=== PATIENT | female | born 1950 | race Caucasian/White ===

== ENCOUNTER → 2016-11-26 | Outpatient (CLI) | payer MEDICARE, BC, OTHER ==
[~2016-11-26] MED LIST: ASPI325T4 PO; CA C1TAB38 PO; CALC-112 PO; CELE200C PO; CIPR500T PO; CLOP75TA PO; CLOP75TA27 PO; CRESTOR40 MG PO; DULO60CA6 PO; HYDR-2666 PO; LEVO112T4 PO; LISI-334 PO; LOSA25TA4 PO; METO25TA4 PO; MOME17SP NS; NORT25CA PO; OMEG300C PO; RABE20TA5 PO; SITA100T PO; SOLI5TAB PO; VIT D3
--- NOTE | 2016-11-26 14:21 | RAD ---
DATE: 11/26/16 EXAM: DIGITAL SCREEN BILAT W/CAD HISTORY: Routine screening COMPARISON: 06/30/15 This study was interpreted with the benefit of Computerized Aided Detection (CAD). TECHNIQUE: CC and MLO views of both breasts are obtained FINDINGS: The breast tissue density is [A ] . is primarily fatty replaced, category A. There are no dominant suspicious masses, suspicious microcalcifications or evidence of architectural distortion. Skin and nipples are intact IMPRESSION: Negative exam BI-RADS CATEGORY: 1 NEGATIVE RECOMMENDED FOLLOW-UP: 12M 12 MONTH FOLLOW-UP PQRS compliance statement: Patient information was entered into a reminder system with a target due date for the next mammogram. Mammography is a sensitive method for finding small breast cancers, but it does not detect them all and is not a substitute for careful clinical examination. A negative mammogram does not negate a clinically suspicious finding and should not result in delay in biopsying a clinically suspicious abnormality. "Our facility is accredited by the [employer] Mammography Program."
== END | disposition home or self-care (01) ==
LOC: MAMMO 13:20
PROVIDERS: ATTEND Nurse Practitioner Family
DX: Z12.31 Encounter for screening mammogram for malignant neoplasm of breast (principal)
CPT/HCPCS: G0202; 77067

== ENCOUNTER 2016-12-10 15:48 | Inpatient (IN) | payer MEDICARE, BC, OTHER ==
[~2016-12-10] VITALS: Ht 152.4 cm; Wt 90.7 kg
[2016-12-10] VITALS (7 sets, daily range): BP systolic 134–148; BP diastolic 62–82
[~2016-12-10 15:48] MED LIST changes: -CIPR500T PO; -HYDR-2666 PO
[2016-12-10] MEDS ORDERED: THROMBIN 20,000 UNIT SPRAY.SYRN KIT TP ONE (16:38)
[2016-12-10] MEDS ORDERED: SURGICEL HEMOSTAT 4X8 EACH. ONE (16:39)
[2016-12-10] MEDS ORDERED: BUPIVAC MPF-EPI 0.5%-1:200000 30 ML VIAL. ONE (16:39)
[2016-12-10] MEDS ORDERED: GELATIN SPONGE SIZE 100. ONE (16:39)
[2016-12-10] MEDS ORDERED: GLYCOPYRROLATE 1 MG/5 ML VIAL. ONE (16:42)
[2016-12-10] MEDS ORDERED: FENTANYL PF 100 MCG/2 ML VIAL. ONE ×2 (16:42→17:48)
[2016-12-10] MEDS ORDERED: DEXAMETHASONE SOD PHOS 20 MG/5 ML VIAL. ONE (16:42)
[2016-12-10] MEDS ORDERED: LIDOCAINE 2% 100 MG/5 ML DISP.SYRIN. ONE (16:42)
[2016-12-10] MEDS ORDERED: DESFLURANE > 120 MINUTES IH ONE (16:42)
[2016-12-10] MEDS ORDERED: ROCURONIUM 50 MG/5 ML VIAL. ONE (16:42)
[2016-12-10] MEDS ORDERED: NEOSTIGMINE METHYLSULFATE 5 MG/5 ML SYRINGE. ONE (16:42)
[2016-12-10] MEDS ORDERED: PROPOFOL 20 ML IV ONE (16:42)
[2016-12-10] MEDS ORDERED: ONDANSETRON PF 4 MG/2 ML VIAL. ONE (16:43)
[2016-12-10] MEDS ORDERED: CEFAZOLIN 2GM PREMIX 50 ML IV ONE (16:53)
[2016-12-10] MEDS ORDERED: MANNITOL 25% 12.5 G/50 ML VIAL FOR OR. ONE (16:53)
[2016-12-10] MEDS ORDERED: PHENYLEPHRINE in 0.9% NACL PF 1 MG/10 ML DISP.SYRIN. IV ONE (17:24)
[2016-12-10] MEDS ORDERED: BACITRACIN 50,000 UNIT in IV NORMAL SALINE 1000ML BAG 1,000 ML IRR ONE (17:40)
[2016-12-10] MEDS ORDERED: IV RINGERS,LACTATED 1000ML 1,000 ML IV SCH (18:41)
[2016-12-10] MEDS ORDERED: FENTANYL PF 100 MCG/2 ML VIAL. IV PRN (18:45)
[2016-12-10] MEDS ORDERED: HYDROMORPHONE 2 MG/ML VIAL. IV PRN (18:45)
[2016-12-10] MEDS ORDERED: LIDOCAINE 1% 1 ML SYRINGE. ID PRN (18:45)
[2016-12-10] MEDS ORDERED: ONDANSETRON PF 4 MG/2 ML VIAL. IV PRN ×2 (18:45→19:45)
[2016-12-10] MEDS ORDERED: MORPHINE SULFATE 2 MG/ML DISP.SYRIN. IV PRN (18:45)
[2016-12-10] MEDS ORDERED: PROCHLORPERAZINE 10 MG/2 ML VIAL. IV PRN (18:45)
[2016-12-10] MEDS: POTASSIUM CL 20MEQ-0.45% NACL 1,000 ML IV SCH (19:42)
[2016-12-10] MEDS ORDERED: CALCIUM CARBONATE 500 MG TAB.CHEW PO PRN (19:45)
[2016-12-10] MEDS ORDERED: DIPHENHYDRAMINE HCL 25 MG CAPSULE PO PRN (19:45)
[2016-12-10] MEDS ORDERED: 0.9 % SODIUM CHLORIDE 10 ML DISP.SYRIN. IV PRN (19:45)
[2016-12-10] MEDS ORDERED: MAG HYDROX/ALUMINUM HYD/SIMETH 30 ML ORAL.SUSP PO PRN (19:45)
[2016-12-10] MEDS ORDERED: DEXTROSE 50% 25 GM / 50ML DISP.SYRIN. IV PRN ×3 (19:45)
[2016-12-10] MEDS ORDERED: DIPHENHYDRAMINE 50 MG/ML VIAL IV PRN (19:45)
[2016-12-10] MEDS ORDERED: MAGNESIUM HYDROXIDE 2,400 MG/30 ML ORAL.SUSP. PO PRN (19:45)
[2016-12-10] MEDS ORDERED: NICARDIPINE HCL 50 MG in IV NORMAL SALINE 250ML 250 ML IV PRN (19:45)
[2016-12-10] MEDS ORDERED: FLUTICASONE 50MCG/NASAL SPRAY 16GM BOTTLE. NS PRN (22:45)
[2016-12-10] MEDS: CEFAZOLIN SODIUM 1 GM in IV NORMAL SALINE 50ML 50 ML IV SCH (23:00)
--- NOTE | 2016-12-10 23:18 | HP ---
ADMIT DATE: 12/10/2016 CHIEF COMPLAINT: Headache. HISTORY OF PRESENT ILLNESS: The patient is a 65-year-old woman who presented to the Emergency Room with fairly quick onset of headache, nausea, vomiting and slurred speech. A CT in the Emergency Room revealed a fairly good sized SDH on the right and a consult with Dr. Castillo was obtained immediately. She was taken to the OR for extraction of SDH. The patient is now in the ICU recovering well. Headache is minimal and she is responsive. Denies any other neurological symptoms. PAST MEDICAL HISTORY: Hypertension, PUD, osteoarthritis, hypothyroidism. FAMILY HISTORY: Unknown. SOCIAL HISTORY: No toxic habits. ALLERGIES: No known drug allergies. MEDICATIONS: Home medications reconciled with MAR. REVIEW OF SYSTEMS: The patient is sleepy, but waking to verbal stimuli. Review of systems abbreviated secondary to fatigue and recovery from anesthesia. Denies significant headache, minimal in comparison to earlier today. Denies any nausea, vomiting, any vision problems. PHYSICAL EXAMINATION: VITAL SIGNS: From today show a blood pressure of 135/82, heart rate of 78, respiratory rate is 16. She is afebrile. GENERAL: This is a well-nourished 65-year-old woman resting in bed with eyes closed. HEENT: Shows gauze covered bur hole on the right parietal area. NECK: Supple. LUNGS: Clear to auscultation bilaterally. CARDIOVASCULAR: Regular rate and rhythm. ABDOMEN: Obese, positive bowel sounds, soft, nontender. EXTREMITIES: Show no edema, no clubbing. No cyanosis. LABORATORY DATA: CBC with a WBC of 10.6, hemoglobin of 11.9, MCV of 74, platelets of 308. Chemistries with a BUN and creatinine of 20 and 1.8, normal electrolytes, glucose 132, repeat blood sugars in the 130 to 140 area. Calcium within normal. IMAGING: CT of the head obtained at [facility], unavailable for review here. ASSESSMENT AND PLAN: The patient is a 65-year-old woman with subdural hematoma. Per Dr. Castillo, bleed appeared to be acute and was evacuated successfully earlier today. She is now recovering appropriately in the ICU. Continue to monitor. Blood pressure is borderline. We will restart p.o. medications. Add hydralazine p.r.n. for blood pressure control during the night. Further adjustment in her medications may be indicated. She is on multiple potential blood thinners including aspirin, Plavix and celecoxib. We will hold all except for baby aspirin for heart protection. We will monitor H and H. Serial CTs q. [address] Fonseca. Osteoarthritis, will be treated for now with Tylenol or Lortab p.r.n. The patient does have a history of PUD and is on Aciphex at home. We will switch to Protonix as available here. MAYDA MARAVILLA MD DR: UR/nts JOB#: [id number] / [id number] OLYA Mendez APRN
[2016-12-11] VITALS (24 sets, daily range): BP systolic 118–156; BP diastolic 55–85
[2016-12-11] MEDS: hydrALAZINE 20 MG/ML VIAL. IVP PRN ×2 (00:14→05:09)
[2016-12-11] MEDS: FENTANYL PF 100 MCG/2 ML VIAL. IV PRN ×2 (00:15→05:10)
[2016-12-11 04:54] LABS: BASO # 0.1 x10^3/uL (0.0-0.2); BASO % 0 % (0-3); EOS % 0 % (0-3); HEMATOCRIT 39.9 % (36.0-47.0); HEMOGLOBIN 12.8 g/dL (12.0-15.5); LYMPH # 1.5 x10^3/uL (1.0-4.8); LYMPH % 6 % (24-48); MEAN CORPUSCULAR HEMOGLOBIN 28 pg (25-35); MEAN CORPUSCULAR HGB CONC 32 g/dL (31-37); MEAN CORPUSCULAR VOLUME 86 fL (79-100); MONO % 2 % (0-9); NEUT % 92 % (31-73); PLATELET COUNT 274 x10^3/uL (140-400); RED BLOOD COUNT 4.62 x10^6/uL (3.50-5.40); RED CELL DISTRIBUTION WIDTH 13.6 % (11.5-14.5); WHITE BLOOD COUNT 26.6 x10^3/uL (4.0-11.0)
[2016-12-11 05:04] LABS: CALCIUM 9.1 mg/dL (8.5-10.1); CREATININE 1.1 mg/dL (0.6-1.0); GFR 49.5; POTASSIUM 4.3 mmol/L (3.5-5.1)
[2016-12-11 05:07] LABS: INR 1.1 (0.8-1.1); PROTHROMBIN TIME PATIENT 13.2 SEC (11.7-14.0)
[2016-12-11 06:29] LABS: % EOS 1 % (0-5); PLT ESTIMATE ADEQUATE (ADEQUATE)
[2016-12-11] MEDS: CEFAZOLIN SODIUM 1 GM in IV NORMAL SALINE 50ML 50 ML IV SCH ×2 (07:35→18:05)
[2016-12-11] MEDS: LEVOTHYROXINE 112 MCG TABLET PO SCH (07:35)
[2016-12-11] MEDS: PANTOPRAZOLE 40 MG TABLET. PO SCH ×2 (07:37→08:58)
[2016-12-11] MEDS: NORTRIPTYLINE 25 MG CAPSULE PO SCH (08:57)
[2016-12-11] MEDS: LOSARTAN POTASSIUM 50 MG TABLET. PO SCH (08:58)
[2016-12-11] MEDS: METOPROLOL TART IMMED RELEASE 25 MG TABLET PO SCH ×2 (08:58→21:21)
[2016-12-11] MEDS: OXYBUTYNIN CHLORIDE 5 MG TABLET PO SCH ×3 (08:59→21:21)
[2016-12-11] MEDS: DULOXETINE HCL 30 MG CAPSULE.DR. PO SCH (08:59)
[2016-12-11] MEDS ORDERED: CHOLECALCIFEROL (VITAMIN D3) 1,000 UNIT TABLET PO SCH (09:00)
[2016-12-11] MEDS ORDERED: ASPIRIN 325 MG TABLET PO SCH (09:00)
[2016-12-11] MEDS: CHOLECALCIFEROL (VITAMIN D3) 1,000 UNIT TABLET PO SCH (09:00)
[2016-12-11] MEDS: LINAGLIPTIN 5 MG TABLET PO SCH (09:00)
[2016-12-11] MEDS ORDERED: OMEGA-3 FATTY ACIDS/FISH OIL 1,000 MG CAPSULE. PO SCH (09:00)
[2016-12-11] MEDS: POTASSIUM CL 20MEQ-0.45% NACL 1,000 ML IV SCH (09:02)
--- NOTE | 2016-12-11 11:29 | PDOC ---
PROGRESS NOTES Chief Complaint Chief Complaint SDH ASSESSMENT AND PLAN: 1. SDH: s/p evacuation 12/[address] Torres. recovering well. worsening expressive aphasia since procedure; present at admit as well. start decadron IV. d/w Dr Torres 2. HTN: much improved. currently on home regimen 3. CAD: no acute issues. previously on ASA/plavix. latter currently on hold 4. OA: hold NSAID. tylenol PRN, lortab 5. PUD: on PPI Vitals Vitals Vital Signs Date Time Temp Pulse Resp B/P Pulse Ox O2 Delivery O2 Flow Rate FiO2 12/11/16 10:41 98.9 94 121/58 95 Nasal Cannula 2.0 98.9 12/11/16 09:40 16 Physical Exam Physical Exam mild aphasia, MS 5/5 x4 General: Alert, Cooperative, No acute distress Heart: Regular rate Lungs: Clear Abdomen: Normal bowel sounds, No tenderness Extremities: No clubbing, No edema Skin: No rashes Labs LABS Laboratory Tests Test 12/10/16 19:37 12/11/16 04:40 Glucose (Fingerstick) 136mg/dL (70-99) White Blood Count 26.6x10^3/uL (4.0-11.0) Red Blood Count 4.62x10^6/uL (3.50-5.40) Hemoglobin 12.8g/dL (12.0-15.5) Hematocrit 39.9% (36.0-47.0) Mean Corpuscular Volume 86fL (79-100) Mean Corpuscular Hemoglobin 28pg (25-35) Mean Corpuscular Hemoglobin Concent 32g/dL (31-37) Red Cell Distribution Width 13.6% (11.5-14.5) Platelet Count 274x10^3/uL (140-400) Neutrophils (%) (Auto) 92% (31-73) Lymphocytes (%) (Auto) 6% (24-48) Monocytes (%) (Auto) 2% (0-9) Eosinophils (%) (Auto) 0% (0-3) Basophils (%) (Auto) 0% (0-3) Neutrophils # (Auto) 24.6x10^3uL (1.8-7.7) Lymphocytes # (Auto) 1.5x10^3/uL (1.0-4.8) Monocytes # (Auto) 0.4x10^3/uL (0.0-1.1) Eosinophils # (Auto) 0.0x10^3/uL (0.0-0.7) Basophils # (Auto) 0.1x10^3/uL (0.0-0.2) Segmented Neutrophils % 94% (35-66) Band Neutrophils % 1% (0-9) Lymphocytes % 3% (24-48) Monocytes % 1% (0-10) Eosinophils % 1% (0-5) Platelet Estimate Adequate (ADEQUATE) Prothrombin Time 13.2SEC (11.7-14.0) Prothromb Time International Ratio 1.1 (0.8-1.1) Activated Partial Thromboplast Time 26SEC (24-38) Sodium Level 139mmol/L (136-145) Potassium Level 4.3mmol/L (3.5-5.1) Chloride Level 103mmol/L (98-107) Carbon Dioxide Level 24mmol/L (21-32) Anion Gap 12 (6-14) Blood Urea Nitrogen 15mg/dL (7-20) Creatinine 1.1mg/dL (0.6-1.0) Estimated GFR (Cockcroft-Gault) 49.5 Glucose Level 189mg/dL (70-99) Calcium Level 9.1mg/dL (8.5-10.1) Review of Systems Review of Systems no WILL. MAYDA Cabrera MD Dec 11, 2016 11:29
[2016-12-11] MEDS ORDERED: DEXAMETHASONE SOD PHOS 20 MG/5 ML VIAL. IV ONE (11:45)
[2016-12-11] MEDS ORDERED: HYDROCODONE/APAP 5/325MG TABLET. PO PRN (13:45)
[2016-12-11] MEDS: HYDROCODONE/APAP 5/325MG TABLET. PO PRN ×2 (13:52→14:49)
--- NOTE | 2016-12-11 14:11 | PDOC ---
PROGRESS NOTES Subjective Subjective POD #1 awake, alert mild headache family at bedside Objective Objective Vital Signs Date Time Temp Pulse Resp B/P Pulse Ox O2 Delivery O2 Flow Rate FiO2 12/11/16 13:52 16 95 Nasal Cannula 2.0 12/11/16 13:45 98.9 94 118/69 98.9 Intake and Output 12/11/16 07:00 Intake Total 2080 ml Output Total 545 ml Balance 1535 ml Intake Oral 280 ml IV Total 1800 ml Output Urine Total 525 ml Estimated Blood Loss 20 ml # Voids 1 Physical Exam General: Alert, Oriented X3, Cooperative, No acute distress, Other (some expressive aphasia) MUSCULOSKELETAL: Other (CESPEDES, pupils equal) Skin: Other (dressing changed, drain in place with minimal output, connie intact) Assessment Assessment Problems Medical Problems: (1) Subdural hematoma Status: Acute Plan Plan of Care steroids for 24 hrs continue drain keep in ICU may be up to bathroom DVT/ SCDs Comment Review of Relevant I have reviewed the following items jessica (where applicable) has been applied. Labs Laboratory Tests Test 12/10/16 16:32 12/10/16 19:37 12/11/16 04:40 Glucose (Fingerstick) 138mg/dL (70-99) 136mg/dL (70-99) White Blood Count 26.6x10^3/uL (4.0-11.0) Red Blood Count 4.62x10^6/uL (3.50-5.40) Hemoglobin 12.8g/dL (12.0-15.5) Hematocrit 39.9% (36.0-47.0) Mean Corpuscular Volume 86fL (79-100) Mean Corpuscular Hemoglobin 28pg (25-35) Mean Corpuscular Hemoglobin Concent 32g/dL (31-37) Red Cell Distribution Width 13.6% (11.5-14.5) Platelet Count 274x10^3/uL (140-400) Neutrophils (%) (Auto) 92% (31-73) Lymphocytes (%) (Auto) 6% (24-48) Monocytes (%) (Auto) 2% (0-9) Eosinophils (%) (Auto) 0% (0-3) Basophils (%) (Auto) 0% (0-3) Neutrophils # (Auto) 24.6x10^3uL (1.8-7.7) Lymphocytes # (Auto) 1.5x10^3/uL (1.0-4.8) Monocytes # (Auto) 0.4x10^3/uL (0.0-1.1) Eosinophils # (Auto) 0.0x10^3/uL (0.0-0.7) Basophils # (Auto) 0.1x10^3/uL (0.0-0.2) Segmented Neutrophils % 94% (35-66) Band Neutrophils % 1% (0-9) Lymphocytes % 3% (24-48) Monocytes % 1% (0-10) Eosinophils % 1% (0-5) Platelet Estimate Adequate (ADEQUATE) Prothrombin Time 13.2SEC (11.7-14.0) Prothromb Time International Ratio 1.1 (0.8-1.1) Activated Partial Thromboplast Time 26SEC (24-38) Sodium Level 139mmol/L (136-145) Potassium Level 4.3mmol/L (3.5-5.1) Chloride Level 103mmol/L (98-107) Carbon Dioxide Level 24mmol/L (21-32) Anion Gap 12 (6-14) Blood Urea Nitrogen 15mg/dL (7-20) Creatinine 1.1mg/dL (0.6-1.0) Estimated GFR (Cockcroft-Gault) 49.5 Glucose Level 189mg/dL (70-99) Calcium Level 9.1mg/dL (8.5-10.1) Laboratory Tests Test 12/10/16 16:32 12/10/16 19:37 12/11/16 04:40 Glucose (Fingerstick) 138mg/dL (70-99) 136mg/dL (70-99) White Blood Count 26.6x10^3/uL (4.0-11.0) Red Blood Count 4.62x10^6/uL (3.50-5.40) Hemoglobin 12.8g/dL (12.0-15.5) Hematocrit 39.9% (36.0-47.0) Mean Corpuscular Volume 86fL (79-100) Mean Corpuscular Hemoglobin 28pg (25-35) Mean Corpuscular Hemoglobin Concent 32g/dL (31-37) Red Cell Distribution Width 13.6% (11.5-14.5) Platelet Count 274x10^3/uL (140-400) Neutrophils (%) (Auto) 92% (31-73) Lymphocytes (%) (Auto) 6% (24-48) Monocytes (%) (Auto) 2% (0-9) Eosinophils (%) (Auto) 0% (0-3) Basophils (%) (Auto) 0% (0-3) Neutrophils # (Auto) 24.6x10^3uL (1.8-7.7) Lymphocytes # (Auto) 1.5x10^3/uL (1.0-4.8) Monocytes # (Auto) 0.4x10^3/uL (0.0-1.1) Eosinophils # (Auto) 0.0x10^3/uL (0.0-0.7) Basophils # (Auto) 0.1x10^3/uL (0.0-0.2) Segmented Neutrophils % 94% (35-66) Band Neutrophils % 1% (0-9) Lymphocytes % 3% (24-48) Monocytes % 1% (0-10) Eosinophils % 1% (0-5) Platelet Estimate Adequate (ADEQUATE) Prothrombin Time 13.2SEC (11.7-14.0) Prothromb Time International Ratio 1.1 (0.8-1.1) Activated Partial Thromboplast Time 26SEC (24-38) Sodium Level 139mmol/L (136-145) Potassium Level 4.3mmol/L (3.5-5.1) Chloride Level 103mmol/L (98-107) Carbon Dioxide Level 24mmol/L (21-32) Anion Gap 12 (6-14) Blood Urea Nitrogen 15mg/dL (7-20) Creatinine 1.1mg/dL (0.6-1.0) Estimated GFR (Cockcroft-Gault) 49.5 Glucose Level 189mg/dL (70-99) Calcium Level 9.1mg/dL (8.5-10.1) Medications Current Medications Thrombin 20,000 unit STK-MED ONCE TP Last administered on 12/10/16t 17:56; Start 12/10/16 at 16:38; Stop 12/10/16 at 16:39; Status DC Gelatin (Gelfoam Size 100) 1 each STK-MED ONCE .ROUTE Last administered on t 17:56; Start 12/10/16 at 16:39; Stop 12/10/16 at 16:40; Status DC Cellulose 1 each STK-MED ONCE .ROUTE ; Start 12/10/16 at 16:39; Stop 12/10/16 at 16:40; Status DC Bupivacaine HCl/ Epinephrine Bitart (Sensorcain-Mpf Epi 0.5%-1:[id number]) 30 ml STK -MED ONCE .ROUTE Last administered on 12/10/16t 17:56; Start 12/10/16 at 16:39 ; Stop 12/10/16 at 16:40; Status DC Desflurane (Suprane) 90 ml STK-MED ONCE IH ; Start 12/10/16 at 16:42; Stop 12/10 at 16:43; Status DC Fentanyl Citrate (Fentanyl 2ml Vial) 100 mcg STK-MED ONCE .ROUTE ; Start at 16:42; Stop 12/10/16 at 16:43; Status DC Glycopyrrolate (Robinul) 1 mg STK-MED ONCE .ROUTE ; Start 12/10/16 at 16:42; Stop 12/10/16 at 16:43; Status DC Neostigmine Methylsulfate 5 mg STK-MED ONCE .ROUTE ; Start 12/10/16 at 16:42; Stop 12/10/16 at 16:43; Status DC Rocuronium [place] 50 mg 50 mg STK-MED ONCE .ROUTE ; Start 12/10/16 at 16:42; Stop 12/10/16 at 16:43; Status DC Propofol (Diprivan) 20 ml @ As Directed STK-MED ONCE IV ; Start 12/10/16 at 16: 42; Stop 12/10/16 at 16:43; Status DC Lidocaine HCl 100 mg STK-MED ONCE .ROUTE ; Start 12/10/16 at 16:42; Stop at 16:43; Status DC Dexamethasone Sodium Phosphate (Decadron) 20 mg STK-MED ONCE .ROUTE ; Start at 16:42; Stop 12/10/16 at 16:43; Status DC Ondansetron HCl 4 mg 4 mg STK-MED ONCE .ROUTE ; Start 12/10/16 at 16:43; Stop at 16:44; Status DC Cefazolin Sodium/ Dextrose (Ancef 2gm Premix) 50 ml @ As Directed STK-MED ONCE IV ; Start 12/10/16 at 16:53; Stop 12/10/16 at 16:54; Status DC Mannitol (Mannitol) 12.5 g STK-MED ONCE .ROUTE ; Start 12/10/16 at 16:53; Stop 12/10/16 at 16:54; Status DC Phenylephrine HCl 1 mg 1 mg STK-MED ONCE IV ; Start 12/10/16 at 17:24; Stop at 17:25; Status DC Bacitracin/Sodium Chloride (Iv Sodium Chloride 0.9% 1000ml Bag) 1,000 ml @ 1, 000 mls/hr 1X PERIOP ONCE IRR Last administered on 12/10/16 17:56; Start at 17:40; Stop 12/10/16 at 18:39; Status DC Fentanyl Citrate (Fentanyl 2ml Vial) 100 mcg STK-MED ONCE .ROUTE ; Start at 17:48; Stop 12/10/16 at 17:49; Status DC Ondansetron HCl (Zofran) 4 mg PRN Q6HRS PRN IV Nausea; Start 12/10/16 at 18:45 ; Stop 12/10/16 at 22:54; Status DC Fentanyl Citrate (Fentanyl 2ml Vial) 25 mcg PRN Q5MIN PRN IV MILD PAIN; Start 12/10/16 at 18:45; Stop 12/11/16 at 18:44 Fentanyl Citrate (Fentanyl 2ml Vial) 50 mcg PRN Q5MIN PRN IV MODERATE PAIN Last administered on 12/11/16 05:10; Start 12/10/16 at 18:45; Stop 12/11/16 at 18:44 Morphine Sulfate 1 mg 1 mg PRN Q10MIN PRN IV SEVERE PAIN; Start 12/10/16 at 18: 45; Stop 12/11/16 at 18:44 Lactated Ringer's (Iv Lactated Ringers) 1,000 ml @ 30 mls/hr Q24H IV Last administered on 12/10/16 16:30; Start 12/10/16 at 18:41; Stop 12/11/16 at 06:40 ; Status DC Lidocaine HCl 2 ml 1X PRN PRN ID IV START; Start 12/10/16 at 18:45; Stop at 18:44 Hydromorphone HCl (Dilaudid) 0.5 mg PRN Q10MIN PRN IV SEV PAIN,Second choice; Start 12/10/16 at 18:45; Stop 12/11/16 at 18:44 Prochlorperazine Edisylate 5 mg 5 mg PACU PRN PRN IV NAUSEA; Start 12/10/16 at 18:45; Stop 12/11/16 at 18:44 Nicardipine HCl/ Sodium Chloride (Cardene/Iv Sodium Chloride 0.9% 250ml) 270 ml @ 27 mls/hr TITRATE PRN IV PER PROTOCOL; Start 12/10/16 at 19:45 Al Hydroxide/Mg Hydroxide (Mylanta Plus Xs) 30 ml PRN Q3HRS PRN PO HEARTBURN / GAS; Start 12/10/16 at 19:45 Calcium Carbonate/ Glycine (Tums) 500 mg PRN Q3HRS PRN PO INDIGESTION; Start at 19:45 Diphenhydramine HCl (Benadryl) 25 mg PRN Q6HRS PRN PO ITCHING; Start 12/10/16 at 19:45 Diphenhydramine HCl (Benadryl) 25 mg PRN Q6HRS PRN IV ITCHING; Start 12/10/16 at 19:45 Sodium Chloride 3 ml 3 ml QSHIFT PRN IV AFTER MEDS AND BLOOD DRAWS; Start 12/10 at 19:45 Potassium Chloride/Sodium Chloride (KCl 20 Meq-0.45% Nacl) 1,000 ml @ 75 mls/ hr [id number] IV Last administered on 12/10/16t 19:42; Start 12/10/16 at 19:42 Dextrose 12.5 gm PRN Q15MIN PRN IV SEE COMMENTS; Start 12/10/16 at 19:45 Magnesium Hydroxide (Milk Of Magnesia) 2,400 mg PRN Q12HR PRN PO CONSTIPATION; Start 12/10/16 at 19:45 Ondansetron HCl 4 mg 4 mg PRN Q6HRS PRN IV NAUESA, 1ST CHOICE; Start 12/10/16 at 19:45 Cefazolin Sodium/ Sodium Chloride (Ancef/Iv Sodium Chloride 0.9% 50ml) 50 ml @ 100 mls/hr Q8H IV Last administered on 12/11/16 07:35; Start 12/10/16 at 23:00 ; Stop 12/11/16 at 15:29 Dextrose 12.5 gm PRN Q15MIN PRN IV SEE COMMENTS; Start 12/10/16 at 19:45; Stop 12/10/16 at 20:00; Status DC Dextrose 12.5 gm PRN Q15MIN PRN IV SEE COMMENTS; Start 12/10/16 at 19:45; Stop 12/10/16 at 20:00; Status DC Aspirin (Mariella Aspirin) 325 mg DAILY PO Last administered on 12/11/16 08:59; Start 12/11/16 at 09:00; Stop 12/11/16 at 13:36; Status DC Levothyroxine Sodium (Synthroid) 112 mcg DAILY07 PO Last administered on 07:35; Start 12/11/16 at 07:00 Losartan Potassium (Cozaar) 50 mg DAILY PO Last administered on 12/11/16 08:58 ; Start 12/11/16 at 09:00 Metoprolol Tartrate (Lopressor) 25 mg BID PO Last administered on 12/11/16 08: 58; Start 12/11/16 at 09:00 Nortriptyline HCl (Pamelor) 25 mg DAILY PO Last administered on 12/11/16 08:57 ; Start 12/11/16 at 09:00 Duloxetine HCl (Cymbalta) 60 mg DAILY PO Last administered on 12/11/16 08:59; Start 12/11/16 at 09:00 Fluticasone Propionate (Flonase) 1 spray PRN DAILY PRN NS SINUS INFLAMATION; Start 12/10/16 at 22:45 Fish Oil (Fish Oil) 1,000 mg DAILY PO Last administered on 12/11/16 08:59; Start 12/11/16 at 09:00; Stop 12/11/16 at 13:36; Status DC Pantoprazole Sodium (Protonix) 40 mg DAILYAC PO Last administered on 12/11/16 07:37; Start 12/11/16 at 07:30 Atorvastatin Calcium (Lipitor) 80 mg HS PO ; Start 12/11/16 at 21:00 Linagliptin (Tradjenta) 5 mg DAILY PO Last administered on 12/11/16 09:00; Start 12/11/16 at 09:00 Oxybutynin Chloride (Ditropan) 5 mg TID PO Last administered on 12/11/16 08:59 ; Start 12/11/16 at 09:00 Vitamin D (Vitamin D3) 2,000 unit DAILY PO Last administered on 12/11/16 09:02 ; Start 12/11/16 at 09:00; Stop 12/11/16 at 13:43; Status DC Vitamin D (Vitamin D3) 2,000 unit DAILY PO ; Start 12/11/16 at 09:00 Hydralazine HCl (Apresoline) 10 mg PRN Q4HRS PRN IVP ELEVATED BP, SEE COMMENTS Last administered on 12/11/16 05:09; Start 12/10/16 at 23:00 Dexamethasone Sodium Phosphate (Decadron) 10 mg 1X ONCE IV Last administered on 12/11/16 12:55; Start 12/11/16 at 11:45; Stop 12/11/16 at 11:46; Status DC Acetaminophen/ Hydrocodone Bitart (Lortab 5/325) 1 tab PRN Q4HRS PRN PO PAIN Last administered on 12/11/16 13:52; Start 12/11/16 at 13:45 Acetaminophen/ Hydrocodone Bitart (Lortab 5/325) 2 tab PRN Q4HRS PRN PO PAIN; Start 12/11/16 at 13:45 Active Scripts Active Reported Citracal + D Er Tablet (Calcium Carb & Cit/Vitamin D3) 1 Each Tablet.er 1 Each PO Nasonex (Mometasone Furoate) 17 Gm [place].pump 17 Gm NS PRN Clopidogrel (Clopidogrel Bisulfate) 75 Mg Tablet 75 Mg PO DAILY Losartan Potassium 25 Mg Tablet 50 Mg PO Fish Oil (Turner-3 Fatty Acids) 300 Mg Capsule 300 Mg PO DAILY Cymbalta (Duloxetine Hcl) 60 Mg Capsule.dr 60 Mg PO DAILY Crestor (Rosuvastatin Calcium) 40 Mg Tablet 40 Mg PO HS Levothyroxine Sodium 112 Mcg Tablet 112 Mcg PO DAILY Aciphex (Rabeprazole Sodium) 20 Mg Tablet.dr 20 Mg PO DAILY Vesicare (Solifenacin Succinate) 5 Mg Tablet 10 Mg PO DAILY Januvia (Sitagliptin Phosphate) 100 Mg Tablet 100 Mg PO DAILY Celebrex (Celecoxib) 200 Mg Capsule 200 Mg PO DAILY Metoprolol Tartrate 25 Mg Tablet 25 Mg PO BID Aspirin 325 Mg Tablet 325 Mg PO DAILY [Vit D3] 2,000 Units DAILY Nortriptyline Hcl 25 Mg Capsule 25 Mg PO DAILY Vitals/I & O Vital Sign - Last 24 Hours 12/10/16 12/10/16 12/10/16 12/10/16 16:21 19:15 19:15 19:30 Temp 100.1 98.2 100.1 98.2 Pulse 80 74 72 Resp 16 18 B/P 152/79 130/60 143/70 Pulse Ox 98 95 98 O2 Delivery Room Air Mask Simple Mask Simple Mask O2 Flow Rate 10 8 10 12/10/16 12/10/16 12/10/16 12/10/16 19:45 20:00 20:02 20:15 Temp 98.7 98.7 Pulse 72 72 72 Resp 18 18 B/P 140/62 138/58 134/59 Pulse Ox 94 94 94 O2 Delivery Nasal Cannula Nasal Cannula Nasal Cannula Nasal Cannula O2 Flow Rate 2 2 2 2 12/10/16 12/10/16 12/10/16 12/10/16 20:45 21:00 21:00 21:00 Temp 97.8 97.8 Pulse 76 76 76 Resp 16 B/P 134/62 142/66 142/66 Pulse Ox 94 96 O2 Delivery Nasal Cannula Nasal Cannula O2 Flow Rate 2.0 2.0 12/10/16 12/10/16 12/10/16 12/10/16 21:00 21:15 21:30 21:45 Pulse 70 70 78 Resp 16 B/P 138/64 142/68 135/82 Pulse Ox 96 96 96 O2 Delivery Nasal Cannula Nasal Cannula Nasal Cannula Nasal Cannula O2 Flow Rate 2.0 2.0 2.0 2.0 12/10/16 12/10/16 12/11/16 12/11/16 22:15 22:45 00:00 00:00 Temp 98.0 98.0 Pulse 84 82 80 Resp 16 16 16 B/P 136/68 148/72 142/76 Pulse Ox 96 98 96 O2 Delivery Nasal Cannula Nasal Cannula Nasal Cannula Nasal Cannula O2 Flow Rate 2.0 2.0 2.0 2.0 12/11/16 12/11/16 12/11/16 12/11/16 00:14 01:00 01:00 02:00 Pulse 80 88 88 88 Resp 16 20 B/P 166/81 151/67 139/73 156/66 Pulse Ox 98 96 O2 Delivery Nasal Cannula Nasal Cannula O2 Flow Rate 2.0 2.0 12/11/16 12/11/16 12/11/16 12/11/16 03:00 04:00 04:00 05:00 Temp 98.9 98.9 Pulse 88 92 99 Resp 20 18 B/P 146/75 138/73 129/62 Pulse Ox 97 96 O2 Delivery Nasal Cannula Nasal Cannula Nasal Cannula O2 Flow Rate 2.0 2.0 2.0 12/11/16 12/11/16 12/11/16 12/11/16 05:00 05:09 06:00 07:00 Temp 98.9 98.9 Pulse 100 102 94 94 Resp 18 18 B/P 132/64 142/69 138/62 136/64 Pulse Ox 94 95 95 O2 Delivery Nasal Cannula Nasal Cannula Nasal Cannula O2 Flow Rate 2.0 2.0 2.0 12/11/16 12/11/16 12/11/16 12/11/16 07:40 08:00 08:58 08:58 Temp 98.9 98.9 Pulse 94 100 94 B/P 130/65 127/67 136/64 Pulse Ox 95 O2 Delivery Nasal Cannula Nasal Cannula O2 Flow Rate 2.0 2.0 12/11/16 12/11/16 12/11/16 12/11/16 09:00 09:40 10:41 11:57 Temp 98.9 98.9 98.9 98.9 98.9 98.9 Pulse 94 94 94 94 Resp 16 B/P 136/64 121/68 121/58 120/55 Pulse Ox 95 95 95 O2 Delivery Nasal Cannula Nasal Cannula Nasal Cannula O2 Flow Rate 2.0 2.0 2.0 12/11/16 12/11/16 12/11/16 12/11/16 12:00 12:43 13:45 13:52 Temp 98.9 98.9 98.9 98.9 Pulse 94 94 Resp 14 16 B/P 118/69 118/69 Pulse Ox 95 95 95 O2 Delivery Nasal Cannula Nasal Cannula Nasal Cannula Nasal Cannula O2 Flow Rate 2.0 2.0 2.0 2.0 Intake and Output 12/10/16 12/10/16 12/11/16 15:00 23:00 07:00 Intake Total 1180 ml 900 ml Output Total 245 ml 300 ml Balance 935 ml 600 ml ANJANA BENSON MD Dec 11, 2016 14:11
[2016-12-11] MEDS: DEXAMETHASONE SOD PHOS 4 MG/ML VIAL IV SCH ×2 (18:10→23:38)
[2016-12-11] MEDS: ATORVASTATIN CALCIUM 40 MG TABLET. PO SCH (21:21)
--- NOTE | 2016-12-11 23:51 | OP ---
DATE OF SURGERY: 12/10/2016 PREOPERATIVE DIAGNOSES: Left frontotemporal parietal acute subdural hematoma with left to right shift. POSTOPERATIVE DIAGNOSES: Left frontotemporal parietal acute subdural hematoma with left to right shift. OPERATION PERFORMED: Left frontotemporal parietal craniotomy with evacuation of acute subdural hematoma and placement of drain. SURGEON: Lee Benson M.D. OPERATIVE INDICATIONS: The patient is a very pleasant 66-year-old woman, who has undergone a lumbar spine operations by me in the past and has done well. She fell about 3 weeks ago, struck the right side of her face and developed a significant ecchymosis over her right face and then on the day of admission developed, acutely feelings of unsteadiness in the afternoon combined with light headedness and then extremely severe headache with nausea and vomiting. She was taken to the Emergency Room and evaluated, the CT scan of the head was performed and she was transferred to [facility] for further evaluation and treatment. The patient was on Plavix. At the time she was seen, she was neurologically intact, her speech was slightly slowed and there was a mild right drift, but otherwise she was neurologically intact. On her imaging studies, there was a large acute subdural hematoma in the left frontotemporal parietal region with significant left to right shift. My concerns with on Plavix. She may continue to bleed. She had a significant shift and I felt it most prudent to operate emergently removed the subdural, obtain hemostasis and try to prevent severe neurologic sequelae. I did discuss this and consent was given. DESCRIPTION OF PROCEDURE: Following general endotracheal anesthesia, the patient was positioned supine on the operating room table, a roll was placed beneath the left shoulder and head was turned to 90 degrees to the right and the left calvarium was clipped, prepped and draped in standard fashion. SAMANTA hose and AV impulse boots were applied for DVT prophylaxis. Ancef 2 grams was given less than 1 hour prior to initiation of surgery. A reverse question jessica type incision was made Aesculap clips were used along the skin edge and I flap the skin and temporalis muscle forward and placed self-retaining retractors. I brought in the high-speed air drill, made 3 lily holes, which were then connected with the craniotome and the brain flap was developed. The dura beneath was very tense and I opened the dura and cruciate fashion and there was a significant expression of gelatinous clotted blood along with some fresh blood beneath. I gently worked and removed the exposed clotted blood and there was an area of active bleeding on the surface of the brain and the small focus was coagulated. I then gently retracted the brain with a large brain retractor and removed clot, especially from the temporal region and then anteriorly and posteriorly and as I worked, I was able to get an excellent removal of the blood clots. I irrigated copiously with saline and at this point, I had excellent hemostasis. I closed the dura with interrupted 4-0 Nurolon and drainage and the bone flap was replaced and secured with microplates. The temporalis muscle was closed separate layer and then the skin and subcutaneous tissue were closed with interrupted absorbable sutures and the skin with skin connie. The operation went well and the patient was awakened uneventfully, taken to recovery room in excellent condition. Prior to closure, I did place a 7-Ghanaian perforated drain, which I brought out through a small separate stab incision. I felt the surgery went very well. LEE BENSON MD DR: WILBUR/jak JOB#: [id number] / [id number] KIMBERLY
[2016-12-12] VITALS (23 sets, daily range): BP systolic 106–166; BP diastolic 56–90
[2016-12-12] MEDS: hydrALAZINE 20 MG/ML VIAL. IVP PRN (03:39)
[2016-12-12] MEDS: DEXAMETHASONE SOD PHOS 4 MG/ML VIAL IV SCH ×2 (05:28→12:00)
[2016-12-12 05:37] LABS: BASO # 0.2 x10^3/uL (0.0-0.2); BASO % 1 % (0-3); EOS % 0 % (0-3); HEMATOCRIT 36.1 % (36.0-47.0); HEMOGLOBIN 12.1 g/dL (12.0-15.5); LYMPH # 1.6 x10^3/uL (1.0-4.8); LYMPH % 9 % (24-48); MEAN CORPUSCULAR HEMOGLOBIN 28 pg (25-35); MEAN CORPUSCULAR HGB CONC 33 g/dL (31-37); MEAN CORPUSCULAR VOLUME 84 fL (79-100); MONO % 3 % (0-9); NEUT % 87 % (31-73); PLATELET COUNT 274 x10^3/uL (140-400); RED BLOOD COUNT 4.29 x10^6/uL (3.50-5.40); RED CELL DISTRIBUTION WIDTH 13.7 % (11.5-14.5)
[2016-12-12 05:52] LABS: CALCIUM 9.4 mg/dL (8.5-10.1); GFR 55.3; POTASSIUM 4.4 mmol/L (3.5-5.1)
[2016-12-12] MEDS: LEVOTHYROXINE 112 MCG TABLET PO SCH (07:36)
[2016-12-12] MEDS: PANTOPRAZOLE 40 MG TABLET. PO SCH (07:36)
[2016-12-12] MEDS: OXYBUTYNIN CHLORIDE 5 MG TABLET PO SCH ×3 (09:00→20:51)
[2016-12-12] MEDS: METOPROLOL TART IMMED RELEASE 25 MG TABLET PO SCH ×2 (09:00→20:51)
[2016-12-12] MEDS: NORTRIPTYLINE 25 MG CAPSULE PO SCH (09:37)
[2016-12-12] MEDS: LOSARTAN POTASSIUM 50 MG TABLET. PO SCH (09:38)
[2016-12-12] MEDS: LINAGLIPTIN 5 MG TABLET PO SCH (09:40)
[2016-12-12] MEDS: DULOXETINE HCL 30 MG CAPSULE.DR. PO SCH (09:40)
[2016-12-12] MEDS: CHOLECALCIFEROL (VITAMIN D3) 1,000 UNIT TABLET PO SCH (09:40)
--- NOTE | 2016-12-12 10:29 | PDOC ---
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 Ramos awake, alert mild headache speech improved Objective Objective Vital Signs Date Time Temp Pulse Resp B/P Pulse Ox O2 Delivery O2 Flow Rate FiO2 12/12/16 09:40 97 Nasal Cannula 2.0 12/12/16 09:38 88 113/63 12/12/16 06:00 22 12/12/16 04:00 98.4 98.4 Intake and Output 12/12/16 07:00 Intake Total 700 ml Output Total 2485 ml Balance -1785 ml Intake Oral 700 ml Output Urine Total 2450 ml Drainage Total 35 ml Physical Exam General: Alert, Oriented X3, Cooperative, No acute distress MUSCULOSKELETAL: Other (CESPEDES) Neuro: Other (pupils equal, strength normal in upper and lower extremities) Skin: Other (dressing intact) Assessment Assessment Problems Medical Problems: (1) Subdural hematoma Status: Acute Plan Plan of Care 35 cc out of drain will dc drain, flat for 2 hrs then may be out of bed scd/ teds keep in ICU today Comment Review of Relevant I have reviewed the following items jessica (where applicable) has been applied. Labs Laboratory Tests Test 12/10/16 16:32 12/10/16 19:37 12/10/16 20:35 12/11/16 04:40 Glucose (Fingerstick) 138mg/dL (70-99) 136mg/dL (70-99) Nasal Screen MRSA (PCR) Negative (Negative) White Blood Count 26.6x10^3/uL (4.0-11.0) Red Blood Count 4.62x10^6/uL (3.50-5.40) Hemoglobin 12.8g/dL (12.0-15.5) Hematocrit 39.9% (36.0-47.0) Mean Corpuscular Volume 86fL (79-100) Mean Corpuscular Hemoglobin 28pg (25-35) Mean Corpuscular Hemoglobin Concent 32g/dL (31-37) Red Cell Distribution Width 13.6% (11.5-14.5) Platelet Count 274x10^3/uL (140-400) Neutrophils (%) (Auto) 92% (31-73) Lymphocytes (%) (Auto) 6% (24-48) Monocytes (%) (Auto) 2% (0-9) Eosinophils (%) (Auto) 0% (0-3) Basophils (%) (Auto) 0% (0-3) Neutrophils # (Auto) 24.6x10^3uL (1.8-7.7) Lymphocytes # (Auto) 1.5x10^3/uL (1.0-4.8) Monocytes # (Auto) 0.4x10^3/uL (0.0-1.1) Eosinophils # (Auto) 0.0x10^3/uL (0.0-0.7) Basophils # (Auto) 0.1x10^3/uL (0.0-0.2) Segmented Neutrophils % 94% (35-66) Band Neutrophils % 1% (0-9) Lymphocytes % 3% (24-48) Monocytes % 1% (0-10) Eosinophils % 1% (0-5) Platelet Estimate Adequate (ADEQUATE) Prothrombin Time 13.2SEC (11.7-14.0) Prothromb Time International Ratio 1.1 (0.8-1.1) Activated Partial Thromboplast Time 26SEC (24-38) Sodium Level 139mmol/L (136-145) Potassium Level 4.3mmol/L (3.5-5.1) Chloride Level 103mmol/L (98-107) Carbon Dioxide Level 24mmol/L (21-32) Anion Gap 12 (6-14) Blood Urea Nitrogen 15mg/dL (7-20) Creatinine 1.1mg/dL (0.6-1.0) Estimated GFR (Cockcroft-Gault) 49.5 Glucose Level 189mg/dL (70-99) Calcium Level 9.1mg/dL (8.5-10.1) Test 12/12/16 05:15 White Blood Count 19.0x10^3/uL (4.0-11.0) Red Blood Count 4.29x10^6/uL (3.50-5.40) Hemoglobin 12.1g/dL (12.0-15.5) Hematocrit 36.1% (36.0-47.0) Mean Corpuscular Volume 84fL (79-100) Mean Corpuscular Hemoglobin 28pg (25-35) Mean Corpuscular Hemoglobin Concent 33g/dL (31-37) Red Cell Distribution Width 13.7% (11.5-14.5) Platelet Count 274x10^3/uL (140-400) Neutrophils (%) (Auto) 87% (31-73) Lymphocytes (%) (Auto) 9% (24-48) Monocytes (%) (Auto) 3% (0-9) Eosinophils (%) (Auto) 0% (0-3) Basophils (%) (Auto) 1% (0-3) Neutrophils # (Auto) 16.6x10^3uL (1.8-7.7) Lymphocytes # (Auto) 1.6x10^3/uL (1.0-4.8) Monocytes # (Auto) 0.6x10^3/uL (0.0-1.1) Eosinophils # (Auto) 0.0x10^3/uL (0.0-0.7) Basophils # (Auto) 0.2x10^3/uL (0.0-0.2) Sodium Level 141mmol/L (136-145) Potassium Level 4.4mmol/L (3.5-5.1) Chloride Level 102mmol/L (98-107) Carbon Dioxide Level 30mmol/L (21-32) Anion Gap 9 (6-14) Blood Urea Nitrogen 18mg/dL (7-20) Creatinine 1.0mg/dL (0.6-1.0) Estimated GFR (Cockcroft-Gault) 55.3 Glucose Level 220mg/dL (70-99) Calcium Level 9.4mg/dL (8.5-10.1) Laboratory Tests Test 12/12/16 05:15 White Blood Count 19.0x10^3/uL (4.0-11.0) Red Blood Count 4.29x10^6/uL (3.50-5.40) Hemoglobin 12.1g/dL (12.0-15.5) Hematocrit 36.1% (36.0-47.0) Mean Corpuscular Volume 84fL (79-100) Mean Corpuscular Hemoglobin 28pg (25-35) Mean Corpuscular Hemoglobin Concent 33g/dL (31-37) Red Cell Distribution Width 13.7% (11.5-14.5) Platelet Count 274x10^3/uL (140-400) Neutrophils (%) (Auto) 87% (31-73) Lymphocytes (%) (Auto) 9% (24-48) Monocytes (%) (Auto) 3% (0-9) Eosinophils (%) (Auto) 0% (0-3) Basophils (%) (Auto) 1% (0-3) Neutrophils # (Auto) 16.6x10^3uL (1.8-7.7) Lymphocytes # (Auto) 1.6x10^3/uL (1.0-4.8) Monocytes # (Auto) 0.6x10^3/uL (0.0-1.1) Eosinophils # (Auto) 0.0x10^3/uL (0.0-0.7) Basophils # (Auto) 0.2x10^3/uL (0.0-0.2) Sodium Level 141mmol/L (136-145) Potassium Level 4.4mmol/L (3.5-5.1) Chloride Level 102mmol/L (98-107) Carbon Dioxide Level 30mmol/L (21-32) Anion Gap 9 (6-14) Blood Urea Nitrogen 18mg/dL (7-20) Creatinine 1.0mg/dL (0.6-1.0) Estimated GFR (Cockcroft-Gault) 55.3 Glucose Level 220mg/dL (70-99) Calcium Level 9.4mg/dL (8.5-10.1) Medications Current Medications Thrombin 20,000 unit STK-MED ONCE TP Last administered on 12/10/16 17:56; Start 12/10/16 at 16:38; Stop 12/10/16 at 16:39; Status DC Gelatin (Gelfoam Size 100) 1 each STK-MED ONCE .ROUTE Last administered on 17:56; Start 12/10/16 at 16:39; Stop 12/10/16 at 16:40; Status DC Cellulose 1 each STK-MED ONCE .ROUTE ; Start 12/10/16 at 16:39; Stop 12/10/16 at 16:40; Status DC Bupivacaine HCl/ Epinephrine Bitart (Sensorcain-Mpf Epi 0.5%-1:[id number]) 30 ml STK -MED ONCE .ROUTE Last administered on 3/14/17at 17:56; Start 12/10/16 at 16:39 ; Stop 12/10/16 at 16:40; Status DC Desflurane (Suprane) 90 ml STK-MED ONCE IH ; Start 12/10/16 at 16:42; Stop 12/10 at 16:43; Status DC Fentanyl Citrate (Fentanyl 2ml Vial) 100 mcg STK-MED ONCE .ROUTE ; Start at 16:42; Stop 12/10/16 at 16:43; Status DC Glycopyrrolate (Robinul) 1 mg STK-MED ONCE .ROUTE ; Start 12/10/16 at 16:42; Stop 12/10/16 at 16:43; Status DC Neostigmine Methylsulfate 5 mg STK-MED ONCE .ROUTE ; Start 12/10/16 at 16:42; Stop 12/10/16 at 16:43; Status DC Rocuronium [place] 50 mg 50 mg STK-MED ONCE .ROUTE ; Start 12/10/16 at 16:42; Stop 12/10/16 at 16:43; Status DC Propofol (Diprivan) 20 ml @ As Directed STK-MED ONCE IV ; Start 12/10/16 at 16: 42; Stop 12/10/16 at 16:43; Status DC Lidocaine HCl 100 mg STK-MED ONCE .ROUTE ; Start 12/10/16 at 16:42; Stop at 16:43; Status DC Dexamethasone Sodium Phosphate (Decadron) 20 mg STK-MED ONCE .ROUTE ; Start at 16:42; Stop 12/10/16 at 16:43; Status DC Ondansetron HCl 4 mg 4 mg STK-MED ONCE .ROUTE ; Start 12/10/16 at 16:43; Stop at 16:44; Status DC Cefazolin Sodium/ Dextrose (Ancef 2gm Premix) 50 ml @ As Directed STK-MED ONCE IV ; Start 12/10/16 at 16:53; Stop 12/10/16 at 16:54; Status DC Mannitol (Mannitol) 12.5 g STK-MED ONCE .ROUTE ; Start 12/10/16 at 16:53; Stop 12/10/16 at 16:54; Status DC Phenylephrine HCl 1 mg 1 mg STK-MED ONCE IV ; Start 12/10/16 at 17:24; Stop at 17:25; Status DC Bacitracin/Sodium Chloride (Iv Sodium Chloride 0.9% 1000ml Bag) 1,000 ml @ 1, 000 mls/hr 1X PERIOP ONCE IRR Last administered on 12/10/16 17:56; Start at 17:40; Stop 12/10/16 at 18:39; Status DC Fentanyl Citrate (Fentanyl 2ml Vial) 100 mcg STK-MED ONCE .ROUTE ; Start at 17:48; Stop 12/10/16 at 17:49; Status DC Ondansetron HCl (Zofran) 4 mg PRN Q6HRS PRN IV Nausea; Start 12/10/16 at 18:45 ; Stop 12/10/16 at 22:54; Status DC Fentanyl Citrate (Fentanyl 2ml Vial) 25 mcg PRN Q5MIN PRN IV MILD PAIN; Start 12/10/16 at 18:45; Stop 12/11/16 at 18:44; Status DC Fentanyl Citrate (Fentanyl 2ml Vial) 50 mcg PRN Q5MIN PRN IV MODERATE PAIN Last administered on 12/11/16 05:10; Start 12/10/16 at 18:45; Stop 12/11/16 at 18:44; Status DC Morphine Sulfate 1 mg 1 mg PRN Q10MIN PRN IV SEVERE PAIN; Start 12/10/16 at 18: 45; Stop 12/11/16 at 18:44; Status DC Lactated Ringer's (Iv Lactated Ringers) 1,000 ml @ 30 mls/hr Q24H IV Last administered on 12/10/16 16:30; Start 12/10/16 at 18:41; Stop 12/11/16 at 06:40 ; Status DC Lidocaine HCl 2 ml 1X PRN PRN ID IV START; Start 12/10/16 at 18:45; Stop at 18:44; Status DC Hydromorphone HCl (Dilaudid) 0.5 mg PRN Q10MIN PRN IV SEV PAIN,Second choice; Start 12/10/16 at 18:45; Stop 12/11/16 at 18:44; Status DC Prochlorperazine Edisylate 5 mg 5 mg PACU PRN PRN IV NAUSEA; Start 12/10/16 at 18:45; Stop 12/11/16 at 18:44; Status DC Nicardipine HCl/ Sodium Chloride (Cardene/Iv Sodium Chloride 0.9% 250ml) 270 ml @ 27 mls/hr TITRATE PRN IV PER PROTOCOL; Start 12/10/16 at 19:45 Al Hydroxide/Mg Hydroxide (Mylanta Plus Xs) 30 ml PRN Q3HRS PRN PO HEARTBURN / GAS; Start 12/10/16 at 19:45 Calcium Carbonate/ Glycine (Tums) 500 mg PRN Q3HRS PRN PO INDIGESTION; Start at 19:45 Diphenhydramine HCl (Benadryl) 25 mg PRN Q6HRS PRN PO ITCHING; Start 12/10/16 at 19:45 Diphenhydramine HCl (Benadryl) 25 mg PRN Q6HRS PRN IV ITCHING; Start 12/10/16 at 19:45 Sodium Chloride 3 ml 3 ml QSHIFT PRN IV AFTER MEDS AND BLOOD DRAWS; Start 12/10 at 19:45 Potassium Chloride/Sodium Chloride (KCl 20 Meq-0.45% Nacl) 1,000 ml @ 75 mls/ hr [id number] IV Last administered on 12/10/16 19:42; Start 12/10/16 at 19:42 Dextrose 12.5 gm PRN Q15MIN PRN IV SEE COMMENTS; Start 12/10/16 at 19:45 Magnesium Hydroxide (Milk Of Magnesia) 2,400 mg PRN Q12HR PRN PO CONSTIPATION; Start 12/10/16 at 19:45 Ondansetron HCl 4 mg 4 mg PRN Q6HRS PRN IV NAUESA, 1ST CHOICE; Start 12/10/16 at 19:45 Cefazolin Sodium/ Sodium Chloride (Ancef/Iv Sodium Chloride 0.9% 50ml) 50 ml @ 100 mls/hr Q8H IV Last administered on 12/11/16 18:05; Start 12/10/16 at 23:00 ; Stop 12/11/16 at 15:29; Status DC Dextrose 12.5 gm PRN Q15MIN PRN IV SEE COMMENTS; Start 12/10/16 at 19:45; Stop 12/10/16 at 20:00; Status DC Dextrose 12.5 gm PRN Q15MIN PRN IV SEE COMMENTS; Start 12/10/16 at 19:45; Stop 12/10/16 at 20:00; Status DC Aspirin (Mariella Aspirin) 325 mg DAILY PO Last administered on 12/11/16 08:59; Start 12/11/16 at 09:00; Stop 12/11/16 at 13:36; Status DC Levothyroxine Sodium (Synthroid) 112 mcg DAILY07 PO Last administered on 07:36; Start 12/11/16 at 07:00 Losartan Potassium (Cozaar) 50 mg DAILY PO Last administered on 12/12/16 09:38 ; Start 12/11/16 at 09:00 Metoprolol Tartrate (Lopressor) 25 mg BID PO Last administered on 12/11/16 21: 21; Start 12/11/16 at 09:00 Nortriptyline HCl (Pamelor) 25 mg DAILY PO Last administered on 12/12/16 09:37 ; Start 12/11/16 at 09:00 Duloxetine HCl (Cymbalta) 60 mg DAILY PO Last administered on 12/12/16 09:40; Start 12/11/16 at 09:00 Fluticasone Propionate (Flonase) 1 spray PRN DAILY PRN NS SINUS INFLAMATION; Start 12/10/16 at 22:45 Fish Oil (Fish Oil) 1,000 mg DAILY PO Last administered on 12/11/16 08:59; Start 12/11/16 at 09:00; Stop 12/11/16 at 13:36; Status DC Pantoprazole Sodium (Protonix) 40 mg DAILYAC PO Last administered on 12/12/16 07:36; Start 12/11/16 at 07:30 Atorvastatin Calcium (Lipitor) 80 mg HS PO Last administered on 12/11/16 21:21 ; Start 12/11/16 at 21:00 Linagliptin (Tradjenta) 5 mg DAILY PO Last administered on 12/12/16 09:40; Start 12/11/16 at 09:00 Oxybutynin Chloride (Ditropan) 5 mg TID PO Last administered on 12/11/16 21:21 ; Start 12/11/16 at 09:00 Vitamin D (Vitamin D3) 2,000 unit DAILY PO Last administered on 12/11/16 09:02 ; Start 12/11/16 at 09:00; Stop 12/11/16 at 13:43; Status DC Vitamin D (Vitamin D3) 2,000 unit DAILY PO Last administered on 12/12/16 09:40 ; Start 12/11/16 at 09:00 Hydralazine HCl (Apresoline) 10 mg PRN Q4HRS PRN IVP ELEVATED BP, SEE COMMENTS Last administered on 12/12/16 03:39; Start 12/10/16 at 23:00 Dexamethasone Sodium Phosphate (Decadron) 10 mg 1X ONCE IV Last administered on 12/11/16 12:55; Start 12/11/16 at 11:45; Stop 12/11/16 at 11:46; Status DC Acetaminophen/ Hydrocodone Bitart (Lortab 5/325) 1 tab PRN Q4HRS PRN PO PAIN Last administered on 12/11/16 14:49; Start 12/11/16 at 13:45 Acetaminophen/ Hydrocodone Bitart (Lortab 5/325) 2 tab PRN Q4HRS PRN PO PAIN Last administered on 12/12/16 09:40; Start 12/11/16 at 13:45 Dexamethasone Sodium Phosphate (Decadron) 2 mg Q6HRS IV Last administered on 05:28; Start 12/11/16 at 18:00; Stop 12/13/16 at 18:00 Active Scripts Active Reported Citracal + D Er Tablet (Calcium Carb & Cit/Vitamin D3) 1 Each Tablet.er 1 Each PO Nasonex (Mometasone Furoate) 17 Gm Cosmos.pump 17 Gm NS PRN Clopidogrel (Clopidogrel Bisulfate) 75 Mg Tablet 75 Mg PO DAILY Losartan Potassium 25 Mg Tablet 50 Mg PO Fish Oil ([place]-3 Fatty Acids) 300 Mg Capsule 300 Mg PO DAILY Cymbalta (Duloxetine Hcl) 60 Mg Capsule.dr 60 Mg PO DAILY Crestor (Rosuvastatin Calcium) 40 Mg Tablet 40 Mg PO HS Levothyroxine Sodium 112 Mcg Tablet 112 Mcg PO DAILY Aciphex (Rabeprazole Sodium) 20 Mg Tablet.dr 20 Mg PO DAILY Vesicare (Solifenacin Succinate) 5 Mg Tablet 10 Mg PO DAILY Januvia (Sitagliptin Phosphate) 100 Mg Tablet 100 Mg PO DAILY Celebrex (Celecoxib) 200 Mg Capsule 200 Mg PO DAILY Metoprolol Tartrate 25 Mg Tablet 25 Mg PO BID Aspirin 325 Mg Tablet 325 Mg PO DAILY [Vit D3] 2,000 Units DAILY Nortriptyline Hcl 25 Mg Capsule 25 Mg PO DAILY Vitals/I & O Vital Sign - Last 24 Hours 12/11/16 12/11/16 12/11/16 12/11/16 10:41 11:57 12:00 12:43 Temp 98.9 98.9 98.9 98.9 98.9 98.9 Pulse 94 94 94 Resp 14 B/P 121/58 120/55 118/69 Pulse Ox 95 95 95 O2 Delivery Nasal Cannula Nasal Cannula Nasal Cannula Nasal Cannula O2 Flow Rate 2.0 2.0 2.0 2.0 12/11/16 12/11/16 12/11/16 12/11/16 13:45 13:52 14:49 14:52 Temp 98.9 98.9 Pulse 94 Resp 16 16 B/P 118/69 Pulse Ox 95 95 95 97 O2 Delivery Nasal Cannula Nasal Cannula Nasal Cannula Nasal Cannula O2 Flow Rate 2.0 2.0 2.0 2.0 12/11/16 12/11/16 12/11/16 12/11/16 15:00 16:00 16:00 17:00 Pulse 82 84 82 Resp 16 16 16 B/P 134/75 137/67 155/78 Pulse Ox 97 97 95 O2 Delivery Nasal Cannula Nasal Cannula Nasal Cannula Nasal Cannula O2 Flow Rate 2.0 2.0 2.0 2.0 12/11/16 12/11/16 12/11/16 12/11/16 18:00 19:00 20:00 20:00 Temp 98.8 98.8 Pulse 89 86 90 Resp 18 20 16 B/P 124/76 140/71 146/72 Pulse Ox 98 94 96 O2 Delivery Nasal Cannula Nasal Cannula Nasal Cannula Nasal Cannula O2 Flow Rate 2.0 2.0 2.0 2.0 12/11/16 12/11/16 12/11/16 12/11/16 21:00 21:21 22:00 23:00 Pulse 88 94 88 95 Resp 18 14 14 B/P 147/85 146/72 140/83 135/70 Pulse Ox 97 99 99 O2 Delivery Nasal Cannula Nasal Cannula Nasal Cannula O2 Flow Rate 2.0 2.0 2.0 12/11/16 12/12/16 12/12/16 12/12/16 23:59 00:00 01:00 02:00 Temp 98.6 98.6 Pulse 87 86 88 Resp 20 36 27 B/P 135/82 149/90 150/90 Pulse Ox 98 97 97 O2 Delivery Nasal Cannula Nasal Cannula Nasal Cannula Nasal Cannula O2 Flow Rate 2.0 2.0 2.0 2.0 12/12/16 12/12/16 12/12/16 12/12/16 03:00 03:39 04:00 04:00 Temp 98.4 98.4 Pulse 86 82 87 Resp 17 25 B/P 166/87 166/92 119/61 Pulse Ox 96 97 O2 Delivery Nasal Cannula Nasal Cannula Nasal Cannula O2 Flow Rate 2.0 2.0 2.0 12/12/16 12/12/16 12/12/16 12/12/16 05:00 06:00 09:00 09:38 Pulse 84 80 80 88 Resp 17 22 B/P 132/63 138/69 113/83 113/63 Pulse Ox 96 97 O2 Delivery Nasal Cannula Nasal Cannula O2 Flow Rate 2.0 2.0 12/12/16 09:40 Pulse Ox 97 O2 Delivery Nasal Cannula O2 Flow Rate 2.0 Intake and Output 12/11/16 12/11/16 12/12/16 15:00 23:00 07:00 Intake Total 350 ml 350 ml Output Total 850 ml 865 ml 770 ml Balance -500 ml -515 ml -770 ml GALO RAMOS MD 12/13/16 1305: PROGRESS NOTES Plan Plan of Care Pt seen and examined. Agree with above. AA, mild word finding difficulty, CESPEDES no drift, dressing intact, d/c drain, possible downgrade from ICU tomorrow (12/13) if continues to do well SEBAS RABAGO APRN Dec 12, 2016 10:29 GALO RAMOS MD Dec 13, 2016 13:05
[2016-12-12] MEDS ORDERED: ACETAMINOPHEN 325 MG TABLET. PO PRN (10:45)
--- NOTE | 2016-12-12 11:18 | PDOC ---
PROGRESS NOTES Chief Complaint Chief Complaint SDH ASSESSMENT AND PLAN: 1. SDH: s/p evacuation 12/[address] Torres. recovering well. JOHANNE drain d/ c.ed. speech improved. stop IV decadron. 2. HTN: much improved. currently on home regimen 3. CAD: no acute issues. previously on ASA/plavix. latter currently on hold 4. OA: hold NSAID. tylenol PRN, lortab 5. PUD: on PPI 6. Dispo: poss home in AM if cleared by NS Vitals Vitals Vital Signs Date Time Temp Pulse Resp B/P Pulse Ox O2 Delivery O2 Flow Rate FiO2 12/12/16 09:40 97 Nasal Cannula 2.0 12/12/16 09:38 88 113/63 12/12/16 06:00 22 12/12/16 04:00 98.4 98.4 Physical Exam Physical Exam General: Alert, Oriented X3, Cooperative, No acute distress Heart: Regular rate Lungs: Clear Abdomen: Normal bowel sounds, No tenderness Extremities: No clubbing, No edema Skin: Other (dressing intact) Labs LABS Laboratory Tests Test 12/12/16 05:15 White Blood Count 19.0x10^3/uL (4.0-11.0) Red Blood Count 4.29x10^6/uL (3.50-5.40) Hemoglobin 12.1g/dL (12.0-15.5) Hematocrit 36.1% (36.0-47.0) Mean Corpuscular Volume 84fL (79-100) Mean Corpuscular Hemoglobin 28pg (25-35) Mean Corpuscular Hemoglobin Concent 33g/dL (31-37) Red Cell Distribution Width 13.7% (11.5-14.5) Platelet Count 274x10^3/uL (140-400) Neutrophils (%) (Auto) 87% (31-73) Lymphocytes (%) (Auto) 9% (24-48) Monocytes (%) (Auto) 3% (0-9) Eosinophils (%) (Auto) 0% (0-3) Basophils (%) (Auto) 1% (0-3) Neutrophils # (Auto) 16.6x10^3uL (1.8-7.7) Lymphocytes # (Auto) 1.6x10^3/uL (1.0-4.8) Monocytes # (Auto) 0.6x10^3/uL (0.0-1.1) Eosinophils # (Auto) 0.0x10^3/uL (0.0-0.7) Basophils # (Auto) 0.2x10^3/uL (0.0-0.2) Sodium Level 141mmol/L (136-145) Potassium Level 4.4mmol/L (3.5-5.1) Chloride Level 102mmol/L (98-107) Carbon Dioxide Level 30mmol/L (21-32) Anion Gap 9 (6-14) Blood Urea Nitrogen 18mg/dL (7-20) Creatinine 1.0mg/dL (0.6-1.0) Estimated GFR (Cockcroft-Gault) 55.3 Glucose Level 220mg/dL (70-99) Calcium Level 9.4mg/dL (8.5-10.1) Review of Systems Review of Systems minimal WILL, no c/o MAYDA MARAVILLA MD Dec 12, 2016 11:18
[2016-12-12] MEDS: ATORVASTATIN CALCIUM 40 MG TABLET. PO SCH (20:51)
[2016-12-12] MEDS: HYDROCODONE/APAP 5/325MG TABLET. PO PRN (23:09)
[2016-12-13] VITALS (17 sets, daily range): BP systolic 115–178; BP diastolic 49–79
[2016-12-13] MEDS: LEVOTHYROXINE 112 MCG TABLET PO SCH (06:18)
[2016-12-13] MEDS: HYDROCODONE/APAP 5/325MG TABLET. PO PRN (06:44)
[2016-12-13] MEDS: PANTOPRAZOLE 40 MG TABLET. PO SCH ×2 (08:12→10:18)
--- NOTE | 2016-12-13 08:57 | PDOC ---
PROGRESS NOTES Chief Complaint Chief Complaint SDH ASSESSMENT AND PLAN: 1. SDH: s/p evacuation 12/[address] Torres. recovering well. JOHANNE drain d/ c.ed. speech improved. IV decadron stopped 2. HTN: much improved. currently on home regimen 3. CAD: no acute issues. previously on ASA/plavix. latter currently on hold 4. OA: hold NSAID. tylenol PRN, lortab 5. PUD: on PPI 6. Dispo: home when cleared by NS Vitals Vitals Vital Signs Date Time Temp Pulse Resp B/P Pulse Ox O2 Delivery O2 Flow Rate FiO2 12/13/16 08:02 98.5 74 14 154/51 99 Room Air 98.5 12/13/16 08:01 2.0 Physical Exam Physical Exam neurologically intact, normal speech General: Alert, Oriented X3, Cooperative, No acute distress Heart: Regular rate Lungs: Clear Abdomen: Normal bowel sounds, No tenderness Extremities: No clubbing, No edema Skin: Other (dressing with some blood posteriorly) Review of Systems Review of Systems walked with PT, no difficulties. mild WILL. MAYDA MARAVILLA MD Dec 13, 2016 08:57
[2016-12-13] MEDS: DULOXETINE HCL 30 MG CAPSULE.DR. PO SCH (09:00)
[2016-12-13] MEDS: CHOLECALCIFEROL (VITAMIN D3) 1,000 UNIT TABLET PO SCH (10:16)
[2016-12-13] MEDS: OXYBUTYNIN CHLORIDE 5 MG TABLET PO SCH ×3 (10:16→20:01)
[2016-12-13] MEDS: LOSARTAN POTASSIUM 50 MG TABLET. PO SCH (10:17)
[2016-12-13] MEDS: METOPROLOL TART IMMED RELEASE 25 MG TABLET PO SCH ×2 (10:17→20:02)
[2016-12-13] MEDS: NORTRIPTYLINE 25 MG CAPSULE PO SCH (10:17)
[2016-12-13] MEDS: LINAGLIPTIN 5 MG TABLET PO SCH (10:18)
--- NOTE | 2016-12-13 11:19 | PDOC ---
SEBAS RABAGO GENERATOR TECHNICIAN 12/13/16 1119: PROGRESS NOTES Subjective Subjective up in chair ambulated in bobo c/o mild headache Objective Objective Vital Signs Date Time Temp Pulse Resp B/P Pulse Ox O2 Delivery O2 Flow Rate FiO2 12/13/16 10:47 168/74 12/13/16 10:17 74 12/13/16 08:02 98.5 14 99 Room Air 98.5 12/13/16 08:01 2.0 Intake and Output 12/13/16 07:00 Intake Total 1900 ml Output Total 1310 ml Balance 590 ml Intake Oral 1900 ml Output Urine Total 1300 ml Drainage Total 10 ml Physical Exam General: Alert, Oriented X3, Cooperative, No acute distress Neuro: Other (pupils equal, normal strength in upper and lower ext) Skin: Other (dressing intact and dry) Assessment Assessment Problems Medical Problems: (1) Subdural hematoma Status: Acute Plan Plan of Care may transfer to floor continue PT Comment Review of Relevant I have reviewed the following items jessica (where applicable) has been applied. Labs Laboratory Tests Test 12/12/16 05:15 White Blood Count 19.0x10^3/uL (4.0-11.0) Red Blood Count 4.29x10^6/uL (3.50-5.40) Hemoglobin 12.1g/dL (12.0-15.5) Hematocrit 36.1% (36.0-47.0) Mean Corpuscular Volume 84fL (79-100) Mean Corpuscular Hemoglobin 28pg (25-35) Mean Corpuscular Hemoglobin Concent 33g/dL (31-37) Red Cell Distribution Width 13.7% (11.5-14.5) Platelet Count 274x10^3/uL (140-400) Neutrophils (%) (Auto) 87% (31-73) Lymphocytes (%) (Auto) 9% (24-48) Monocytes (%) (Auto) 3% (0-9) Eosinophils (%) (Auto) 0% (0-3) Basophils (%) (Auto) 1% (0-3) Neutrophils # (Auto) 16.6x10^3uL (1.8-7.7) Lymphocytes # (Auto) 1.6x10^3/uL (1.0-4.8) Monocytes # (Auto) 0.6x10^3/uL (0.0-1.1) Eosinophils # (Auto) 0.0x10^3/uL (0.0-0.7) Basophils # (Auto) 0.2x10^3/uL (0.0-0.2) Sodium Level 141mmol/L (136-145) Potassium Level 4.4mmol/L (3.5-5.1) Chloride Level 102mmol/L (98-107) Carbon Dioxide Level 30mmol/L (21-32) Anion Gap 9 (6-14) Blood Urea Nitrogen 18mg/dL (7-20) Creatinine 1.0mg/dL (0.6-1.0) Estimated GFR (Cockcroft-Gault) 55.3 Glucose Level 220mg/dL (70-99) Calcium Level 9.4mg/dL (8.5-10.1) Medications Current Medications Thrombin 20,000 unit STK-MED ONCE TP Last administered on 12/10/16 17:56; Start 12/10/16 at 16:38; Stop 12/10/16 at 16:39; Status DC Gelatin (Gelfoam Size 100) 1 each STK-MED ONCE .ROUTE Last administered on 17:56; Start 12/10/16 at 16:39; Stop 12/10/16 at 16:40; Status DC Cellulose 1 each STK-MED ONCE .ROUTE ; Start 12/10/16 at 16:39; Stop 12/10/16 at 16:40; Status DC Bupivacaine HCl/ Epinephrine Bitart (Sensorcain-Mpf Epi 0.5%-1:[id number]) 30 ml STK -MED ONCE .ROUTE Last administered on 12/10/16 17:56; Start 12/10/16 at 16:39 ; Stop 12/10/16 at 16:40; Status DC Desflurane (Suprane) 90 ml STK-MED ONCE IH ; Start 12/10/16 at 16:42; Stop 12/10 at 16:43; Status DC Fentanyl Citrate (Fentanyl 2ml Vial) 100 mcg STK-MED ONCE .ROUTE ; Start at 16:42; Stop 12/10/16 at 16:43; Status DC Glycopyrrolate (Robinul) 1 mg STK-MED ONCE .ROUTE ; Start 12/10/16 at 16:42; Stop 12/10/16 at 16:43; Status DC Neostigmine Methylsulfate 5 mg STK-MED ONCE .ROUTE ; Start 12/10/16 at 16:42; Stop 12/10/16 at 16:43; Status DC Rocuronium [place] 50 mg 50 mg STK-MED ONCE .ROUTE ; Start 12/10/16 at 16:42; Stop 12/10/16 at 16:43; Status DC Propofol (Diprivan) 20 ml @ As Directed STK-MED ONCE IV ; Start 12/10/16 at 16: 42; Stop 12/10/16 at 16:43; Status DC Lidocaine HCl 100 mg STK-MED ONCE .ROUTE ; Start 12/10/16 at 16:42; Stop at 16:43; Status DC Dexamethasone Sodium Phosphate (Decadron) 20 mg STK-MED ONCE .ROUTE ; Start at 16:42; Stop 12/10/16 at 16:43; Status DC Ondansetron HCl 4 mg 4 mg STK-MED ONCE .ROUTE ; Start 12/10/16 at 16:43; Stop at 16:44; Status DC Cefazolin Sodium/ Dextrose (Ancef 2gm Premix) 50 ml @ As Directed STK-MED ONCE IV ; Start 12/10/16 at 16:53; Stop 12/10/16 at 16:54; Status DC Mannitol (Mannitol) 12.5 g STK-MED ONCE .ROUTE ; Start 12/10/16 at 16:53; Stop 12/10/16 at 16:54; Status DC Phenylephrine HCl 1 mg 1 mg STK-MED ONCE IV ; Start 12/10/16 at 17:24; Stop at 17:25; Status DC Bacitracin/Sodium Chloride (Iv Sodium Chloride 0.9% 1000ml Bag) 1,000 ml @ 1, 000 mls/hr 1X PERIOP ONCE IRR Last administered on 12/10/16t 17:56; Start at 17:40; Stop 12/10/16 at 18:39; Status DC Fentanyl Citrate (Fentanyl 2ml Vial) 100 mcg STK-MED ONCE .ROUTE ; Start at 17:48; Stop 12/10/16 at 17:49; Status DC Ondansetron HCl (Zofran) 4 mg PRN Q6HRS PRN IV Nausea; Start 12/10/16 at 18:45 ; Stop 12/10/16 at 22:54; Status DC Fentanyl Citrate (Fentanyl 2ml Vial) 25 mcg PRN Q5MIN PRN IV MILD PAIN; Start 12/10/16 at 18:45; Stop 12/11/16 at 18:44; Status DC Fentanyl Citrate (Fentanyl 2ml Vial) 50 mcg PRN Q5MIN PRN IV MODERATE PAIN Last administered on 12/11/16t 05:10; Start 12/10/16 at 18:45; Stop 12/11/16 at 18:44; Status DC Morphine Sulfate 1 mg 1 mg PRN Q10MIN PRN IV SEVERE PAIN; Start 12/10/16 at 18: 45; Stop 12/11/16 at 18:44; Status DC Lactated Ringer's (Iv Lactated Ringers) 1,000 ml @ 30 mls/hr Q24H IV Last administered on 12/10/16 16:30; Start 12/10/16 at 18:41; Stop 12/11/16 at 06:40 ; Status DC Lidocaine HCl 2 ml 1X PRN PRN ID IV START; Start 12/10/16 at 18:45; Stop at 18:44; Status DC Hydromorphone HCl (Dilaudid) 0.5 mg PRN Q10MIN PRN IV SEV PAIN,Second choice; Start 12/10/16 at 18:45; Stop 12/11/16 at 18:44; Status DC Prochlorperazine Edisylate 5 mg 5 mg PACU PRN PRN IV NAUSEA; Start 12/10/16 at 18:45; Stop 12/11/16 at 18:44; Status DC Nicardipine HCl/ Sodium Chloride (Cardene/Iv Sodium Chloride 0.9% 250ml) 270 ml @ 27 mls/hr TITRATE PRN IV PER PROTOCOL; Start 12/10/16 at 19:45 Al Hydroxide/Mg Hydroxide (Mylanta Plus Xs) 30 ml PRN Q3HRS PRN PO HEARTBURN / GAS; Start 12/10/16 at 19:45 Calcium Carbonate/ Glycine (Tums) 500 mg PRN Q3HRS PRN PO INDIGESTION; Start at 19:45 Diphenhydramine HCl (Benadryl) 25 mg PRN Q6HRS PRN PO ITCHING; Start 12/10/16 at 19:45 Diphenhydramine HCl (Benadryl) 25 mg PRN Q6HRS PRN IV ITCHING; Start 12/10/16 at 19:45 Sodium Chloride 3 ml 3 ml QSHIFT PRN IV AFTER MEDS AND BLOOD DRAWS; Start 12/10 at 19:45 Potassium Chloride/Sodium Chloride (KCl 20 Meq-0.45% Nacl) 1,000 ml @ 75 mls/ hr [id number] IV Last administered on 12/10/16 19:42; Start 12/10/16 at 19:42; Stop 12/12/16 at 14:55; Status DC Dextrose 12.5 gm PRN Q15MIN PRN IV SEE COMMENTS; Start 12/10/16 at 19:45 Magnesium Hydroxide (Milk Of Magnesia) 2,400 mg PRN Q12HR PRN PO CONSTIPATION; Start 12/10/16 at 19:45 Ondansetron HCl 4 mg 4 mg PRN Q6HRS PRN IV NAUESA, 1ST CHOICE; Start 12/10/16 at 19:45 Cefazolin Sodium/ Sodium Chloride (Ancef/Iv Sodium Chloride 0.9% 50ml) 50 ml @ 100 mls/hr Q8H IV Last administered on 12/11/16 18:05; Start 12/10/16 at 23:00 ; Stop 12/11/16 at 15:29; Status DC Dextrose 12.5 gm PRN Q15MIN PRN IV SEE COMMENTS; Start 12/10/16 at 19:45; Stop 12/10/16 at 20:00; Status DC Dextrose 12.5 gm PRN Q15MIN PRN IV SEE COMMENTS; Start 12/10/16 at 19:45; Stop 12/10/16 at 20:00; Status DC Aspirin (Mariella Aspirin) 325 mg DAILY PO Last administered on 12/11/16 08:59; Start 12/11/16 at 09:00; Stop 12/11/16 at 13:36; Status DC Levothyroxine Sodium (Synthroid) 112 mcg DAILY07 PO Last administered on 06:18; Start 12/11/16 at 07:00 Losartan Potassium (Cozaar) 50 mg DAILY PO Last administered on 12/13/16 10:17 ; Start 12/11/16 at 09:00 Metoprolol Tartrate (Lopressor) 25 mg BID PO Last administered on 12/13/16 10: 17; Start 12/11/16 at 09:00 Nortriptyline HCl (Pamelor) 25 mg DAILY PO Last administered on 12/13/16 10:17 ; Start 12/11/16 at 09:00 Duloxetine HCl (Cymbalta) 60 mg DAILY PO Last administered on 12/12/16 09:40; Start 12/11/16 at 09:00 Fluticasone Propionate (Flonase) 1 spray PRN DAILY PRN NS SINUS INFLAMATION; Start 12/10/16 at 22:45 Fish Oil (Fish Oil) 1,000 mg DAILY PO Last administered on 12/11/16 08:59; Start 12/11/16 at 09:00; Stop 12/11/16 at 13:36; Status DC Pantoprazole Sodium (Protonix) 40 mg DAILYAC PO Last administered on 12/13/16 10:18; Start 12/11/16 at 07:30 Atorvastatin Calcium (Lipitor) 80 mg HS PO Last administered on 12/12/16 20:51 ; Start 12/11/16 at 21:00 Linagliptin (Tradjenta) 5 mg DAILY PO Last administered on 12/13/16 10:18; Start 12/11/16 at 09:00 Oxybutynin Chloride (Ditropan) 5 mg TID PO Last administered on 12/13/16 10:16 ; Start 12/11/16 at 09:00 Vitamin D (Vitamin D3) 2,000 unit DAILY PO Last administered on 12/11/16 09:02 ; Start 12/11/16 at 09:00; Stop 12/11/16 at 13:43; Status DC Vitamin D (Vitamin D3) 2,000 unit DAILY PO Last administered on 12/13/16 10:16 ; Start 12/11/16 at 09:00 Hydralazine HCl (Apresoline) 10 mg PRN Q4HRS PRN IVP ELEVATED BP, SEE COMMENTS Last administered on 12/12/16 03:39; Start 12/10/16 at 23:00 Dexamethasone Sodium Phosphate (Decadron) 10 mg 1X ONCE IV Last administered on 12/11/16 12:55; Start 12/11/16 at 11:45; Stop 12/11/16 at 11:46; Status DC Acetaminophen/ Hydrocodone Bitart (Lortab 5/325) 1 tab PRN Q4HRS PRN PO MILD PAIN Last administered on 12/13/16 06:44; Start 12/11/16 at 13:45 Acetaminophen/ Hydrocodone Bitart (Lortab 5/325) 2 tab PRN Q4HRS PRN PO MODERATE, SEVERE PAIN Last administered on 12/12/16 09:40; Start 12/11/16 at 13 :45 Dexamethasone Sodium Phosphate (Decadron) 2 mg Q6HRS IV Last administered on 12:00; Start 12/11/16 at 18:00; Stop 12/12/16 at 17:52; Status DC Acetaminophen (Tylenol) 650 mg PRN Q6HRS PRN PO MILD PAIN / TEMP; Start at 10:45 Active Scripts Active Reported Citracal + D Er Tablet (Calcium Carb & Cit/Vitamin D3) 1 Each Tablet.er 1 Each PO Nasonex (Mometasone Furoate) 17 Gm [place].pump 17 Gm NS PRN Clopidogrel (Clopidogrel Bisulfate) 75 Mg Tablet 75 Mg PO DAILY Losartan Potassium 25 Mg Tablet 50 Mg PO Fish Oil ([place]-3 Fatty Acids) 300 Mg Capsule 300 Mg PO DAILY Cymbalta (Duloxetine Hcl) 60 Mg Capsule.dr 60 Mg PO DAILY Crestor (Rosuvastatin Calcium) 40 Mg Tablet 40 Mg PO HS Levothyroxine Sodium 112 Mcg Tablet 112 Mcg PO DAILY Aciphex (Rabeprazole Sodium) 20 Mg Tablet.dr 20 Mg PO DAILY Vesicare (Solifenacin Succinate) 5 Mg Tablet 10 Mg PO DAILY Januvia (Sitagliptin Phosphate) 100 Mg Tablet 100 Mg PO DAILY Celebrex (Celecoxib) 200 Mg Capsule 200 Mg PO DAILY Metoprolol Tartrate 25 Mg Tablet 25 Mg PO BID Aspirin 325 Mg Tablet 325 Mg PO DAILY [Vit D3] 2,000 Units DAILY Nortriptyline Hcl 25 Mg Capsule 25 Mg PO DAILY Vitals/I & O Vital Sign - Last 24 Hours 12/12/16 12/12/16 12/12/16 12/12/16 12:00 12:00 13:00 14:00 Temp 98.5 98.5 Pulse 82 68 81 Resp 15 16 B/P 116/56 108/67 106/70 O2 Delivery Nasal Cannula Nasal Cannula Room Air Room Air O2 Flow Rate 2.0 2.0 12/12/16 12/12/16 12/12/16 12/12/16 15:00 16:00 16:00 17:00 Temp 98.0 98.0 Pulse 76 76 82 Resp 20 16 B/P 124/70 123/58 119/71 Pulse Ox 95 96 O2 Delivery Room Air Nasal Cannula Room Air Room Air O2 Flow Rate 2.0 12/12/16 12/12/16 12/12/16 12/12/16 18:00 19:00 20:00 20:00 Temp 97.5 97.5 Pulse 92 82 Resp 16 14 B/P 129/65 119/71 149/72 Pulse Ox 99 96 O2 Delivery Room Air Room Air Room Air Room Air 12/12/16 12/12/16 12/12/16 12/12/16 20:51 21:00 22:00 23:00 Pulse 99 98 75 71 Resp 20 14 16 B/P 134/67 134/67 134/65 114/59 Pulse Ox 99 98 96 O2 Delivery Room Air Room Air Room Air 12/12/16 12/12/16 12/13/16 12/13/16 23:09 23:59 00:00 01:00 Temp 97.9 97.9 Pulse 73 84 Resp 18 18 B/P 120/79 119/63 Pulse Ox 98 97 98 O2 Delivery Room Air Room Air Room Air Room Air 12/13/16 12/13/16 12/13/16 12/13/16 02:00 03:00 03:53 04:00 Temp 98.2 98.2 Pulse 77 72 71 Resp 14 16 16 B/P 125/62 141/67 129/70 Pulse Ox 98 98 97 O2 Delivery Room Air Room Air Room Air Room Air 12/13/16 12/13/16 12/13/16 12/13/16 05:00 06:00 06:44 07:00 Pulse 72 71 70 Resp 14 14 16 12 B/P 149/71 140/68 146/56 Pulse Ox 98 98 98 98 O2 Delivery Room Air Room Air Room Air Room Air 12/13/16 12/13/16 12/13/16 12/13/16 07:44 08:01 08:02 09:00 Temp 98.5 98.5 Pulse 74 78 Resp 12 14 B/P 154/51 178/67 Pulse Ox 99 99 O2 Delivery Nasal Cannula Nasal Cannula Room Air O2 Flow Rate 2.0 12/13/16 12/13/16 12/13/16 12/13/16 10:00 10:17 10:17 10:47 Pulse 80 74 B/P 171/75 154/51 151/81 168/74 Intake and Output 12/12/16 12/12/16 12/13/16 15:00 23:00 07:00 Intake Total 1400 ml 500 ml 0 ml Output Total 410 ml 450 ml 450 ml Balance 990 ml 50 ml -450 ml GALO RAMOS MD 12/13/16 1307: PROGRESS NOTES Subjective Subjective word finding continues to improve Plan Plan of Care Pt seen and examined. Agree with above. AA, NAD, dressing intact, CESPEDES 5/5, speech fluent with less word finding difficulty, continue therapies, may downgrade from ICU from NS standpoint. SEBAS RABAGO APRN Dec 13, 2016 11:19 GALO RAMOS MD Dec 13, 2016 13:07
[2016-12-13] MEDS: ATORVASTATIN CALCIUM 40 MG TABLET. PO SCH (20:00)
[2016-12-13] MEDS ORDERED: TEMAZEPAM 15 MG CAPSULE PO PRN (22:15)
[2016-12-13] MEDS ORDERED: ASA/APAP/CAFFEINE 250/250/65MG TABLET. PO PRN (22:15)
[2016-12-14 03:30] VITALS: BP 126/62
[2016-12-14] MEDS: LEVOTHYROXINE 112 MCG TABLET PO SCH (06:21)
[2016-12-14 07:00] VITALS: BP 148/93
[2016-12-14] MEDS: DULOXETINE HCL 30 MG CAPSULE.DR. PO SCH (09:00)
[2016-12-14] MEDS: OXYBUTYNIN CHLORIDE 5 MG TABLET PO SCH (09:57)
[2016-12-14] MEDS: METOPROLOL TART IMMED RELEASE 25 MG TABLET PO SCH (09:58)
[2016-12-14] MEDS: NORTRIPTYLINE 25 MG CAPSULE PO SCH (09:59)
[2016-12-14] MEDS: LOSARTAN POTASSIUM 50 MG TABLET. PO SCH (10:00)
[2016-12-14] MEDS: LINAGLIPTIN 5 MG TABLET PO SCH (10:00)
[2016-12-14] MEDS: CHOLECALCIFEROL (VITAMIN D3) 1,000 UNIT TABLET PO SCH (10:00)
[2016-12-14 11:00] VITALS: BP 146/85
--- NOTE | 2016-12-14 11:23 | PDOC ---
SUBJECTIVE Subjective Denies acute complaints. Speech/word finding continues to improve. Denies headache at this time. OBJECTIVE Vital Signs Vital Signs Date Time Temp Pulse Resp B/P Pulse Ox O2 Delivery O2 Flow Rate FiO2 12/14/16 10:00 85 148/93 12/14/16 09:58 85 148/93 12/14/16 08:00 Room Air 12/14/16 07:00 98.0 85 20 148/93 93 Room Air 98.0 12/14/16 03:30 98.4 85 18 126/62 97 Room Air 98.4 12/13/16 23:15 98.2 87 18 115/49 97 Room Air 98.2 12/13/16 20:02 85 143/68 12/13/16 20:00 Room Air 12/13/16 19:20 98.1 85 18 143/68 95 Room Air 98.1 12/13/16 15:00 Room Air 12/13/16 14:50 97.5 79 18 141/75 95 Room Air 97.5 12/13/16 12:00 98.6 72 18 141/78 92 Room Air 98.6 12/13/16 12:00 Room Air I & O Intake and Output 12/14/16 07:00 Intake Total 1950 ml Output Total 650 ml Balance 1300 ml Intake Oral 1950 ml Output Urine Total 650 ml # Voids 1 PHYSICAL EXAM Physical Exam AA, NAD, speech fluent, no word finding difficulty appreciated during brief conversation/interview at this time, CESPEDES 5/5, sensation intact LT, incision c/d/ i with connie, no drainage, mild fluid prominence under temporal scalp ASSESSMENT/PLAN Assessment/Plan 66F s/p evacuation of SDH -neurologically stable and improving -if otherwise meets criteria from medicine and therapy services, okay for d/c to appropriate venue from NS standpoint -continue to hold plavix -avoid strenuous activity or lifting over 10lbs -keep incision clean and dry; do not soak, scrub, or submerge incision -may cover incision as needed with gauze and tape (breathable dressing) -will need follow-up with Dr. Fonseca's office 2 weeks post-op [phone] Problems: COMMENT Lab Laboratory Tests Test 12/13/16 17:14 Glucose (Fingerstick) 108mg/dL (70-99) GALO RAMOS MD Dec 14, 2016 11:23
[2016-12-14 15:00] VITALS: BP 126/80
[2016-12-14] MEDS ORDERED: HYDR-2666 PO (16:28)
--- NOTE | 2016-12-15 00:10 | DS ---
DATE OF DISCHARGE: 12/14/2016 CHIEF COMPLAINT: SDH. HOSPITAL COURSE: The patient is a 66-year-old woman who presented to the Emergency Room with severe headaches and was found with subdural hematoma, which was immediately evacuated by Dr. Castillo. Her postop course was complicated minorly by development of speech impediment, which was thought to be secondary to pressure rather than reoccurring bleed. She responded well to Decadron and recovered otherwise uneventfully. A JOHANNE drain initially left in place and was discontinued by Dr. Castillo on 12/12/2016. PHYSICAL EXAMINATION: VITAL SIGNS: Showed a blood pressure of 154/51, heart rate of 74, respiratory rate at 14. GENERAL: This is a well-nourished woman, alert and oriented, in no acute distress. HEENT: Showed staple line intact without any bruising or drainage on her left temporoparietal area. LUNGS: Clear to auscultation. HEART: Regular rate and rhythm. ABDOMEN: Has positive bowel sounds, soft, nontender. EXTREMITIES: Show no edema. DISCHARGE DISPOSITION: To home. DISCHARGE CONDITION: Improved. DISCHARGE DIAGNOSIS: Subdural hematoma, status post lily hole placement on 12/10/2016. DISCHARGE MEDICATIONS: Please refer to MAR. DISCHARGE INSTRUCTIONS: The patient will follow up with Dr. Castillo in 10-14 days. MAYDA MARAVILLA MD DR: GELY/nts JOB#: [id number] / [id number] OLYA Mendez APRN
== END 2016-12-14 17:05 | disposition home or self-care (01) | DRG 25 ==
LOC: 1 WEST ICU 16:36 → 4 NORTH 12-13 14:39
PROVIDERS: ADMIT Internal Medicine Hematology & Oncology; ATTEND Internal Medicine Hematology & Oncology
PROC: 00C40ZZ Extirpation of Matter from Intracranial Subdural Space, Open Approach (ICD-10-PCS; principal; 2016-12-10 17:00)
DX: S06.5X0A Traumatic subdural hemorrhage without loss of consciousness, initial encounter (principal); G93.40 Encephalopathy, unspecified; G93.6 Cerebral edema; R47.01 Aphasia; E03.9 Hypothyroidism, unspecified; I10 Essential (primary) hypertension; I25.10 Atherosclerotic heart disease of native coronary artery without angina pectoris; M19.90 Unspecified osteoarthritis, unspecified site; Z87.11 Personal history of peptic ulcer disease; Z88.1 Allergy status to other antibiotic agents
CPT/HCPCS: 36415; 80048; 82947; 85007; 85027; 85610; 85730; 87641; C1713; J0360; J0690; J1100; J2150; J2370; J2405; J2704; J2710; J3010; J3490; J7030; J7120; 97116

== ENCOUNTER 2016-12-15 21:22 | Inpatient (IN) | payer MEDICARE, BC, OTHER ==
[~2016-12-15] VITALS: Ht 165.1 cm; Wt 86.6 kg
[~2016-12-15 21:22] MED LIST changes: +HYDR-2666 PO
[2016-12-15 22:12] LABS: BASO # 0.1 x10^3/uL (0.0-0.2); BASO % 1 % (0-3); EOS % 0 % (0-3); HEMATOCRIT 39.3 % (36.0-47.0); HEMOGLOBIN 13.3 g/dL (12.0-15.5); LYMPH # 2.2 x10^3/uL (1.0-4.8); LYMPH % 9 % (24-48); MEAN CORPUSCULAR HEMOGLOBIN 28 pg (25-35); MEAN CORPUSCULAR HGB CONC 34 g/dL (31-37); MEAN CORPUSCULAR VOLUME 84 fL (79-100); MONO % 4 % (0-9); NEUT % 86 % (31-73); PLATELET COUNT 339 x10^3/uL (140-400); RED BLOOD COUNT 4.69 x10^6/uL (3.50-5.40); RED CELL DISTRIBUTION WIDTH 13.6 % (11.5-14.5); WHITE BLOOD COUNT 23.7 x10^3/uL (4.0-11.0)
[2016-12-15 22:15] LABS: BILIRUBIN,URINE NEGATIVE (NEG); GLUCOSE,URINE NEGATIVE (NEG); NITRITE,URINE NEGATIVE (NEG); PROTEIN,URINE 30 mg/dL (NEG-TRACE); UROBILINOGEN,URINE 0.2 mg/dL (0.2 mg/dL)
[2016-12-15 22:22] LABS: PROTHROMBIN TIME PATIENT 12.4 SEC (11.7-14.0)
[2016-12-15 22:23] LABS: BACTERIA,URINE MANY /HPF (0-FEW); SQUAMOUS EPITHELIAL CELL,UR OCC /LPF; WBC,URINE TNTC /HPF (0-4)
[2016-12-15 22:31] LABS: BARBITURATES NEG (NEG); BENZODIAZEPINES NEG (NEG); CANNABINOIDS NEG (NEG); COCAINE NEG (NEG); METHADONE NEG (NEG); OPIATES POS (NEG); PHENCYCLIDINE NEG (NEG)
[2016-12-15 22:33] LABS: ETHANOL, URINE NEG (NEG)
--- NOTE | 2016-12-15 22:55 | RAD ---
INDICATION: Headache, vomiting, altered mental status. History of craniectomy. COMPARISON: December 10, 2016 from [facility] TECHNIQUE: Axial, noncontrast CT images obtained through the head. One or more of the following individualized dose reduction techniques were utilized for this examination: 1. Automated exposure control; 2. Adjustment of the mA and/or kV according to patient size; 3. Use of iterative reconstruction technique. FINDINGS: There are interval postsurgical changes of left frontoparietal craniectomy. Underlying acute subdural blood products are re- demonstrated over the left cerebral hemisphere, which appear decreased in volume when compared to the previous exam. Some scattered pneumocephalus is now present overlying the left cerebral hemisphere among the blood products, consistent with postsurgical changes. Underlying sulcal effacement is present, with resulting rightward midline shift of 1.5 cm at the level of the frontal horns, which measures stable from the previous exam. No interval ventriculomegaly is present. Left posterior horn remains obliterated. Left temporal horn is also obliterated. No new intracranial blood products are seen. Interval soft tissue swelling, subcutaneous emphysema and surgical connie are present over the left frontoparietal scalp. Mastoid air cells and visualized paranasal sinuses remain clear. IMPRESSION: Interval postsurgical changes of left frontoparietal craniectomy. Decreased volume of subdural blood products overlying the left cerebral hemisphere, with blood products remaining. Underlying sulcal effacement and resulting rightward midline shift appears similar to the previous exam. No interval ventriculomegaly. Electronically signed by: Mary Beth Cortez (Dec 15, 2016 22:53:48)
[2016-12-15] MEDS: NICARDIPINE HCL 50 MG in IV NORMAL SALINE 250ML 250 ML IV PRN ×2 (23:09→23:49)
[2016-12-15 23:15] LABS: PLT ESTIMATE ADEQUATE (ADEQUATE)
[2016-12-15 23:18] LABS: CALCIUM 9.3 mg/dL (8.5-10.1); GFR 55.3; POTASSIUM 3.9 mmol/L (3.5-5.1)
[2016-12-15 23:23] LABS: ALBUMIN/GLOBULIN RATIO 0.7 (1.0-1.7); TOTAL PROTEIN 7.4 g/dL (6.4-8.2)
[2016-12-16] VITALS (9 sets, daily range): BP systolic 133–161; BP diastolic 58–80
[2016-12-16] MEDS ORDERED: CEFTRIAXONE 1GM IVPB FOR OMNI 50 ML IV ONE
[2016-12-16] MEDS ORDERED: FENTANYL PF 100 MCG/2 ML VIAL. IV PRN (00:45)
[2016-12-16] MEDS ORDERED: ACETAMINOPHEN 325 MG TABLET. PO PRN (01:15)
[2016-12-16] MEDS ORDERED: ONDANSETRON PF 4 MG/2 ML VIAL. IV PRN ×2 (01:15→07:42)
[2016-12-16] MEDS: FENTANYL PF 100 MCG/2 ML VIAL. IV PRN ×2 (03:58→23:07)
[2016-12-16] MEDS: NICARDIPINE HCL 50 MG in IV NORMAL SALINE 250ML 250 ML IV PRN (05:11)
--- NOTE | 2016-12-16 05:24 | ED.ADGEN ---
Past Medical History Past Medical History: Depression, Diabetes-Type II, High Cholesterol, Hypertension Past Surgical History: Knee Replacement Additional Past Surgical Histo: HEART STENTS, 6 BACK SX Alcohol Use: None Drug Use: None Adult General Chief Complaint Chief Complaint: NEURO SYMPTOMS/DEFICITS HPI HPI Patient is a 66 year old woman, history of depression, dementia, type 2 diabetes mellitus, hypertension, who presents to the emergency, who was discharged from the hospital yesterday after a craniectomy for a subdural hematoma, who presents emergency Department with her family with a complaint of worsening headache, nausea, vomiting, fatigue and confusion. Patient is a and O 4 upon arrival to the emergency department. Is complaining of pain on the left side of her head where her surgeries and performed. She denies any focal weakness numbness or tingling, any abdominal pain, any urinary symptoms, any respiratory symptoms, any chest pain. States she has been compliant with her medications. She last took a pain medication about 4 hours ago, and slept for several hours, for waking up and experiencing nausea and one episode of vomiting. Patient's is at bedside. Review of Systems Review of Systems Constitutional: Denies fever or chills. [] Fatigue. Eyes: Denies change in visual acuity. [] HENT: Denies nasal congestion or sore throat. [] Respiratory: Denies cough or shortness of breath. [] Cardiovascular: Denies chest pain or edema. [] GI: Denies abdominal pain, bloody stools or diarrhea. Vomiting and nausea. : Denies dysuria. [] Musculoskeletal: Denies back pain or joint pain. [] Integument: Denies rash. [] Neurologic: Denies focal weakness or sensory changes. Headache located in the left side of her head. Endocrine: Denies polyuria or polydipsia. [] Lymphatic: Denies swollen glands. [] Psychiatric: Denies depression or anxiety. [] Current Medications Current Medications Current Medications Medications (Trade) Dose Ordered Sig/Stas Start Time Stop Time Status Last Admin Dose Admin Ceftriaxone Sodium (Rocephin 1gm Ivpb For Omni) 50 ml @ 100 mls/hr 1X ONCE 12/16/16 00:00 12/16/16 00:29 DC 12/15/16 23:47 100 MLS/HR Nicardipine HCl 50 mg/Sodium Chloride 270 ml @ 0 mls/hr CONT PRN 12/15/16 23:00 12/16/16 22:59 12/15/16 23:49 37.5 MLS/HR Allergies Allergies Allergies Coded Allergies Type Severity Reaction Last Updated Verified erythromycin base Allergy Intermediate 12/12/16 Yes Physical Exam Physical Exam Constitutional: Well developed, well nourished, no acute distress, patient with a large stapled incision over the left scalp, ecchymosis of the face and jaw. HENT: Normocephalic, connie in place over large left scalp incision, ecchymosis under both eyes, and yellowing along left side of scalp and cheek, bilateral external ears normal, oropharynx moist, no oral exudates, nose normal. [] Eyes: PERRLA, EOMI, conjunctiva normal, no discharge. [] Neck: Normal range of motion, no tenderness, supple, no stridor. [] Cardiovascular:Heart rate regular rhythm, no murmur, S1, S2, rubs or gallops. [] Lungs & Thorax: Bilateral breath sounds clear to auscultation, no wheezing, rhonchi, rales. No crepitus or tenderness. [] Abdomen: Bowel sounds normal, soft, no tenderness, no masses, no pulsatile masses. [] Skin: Warm, dry, no erythema, no rash. [] Back: No tenderness, no CVA tenderness. [] Extremities: No tenderness, no cyanosis, no clubbing, ROM intact, no edema. [] Neurologic: Alert and oriented X 3, normal motor function, normal sensory function, no focal deficits noted. [] Psychologic: Affect normal, judgement normal, mood normal. [] Current Patient Data Vital Signs Vital Signs Date Time Temp Pulse Resp B/P Pulse Ox O2 Delivery O2 Flow Rate FiO2 12/15/16 23:56 112 16 198/88 94 Nasal Cannula 2 12/15/16 21:40 97.8 97.8 Lab Values Laboratory Tests Test 12/15/16 21:45 12/15/16 21:50 12/15/16 22:40 White Blood Count 23.7x10^3/uL (4.0-11.0) H Red Blood Count 4.69x10^6/uL (3.50-5.40) Hemoglobin 13.3g/dL (12.0-15.5) Hematocrit 39.3% (36.0-47.0) Mean Corpuscular Volume 84fL (79-100) Mean Corpuscular Hemoglobin 28pg (25-35) Mean Corpuscular Hemoglobin Concent 34g/dL (31-37) Red Cell Distribution Width 13.6% (11.5-14.5) Platelet Count 339x10^3/uL (140-400) Neutrophils (%) (Auto) 86% (31-73) H Lymphocytes (%) (Auto) 9% (24-48) L Monocytes (%) (Auto) 4% (0-9) Eosinophils (%) (Auto) 0% (0-3) Basophils (%) (Auto) 1% (0-3) Neutrophils # (Auto) 20.2x10^3uL (1.8-7.7) H Lymphocytes # (Auto) 2.2x10^3/uL (1.0-4.8) Monocytes # (Auto) 1.0x10^3/uL (0.0-1.1) Eosinophils # (Auto) 0.1x10^3/uL (0.0-0.7) Basophils # (Auto) 0.1x10^3/uL (0.0-0.2) Segmented Neutrophils % 83% (35-66) H Band Neutrophils % 2% (0-9) Lymphocytes % 12% (24-48) L Monocytes % 3% (0-10) Platelet Estimate Adequate (ADEQUATE) Prothrombin Time 12.4SEC (11.7-14.0) Prothrombin Time INR 1.0 (0.8-1.1) PTT 24SEC (24-38) Urine Collection Type Unknown Urine Color Yellow Urine Clarity Clear Urine pH 7.0 Urine Specific [place] 1.015 Urine Protein 30mg/dL (NEG-TRACE) Urine Glucose (UA) Negativemg/dL (NEG) Urine Ketones (Stick) Negativemg/dL (NEG) Urine Blood Small (NEG) Urine Nitrite Negative (NEG) Urine Bilirubin Negative (NEG) Urine Urobilinogen Dipstick 0.2mg/dL (0.2 mg/dL) Urine Leukocyte Esterase Large (NEG) Urine RBC 1-2/HPF (0-2) Urine WBC Tntc/HPF (0-4) Urine Squamous Epithelial Cells Occ/LPF Urine Bacteria Many/HPF (0-FEW) Urine Mucus Slight/LPF Urine Opiates Screen Pos (NEG) Urine Methadone Screen Neg (NEG) Urine Barbiturates Neg (NEG) Urine Phencyclidine Screen Neg (NEG) Urine Amphetamine/Methamphetamine Neg (NEG) Urine Benzodiazepines Screen Neg (NEG) Urine Cocaine Screen Neg (NEG) Urine Cannabinoids Screen Neg (NEG) Urine Ethyl Alcohol Neg (NEG) Sodium Level 141mmol/L (136-145) Potassium Level 3.9mmol/L (3.5-5.1) Chloride Level 103mmol/L (98-107) Carbon Dioxide Level 27mmol/L (21-32) Anion Gap 11 (6-14) Blood Urea Nitrogen 12mg/dL (7-20) Creatinine 1.0mg/dL (0.6-1.0) Estimated GFR (Cockcroft-Gault) 55.3 BUN/Creatinine Ratio 12 (6-20) Glucose Level 188mg/dL (70-99) H Calcium Level 9.3mg/dL (8.5-10.1) Total Bilirubin 1.0mg/dL (0.2-1.0) Aspartate Amino Transferase (AST) 26U/L (15-37) Alanine Aminotransferase (ALT) 26U/L (14-59) Alkaline Phosphatase 84U/L (46-116) Troponin I Quantitative < 0.017ng/mL (0.000-0.055) QY-Eew-B-Type Natriuretic Peptide 234pg/mL (0-124) H Total Protein 7.4g/dL (6.4-8.2) Albumin 3.0g/dL (3.4-5.0) L Albumin/Globulin Ratio 0.7 (1.0-1.7) L Laboratory Tests 12/15/16 21:45 Laboratory Tests 12/15/16 22:40 EKG EKG EC: Sinus tachycardia, heart rate 110 beats/minute with a single PVC noted, QTc of 507, ME 162, QRS of 84, upright axis deviation, contour normality is noted in the lateral leads, no ST elevations or depressions, abnormal ECG, does not meet STEMI criteria. As interpreted by me. Radiology/Procedures Radiology/Procedures [] [facility] [address] [place], [place] [id number] IMAGING REPORT Signed PATIENT: GLORIA TSAI ACCOUNT: [id number] : 1950 LOCATION: ER AGE: 66 SEX: F EXAM STATUS: REG ER ORD. PHYSICIAN: ELZA PANTOJA DO REASON: headache/vomiting/altered mental status/history of craniectomy PROCEDURE: HEAD WO CONTRAST INDICATION: Headache, vomiting, altered mental status. History of craniectomy. COMPARISON: December 10, 2016 from [facility] TECHNIQUE: Axial, noncontrast CT images obtained through the head. One or more of the following individualized dose reduction techniques were utilized for this examination: 1. Automated exposure control; 2. Adjustment of the mA and/or kV according to patient size; 3. Use of iterative reconstruction technique. FINDINGS: There are interval postsurgical changes of left frontoparietal craniectomy. Underlying acute subdural blood products are re- demonstrated over the left cerebral hemisphere, which appear decreased in volume when compared to the previous exam. Some scattered pneumocephalus is now present overlying the left cerebral hemisphere among the blood products, consistent with postsurgical changes. Underlying sulcal effacement is present, with resulting rightward midline shift of 1.5 cm at the level of the frontal horns, which measures stable from the previous exam. No interval ventriculomegaly is present. Left posterior horn remains obliterated. Left temporal horn is also obliterated. No new intracranial blood products are seen. Interval soft tissue swelling, subcutaneous emphysema and surgical connie are present over the left frontoparietal scalp. Mastoid air cells and visualized paranasal sinuses remain clear. IMPRESSION: Interval postsurgical changes of left frontoparietal craniectomy. Decreased volume of subdural blood products overlying the left cerebral hemisphere, with blood products remaining. Underlying sulcal effacement and resulting rightward midline shift appears similar to the previous exam. No interval ventriculomegaly. Electronically signed by: Karma Cortez (Dec 15, 2016 22:53:48) DICTATED and SIGNED BY: KARMA CORTEZ MD DATE: 12/15/16 9237 CC: OLYA GOLDSTEIN APRN; ELZA PANTOJA DO ~ Impressions: Chest x-ray: One view: Normal cardiopulmonary silhouette, nitrates, no effusions , no soft tissue or bony abnormalities identified. As interpreted by me. Course & Med Decision Making Course & Med Decision Making Pertinent Labs and Imaging studies reviewed. (See chart for details) Patient hypertensive upon arrival to the emergency department, blood pressure 200/103, heart rate in the 60s, patient is awake alert and oriented 4, with a normal neurologic examination. Based on patient's report and history, we will repeat CT of the head to further elucidate her symptoms. CT of the head reviewed with Dr. Downing of neurosurgery, who is familiar with the patient. Patient's CT is improved. Patient has been initiated on a nicardipine, with a goal of systolic less than 150. Patient's blood pressure has improved without intervention, to 180s over 100s. She is agreeable with plan for admission to the hospital for treatment of her pain, and malignant hypertension. Laboratory studies reveal a urinary tract infection, nitrate positive. Patient initiated on ceftriaxone in the emergency department. Findings as above discussed with Dr. Stallings of internal medicine, patient accepted to her service as a full admission to the cardiac telemetry floor for titration of the nicardipine infusion for management and malignant hypertension, consultation with cardiology and neurosurgery. Patient resting comfortably with significant improvement of symptoms, nor recurrence of vomiting, and blood pressure management per protocol at time of transfer to the floor. Bridge orders entered per discussion. Dragon Disclaimer Dragon Disclaimer This electronic medical record was generated, in whole or in part, using a voice recognition dictation system. Departure Impression: Primary Impression: Urinary tract infection Additional Impressions: Headache Status post craniectomy Malignant hypertension Disposition: ADMITTED INPATIENT Admitting Physician: Other Condition: IMPROVED Problem Qualifiers ELZA PANTOJA DO Dec 16, 2016 05:24
--- NOTE | 2016-12-16 06:30 | EKG ---
[facility] [address] [place] [address] Test Date: 2016-12-15 Test Time: 21:26:45 Pat Name: GLORIA TSAI Department: Room: Gender: F Events Associate: : 1950 Requested By: ELZA PANTOJA Order Number: [id number] Reading MD: Measurements Intervals [place] Rate: 110 P: -53 MA: 162 QRS: -14 QRSD: 84 T: 66 QT: 370 QTc: 507 Interpretive Statements SINUS TACHYCARDIA VENTRICULAR PREMATURE COMPLEX(ES) LEFTWARD AXIS R-S TRANSITION ZONE IN V LEADS DISPLACED TO THE LEFT ST & T ABNORMALITY, CONSIDER HIGH LATERAL ISCHEMIA OR LEFT VENTRICULAR STRAIN ABNORMAL ECG RI6.01 No previous ECG available for comparison
--- NOTE | 2016-12-16 07:30 | ACF ---
Admit Criteria Forms Admit Criteria Forms Admit Criteria Forms URINARY COMPLICATIONS Clinical Indications for Inpatient Care (Place 'X' for any and all applicable criteria): Ongoing inpatient care may be indicated for urinary complications with ANY ONE of the following: [X]I. Urinary tract infection requiring inpatient care as indicated by ANY ONE of the following(8)(19)(20): [ ]a) Severe symptoms (eg, high fever, severe pain) [ ]b) Vomiting or dehydration requiring ongoing inpatient care [ ]c) IV antibiotic needs that cannot be managed at lower level of care [X]d) Hemodynamic instability [ ]e) Obstruction of collecting system by stone or tumor [ ]II. Urinary retention requiring drainage or surgery (3)(4)(5)(17)(18) [ ]III. Renal failure (Use Renal Failure Criteria for further information.) [ ]IV. Oliguria(30) [ ]V. Post obstructive diuresis requiring close monitoring of urine output and intravenous compensation for excessive fluid losses(33) Extended stay beyond goal length of stay for primary condition may be needed until ALL of the following are present(3)(4)(5)(8): [ ]a) Renal function (creatinine) at baseline, or daily decreases in creatinine consistent with renal function return [ ]b) Voiding adequately or with urinary catheter or percutaneous suprapubic tube and management regimen in place that is performable at lower level of care. [ ]c) Urine output adequate [ ]d) Fever absent or resolving [ ]e) Infection absent or treatable at next level of care The original [employer] content created by [employer] has been revised. The portions of the content which have been revised are identified through the use of italic text or in bold, and [facility] has neither reviewed nor approved the modified material. All other unmodified content is copyright [facility] Please see references footnoted in the original [facility] edition 2016 NAVNEET DUEÑAS Dec 16, 2016 07:30
--- NOTE | 2016-12-16 08:48 | RAD ---
Portable chest, 12/15/2016: History: Altered mental status Comparison is made to a study from 12/29/2009. The heart size and pulmonary vascularity are normal. No pulmonary infiltrates are seen. There is no evidence of pleural fluid. An old healed rib fracture is present laterally on the left. IMPRESSION: No acute cardiopulmonary abnormality is detected.
--- NOTE | 2016-12-16 08:57 | PDOC1 ---
History and Physical Date of Admission Date of Admission DATE: 12/16/16 TIME: 08:50 Identification/Chief Complaint Chief Complaint severe headaches Source Source: Caregiver, Chart review, Patient History of Present Illness History of Present Illness 66 y/o female was just dcd from here for subdural hematoma after a fall weeks prior, needed evacuation of bleed by neurosx, readmitted lats night bec of incapacitating headaches and a systolic BP > 200s at ER, She admitted she did not take her BP meds when she got home, Denies having high BP in house when she was here, Still has significant headache all around her left side, wants to rest, BP 150s systolic on nicardipine gtt, but with no improvement of headache CT scan shows actually improvement of the brain bleed Past Medical History Cardiovascular: HTN GI: Peptic Ulcer disease Endocrine: Diabetes, Hypothyroidism Past Surgical History Past Surgical History: Total knee replacement Family History Family History: No Significant Social History Smoke: No ALCOHOL: none Drugs: None Current Problem List Problem List Problems Medical Problems: (1) Headache Status: Acute (2) Malignant hypertension Status: Acute (3) Urinary tract infection Status: Acute Problems: Current Medications Current Medications Current Medications Nicardipine HCl 50 mg/Sodium Chloride 270 ml @ 0 mls/hr CONT PRN IV SEE I/O RECORD Last administered on 12/16/16 05:11; Start 12/15/16 at 23:00; Stop 12/16 at 22:59 Ceftriaxone Sodium 50 ml @ 100 mls/hr 1X ONCE IV Last administered on 23:47; Start 12/16/16 at 00:00; Stop 12/16/16 at 00:29; Status DC Ceftriaxone Sodium/Sodium Chloride (Rocephin/Iv Sodium Chloride 0.9% 50ml) 50 ml @ 100 mls/hr Q24H IV ; Start 12/16/16 at 23:00 Fentanyl Citrate (Fentanyl 2ml Vial) 25 mcg PRN Q15MIN PRN IV PAIN GREATER THAN 3/10 Last administered on 12/16/16 01:01; Start 12/16/16 at 00:45; Stop at 02:00; Status DC Ondansetron HCl (Zofran) 4 mg PRN Q8HRS PRN IV NAUSEA/VOMITING Last administered on 12/16/16 01:26; Start 12/16/16 at 01:15; Stop 12/16/16 at 07:43 ; Status DC Fentanyl Citrate (Fentanyl 2ml Vial) 50 mcg PRN Q2HR PRN IV SEVERE PAIN Last administered on 12/16/16 03:58; Start 12/16/16 at 01:15; Stop 12/17/16 at 01:14 Acetaminophen (Tylenol) 650 mg PRN Q4HRS PRN PO FEVER Last administered on 12/16 04:49; Start 12/16/16 at 01:15; Stop 12/17/16 at 01:14 Ondansetron HCl (Zofran) 4 mg PRN Q6HRS PRN IV NAUSEA/VOMITING; Start 12/16/16 at 07:42 Acetaminophen/ Hydrocodone Bitart (Lortab 5/325) 1 tab PRN Q4HRS PRN PO MILD PAIN; Start 12/16/16 at 07:45 Levothyroxine Sodium (Synthroid) 112 mcg DAILY06 PO ; Start 12/16/16 at 08:00 Losartan Potassium (Cozaar) 50 mg DAILY PO ; Start 12/16/16 at 09:00 Metoprolol Tartrate (Lopressor) 25 mg BID PO ; Start 12/16/16 at 09:00 Nortriptyline HCl (Pamelor) 25 mg QHS PO ; Start 12/16/16 at 21:00 Duloxetine HCl (Cymbalta) 60 mg DAILY PO ; Start 12/16/16 at 09:00 Fluticasone Propionate (Flonase) 2 spray PRN DAILY PRN NS ALLERGIES; Start at 09:00 Fish Oil (Fish Oil) 1,000 mg DAILY PO ; Start 12/16/16 at 09:00 Pantoprazole Sodium (Protonix) 40 mg DAILYAC PO ; Start 12/16/16 at 08:00 Atorvastatin Calcium (Lipitor) 80 mg QHS PO ; Start 12/16/16 at 21:00 Linagliptin (Tradjenta) 5 mg DAILY PO ; Start 12/16/16 at 09:00 Oxybutynin Chloride (Ditropan) 5 mg [id number] PO ; Start 12/16/16 at 09:00 Vitamin D (Vitamin D3) 2,000 unit DAILY PO ; Start 12/16/16 at 09:00 Active Scripts Active Hydrocodone-Apap 5-325 (Hydrocodone Bit/Acetaminophen) 1 Each Tablet 1 Tab PO PRN Q4HRS PRN Reported Citracal + D Er Tablet (Calcium Carb & Cit/Vitamin D3) 1 Each Tablet.er 1 Each PO Nasonex (Mometasone Furoate) 17 Gm [place].pump 17 Gm NS PRN Losartan Potassium 25 Mg Tablet 50 Mg PO Fish Oil (Fellows-3 Fatty Acids) 300 Mg Capsule 300 Mg PO DAILY Cymbalta (Duloxetine Hcl) 60 Mg Capsule.dr 60 Mg PO DAILY Crestor (Rosuvastatin Calcium) 40 Mg Tablet 40 Mg PO HS Levothyroxine Sodium 112 Mcg Tablet 112 Mcg PO DAILY Aciphex (Rabeprazole Sodium) 20 Mg Tablet.dr 20 Mg PO DAILY Vesicare (Solifenacin Succinate) 5 Mg Tablet 10 Mg PO DAILY Januvia (Sitagliptin Phosphate) 100 Mg Tablet 100 Mg PO DAILY Metoprolol Tartrate 25 Mg Tablet 25 Mg PO BID Aspirin 325 Mg Tablet 325 Mg PO DAILY [Vit D3] 2,000 Units DAILY Nortriptyline Hcl 25 Mg Capsule 25 Mg PO DAILY Allergies Allergies: Coded Allergies: erythromycin base (Verified Allergy, Intermediate, 12/12/16) ROS Review of System limited - pt wants to be left alone and sleep - headache, no n/v, no GI probs Physical Exam General: Alert, Oriented X3, Cooperative, No acute distress, Other HEENT: Other (left sutures on left temporo-parietal area in a curvi linear fashion) Lungs: Clear to auscultation Heart: S1S2, RRR, no thrills, no rubs, no gallops, no murmurs Cardiovascular: S1, S2 Breasts: Normal, Rt breast nml w/o mass, Lt breast nml w/o mass, Nipples normal Abdomen: Normal bowel sounds, Soft, No tenderness, No hepatosplenomegaly, No masses Rectal Exam: not examined PELVIC: Nml ext genitalia Extremities: No clubbing, No cyanosis, No edema, Normal pulses, No tenderness/ swelling Skin: No rashes, No breakdown, No significant lesion Neuro: Normal gait, Normal speech, Strength at 5/5 X4 ext, Normal tone, Sensation intact, Cranial nerves 3-12 NL, Reflexes 2+ Psych/Mental Status: Mental status NL, Mood NL Vitals Vitals Vital Signs Date Time Temp Pulse Resp B/P Pulse Ox O2 Delivery O2 Flow Rate FiO2 12/16/16 08:00 Nasal Cannula 2.0 12/16/16 08:00 98.2 109 15 161/78 96 98.2 Labs Labs Laboratory Tests Test 12/15/16 21:45 12/15/16 21:50 12/15/16 22:40 White Blood Count 23.7x10^3/uL (4.0-11.0) Red Blood Count 4.69x10^6/uL (3.50-5.40) Hemoglobin 13.3g/dL (12.0-15.5) Hematocrit 39.3% (36.0-47.0) Mean Corpuscular Volume 84fL (79-100) Mean Corpuscular Hemoglobin 28pg (25-35) Mean Corpuscular Hemoglobin Concent 34g/dL (31-37) Red Cell Distribution Width 13.6% (11.5-14.5) Platelet Count 339x10^3/uL (140-400) Neutrophils (%) (Auto) 86% (31-73) Lymphocytes (%) (Auto) 9% (24-48) Monocytes (%) (Auto) 4% (0-9) Eosinophils (%) (Auto) 0% (0-3) Basophils (%) (Auto) 1% (0-3) Neutrophils # (Auto) 20.2x10^3uL (1.8-7.7) Lymphocytes # (Auto) 2.2x10^3/uL (1.0-4.8) Monocytes # (Auto) 1.0x10^3/uL (0.0-1.1) Eosinophils # (Auto) 0.1x10^3/uL (0.0-0.7) Basophils # (Auto) 0.1x10^3/uL (0.0-0.2) Segmented Neutrophils % 83% (35-66) Band Neutrophils % 2% (0-9) Lymphocytes % 12% (24-48) Monocytes % 3% (0-10) Platelet Estimate Adequate (ADEQUATE) Prothrombin Time 12.4SEC (11.7-14.0) Prothromb Time International Ratio 1.0 (0.8-1.1) Activated Partial Thromboplast Time 24SEC (24-38) Urine Collection Type Unknown Urine Color Yellow Urine Clarity Clear Urine pH 7.0 Urine Specific [place] 1.015 Urine Protein 30mg/dL (NEG-TRACE) Urine Glucose (UA) Negativemg/dL (NEG) Urine Ketones (Stick) Negativemg/dL (NEG) Urine Blood Small (NEG) Urine Nitrite Negative (NEG) Urine Bilirubin Negative (NEG) Urine Urobilinogen Dipstick 0.2mg/dL (0.2 mg/dL) Urine Leukocyte Esterase Large (NEG) Urine RBC 1-2/HPF (0-2) Urine WBC Tntc/HPF (0-4) Urine Squamous Epithelial Cells Occ/LPF Urine Bacteria Many/HPF (0-FEW) Urine Mucus Slight/LPF Urine Opiates Screen Pos (NEG) Urine Methadone Screen Neg (NEG) Urine Barbiturates Neg (NEG) Urine Phencyclidine Screen Neg (NEG) Urine Amphetamine/Methamphetamine Neg (NEG) Urine Benzodiazepines Screen Neg (NEG) Urine Cocaine Screen Neg (NEG) Urine Cannabinoids Screen Neg (NEG) Urine Ethyl Alcohol Neg (NEG) Sodium Level 141mmol/L (136-145) Potassium Level 3.9mmol/L (3.5-5.1) Chloride Level 103mmol/L (98-107) Carbon Dioxide Level 27mmol/L (21-32) Anion Gap 11 (6-14) Blood Urea Nitrogen 12mg/dL (7-20) Creatinine 1.0mg/dL (0.6-1.0) Estimated GFR (Cockcroft-Gault) 55.3 BUN/Creatinine Ratio 12 (6-20) Glucose Level 188mg/dL (70-99) Calcium Level 9.3mg/dL (8.5-10.1) Total Bilirubin 1.0mg/dL (0.2-1.0) Aspartate Amino Transf (AST/SGOT) 26U/L (15-37) Alanine Aminotransferase (ALT/SGPT) 26U/L (14-59) Alkaline Phosphatase 84U/L (46-116) Troponin I Quantitative < 0.017ng/mL (0.000-0.055) FG-Skk-H-Type Natriuretic Peptide 234pg/mL (0-124) Total Protein 7.4g/dL (6.4-8.2) Albumin 3.0g/dL (3.4-5.0) Albumin/Globulin Ratio 0.7 (1.0-1.7) Laboratory Tests Test 12/15/16 21:45 12/15/16 21:50 12/15/16 22:40 White Blood Count 23.7x10^3/uL (4.0-11.0) Red Blood Count 4.69x10^6/uL (3.50-5.40) Hemoglobin 13.3g/dL (12.0-15.5) Hematocrit 39.3% (36.0-47.0) Mean Corpuscular Volume 84fL (79-100) Mean Corpuscular Hemoglobin 28pg (25-35) Mean Corpuscular Hemoglobin Concent 34g/dL (31-37) Red Cell Distribution Width 13.6% (11.5-14.5) Platelet Count 339x10^3/uL (140-400) Neutrophils (%) (Auto) 86% (31-73) Lymphocytes (%) (Auto) 9% (24-48) Monocytes (%) (Auto) 4% (0-9) Eosinophils (%) (Auto) 0% (0-3) Basophils (%) (Auto) 1% (0-3) Neutrophils # (Auto) 20.2x10^3uL (1.8-7.7) Lymphocytes # (Auto) 2.2x10^3/uL (1.0-4.8) Monocytes # (Auto) 1.0x10^3/uL (0.0-1.1) Eosinophils # (Auto) 0.1x10^3/uL (0.0-0.7) Basophils # (Auto) 0.1x10^3/uL (0.0-0.2) Segmented Neutrophils % 83% (35-66) Band Neutrophils % 2% (0-9) Lymphocytes % 12% (24-48) Monocytes % 3% (0-10) Platelet Estimate Adequate (ADEQUATE) Prothrombin Time 12.4SEC (11.7-14.0) Prothromb Time International Ratio 1.0 (0.8-1.1) Activated Partial Thromboplast Time 24SEC (24-38) Urine Collection Type Unknown Urine Color Yellow Urine Clarity Clear Urine pH 7.0 Urine Specific [place] 1.015 Urine Protein 30mg/dL (NEG-TRACE) Urine Glucose (UA) Negativemg/dL (NEG) Urine Ketones (Stick) Negativemg/dL (NEG) Urine Blood Small (NEG) Urine Nitrite Negative (NEG) Urine Bilirubin Negative (NEG) Urine Urobilinogen Dipstick 0.2mg/dL (0.2 mg/dL) Urine Leukocyte Esterase Large (NEG) Urine RBC 1-2/HPF (0-2) Urine WBC Tntc/HPF (0-4) Urine Squamous Epithelial Cells Occ/LPF Urine Bacteria Many/HPF (0-FEW) Urine Mucus Slight/LPF Urine Opiates Screen Pos (NEG) Urine Methadone Screen Neg (NEG) Urine Barbiturates Neg (NEG) Urine Phencyclidine Screen Neg (NEG) Urine Amphetamine/Methamphetamine Neg (NEG) Urine Benzodiazepines Screen Neg (NEG) Urine Cocaine Screen Neg (NEG) Urine Cannabinoids Screen Neg (NEG) Urine Ethyl Alcohol Neg (NEG) Sodium Level 141mmol/L (136-145) Potassium Level 3.9mmol/L (3.5-5.1) Chloride Level 103mmol/L (98-107) Carbon Dioxide Level 27mmol/L (21-32) Anion Gap 11 (6-14) Blood Urea Nitrogen 12mg/dL (7-20) Creatinine 1.0mg/dL (0.6-1.0) Estimated GFR (Cockcroft-Gault) 55.3 BUN/Creatinine Ratio 12 (6-20) Glucose Level 188mg/dL (70-99) Calcium Level 9.3mg/dL (8.5-10.1) Total Bilirubin 1.0mg/dL (0.2-1.0) Aspartate Amino Transf (AST/SGOT) 26U/L (15-37) Alanine Aminotransferase (ALT/SGPT) 26U/L (14-59) Alkaline Phosphatase 84U/L (46-116) Troponin I Quantitative < 0.017ng/mL (0.000-0.055) ML-Qno-C-Type Natriuretic Peptide 234pg/mL (0-124) Total Protein 7.4g/dL (6.4-8.2) Albumin 3.0g/dL (3.4-5.0) Albumin/Globulin Ratio 0.7 (1.0-1.7) VTE Prophylaxis Ordered VTE Prophylaxis Devices: Contraindicated VTE Pharmacological Prophylaxi: Contraindicated Assessment/Plan Assessment/Plan MAlignant HTN Recent Subdural hematoma with surgical evacuation Hypertension, PUD, osteoarthritis, hypothyroidism. PLAN: Keep in ICU MAintain nicardipine gtt\ COnsult neuro given no improvement of headaches despite improvement of bP Neurosx consulted as courtesy CAnt do NSAIDs NO relief with tylenol Cant do sumatriptan/imitrex given recent brain bleed and high BP SCDs Dw pt and FIELD COORDINATOR DIPIKA CARRASQUILLO MD Dec 16, 2016 08:57
[2016-12-16] MEDS ORDERED: INSULIN ASPART 300 UNITS/3 ML INSULN.PEN SQ SCH (09:00)
[2016-12-16] MEDS ORDERED: DEXTROSE 50% 25 GM / 50ML DISP.SYRIN. IV PRN (09:00)
[2016-12-16] MEDS ORDERED: FLUTICASONE 50MCG/NASAL SPRAY 16GM BOTTLE. NS PRN (09:00)
[2016-12-16] MEDS ORDERED: LOSARTAN POTASSIUM 50 MG TABLET. PO SCH (09:00)
--- NOTE | 2016-12-16 10:14 | PDOC2 ---
CARDIAC CONSULT DATE OF CONSULT Date of Consult DATE: 12/16/16 TIME: 10:03 REASON FOR CONSULT Reason for Consult: Malignant hypertension REFERRING PHYSICIAN Referring Physician: Dr. Esquivel SOURCE Source: Chart review, Patient HISTORY OF PRESENT ILLNESS HISTORY OF PRESENT ILLNESS This is a 66 yo female, who was discharged from the hospital 12/14/16 after a craniectomy for a subdural hematoma, who presented with complaints of worsening WILL, nausea/vomiting, and confusion. Patient reports difficulty with speech and thought. Son reports mother expressed "fear of dying" so he called sister who had bring her into the ED for further evaluation. Patient reports she forgot to take her routine medications once discharged home from hospital on Friday. Was only taking pain medications. Lives at home with but he apparently has memories issues as well. Denies any chest pain, palpitations, dizziness, diaphoresis, or SOA. PAST MEDICAL HISTORY Cardiovascular: CAD (s/p BMS to OM2 2012), HTN, Hyperlipidemia, Other Pulmonary: No pertinent hx CENTRAL NERVOUS SYSTEM: Migraine, Other (subdural hematoma ) GI: GERD, Peptic Ulcer disease Heme/Onc: No pertinent hx Hepatobiliary: No pertinent hx Psych: Anxiety, Depression Musculoskeletal: Osteoarthritis, Other (osteomyelitis) Rheumatologic: No pertinent hx ENT: No pertinent hx Renal/: No pertinent hx Endocrine: Diabetes, Hypothyroidism PAST SURGICAL HISTORY Past Surgical History: Total knee replacement (bilateral), Hysterectomy, Other (back sx) FAMILY HISTORY Family History: Hypertension SOCIAL HISTORY Smoke: No ALCOHOL: none Drugs: None Lives: with Family CURRENT MEDICATIONS CURRENT MEDICATIONS Current Medications Medications (Trade) Dose Ordered Sig/Stas Route PRN Reason Start Time Stop Time Status Last Admin Dose Admin Nicardipine HCl 50 mg/Sodium Chloride 270 ml @ 0 mls/hr CONT PRN IV SEE I/O RECORD 12/15/16 23:00 12/16/16 22:59 12/16/16 05:11 Ceftriaxone Sodium (Rocephin 1gm Ivpb For Omni) 50 ml @ 100 mls/hr 1X ONCE IV 12/16/16 00:00 12/16/16 00:29 DC 12/15/16 23:47 Fentanyl Citrate (Fentanyl 2ml Vial) 25 mcg PRN Q15MIN PRN IV PAIN GREATER THAN 3/10 12/16/16 00:45 12/16/16 02:00 DC 12/16/16 01:01 Ondansetron HCl (Zofran) 4 mg PRN Q8HRS PRN IV NAUSEA/VOMITING 12/16/16 01:15 12/16/16 07:43 DC 12/16/16 01:26 Fentanyl Citrate (Fentanyl 2ml Vial) 50 mcg PRN Q2HR PRN IV SEVERE PAIN 12/16/16 01:15 12/17/16 01:14 12/16/16 03:58 Acetaminophen (Tylenol) 650 mg PRN Q4HRS PRN PO FEVER 12/16/16 01:15 12/17/16 01:14 12/16/16 04:49 ALLERGIES ALLERGIES: Coded Allergies: erythromycin base (Verified Allergy, Intermediate, 12/12/16) ROS Review of System 14 point ROS conducted with pertinent positives noted above in HPI. PHYSICAL EXAM General: Alert, Oriented X3, Cooperative, No acute distress HEENT: Mucous membr. moist/pink, Other (right periorbital bruising. left scapular connie intact ) Lungs: Clear to auscultation, Normal air movement Heart: Regular rate, Normal S1, Normal S2, Other (tele ST. 2/6 systolic murmur ) Abdomen: Soft, No tenderness Extremities: No cyanosis, No edema, Normal pulses Skin: No significant lesion Neuro: Normal speech, Sensation intact Psych/Mental Status: Mental status NL, Mood NL, Other (intermittent confusion) MUSCULOSKELETAL: Osteoarthritic changes both hands VITALS VITALS Vital Signs Date Time Temp Pulse Resp B/P Pulse Ox O2 Delivery O2 Flow Rate FiO2 12/16/16 08:00 Nasal Cannula 2.0 12/16/16 08:00 98.2 109 15 161/78 96 98.2 LABS Lab: Laboratory Tests Test 12/15/16 21:45 12/15/16 21:50 12/15/16 22:40 White Blood Count 23.7x10^3/uL (4.0-11.0) Red Blood Count 4.69x10^6/uL (3.50-5.40) Hemoglobin 13.3g/dL (12.0-15.5) Hematocrit 39.3% (36.0-47.0) Mean Corpuscular Volume 84fL (79-100) Mean Corpuscular Hemoglobin 28pg (25-35) Mean Corpuscular Hemoglobin Concent 34g/dL (31-37) Red Cell Distribution Width 13.6% (11.5-14.5) Platelet Count 339x10^3/uL (140-400) Neutrophils (%) (Auto) 86% (31-73) Lymphocytes (%) (Auto) 9% (24-48) Monocytes (%) (Auto) 4% (0-9) Eosinophils (%) (Auto) 0% (0-3) Basophils (%) (Auto) 1% (0-3) Neutrophils # (Auto) 20.2x10^3uL (1.8-7.7) Lymphocytes # (Auto) 2.2x10^3/uL (1.0-4.8) Monocytes # (Auto) 1.0x10^3/uL (0.0-1.1) Eosinophils # (Auto) 0.1x10^3/uL (0.0-0.7) Basophils # (Auto) 0.1x10^3/uL (0.0-0.2) Segmented Neutrophils % 83% (35-66) Band Neutrophils % 2% (0-9) Lymphocytes % 12% (24-48) Monocytes % 3% (0-10) Platelet Estimate Adequate (ADEQUATE) Prothrombin Time 12.4SEC (11.7-14.0) Prothromb Time International Ratio 1.0 (0.8-1.1) Activated Partial Thromboplast Time 24SEC (24-38) Urine Collection Type Unknown Urine Color Yellow Urine Clarity Clear Urine pH 7.0 Urine Specific [place] 1.015 Urine Protein 30mg/dL (NEG-TRACE) Urine Glucose (UA) Negativemg/dL (NEG) Urine Ketones (Stick) Negativemg/dL (NEG) Urine Blood Small (NEG) Urine Nitrite Negative (NEG) Urine Bilirubin Negative (NEG) Urine Urobilinogen Dipstick 0.2mg/dL (0.2 mg/dL) Urine Leukocyte Esterase Large (NEG) Urine RBC 1-2/HPF (0-2) Urine WBC Tntc/HPF (0-4) Urine Squamous Epithelial Cells Occ/LPF Urine Bacteria Many/HPF (0-FEW) Urine Mucus Slight/LPF Urine Opiates Screen Pos (NEG) Urine Methadone Screen Neg (NEG) Urine Barbiturates Neg (NEG) Urine Phencyclidine Screen Neg (NEG) Urine Amphetamine/Methamphetamine Neg (NEG) Urine Benzodiazepines Screen Neg (NEG) Urine Cocaine Screen Neg (NEG) Urine Cannabinoids Screen Neg (NEG) Urine Ethyl Alcohol Neg (NEG) Sodium Level 141mmol/L (136-145) Potassium Level 3.9mmol/L (3.5-5.1) Chloride Level 103mmol/L (98-107) Carbon Dioxide Level 27mmol/L (21-32) Anion Gap 11 (6-14) Blood Urea Nitrogen 12mg/dL (7-20) Creatinine 1.0mg/dL (0.6-1.0) Estimated GFR (Cockcroft-Gault) 55.3 BUN/Creatinine Ratio 12 (6-20) Glucose Level 188mg/dL (70-99) Calcium Level 9.3mg/dL (8.5-10.1) Total Bilirubin 1.0mg/dL (0.2-1.0) Aspartate Amino Transf (AST/SGOT) 26U/L (15-37) Alanine Aminotransferase (ALT/SGPT) 26U/L (14-59) Alkaline Phosphatase 84U/L (46-116) Troponin I Quantitative < 0.017ng/mL (0.000-0.055) VR-Xoa-L-Type Natriuretic Peptide 234pg/mL (0-124) Total Protein 7.4g/dL (6.4-8.2) Albumin 3.0g/dL (3.4-5.0) Albumin/Globulin Ratio 0.7 (1.0-1.7) ASSESSMENT/PLAN ASSESSMENT/PLAN 1. Malignant hypertension secondary to medication non-compliance improved with Cardene gtt home antiHTN therapy resumed. titrate as necessary titrate gtt off as able. 2. Sinus tachycardia resume home BB 3. Subdural hematoma s/p craniotomy with evacuation 12/11/16 per neuro sx 4. CAD s/p PCI/BMS to OM2 2012 stable. CP free continue secondary prevention/ risk stratification modification 5. DM, II per PCP 6. Hypothyroidism on replacement therapy 7. Leukocytosis with UTI treatment per PCP 8. Altered mental status will likely need assistance with medications- d/w son Problems: MADI DOUGLAS APRN Dec 16, 2016 10:14
--- NOTE | 2016-12-16 10:31 | PDOC ---
SUBJECTIVE Subjective Pt seen examined. Admitted through ED with excess hypertension, headache, and some increased short term memory issue and word finding difficulty. Reports pain at incision site. BP now controlled on cardene gtt. Denies any falls or injury. Sitting up and eating breakfast. OBJECTIVE Objective CT head with some residual blood products subdural surgical site about 5mm maximal thickness (prior was 13-14mm thickness) Vital Signs Vital Signs Date Time Temp Pulse Resp B/P Pulse Ox O2 Delivery O2 Flow Rate FiO2 12/16/16 08:00 Nasal Cannula 2.0 12/16/16 08:00 98.2 109 15 161/78 96 Nasal Cannula 2.0 98.2 12/16/16 04:28 98 Nasal Cannula 2.0 12/16/16 04:00 98.0 102 15 136/80 95 Nasal Cannula 2.0 98.0 12/16/16 03:58 18 Nasal Cannula 2.0 12/16/16 02:17 Nasal Cannula 2.0 12/16/16 02:00 102 20 147/73 98 Nasal Cannula 2.0 12/16/16 01:45 88 18 156/73 98 Nasal Cannula 2.0 12/16/16 01:31 93 12/16/16 01:30 98.0 98 158/80 96 Nasal Cannula 2.0 98.0 12/16/16 00:46 110 12 182/85 94 Nasal Cannula 2 12/16/16 00:36 105 12 158/81 94 Nasal Cannula 2 12/16/16 00:26 104 12 170/85 93 Nasal Cannula 2 12/16/16 00:16 108 13 183/89 95 Nasal Cannula 2 12/16/16 00:06 106 12 183/84 94 Nasal Cannula 2 12/15/16 23:56 112 16 198/88 94 Nasal Cannula 2 12/15/16 23:46 95 14 196/99 95 Nasal Cannula 2 12/15/16 23:36 96 11 200/100 96 Nasal Cannula 2 12/15/16 23:26 98 17 195/98 98 Nasal Cannula 2 12/15/16 23:16 100 15 195/100 96 Nasal Cannula 2 12/15/16 23:06 94 15 196/93 96 Nasal Cannula 2 12/15/16 22:51 94 15 206/103 96 Nasal Cannula 2 12/15/16 21:40 97.8 106 24 209/101 94 Room Air 97.8 I & O Intake and Output 12/16/16 07:00 Intake Total 200 ml Balance 200 ml Intake Oral 150 ml IV Total 50 ml PHYSICAL EXAM Physical Exam AA, NAD, PERRL, some mild confusion and word finding difficulty noted, CESPEDES 5/5, sensation intact LT, incision c/d/i, some increased ecchymoses noted inferior екатерина-incisional region, left face and neck ASSESSMENT/PLAN Assessment/Plan 66F status post SDH evacuation 12/11/16 discharged and readmitted with increased headache/incisional pain and word finding vs memory issue after excessive hypertension (>200SBP); CT with post-op changes, small residual SDH noted - monitor for changes, SBP goal <140, presently on cardene, wean as able, continue to avoid anticoagulant, will repeat CT head in AM (sooner if decline occurs) Problems: COMMENT Lab Laboratory Tests Test 12/15/16 21:45 12/15/16 21:50 12/15/16 22:40 White Blood Count 23.7x10^3/uL (4.0-11.0) Red Blood Count 4.69x10^6/uL (3.50-5.40) Hemoglobin 13.3g/dL (12.0-15.5) Hematocrit 39.3% (36.0-47.0) Mean Corpuscular Volume 84fL (79-100) Mean Corpuscular Hemoglobin 28pg (25-35) Mean Corpuscular Hemoglobin Concent 34g/dL (31-37) Red Cell Distribution Width 13.6% (11.5-14.5) Platelet Count 339x10^3/uL (140-400) Neutrophils (%) (Auto) 86% (31-73) Lymphocytes (%) (Auto) 9% (24-48) Monocytes (%) (Auto) 4% (0-9) Eosinophils (%) (Auto) 0% (0-3) Basophils (%) (Auto) 1% (0-3) Neutrophils # (Auto) 20.2x10^3uL (1.8-7.7) Lymphocytes # (Auto) 2.2x10^3/uL (1.0-4.8) Monocytes # (Auto) 1.0x10^3/uL (0.0-1.1) Eosinophils # (Auto) 0.1x10^3/uL (0.0-0.7) Basophils # (Auto) 0.1x10^3/uL (0.0-0.2) Segmented Neutrophils % 83% (35-66) Band Neutrophils % 2% (0-9) Lymphocytes % 12% (24-48) Monocytes % 3% (0-10) Platelet Estimate Adequate (ADEQUATE) Prothrombin Time 12.4SEC (11.7-14.0) Prothromb Time International Ratio 1.0 (0.8-1.1) Activated Partial Thromboplast Time 24SEC (24-38) Urine Collection Type Unknown Urine Color Yellow Urine Clarity Clear Urine pH 7.0 Urine Specific [place] 1.015 Urine Protein 30mg/dL (NEG-TRACE) Urine Glucose (UA) Negativemg/dL (NEG) Urine Ketones (Stick) Negativemg/dL (NEG) Urine Blood Small (NEG) Urine Nitrite Negative (NEG) Urine Bilirubin Negative (NEG) Urine Urobilinogen Dipstick 0.2mg/dL (0.2 mg/dL) Urine Leukocyte Esterase Large (NEG) Urine RBC 1-2/HPF (0-2) Urine WBC Tntc/HPF (0-4) Urine Squamous Epithelial Cells Occ/LPF Urine Bacteria Many/HPF (0-FEW) Urine Mucus Slight/LPF Urine Opiates Screen Pos (NEG) Urine Methadone Screen Neg (NEG) Urine Barbiturates Neg (NEG) Urine Phencyclidine Screen Neg (NEG) Urine Amphetamine/Methamphetamine Neg (NEG) Urine Benzodiazepines Screen Neg (NEG) Urine Cocaine Screen Neg (NEG) Urine Cannabinoids Screen Neg (NEG) Urine Ethyl Alcohol Neg (NEG) Sodium Level 141mmol/L (136-145) Potassium Level 3.9mmol/L (3.5-5.1) Chloride Level 103mmol/L (98-107) Carbon Dioxide Level 27mmol/L (21-32) Anion Gap 11 (6-14) Blood Urea Nitrogen 12mg/dL (7-20) Creatinine 1.0mg/dL (0.6-1.0) Estimated GFR (Cockcroft-Gault) 55.3 BUN/Creatinine Ratio 12 (6-20) Glucose Level 188mg/dL (70-99) Calcium Level 9.3mg/dL (8.5-10.1) Total Bilirubin 1.0mg/dL (0.2-1.0) Aspartate Amino Transf (AST/SGOT) 26U/L (15-37) Alanine Aminotransferase (ALT/SGPT) 26U/L (14-59) Alkaline Phosphatase 84U/L (46-116) Troponin I Quantitative < 0.017ng/mL (0.000-0.055) YG-Crf-I-Type Natriuretic Peptide 234pg/mL (0-124) Total Protein 7.4g/dL (6.4-8.2) Albumin 3.0g/dL (3.4-5.0) Albumin/Globulin Ratio 0.7 (1.0-1.7) GALO RAMOS MD Dec 16, 2016 10:31
[2016-12-16] MEDS: DULOXETINE HCL 30 MG CAPSULE.DR. PO SCH (12:04)
[2016-12-16] MEDS: LEVOTHYROXINE 112 MCG TABLET PO SCH (12:04)
[2016-12-16] MEDS: OXYBUTYNIN CHLORIDE 5 MG TABLET PO SCH ×3 (12:04→20:45)
[2016-12-16] MEDS: OMEGA-3 FATTY ACIDS/FISH OIL 1,000 MG CAPSULE. PO SCH (12:04)
[2016-12-16] MEDS: PANTOPRAZOLE 40 MG TABLET. PO SCH (12:05)
[2016-12-16] MEDS: CHOLECALCIFEROL (VITAMIN D3) 1,000 UNIT TABLET PO SCH (12:05)
[2016-12-16] MEDS: LINAGLIPTIN 5 MG TABLET PO SCH (12:06)
[2016-12-16] MEDS: METOPROLOL TART IMMED RELEASE 25 MG TABLET PO SCH ×2 (12:06→20:45)
[2016-12-16] MEDS: HYDROCODONE/APAP 5/325MG TABLET. PO PRN ×2 (13:58→20:44)
--- NOTE | 2016-12-16 15:07 | PDOC2 ---
NEUROLOGY CONSULT Date of Admission Date of Admission DATE: 12/16/16 TIME: 14:57 Reason for Consult Reason for Consult: Headache Referring Physician Referring Physician: Dr. Stallings PCP: Ms. Lan Source Source: Caregiver, Chart review, Patient History of Present Illness History of Present Illness The patient is a 66-year-old right-handed female discharged from an admission last week for a large left subdural hematoma. She does not remember in acute fall, but may have fallen several weeks ago. This was evacuated and the patient went home, but presented last night with headache, hypertension, and confusion. She is feeling better now. A diagnosis of dementia is in her chart but she and her deny prior problems with confusion. There is no history of stroke or seizure.She does have a history of migraines for which she was on Cymbalta and Nortriptyline, but she admits that she has missed several doses of these at home. Past Medical History Cardiovascular: CAD, Other (Peripheral vascular disease) GI: GERD Hepatobiliary: Cholelithiasis Musculoskeletal: Other ( osteomyelitis 1954) Renal/: UTI, Other ( kidney stones) Endocrine: Diabetes, Hypothyroidism Past Surgical History Past Surgical History: Total knee replacement ( bilateral), Hysterectomy, Other ( coronary artery stent, evacuation of subdural hematoma, rotator cuff, lumbar times 6) Family History Family History: Cancer, Hypertension Social History Social History , non-smoker, nondrinker Current Medications Current Medications Current Medications Nicardipine HCl 50 mg/Sodium Chloride 270 ml @ 0 mls/hr CONT PRN IV SEE I/O RECORD Last administered on 12/16/16 05:11; Start 12/15/16 at 23:00; Stop 12/16 at 22:59 Ceftriaxone Sodium 50 ml @ 100 mls/hr 1X ONCE IV Last administered on 23:47; Start 12/16/16 at 00:00; Stop 12/16/16 at 00:29; Status DC Ceftriaxone Sodium/Sodium Chloride (Rocephin/Iv Sodium Chloride 0.9% 50ml) 50 ml @ 100 mls/hr Q24H IV ; Start 12/16/16 at 23:00 Fentanyl Citrate (Fentanyl 2ml Vial) 25 mcg PRN Q15MIN PRN IV PAIN GREATER THAN 3/10 Last administered on 12/16/16 01:01; Start 12/16/16 at 00:45; Stop at 02:00; Status DC Ondansetron HCl (Zofran) 4 mg PRN Q8HRS PRN IV NAUSEA/VOMITING Last administered on 12/16/16 01:26; Start 12/16/16 at 01:15; Stop 12/16/16 at 07:43 ; Status DC Fentanyl Citrate (Fentanyl 2ml Vial) 50 mcg PRN Q2HR PRN IV SEVERE PAIN Last administered on 12/16/16 03:58; Start 12/16/16 at 01:15; Stop 12/17/16 at 01:14 Acetaminophen (Tylenol) 650 mg PRN Q4HRS PRN PO FEVER Last administered on 12/16 04:49; Start 12/16/16 at 01:15; Stop 12/17/16 at 01:14 Ondansetron HCl (Zofran) 4 mg PRN Q6HRS PRN IV NAUSEA/VOMITING; Start 12/16/16 at 07:42 Acetaminophen/ Hydrocodone Bitart (Lortab 5/325) 1 tab PRN Q4HRS PRN PO MILD PAIN Last administered on 12/16/16 13:58; Start 12/16/16 at 07:45 Levothyroxine Sodium (Synthroid) 112 mcg DAILY06 PO Last administered on 12:04; Start 12/16/16 at 08:00 Losartan Potassium (Cozaar) 50 mg DAILY PO Last administered on 12/16/16 12:05 ; Start 12/16/16 at 09:00 Metoprolol Tartrate (Lopressor) 25 mg BID PO Last administered on 12/16/16 12: 06; Start 12/16/16 at 09:00 Nortriptyline HCl (Pamelor) 25 mg QHS PO ; Start 12/16/16 at 21:00; Stop at 21:00; Status DC Duloxetine HCl (Cymbalta) 60 mg DAILY PO Last administered on 12/16/16 12:04; Start 12/16/16 at 09:00 Fluticasone Propionate (Flonase) 2 spray PRN DAILY PRN NS ALLERGIES; Start at 09:00 Fish Oil (Fish Oil) 1,000 mg DAILY PO Last administered on 12/16/16 12:04; Start 12/16/16 at 09:00 Pantoprazole Sodium (Protonix) 40 mg DAILYAC PO Last administered on 12/16/16 12:05; Start 12/16/16 at 08:00 Atorvastatin Calcium (Lipitor) 80 mg QHS PO ; Start 12/16/16 at 21:00 Linagliptin (Tradjenta) 5 mg DAILY PO Last administered on 12/16/16 12:06; Start 12/16/16 at 09:00 Oxybutynin Chloride (Ditropan) 5 mg [id number] PO Last administered on 12/16/16 12 :04; Start 12/16/16 at 09:00 Vitamin D (Vitamin D3) 2,000 unit DAILY PO Last administered on 12/16/16 12:05 ; Start 12/16/16 at 09:00 Insulin Aspart (Novolog) 0-9 UNITS TIDWMEALS SQ ; Start 12/16/16 at 09:00 Dextrose 12.5 gm PRN Q15MIN PRN IV SEE COMMENTS; Start 12/16/16 at 09:00 Nortriptyline HCl (Pamelor) 50 mg QHS PO ; Start 12/16/16 at 21:00 Active Scripts Active Hydrocodone-Apap 5-325 (Hydrocodone Bit/Acetaminophen) 1 Each Tablet 1 Tab PO PRN Q4HRS PRN Reported Citracal + D Er Tablet (Calcium Carb & Cit/Vitamin D3) 1 Each Tablet.er 1 Each PO Nasonex (Mometasone Furoate) 17 Gm Taylor.pump 17 Gm NS PRN Losartan Potassium 25 Mg Tablet 50 Mg PO Fish Oil (Lissie-3 Fatty Acids) 300 Mg Capsule 300 Mg PO DAILY Cymbalta (Duloxetine Hcl) 60 Mg Capsule. 60 Mg PO DAILY Crestor (Rosuvastatin Calcium) 40 Mg Tablet 40 Mg PO HS Levothyroxine Sodium 112 Mcg Tablet 112 Mcg PO DAILY Aciphex (Rabeprazole Sodium) 20 Mg Tablet. 20 Mg PO DAILY Vesicare (Solifenacin Succinate) 5 Mg Tablet 10 Mg PO DAILY Januvia (Sitagliptin Phosphate) 100 Mg Tablet 100 Mg PO DAILY Metoprolol Tartrate 25 Mg Tablet 25 Mg PO BID Aspirin 325 Mg Tablet 325 Mg PO DAILY [Vit D3] 2,000 Units DAILY Nortriptyline Hcl 25 Mg Capsule 25 Mg PO DAILY Allergies Allergies: Coded Allergies: erythromycin base (Verified Allergy, Intermediate, 12/12/16) ROS Review of System Negative for fevers, chills, weight loss, shortness of breath, chest pain, indigestion, hematochezia, melena, dysuria. Full 14-point review systems is negative. Physical Exam Physical Examination PHYSICAL EXAMINATION: Vital signs: see above. General appearance is normal and in no acute distress. HEENT: Normocephalic. Left craniotomy scar healing well. Eyes, nose, ears, and throat are unremarkable. Neck is supple. No lymphadenopathy. No bruits are heard over the carotid artery. No crepitus. NEUROLOGICAL EXAMINATION: Mental Status Examination: Alert. Oriented to time, place, and person. Answers questions and follows commends. She gets a little confused recounting her history, though. Pupils are equal round and reactive to light and accommodation. Funduscopic exam: No papilledema. Extraocular movements are intact. Visual field exam shows no defect on the direct confrontation. No motor or sensory deficits on the facial exam. Uvula in the midline and the soft palate elevated symmetrically. No deviation of the tongue to any direction. Gross hearing is normal. Shoulder shrug normal. Muscle tone is normal. Muscle strength is 5. Deep tendon reflexes are 2+ all around. Plantar reflex is with flexion response bilaterally. [id number] test performance is accurate. Alternative movements are accurate. Gait not tested. Sensory exam shows no deficits. No cerebellar signs are elicited. Vitals VITALS Vital Signs Date Time Temp Pulse Resp B/P Pulse Ox O2 Delivery O2 Flow Rate FiO2 12/16/16 13:58 16 96 Room Air 12/16/16 12:06 126 103/69 12/16/16 08:00 2.0 12/16/16 08:00 98.2 98.2 Labs Labs Laboratory Tests Test 12/15/16 21:45 12/15/16 21:50 12/15/16 22:40 White Blood Count 23.7x10^3/uL (4.0-11.0) Red Blood Count 4.69x10^6/uL (3.50-5.40) Hemoglobin 13.3g/dL (12.0-15.5) Hematocrit 39.3% (36.0-47.0) Mean Corpuscular Volume 84fL (79-100) Mean Corpuscular Hemoglobin 28pg (25-35) Mean Corpuscular Hemoglobin Concent 34g/dL (31-37) Red Cell Distribution Width 13.6% (11.5-14.5) Platelet Count 339x10^3/uL (140-400) Neutrophils (%) (Auto) 86% (31-73) Lymphocytes (%) (Auto) 9% (24-48) Monocytes (%) (Auto) 4% (0-9) Eosinophils (%) (Auto) 0% (0-3) Basophils (%) (Auto) 1% (0-3) Neutrophils # (Auto) 20.2x10^3uL (1.8-7.7) Lymphocytes # (Auto) 2.2x10^3/uL (1.0-4.8) Monocytes # (Auto) 1.0x10^3/uL (0.0-1.1) Eosinophils # (Auto) 0.1x10^3/uL (0.0-0.7) Basophils # (Auto) 0.1x10^3/uL (0.0-0.2) Segmented Neutrophils % 83% (35-66) Band Neutrophils % 2% (0-9) Lymphocytes % 12% (24-48) Monocytes % 3% (0-10) Platelet Estimate Adequate (ADEQUATE) Prothrombin Time 12.4SEC (11.7-14.0) Prothromb Time International Ratio 1.0 (0.8-1.1) Activated Partial Thromboplast Time 24SEC (24-38) Urine Collection Type Unknown Urine Color Yellow Urine Clarity Clear Urine pH 7.0 Urine Specific [place] 1.015 Urine Protein 30mg/dL (NEG-TRACE) Urine Glucose (UA) Negativemg/dL (NEG) Urine Ketones (Stick) Negativemg/dL (NEG) Urine Blood Small (NEG) Urine Nitrite Negative (NEG) Urine Bilirubin Negative (NEG) Urine Urobilinogen Dipstick 0.2mg/dL (0.2 mg/dL) Urine Leukocyte Esterase Large (NEG) Urine RBC 1-2/HPF (0-2) Urine WBC Tntc/HPF (0-4) Urine Squamous Epithelial Cells Occ/LPF Urine Bacteria Many/HPF (0-FEW) Urine Mucus Slight/LPF Urine Opiates Screen Pos (NEG) Urine Methadone Screen Neg (NEG) Urine Barbiturates Neg (NEG) Urine Phencyclidine Screen Neg (NEG) Urine Amphetamine/Methamphetamine Neg (NEG) Urine Benzodiazepines Screen Neg (NEG) Urine Cocaine Screen Neg (NEG) Urine Cannabinoids Screen Neg (NEG) Urine Ethyl Alcohol Neg (NEG) Sodium Level 141mmol/L (136-145) Potassium Level 3.9mmol/L (3.5-5.1) Chloride Level 103mmol/L (98-107) Carbon Dioxide Level 27mmol/L (21-32) Anion Gap 11 (6-14) Blood Urea Nitrogen 12mg/dL (7-20) Creatinine 1.0mg/dL (0.6-1.0) Estimated GFR (Cockcroft-Gault) 55.3 BUN/Creatinine Ratio 12 (6-20) Glucose Level 188mg/dL (70-99) Calcium Level 9.3mg/dL (8.5-10.1) Total Bilirubin 1.0mg/dL (0.2-1.0) Aspartate Amino Transf (AST/SGOT) 26U/L (15-37) Alanine Aminotransferase (ALT/SGPT) 26U/L (14-59) Alkaline Phosphatase 84U/L (46-116) Troponin I Quantitative < 0.017ng/mL (0.000-0.055) EI-Rgo-E-Type Natriuretic Peptide 234pg/mL (0-124) Total Protein 7.4g/dL (6.4-8.2) Albumin 3.0g/dL (3.4-5.0) Albumin/Globulin Ratio 0.7 (1.0-1.7) Laboratory Tests Test 12/15/16 21:45 12/15/16 21:50 12/15/16 22:40 White Blood Count 23.7x10^3/uL (4.0-11.0) Red Blood Count 4.69x10^6/uL (3.50-5.40) Hemoglobin 13.3g/dL (12.0-15.5) Hematocrit 39.3% (36.0-47.0) Mean Corpuscular Volume 84fL (79-100) Mean Corpuscular Hemoglobin 28pg (25-35) Mean Corpuscular Hemoglobin Concent 34g/dL (31-37) Red Cell Distribution Width 13.6% (11.5-14.5) Platelet Count 339x10^3/uL (140-400) Neutrophils (%) (Auto) 86% (31-73) Lymphocytes (%) (Auto) 9% (24-48) Monocytes (%) (Auto) 4% (0-9) Eosinophils (%) (Auto) 0% (0-3) Basophils (%) (Auto) 1% (0-3) Neutrophils # (Auto) 20.2x10^3uL (1.8-7.7) Lymphocytes # (Auto) 2.2x10^3/uL (1.0-4.8) Monocytes # (Auto) 1.0x10^3/uL (0.0-1.1) Eosinophils # (Auto) 0.1x10^3/uL (0.0-0.7) Basophils # (Auto) 0.1x10^3/uL (0.0-0.2) Segmented Neutrophils % 83% (35-66) Band Neutrophils % 2% (0-9) Lymphocytes % 12% (24-48) Monocytes % 3% (0-10) Platelet Estimate Adequate (ADEQUATE) Prothrombin Time 12.4SEC (11.7-14.0) Prothromb Time International Ratio 1.0 (0.8-1.1) Activated Partial Thromboplast Time 24SEC (24-38) Urine Collection Type Unknown Urine Color Yellow Urine Clarity Clear Urine pH 7.0 Urine Specific [place] 1.015 Urine Protein 30mg/dL (NEG-TRACE) Urine Glucose (UA) Negativemg/dL (NEG) Urine Ketones (Stick) Negativemg/dL (NEG) Urine Blood Small (NEG) Urine Nitrite Negative (NEG) Urine Bilirubin Negative (NEG) Urine Urobilinogen Dipstick 0.2mg/dL (0.2 mg/dL) Urine Leukocyte Esterase Large (NEG) Urine RBC 1-2/HPF (0-2) Urine WBC Tntc/HPF (0-4) Urine Squamous Epithelial Cells Occ/LPF Urine Bacteria Many/HPF (0-FEW) Urine Mucus Slight/LPF Urine Opiates Screen Pos (NEG) Urine Methadone Screen Neg (NEG) Urine Barbiturates Neg (NEG) Urine Phencyclidine Screen Neg (NEG) Urine Amphetamine/Methamphetamine Neg (NEG) Urine Benzodiazepines Screen Neg (NEG) Urine Cocaine Screen Neg (NEG) Urine Cannabinoids Screen Neg (NEG) Urine Ethyl Alcohol Neg (NEG) Sodium Level 141mmol/L (136-145) Potassium Level 3.9mmol/L (3.5-5.1) Chloride Level 103mmol/L (98-107) Carbon Dioxide Level 27mmol/L (21-32) Anion Gap 11 (6-14) Blood Urea Nitrogen 12mg/dL (7-20) Creatinine 1.0mg/dL (0.6-1.0) Estimated GFR (Cockcroft-Gault) 55.3 BUN/Creatinine Ratio 12 (6-20) Glucose Level 188mg/dL (70-99) Calcium Level 9.3mg/dL (8.5-10.1) Total Bilirubin 1.0mg/dL (0.2-1.0) Aspartate Amino Transf (AST/SGOT) 26U/L (15-37) Alanine Aminotransferase (ALT/SGPT) 26U/L (14-59) Alkaline Phosphatase 84U/L (46-116) Troponin I Quantitative < 0.017ng/mL (0.000-0.055) VL-Ols-O-Type Natriuretic Peptide 234pg/mL (0-124) Total Protein 7.4g/dL (6.4-8.2) Albumin 3.0g/dL (3.4-5.0) Albumin/Globulin Ratio 0.7 (1.0-1.7) Images Images Head CT: There are interval postsurgical changes of left frontoparietal craniectomy. Underlying acute subdural blood products are re- demonstrated over the left cerebral hemisphere, which appear decreased in volume when compared to the previous exam. Some scattered pneumocephalus is now present overlying the left cerebral hemisphere among the blood products, consistent with postsurgical changes. Underlying sulcal effacement is present, with resulting rightward midline shift of 1.5 cm at the level of the frontal horns, which measures stable from the previous exam. No interval ventriculomegaly is present. Left posterior horn remains obliterated. Left temporal horn is also obliterated. No new intracranial blood products are seen. Interval soft tissue swelling, subcutaneous emphysema and surgical connie are present over the left frontoparietal scalp. Mastoid air cells and visualized paranasal sinuses remain clear. IMPRESSION: Interval postsurgical changes of left frontoparietal craniectomy. Decreased volume of subdural blood products overlying the left cerebral hemisphere, with blood products remaining. Underlying sulcal effacement and resulting rightward midline shift appears similar to the previous exam. No interval ventriculomegaly. Assessment/Plan Assessment/Plan Impression: Encephalopathy, may have been due to hypertension at admission Status-Post evacuation of left subdural hematoma, no concerning findings on the CT No evidence that she is having seizures Patient and deny history of dementia. Continued headaches, the patient does have a history of migraines and says that she has been off of her migraine medications, but, as I explained to the patient and her , it can take several weeks for pain to go away after a craniotomy. Recommendations: I increased her nortriptyline dose. She did have trouble with 75 mg daily. Continue Cymbalta Continue current analgesics I discussed my findings with the patient and her . Thank you for letting me help of the patient's care. FABI FRAZIER MD Dec 16, 2016 15:07
[2016-12-16] MEDS ORDERED: NORTRIPTYLINE 25 MG CAPSULE PO SCH ×2 (21:00)
[2016-12-16] MEDS ORDERED: ATORVASTATIN CALCIUM 40 MG TABLET. PO SCH (21:00)
[2016-12-16] MEDS ORDERED: CEFTRIAXONE SODIUM 1 GM in IV NORMAL SALINE 50ML 50 ML IV SCH (23:00)
[2016-12-17 04:00] VITALS: BP 138/73
[2016-12-17 05:13] LABS: BASO # 0.1 x10^3/uL (0.0-0.2); BASO % 1 % (0-3); EOS % 1 % (0-3); HEMATOCRIT 35.4 % (36.0-47.0); HEMOGLOBIN 11.6 g/dL (12.0-15.5); LYMPH # 3.1 x10^3/uL (1.0-4.8); LYMPH % 21 % (24-48); MEAN CORPUSCULAR HEMOGLOBIN 28 pg (25-35); MEAN CORPUSCULAR HGB CONC 33 g/dL (31-37); MEAN CORPUSCULAR VOLUME 86 fL (79-100); MONO % 6 % (0-9); NEUT % 72 % (31-73); PLATELET COUNT 312 x10^3/uL (140-400); RED BLOOD COUNT 4.11 x10^6/uL (3.50-5.40); RED CELL DISTRIBUTION WIDTH 13.8 % (11.5-14.5); WHITE BLOOD COUNT 14.8 x10^3/uL (4.0-11.0)
[2016-12-17 05:36] LABS: CALCIUM 8.9 mg/dL (8.5-10.1); CREATININE 0.8 mg/dL (0.6-1.0); GFR 71.5; POTASSIUM 3.7 mmol/L (3.5-5.1)
[2016-12-17] MEDS: LEVOTHYROXINE 112 MCG TABLET PO SCH (05:51)
--- NOTE | 2016-12-17 06:03 | CONS ---
DATE OF CONSULTATION: 12/16/2016 REASON FOR CONSULTATION: Headache with recent subdural hematoma evacuation, hypertension. HISTORY OF PRESENT ILLNESS: This patient is a 66-year-old female who was recently discharged from the hospital after treatment of a subdural hematoma, which originated after a fall some time before that. Surgery was performed on 12/11/[address] Fonseca. Postoperatively, the patient gradually improved with some speech disturbance, word finding difficulty that was essentially resolved at the time of discharge a couple of days prior. She was discharged without incidence. Overnight, she was admitted to the ICU after developing increased headaches around the left side of the incision site and was noted to have an elevated systolic blood pressure of greater than 200 in the Emergency Department. She reports that she has had some increased difficulty with short term memory versus word finding. She denies nausea, vomiting, focal weakness, double vision, paresthesias or other acute complaints at this time. PAST MEDICAL HISTORY: Includes coronary artery disease, hypertension. She had the recent subdural hematoma with surgical treatment, gastroesophageal reflux, osteomyelitis, diabetes, hypothyroidism. OTHER PAST SURGICAL HISTORY: Includes total knee replacement bilaterally, hysterectomy, rotator cuff surgery and lumbar surgery. ALLERGIES: ERYTHROMYCIN. CURRENT MEDICATIONS: Include ceftriaxone, Lipitor, nortriptyline, insulin, vitamin D, oxybutynin, Tradjenta, fish oil, Flonase, Cymbalta, Lopressor, Cozaar, Protonix, Synthroid, Lortab, Zofran, Tylenol, fentanyl and she is presently on a ____ drip for hypertension. FAMILY HISTORY: Noncontributory. SOCIAL HISTORY: She denies use of tobacco, alcohol or illicit drugs. REVIEW OF SYSTEMS: She reports primarily left-sided pain. She denies any recent falls or injuries since being at home. She denies numbness, paresthesias, focal weakness, chest pain, nausea, vomiting, abdominal pain or any other acute complaints. A 10-point review of systems otherwise negative except for the aforementioned. PHYSICAL EXAMINATION: VITAL SIGNS: Temperature is 98.2 degrees Fahrenheit, pulse is 109, blood pressure 161/78, O2 sat is 96% on 2 liters nasal cannula. GENERAL: She is awake, alert. She is oriented to herself in the hospital setting. She has some difficulty stating the year. She is oriented to her current situation. Her incision is clean, dry and intact with connie. There are some increased ecchymoses on the left side of the face and to the neck region, possibly due to subcutaneous extension of blood products from the surgical site. NEUROLOGIC: Cranial nerves 2 through 12 are individually tested and intact bilaterally. Her speech is fluent. She does have some word finding difficulty intermittently. Strength is 5/5 in all major muscle groups in her bilateral upper and bilateral lower extremities. Deep tendon reflexes are symmetric. Sensation is intact to light touch. NECK: Supple, nontender. CARDIOVASCULAR: Her pulse is regular, but she is presently tachycardic. LUNGS: Respirations are even and nonlabored. She has equal chest rise. ABDOMEN: Soft and nontender. EXTREMITIES: She has no cyanosis, clubbing or edema. SKIN: Warm and dry, otherwise, there is some bruising noted in the upper extremities at the locations of prior IV access sites. IMAGING: There is a noncontrast CT scan of the head from 12/15/2016 at approximately 11:00 p.m. showing ____ post-surgical changes of the left frontoparietal craniotomy. There is approximately 5 mm of subdural hyperdense blood products in the surgical site, which is markedly improved compared to the preoperative imaging. There is some mild residual midline shift. There are blood products noted in the subcutaneous space overlying the surgical site, no other acute findings otherwise identified and overall, the appearance is markedly improved compared to prior imaging. ASSESSMENT AND PLAN: This is a 66-year-old female status post recent craniotomy with evacuation of subdural hematoma performed by Dr. Fonseca. She returns with malignant hypertension and some increased headaches at the incisional site and she is admitted to the ICU. It is recommended that her systolic blood pressure be maintained less than 140 most optimally. She is presently on a ____ drip for this. She should be monitored for any neurological changes or decline in the Emergency Room. Presently, she appears overall neurologically stable. She was previously on Plavix and any anticoagulants should be continued to be avoided at this time. If she remains otherwise stable, we will obtain a repeat noncontrast CT scan of the head tomorrow morning or sooner if any changes or declines are noted. We will continue to follow and provide any additional recommendations as appropriate. GALO RAMOS MD DR: Catherine JOB#: [id number] / [id number]
[2016-12-17 08:38] VITALS: BP 123/71
[2016-12-17] MEDS: LINAGLIPTIN 5 MG TABLET PO SCH (09:00)
[2016-12-17] MEDS: OMEGA-3 FATTY ACIDS/FISH OIL 1,000 MG CAPSULE. PO SCH (09:00)
[2016-12-17] MEDS: PANTOPRAZOLE 40 MG TABLET. PO SCH (09:04)
[2016-12-17] MEDS: OXYBUTYNIN CHLORIDE 5 MG TABLET PO SCH (09:04)
[2016-12-17] MEDS: DULOXETINE HCL 30 MG CAPSULE.DR. PO SCH (09:04)
[2016-12-17] MEDS: METOPROLOL TART IMMED RELEASE 25 MG TABLET PO SCH (09:04)
[2016-12-17] MEDS: CHOLECALCIFEROL (VITAMIN D3) 1,000 UNIT TABLET PO SCH (09:04)
--- NOTE | 2016-12-17 10:14 | PDOC ---
PROGRESS NOTES Assessment Problems Medical Problems: (1) Headache Status: Acute (2) Malignant hypertension Status: Acute (3) Urinary tract infection Status: Acute Encephalopathy, may have been due to hypertension at admission Status-Post evacuation of left subdural hematoma, no concerning findings on the CT, still has midline shift No evidence that she is having seizures Patient and deny history of dementia. Headaches, better. Plan Continue current meds Objective Vital Signs Date Time Temp Pulse Resp B/P Pulse Ox O2 Delivery O2 Flow Rate FiO2 12/17/16 09:04 72 123/71 12/17/16 08:38 97.3 16 96 Room Air 97.3 12/17/16 08:30 2.0 Intake and Output 12/17/16 07:00 Intake Total 877 ml Output Total 950 ml Balance -73 ml Intake Oral 840 ml IV Total 37 ml Output Urine Total 950 ml PHYSICAL EXAM Left craniotomy Alert. Oriented to time, place and person. PERRL. EOMI. CN: no focal findings. Muscle tone: normal. Muscle strength: 5/5 DTR: 1+ Plantar reflex: flexor Gait: not examined in bed. Sensory exam: no abnormal findings. No cerebellar signs elicited. Review of Relevant I have reviewed the following items jessica (where applicable) has been applied. Labs Laboratory Tests Test 12/15/16 21:45 12/15/16 21:50 12/15/16 22:40 12/17/16 04:48 White Blood Count 23.7x10^3/uL (4.0-11.0) 14.8x10^3/uL (4.0-11.0) Red Blood Count 4.69x10^6/uL (3.50-5.40) 4.11x10^6/uL (3.50-5.40) Hemoglobin 13.3g/dL (12.0-15.5) 11.6g/dL (12.0-15.5) Hematocrit 39.3% (36.0-47.0) 35.4% (36.0-47.0) Mean Corpuscular Volume 84fL (79-100) 86fL (79-100) Mean Corpuscular Hemoglobin 28pg (25-35) 28pg (25-35) Mean Corpuscular Hemoglobin Concent 34g/dL (31-37) 33g/dL (31-37) Red Cell Distribution Width 13.6% (11.5-14.5) 13.8% (11.5-14.5) Platelet Count 339x10^3/uL (140-400) 312x10^3/uL (140-400) Neutrophils (%) (Auto) 86% (31-73) 72% (31-73) Lymphocytes (%) (Auto) 9% (24-48) 21% (24-48) Monocytes (%) (Auto) 4% (0-9) 6% (0-9) Eosinophils (%) (Auto) 0% (0-3) 1% (0-3) Basophils (%) (Auto) 1% (0-3) 1% (0-3) Neutrophils # (Auto) 20.2x10^3uL (1.8-7.7) 10.6x10^3uL (1.8-7.7) Lymphocytes # (Auto) 2.2x10^3/uL (1.0-4.8) 3.1x10^3/uL (1.0-4.8) Monocytes # (Auto) 1.0x10^3/uL (0.0-1.1) 0.9x10^3/uL (0.0-1.1) Eosinophils # (Auto) 0.1x10^3/uL (0.0-0.7) 0.1x10^3/uL (0.0-0.7) Basophils # (Auto) 0.1x10^3/uL (0.0-0.2) 0.1x10^3/uL (0.0-0.2) Segmented Neutrophils % 83% (35-66) Band Neutrophils % 2% (0-9) Lymphocytes % 12% (24-48) Monocytes % 3% (0-10) Platelet Estimate Adequate (ADEQUATE) Prothrombin Time 12.4SEC (11.7-14.0) Prothromb Time International Ratio 1.0 (0.8-1.1) Activated Partial Thromboplast Time 24SEC (24-38) Urine Collection Type Unknown Urine Color Yellow Urine Clarity Clear Urine pH 7.0 Urine Specific Kelly 1.015 Urine Protein 30mg/dL (NEG-TRACE) Urine Glucose (UA) Negativemg/dL (NEG) Urine Ketones (Stick) Negativemg/dL (NEG) Urine Blood Small (NEG) Urine Nitrite Negative (NEG) Urine Bilirubin Negative (NEG) Urine Urobilinogen Dipstick 0.2mg/dL (0.2 mg/dL) Urine Leukocyte Esterase Large (NEG) Urine RBC 1-2/HPF (0-2) Urine WBC Tntc/HPF (0-4) Urine Squamous Epithelial Cells Occ/LPF Urine Bacteria Many/HPF (0-FEW) Urine Mucus Slight/LPF Urine Opiates Screen Pos (NEG) Urine Methadone Screen Neg (NEG) Urine Barbiturates Neg (NEG) Urine Phencyclidine Screen Neg (NEG) Urine Amphetamine/Methamphetamine Neg (NEG) Urine Benzodiazepines Screen Neg (NEG) Urine Cocaine Screen Neg (NEG) Urine Cannabinoids Screen Neg (NEG) Urine Ethyl Alcohol Neg (NEG) Sodium Level 141mmol/L (136-145) 137mmol/L (136-145) Potassium Level 3.9mmol/L (3.5-5.1) 3.7mmol/L (3.5-5.1) Chloride Level 103mmol/L (98-107) 100mmol/L (98-107) Carbon Dioxide Level 27mmol/L (21-32) 30mmol/L (21-32) Anion Gap 11 (6-14) 7 (6-14) Blood Urea Nitrogen 12mg/dL (7-20) 12mg/dL (7-20) Creatinine 1.0mg/dL (0.6-1.0) 0.8mg/dL (0.6-1.0) Estimated GFR (Cockcroft-Gault) 55.3 71.5 BUN/Creatinine Ratio 12 (6-20) Glucose Level 188mg/dL (70-99) 165mg/dL (70-99) Calcium Level 9.3mg/dL (8.5-10.1) 8.9mg/dL (8.5-10.1) Total Bilirubin 1.0mg/dL (0.2-1.0) Aspartate Amino Transf (AST/SGOT) 26U/L (15-37) Alanine Aminotransferase (ALT/SGPT) 26U/L (14-59) Alkaline Phosphatase 84U/L (46-116) Troponin I Quantitative < 0.017ng/mL (0.000-0.055) WE-[place]-T-Type Natriuretic Peptide 234pg/mL (0-124) Total Protein 7.4g/dL (6.4-8.2) Albumin 3.0g/dL (3.4-5.0) Albumin/Globulin Ratio 0.7 (1.0-1.7) Laboratory Tests Test 12/17/16 04:48 White Blood Count 14.8x10^3/uL (4.0-11.0) Red Blood Count 4.11x10^6/uL (3.50-5.40) Hemoglobin 11.6g/dL (12.0-15.5) Hematocrit 35.4% (36.0-47.0) Mean Corpuscular Volume 86fL (79-100) Mean Corpuscular Hemoglobin 28pg (25-35) Mean Corpuscular Hemoglobin Concent 33g/dL (31-37) Red Cell Distribution Width 13.8% (11.5-14.5) Platelet Count 312x10^3/uL (140-400) Neutrophils (%) (Auto) 72% (31-73) Lymphocytes (%) (Auto) 21% (24-48) Monocytes (%) (Auto) 6% (0-9) Eosinophils (%) (Auto) 1% (0-3) Basophils (%) (Auto) 1% (0-3) Neutrophils # (Auto) 10.6x10^3uL (1.8-7.7) Lymphocytes # (Auto) 3.1x10^3/uL (1.0-4.8) Monocytes # (Auto) 0.9x10^3/uL (0.0-1.1) Eosinophils # (Auto) 0.1x10^3/uL (0.0-0.7) Basophils # (Auto) 0.1x10^3/uL (0.0-0.2) Sodium Level 137mmol/L (136-145) Potassium Level 3.7mmol/L (3.5-5.1) Chloride Level 100mmol/L (98-107) Carbon Dioxide Level 30mmol/L (21-32) Anion Gap 7 (6-14) Blood Urea Nitrogen 12mg/dL (7-20) Creatinine 0.8mg/dL (0.6-1.0) Estimated GFR (Cockcroft-Gault) 71.5 Glucose Level 165mg/dL (70-99) Calcium Level 8.9mg/dL (8.5-10.1) Microbiology 12/15/16 Urine Culture - Preliminary, Resulted 12/15/16 Urine Culture Result 1 (BETTY) - Preliminary, Resulted Medications Current Medications Nicardipine HCl 50 mg/Sodium Chloride 270 ml @ 0 mls/hr CONT PRN IV SEE I/O RECORD Last administered on 12/16/16 05:11; Start 12/15/16 at 23:00; Stop 12/16 at 22:59; Status DC Ceftriaxone Sodium 50 ml @ 100 mls/hr 1X ONCE IV Last administered on 23:47; Start 12/16/16 at 00:00; Stop 12/16/16 at 00:29; Status DC Ceftriaxone Sodium/Sodium Chloride (Rocephin/Iv Sodium Chloride 0.9% 50ml) 50 ml @ 100 mls/hr Q24H IV Last administered on 12/16/16 23:02; Start 12/16/16 at 23:00 Fentanyl Citrate (Fentanyl 2ml Vial) 25 mcg PRN Q15MIN PRN IV PAIN GREATER THAN 3/10 Last administered on 12/16/16 01:01; Start 12/16/16 at 00:45; Stop at 02:00; Status DC Ondansetron HCl (Zofran) 4 mg PRN Q8HRS PRN IV NAUSEA/VOMITING Last administered on 12/16/16 01:26; Start 12/16/16 at 01:15; Stop 12/16/16 at 07:43 ; Status DC Fentanyl Citrate (Fentanyl 2ml Vial) 50 mcg PRN Q2HR PRN IV SEVERE PAIN Last administered on 12/16/16 23:07; Start 12/16/16 at 01:15; Stop 12/17/16 at 01:14 ; Status DC Acetaminophen (Tylenol) 650 mg PRN Q4HRS PRN PO FEVER Last administered on 12/16 04:49; Start 12/16/16 at 01:15; Stop 12/17/16 at 01:14; Status DC Ondansetron HCl (Zofran) 4 mg PRN Q6HRS PRN IV NAUSEA/VOMITING; Start 12/16/16 at 07:42 Acetaminophen/ Hydrocodone Bitart (Lortab 5/325) 1 tab PRN Q4HRS PRN PO MILD PAIN Last administered on 12/16/16 20:44; Start 12/16/16 at 07:45 Levothyroxine Sodium (Synthroid) 112 mcg DAILY06 PO Last administered on 05:51; Start 12/16/16 at 08:00 Losartan Potassium (Cozaar) 50 mg DAILY PO Last administered on 12/16/16 12:05 ; Start 12/16/16 at 09:00 Metoprolol Tartrate (Lopressor) 25 mg BID PO Last administered on 12/17/16 09: 04; Start 12/16/16 at 09:00 Nortriptyline HCl (Pamelor) 25 mg QHS PO ; Start 12/16/16 at 21:00; Stop at 21:00; Status DC Duloxetine HCl (Cymbalta) 60 mg DAILY PO Last administered on 12/17/16 09:04; Start 12/16/16 at 09:00 Fluticasone Propionate (Flonase) 2 spray PRN DAILY PRN NS ALLERGIES; Start at 09:00 Fish Oil (Fish Oil) 1,000 mg DAILY PO Last administered on 12/16/16 12:04; Start 12/16/16 at 09:00 Pantoprazole Sodium (Protonix) 40 mg DAILYAC PO Last administered on 12/17/16 09:04; Start 12/16/16 at 08:00 Atorvastatin Calcium (Lipitor) 80 mg QHS PO Last administered on 12/16/16 20: 45; Start 12/16/16 at 21:00 Linagliptin (Tradjenta) 5 mg DAILY PO Last administered on 12/16/16 12:06; Start 12/16/16 at 09:00 Oxybutynin Chloride (Ditropan) 5 mg [id number] PO Last administered on 12/17/16 09 :04; Start 12/16/16 at 09:00 Vitamin D (Vitamin D3) 2,000 unit DAILY PO Last administered on 12/17/16 09:04 ; Start 12/16/16 at 09:00 Insulin Aspart (Novolog) 0-9 UNITS TIDWMEALS SQ ; Start 12/16/16 at 09:00 Dextrose 12.5 gm PRN Q15MIN PRN IV SEE COMMENTS; Start 12/16/16 at 09:00 Nortriptyline HCl (Pamelor) 50 mg QHS PO Last administered on 12/16/16t 20:44; Start 12/16/16 at 21:00 Active Scripts Active Hydrocodone-Apap 5-325 (Hydrocodone Bit/Acetaminophen) 1 Each Tablet 1 Tab PO PRN Q4HRS PRN Reported Citracal + D Er Tablet (Calcium Carb & Cit/Vitamin D3) 1 Each Tablet.er 1 Each PO Nasonex (Mometasone Furoate) 17 Gm [place].pump 17 Gm NS PRN Losartan Potassium 25 Mg Tablet 50 Mg PO Fish Oil ([place]-3 Fatty Acids) 300 Mg Capsule 300 Mg PO DAILY Cymbalta (Duloxetine Hcl) 60 Mg Capsule.dr 60 Mg PO DAILY Crestor (Rosuvastatin Calcium) 40 Mg Tablet 40 Mg PO HS Levothyroxine Sodium 112 Mcg Tablet 112 Mcg PO DAILY Aciphex (Rabeprazole Sodium) 20 Mg Tablet.dr 20 Mg PO DAILY Vesicare (Solifenacin Succinate) 5 Mg Tablet 10 Mg PO DAILY Januvia (Sitagliptin Phosphate) 100 Mg Tablet 100 Mg PO DAILY Metoprolol Tartrate 25 Mg Tablet 25 Mg PO BID Aspirin 325 Mg Tablet 325 Mg PO DAILY [Vit D3] 2,000 Units DAILY Nortriptyline Hcl 25 Mg Capsule 25 Mg PO DAILY Vitals/I & O Vital Sign - Last 24 Hours 12/16/16 12/16/16 12/16/16 12/16/16 12:00 12:05 12:06 13:58 Temp 98.2 98.2 Pulse 86 125 126 Resp 16 B/P 143/68 103/69 103/69 Pulse Ox 96 96 O2 Delivery Nasal Cannula Room Air O2 Flow Rate 2.0 12/16/16 12/16/16 12/16/16 12/16/16 16:00 20:00 20:00 20:44 Temp 98.2 98.6 98.2 98.6 Pulse 83 78 Resp 15 16 21 B/P 133/58 136/62 Pulse Ox 96 96 92 O2 Delivery Nasal Cannula Room Air Room Air Room Air O2 Flow Rate 2.0 12/16/16 12/16/16 12/16/16 12/16/16 20:45 21:44 23:07 23:45 Pulse 78 Resp 16 17 16 B/P 138/57 Pulse Ox 98 93 98 O2 Delivery Room Air Room Air Room Air 12/16/16 12/17/16 12/17/16 12/17/16 23:55 04:00 08:30 08:38 Temp 98.4 98.3 97.3 98.4 98.3 97.3 Pulse 89 68 72 Resp 18 15 16 B/P 137/59 138/73 123/71 Pulse Ox 97 96 96 O2 Delivery Room Air Room Air Room Air Room Air O2 Flow Rate 2.0 12/17/16 09:04 Pulse 72 B/P 123/71 Intake and Output 12/16/16 12/16/16 12/17/16 15:00 23:00 07:00 Intake Total 480 ml 397 ml Output Total 750 ml 200 ml Balance -270 ml [address] today stable, radiology interpretation pending FABI FRAZIER MD Dec 17, 2016 10:14
[2016-12-17 11:02] VITALS: BP 132/57
--- NOTE | 2016-12-17 11:06 | PDOC ---
CARDIO Progress Notes Date and Time Date of Service 12/17/2016 Time of Evaluation 1010 Subjective Subjective: No Chest Pain, No shortness of breath, No Palpitations, No Dizziness, Other (very mild WILL) Vitals Vitals Vital Signs Date Time Temp Pulse Resp B/P Pulse Ox O2 Delivery O2 Flow Rate FiO2 12/17/16 09:04 72 123/71 12/17/16 08:38 97.3 16 96 Room Air 97.3 12/17/16 08:30 2.0 Weight Weight [ ] Input and Output Intake and Output Intake and Output 12/17/16 07:00 Intake Total 877 ml Output Total 950 ml Balance -73 ml Intake Oral 840 ml IV Total 37 ml Output Urine Total 950 ml Laboratory Labs Laboratory Tests Test 12/17/16 04:48 12/17/16 10:55 White Blood Count 14.8x10^3/uL (4.0-11.0) Red Blood Count 4.11x10^6/uL (3.50-5.40) Hemoglobin 11.6g/dL (12.0-15.5) Hematocrit 35.4% (36.0-47.0) Mean Corpuscular Volume 86fL (79-100) Mean Corpuscular Hemoglobin 28pg (25-35) Mean Corpuscular Hemoglobin Concent 33g/dL (31-37) Red Cell Distribution Width 13.8% (11.5-14.5) Platelet Count 312x10^3/uL (140-400) Neutrophils (%) (Auto) 72% (31-73) Lymphocytes (%) (Auto) 21% (24-48) Monocytes (%) (Auto) 6% (0-9) Eosinophils (%) (Auto) 1% (0-3) Basophils (%) (Auto) 1% (0-3) Neutrophils # (Auto) 10.6x10^3uL (1.8-7.7) Lymphocytes # (Auto) 3.1x10^3/uL (1.0-4.8) Monocytes # (Auto) 0.9x10^3/uL (0.0-1.1) Eosinophils # (Auto) 0.1x10^3/uL (0.0-0.7) Basophils # (Auto) 0.1x10^3/uL (0.0-0.2) Sodium Level 137mmol/L (136-145) Potassium Level 3.7mmol/L (3.5-5.1) Chloride Level 100mmol/L (98-107) Carbon Dioxide Level 30mmol/L (21-32) Anion Gap 7 (6-14) Blood Urea Nitrogen 12mg/dL (7-20) Creatinine 0.8mg/dL (0.6-1.0) Estimated GFR (Cockcroft-Gault) 71.5 Glucose Level 165mg/dL (70-99) Calcium Level 8.9mg/dL (8.5-10.1) Glucose (Fingerstick) 151mg/dL (70-99) Microbiology Micro Microbiology 12/15/16 Urine Culture - Final, Complete 12/15/16 Urine Culture Result 1 (BETTY) - Final, Complete 12/15/16 Antimicrobic Susceptibility - Final, Complete Physical Exam Chest: Symmetric LUNGS: Clear to Auscultation Heart: S1S2, RRR (SR) Abdomen: Soft N/T Extremities: No Edema, No Calf Tenderness Neurology: alert, oriented, follow commands Assessment Assessment 1. Malignant hypertension: r/t noncompliance. Well controlled 2. S/P SDH/fall with post craniotomy evacuation 12/11/2016 3. CAD: stable 4. Metabolic encephalopathy with associated UTI/uncontrolled HTN: mentation much improved. Recommendation 1. Continue with current antiHTN regimen 2. Continue with secondary prevention. ASA on hold with recent SDH. 3. Follow up with cardiology on 01/09/2017 4. No further cardiac recommendation, follow neurology recommendation. KEAGAN SANCHES APRN Dec 17, 2016 11:06
[2016-12-17] MEDS ORDERED: CIPR500T PO (12:01)
--- NOTE | 2016-12-17 14:06 | RAD ---
CT of head without contrast, 12/17/2016: History: Follow-up subdural hematoma Comparison is made to a study from 12/15/2016. Postcraniotomy changes are again noted in the left frontal parietal region. There is moderate overlying scalp swelling and There is persistent underlying extra-axial fluid in a subdural location. This is a mixture of high density and low density material as well as several residual bubbles of postsurgical gas. These residual densities are similar in overall size and extent. There is continued effacement of the left lateral ventricle. There is a moderate [id number] shift of the midline structures, only slightly improved. No intra-axial hemorrhage is seen. IMPRESSION: 1. Residual subdural hemorrhage on the left appears stable when compared to 12/15/2016. 2. Persistent effacement of the left lateral ventricle with only slight improvement in the degree of moderate [id number] shift of the midline structures. PQRS Compliance Statement: One or more of the following individualized dose reduction techniques were utilized for this examination: 1. Automated exposure control 2. Adjustment of the mA and/or kV according to patient size 3. Use of iterative reconstruction technique
== END 2016-12-17 14:45 | disposition home or self-care (01) | DRG 689 ==
LOC: ER 21:22 → 1 WEST ICU 12-16 → 2 NORTH 12-17 07:55
PROVIDERS: ADMIT Internal Medicine Hematology & Oncology; ATTEND Internal Medicine Hematology & Oncology
DX: N39.0 Urinary tract infection, site not specified (principal); G93.41 Metabolic encephalopathy; I10 Essential (primary) hypertension; E03.9 Hypothyroidism, unspecified; E78.00 Pure hypercholesterolemia, unspecified; E78.5 Hyperlipidemia, unspecified; I15.8 Other secondary hypertension; E11.51 Type 2 diabetes mellitus with diabetic peripheral angiopathy without gangrene; I25.10 Atherosclerotic heart disease of native coronary artery without angina pectoris; I73.9 Peripheral vascular disease, unspecified; Z96.653 Presence of artificial knee joint, bilateral; E11.69 Type 2 diabetes mellitus with other specified complication; K21.9 Gastro-esophageal reflux disease without esophagitis; M19.90 Unspecified osteoarthritis, unspecified site; Z82.49 Family history of ischemic heart disease and other diseases of the circulatory system; Z87.11 Personal history of peptic ulcer disease; Z87.442 Personal history of urinary calculi; Z91.14 Patient's other noncompliance with medication regimen; Z91.19 Patient's noncompliance with other medical treatment and regimen; Z95.5 Presence of coronary angioplasty implant and graft; Z90.710 Acquired absence of both cervix and uterus; Z88.8 Allergy status to other drugs, medicaments and biological substances; F32.9 Major depressive disorder, single episode, unspecified; R00.0 Tachycardia, unspecified
CPT/HCPCS: 36415; 70450; 71010; 80048; 80053; 81001; 82947; 83880; 84484; 85007; 85027; 85610; 85730; 87086; 87186; 93005; 96365; G0481; J0690; J0696; J1815; J2405; J3010; J7050; 99285-25; J7030

== ENCOUNTER 2016-12-20 15:22 | Inpatient (IN) | payer MEDICARE, BC, OTHER ==
[2016-12-20] VITALS (12 sets, daily range): BP systolic 101–146; BP diastolic 49–84
[~2016-12-20] VITALS: Ht 157.5 cm; Wt 85.8 kg
[~2016-12-20 15:22] MED LIST changes: +CIPR500T PO
[2016-12-20] MEDS ORDERED: BACITRACIN 50,000 UNIT in IV NORMAL SALINE 1000ML BAG 1,000 ML IRR ONE (16:26)
[2016-12-20] MEDS ORDERED: DIPHENHYDRAMINE 50 MG/ML VIAL IV PRN (16:45)
[2016-12-20] MEDS ORDERED: DIPHENHYDRAMINE HCL 25 MG CAPSULE PO PRN (16:45)
[2016-12-20] MEDS ORDERED: HYDROCODONE/APAP 5/325MG TABLET. PO PRN (16:45)
[2016-12-20] MEDS ORDERED: MAG HYDROX/ALUMINUM HYD/SIMETH 30 ML ORAL.SUSP PO PRN (16:45)
[2016-12-20] MEDS ORDERED: CALCIUM CARBONATE 500 MG TAB.CHEW PO PRN (16:45)
[2016-12-20] MEDS ORDERED: 0.9 % SODIUM CHLORIDE 10 ML DISP.SYRIN. IV PRN (16:45)
[2016-12-20] MEDS ORDERED: DEXTROSE 50% 25 GM / 50ML DISP.SYRIN. IV PRN (16:45)
[2016-12-20] MEDS ORDERED: MAGNESIUM HYDROXIDE 2,400 MG/30 ML ORAL.SUSP. PO PRN (16:45)
[2016-12-20] MEDS: LOSARTAN POTASSIUM 50 MG TABLET. PO SCH (17:00)
[2016-12-20] MEDS: LEVOTHYROXINE 112 MCG TABLET PO SCH (17:00)
[2016-12-20] MEDS ORDERED: ACETAMINOPHEN 500 MG TABLET PO PRN (17:45)
[2016-12-20] MEDS: IV NORMAL SALINE 1000ML BAG 1,000 ML IV SCH (18:34)
[2016-12-20] MEDS: NORTRIPTYLINE 25 MG CAPSULE PO SCH (18:34)
[2016-12-20 19:35] LABS: BASO # 0.1 x10^3/uL (0.0-0.2); BASO % 1 % (0-3); EOS % 1 % (0-3); HEMATOCRIT 37.4 % (36.0-47.0); HEMOGLOBIN 12.6 g/dL (12.0-15.5); LYMPH # 3.1 x10^3/uL (1.0-4.8); LYMPH % 20 % (24-48); MEAN CORPUSCULAR HEMOGLOBIN 29 pg (25-35); MEAN CORPUSCULAR HGB CONC 34 g/dL (31-37); MEAN CORPUSCULAR VOLUME 85 fL (79-100); MONO % 8 % (0-9); NEUT % 71 % (31-73); PLATELET COUNT 401 x10^3/uL (140-400); RED CELL DISTRIBUTION WIDTH 13.8 % (11.5-14.5); WHITE BLOOD COUNT 15.6 x10^3/uL (4.0-11.0)
[2016-12-20 19:43] LABS: INR 1.1 (0.8-1.1); PROTHROMBIN TIME PATIENT 13.7 SEC (11.7-14.0)
[2016-12-20 19:49] LABS: CALCIUM 9.5 mg/dL (8.5-10.1); GFR 55.3; POTASSIUM 3.5 mmol/L (3.5-5.1)
[2016-12-20] MEDS: CIPROFLOXACIN HCL 250 MG TABLET PO SCH (20:32)
[2016-12-20] MEDS: DOCUSATE SODIUM 100 MG CAPSULE PO SCH (20:32)
[2016-12-20] MEDS: METOPROLOL TART IMMED RELEASE 25 MG TABLET PO SCH (20:33)
[2016-12-20] MEDS: ATORVASTATIN CALCIUM 40 MG TABLET. PO SCH (20:33)
[2016-12-20] MEDS: OXYBUTYNIN CHLORIDE 5 MG TABLET PO SCH (20:33)
[2016-12-20] MEDS ORDERED: NON FORMULARY ITEM (Ciprofloxacin Hcl 1 TAB) PO SCH (21:00)
[2016-12-21] VITALS (29 sets, daily range): BP systolic 99–171; BP diastolic 42–91
[2016-12-21] MEDS: LEVOTHYROXINE 112 MCG TABLET PO SCH (06:00)
[2016-12-21] MEDS ORDERED: BACITRACIN 50,000 UNIT in IV NORMAL SALINE 1000ML BAG 1,000 ML IRR ONE (06:00)
[2016-12-21] MEDS ORDERED: CEFAZOLIN 2GM PREMIX 50 ML IV ONE (06:00)
[2016-12-21] MEDS: IV NORMAL SALINE 1000ML BAG 1,000 ML IV SCH ×2 (06:15→18:28)
[2016-12-21] MEDS ORDERED: LIDOCAINE 1% 1 ML SYRINGE. ID PRN (07:00)
[2016-12-21] MEDS ORDERED: MORPHINE SULFATE 2 MG/ML DISP.SYRIN. IV PRN (07:00)
[2016-12-21] MEDS ORDERED: HYDROMORPHONE 2 MG/ML VIAL. IV PRN (07:00)
[2016-12-21] MEDS ORDERED: IV RINGERS,LACTATED 1000ML 1,000 ML IV SCH (07:00)
[2016-12-21] MEDS ORDERED: PROCHLORPERAZINE 10 MG/2 ML VIAL. IV PRN (07:00)
[2016-12-21] MEDS ORDERED: ONDANSETRON PF 4 MG/2 ML VIAL. IV PRN (07:00)
[2016-12-21] MEDS ORDERED: FENTANYL PF 100 MCG/2 ML VIAL. IV PRN ×2 (07:00)
[2016-12-21] MEDS: PANTOPRAZOLE 40 MG TABLET. PO SCH (07:30)
[2016-12-21] MEDS ORDERED: CEFAZOLIN SODIUM IV SCH (08:00)
[2016-12-21] MEDS ORDERED: NORMAL SALINE IV SCH (08:00)
[2016-12-21] MEDS ORDERED: GELATIN SPONGE SIZE 100. ONE (08:41)
[2016-12-21] MEDS ORDERED: THROMBIN 20,000 UNIT SPRAY.SYRN KIT TP ONE (08:41)
[2016-12-21] MEDS ORDERED: SURGICEL HEMOSTAT 4X8 EACH. ONE (08:41)
[2016-12-21] MEDS ORDERED: BUPIVAC MPF-EPI 0.5%-1:200000 30 ML VIAL. ONE (08:41)
[2016-12-21] MEDS ORDERED: LIDOCAINE 2% 100 MG/5 ML DISP.SYRIN. ONE (08:51)
[2016-12-21] MEDS ORDERED: ROCURONIUM 50 MG/5 ML VIAL. ONE (08:51)
[2016-12-21] MEDS ORDERED: PROPOFOL 20 ML IV ONE (08:51)
[2016-12-21] MEDS ORDERED: FENTANYL PF 100 MCG/2 ML VIAL. ONE (08:51)
[2016-12-21] MEDS ORDERED: DEXAMETHASONE SOD PHOS 20 MG/5 ML VIAL. ONE (08:52)
[2016-12-21] MEDS ORDERED: ONDANSETRON PF 4 MG/2 ML VIAL. ONE (08:52)
[2016-12-21] MEDS: DULOXETINE HCL 30 MG CAPSULE.DR. PO SCH (09:00)
[2016-12-21] MEDS: LINAGLIPTIN 5 MG TABLET PO SCH (09:00)
[2016-12-21] MEDS: DOCUSATE SODIUM 100 MG CAPSULE PO SCH ×2 (09:00→19:33)
[2016-12-21] MEDS: CHOLECALCIFEROL (VITAMIN D3) 1,000 UNIT TABLET PO SCH (09:00)
[2016-12-21] MEDS: OXYBUTYNIN CHLORIDE 5 MG TABLET PO SCH ×3 (09:00→19:33)
[2016-12-21] MEDS: CIPROFLOXACIN HCL 250 MG TABLET PO SCH ×2 (09:00→19:33)
[2016-12-21] MEDS: NORTRIPTYLINE 25 MG CAPSULE PO SCH (09:00)
[2016-12-21] MEDS: METOPROLOL TART IMMED RELEASE 25 MG TABLET PO SCH ×2 (09:00→19:33)
[2016-12-21] MEDS: FLUTICASONE 50MCG/NASAL SPRAY 16GM BOTTLE. NS SCH (09:00)
[2016-12-21] MEDS: LOSARTAN POTASSIUM 50 MG TABLET. PO SCH (09:00)
[2016-12-21] MEDS ORDERED: CEFAZOLIN PREMIX 2 GM/50 ML BAG. IV ONE (10:00)
--- NOTE | 2016-12-21 10:39 | PDOC2 ---
CONSULT Date of Consult Date of Consult DATE: 12/21/16 TIME: 10:31 Reason for Consult Reason for Consult: medical mx, hx high BP needing gtt in recent admit Referring Physician Referring Physician: bill Identification/Chief Complaint Chief Complaint headaches, high bP, worsened bleed on CT in a rehab facility Source Source: Chart review History of Present Illness Reason for Visit: Pt known to me. female, past 2-3 admits here for brain bleed, uncontrolled HTN needing gtt in ICU, Went home or to a rehab place. HAd headaches, interval CT showed 11 mm shift so readmitted under neurosx service and currently undergoing lily hole. Admitted in ICU. WBC 15.6, hgb ok Past Medical History Cardiovascular: CAD, Other Pulmonary: No pertinent hx CENTRAL NERVOUS SYSTEM: Migraine, Other GI: GERD Heme/Onc: No pertinent hx Hepatobiliary: Cholelithiasis Psych: Anxiety, Depression Musculoskeletal: Other Rheumatologic: No pertinent hx Renal/: UTI, Other Endocrine: Diabetes, Hypothyroidism Past Surgical History Past Surgical History: Total knee replacement, Hysterectomy, Other (recent craniotomy with evacuation hematoma) Family History Family History: Hypertension Social History No ALCOHOL: none Drugs: None Lives: with Family Domestic Violence: Neg Current Medications Current Medications Current Medications Ondansetron HCl (Zofran) 4 mg PRN Q6HRS PRN IV Nausea; Start 12/21/16 at 07:00 ; Stop 12/22/16 at 06:59 Fentanyl Citrate (Fentanyl 2ml Vial) 25 mcg PRN Q5MIN PRN IV MILD PAIN; Start 12/21/16 at 07:00; Stop 12/22/16 at 06:59 Fentanyl Citrate (Fentanyl 2ml Vial) 50 mcg PRN Q5MIN PRN IV MODERATE PAIN; Start 12/21/16 at 07:00; Stop 12/22/16 at 06:59 Morphine Sulfate 1 mg 1 mg PRN Q10MIN PRN IV SEVERE PAIN; Start 12/21/16 at 07: 00; Stop 12/22/16 at 06:59 Lactated Ringer's (Iv Lactated Ringers) 1,000 ml @ 0 mls/hr Q0M IV ; Start at 07:00; Stop 12/21/16 at 18:59 Lidocaine HCl 2 ml 1X PRN PRN ID IV START; Start 12/21/16 at 07:00; Stop at 06:59 Hydromorphone HCl (Dilaudid) 0.5 mg PRN Q10MIN PRN IV SEVERE PAIN, Second choice; Start 12/21/16 at 07:00; Stop 12/22/16 at 06:59 Prochlorperazine Edisylate 5 mg 5 mg PACU PRN PRN IV NAUSEA; Start 12/21/16 at 07:00; Stop 12/22/16 at 06:59 Bacitracin/Sodium Chloride (Bacitracin/Iv Sodium Chloride 0.9% 1000ml Bag) 1, 000 ml @ 1,000 mls/hr 1X PERIOP ONCE IRR ; Start 12/20/16 at 16:26; Stop 12/20 at 17:25; Status DC Acetaminophen/ Hydrocodone Bitart (Lortab 5/325) 1 tab PRN Q4HRS PRN PO MILD PAIN; Start 12/20/16 at 16:45 Levothyroxine Sodium (Synthroid) 112 mcg DAILY07 PO ; Start 12/20/16 at 17:00 Losartan Potassium (Cozaar) 50 mg DAILY PO ; Start 12/20/16 at 17:00 Metoprolol Tartrate (Lopressor) 25 mg BID PO Last administered on 12/20/16 20: 33; Start 12/20/16 at 21:00 Nortriptyline HCl (Pamelor) 25 mg DAILY PO Last administered on 12/20/16 18:34 ; Start 12/20/16 at 17:00 Non-Formulary Medication 1 tab BID PO ; Start 12/20/16 at 21:00; Status UNV Duloxetine HCl (Cymbalta) 60 mg DAILY PO ; Start 12/21/16 at 09:00 Fluticasone Propionate (Flonase) 2 spray DAILY NS ; Start 12/21/16 at 09:00 Pantoprazole Sodium (Protonix) 40 mg DAILYAC PO ; Start 12/21/16 at 07:30 Atorvastatin Calcium (Lipitor) 80 mg QHS PO Last administered on 12/20/16 20: 33; Start 12/20/16 at 21:00 Linagliptin (Tradjenta) 5 mg DAILY PO ; Start 12/21/16 at 09:00 Oxybutynin Chloride (Ditropan) 5 mg [id number] PO Last administered on 12/20/16 20 :33; Start 12/20/16 at 21:00 Vitamin D (Vitamin D3) 2,000 unit DAILY PO ; Start 12/21/16 at 09:00 Al Hydroxide/Mg Hydroxide (Mylanta Plus Xs) 30 ml PRN Q3HRS PRN PO HEARTBURN / GAS; Start 12/20/16 at 16:45 Calcium Carbonate/ Glycine (Tums) 500 mg PRN Q3HRS PRN PO INDIGESTION; Start at 16:45 Diphenhydramine HCl (Benadryl) 25 mg PRN Q6HRS PRN PO ITCHING; Start 12/20/16 at 16:45 Diphenhydramine HCl (Benadryl) 25 mg PRN Q6HRS PRN IV ITCHING; Start 12/20/16 at 16:45 Sodium Chloride (Normal Saline Flush) 3 ml QSHIFT PRN IV AFTER MEDS AND BLOOD DRAWS; Start 12/20/16 at 16:45 Dextrose 12.5 gm PRN Q15MIN PRN IV SEE COMMENTS; Start 12/20/16 at 16:45 Docusate Sodium (Colace) 100 mg BID PO Last administered on 12/20/16 20:32; Start 12/20/16 at 21:00 Magnesium Hydroxide 2400 mg 2,400 mg PRN Q12HR PRN PO CONSTIPATION; Start 12/20 at 16:45 Cefazolin Sodium 2 gm/Sodium Chloride 100 ml @ 200 mls/hr 1X PREOP IV ; Start 12/21/16 at 08:00; Status UNV Cefazolin Sodium/ Dextrose (Ancef 2gm Premix) 50 ml @ 100 mls/hr 1X ONCE IV Last administered on 12/21/16 09:48; Start 12/21/16 at 06:00; Stop 12/21/16 at 06:29; Status DC Acetaminophen 500 mg 500 mg PRN Q6HRS PRN PO MILD PAIN / TEMP; Start 12/20/16 at 17:45 Sodium Chloride 1,000 ml @ 75 mls/hr [id number] IV Last administered on 06:15; Start 12/20/16 at 17:45 Bacitracin/Sodium Chloride (Bacitracin/Iv Sodium Chloride 0.9% 1000ml Bag) 1, 000 ml @ 1,000 mls/hr 1X PERIOP ONCE IRR ; Start 12/21/16 at 06:00; Stop 12/21 at 06:59; Status DC Ciprofloxacin (Cipro) 500 mg BID PO Last administered on 12/20/16t 20:32; Start 12/20/16 at 21:00 Cellulose 1 each STK-MED ONCE .ROUTE ; Start 12/21/16 at 08:41; Stop 12/21/16 at 08:42; Status DC Bupivacaine HCl/ Epinephrine Bitart (Sensorcain-Mpf Epi 0.5%-1:[id number]) 30 ml STK -MED ONCE .ROUTE ; Start 12/21/16 at 08:41; Stop 12/21/16 at 08:42; Status DC Gelatin (Gelfoam Size 100) 1 each STK-MED ONCE .ROUTE ; Start 12/21/16 at 08:41 ; Stop 12/21/16 at 08:42; Status DC Thrombin 20,000 unit STK-MED ONCE TP ; Start 12/21/16 at 08:41; Stop 12/21/16 at 08:42; Status DC Fentanyl Citrate (Fentanyl 2ml Vial) 100 mcg STK-MED ONCE .ROUTE ; Start at 08:51; Stop 12/21/16 at 08:52; Status DC Rocuronium Vista (Zemuron) 50 mg STK-MED ONCE .ROUTE ; Start 12/21/16 at 08:51 ; Stop 12/21/16 at 08:52; Status DC Lidocaine HCl 100 mg 100 mg STK-MED ONCE .ROUTE ; Start 12/21/16 at 08:51; Stop 12/21/16 at 08:52; Status DC Propofol (Diprivan) 20 ml @ As Directed STK-MED ONCE IV ; Start 12/21/16 at 08: 51; Stop 12/21/16 at 08:52; Status DC Dexamethasone Sodium Phosphate (Decadron) 20 mg STK-MED ONCE .ROUTE ; Start at 08:52; Stop 12/21/16 at 08:53; Status DC Ondansetron HCl (Zofran) 4 mg STK-MED ONCE .ROUTE ; Start 12/21/16 at 08:52; Stop 12/21/16 at 08:53; Status DC Active Scripts Active Ciprofloxacin Hcl 500 Mg Tablet 1 Tab PO BID Hydrocodone-Apap 5-325 (Hydrocodone Bit/Acetaminophen) 1 Each Tablet 1 Tab PO PRN Q4HRS PRN Reported Citracal + D Er Tablet (Calcium Carb & Cit/Vitamin D3) 1 Each Tablet.er 1 Each PO Nasonex (Mometasone Furoate) 17 Gm Logan.pump 17 Gm NS PRN Losartan Potassium 25 Mg Tablet 50 Mg PO Fish Oil (Franklin-3 Fatty Acids) 300 Mg Capsule 300 Mg PO DAILY Cymbalta (Duloxetine Hcl) 60 Mg Capsule.dr 60 Mg PO DAILY Crestor (Rosuvastatin Calcium) 40 Mg Tablet 40 Mg PO HS Levothyroxine Sodium 112 Mcg Tablet 112 Mcg PO DAILY Aciphex (Rabeprazole Sodium) 20 Mg Tablet.dr 20 Mg PO DAILY Vesicare (Solifenacin Succinate) 5 Mg Tablet 10 Mg PO DAILY Januvia (Sitagliptin Phosphate) 100 Mg Tablet 100 Mg PO DAILY Metoprolol Tartrate 25 Mg Tablet 25 Mg PO BID Aspirin 325 Mg Tablet 325 Mg PO DAILY [Vit D3] 2,000 Units DAILY Nortriptyline Hcl 25 Mg Capsule 25 Mg PO DAILY Allergies Allergies: Coded Allergies: erythromycin base (Verified Allergy, Intermediate, 12/21/16) ROS Review of System out having lily hole Vitals VITALS Vital Signs Date Time Temp Pulse Resp B/P Pulse Ox O2 Delivery O2 Flow Rate FiO2 12/21/16 09:00 59 20 130/55 99 Room Air 12/21/16 08:00 98.9 98.9 Labs Labs Laboratory Tests Test 12/20/16 19:20 12/20/16 20:42 12/21/16 06:13 White Blood Count 15.6x10^3/uL (4.0-11.0) Red Blood Count 4.40x10^6/uL (3.50-5.40) Hemoglobin 12.6g/dL (12.0-15.5) Hematocrit 37.4% (36.0-47.0) Mean Corpuscular Volume 85fL (79-100) Mean Corpuscular Hemoglobin 29pg (25-35) Mean Corpuscular Hemoglobin Concent 34g/dL (31-37) Red Cell Distribution Width 13.8% (11.5-14.5) Platelet Count 401x10^3/uL (140-400) Neutrophils (%) (Auto) 71% (31-73) Lymphocytes (%) (Auto) 20% (24-48) Monocytes (%) (Auto) 8% (0-9) Eosinophils (%) (Auto) 1% (0-3) Basophils (%) (Auto) 1% (0-3) Neutrophils # (Auto) 11.0x10^3uL (1.8-7.7) Lymphocytes # (Auto) 3.1x10^3/uL (1.0-4.8) Monocytes # (Auto) 1.2x10^3/uL (0.0-1.1) Eosinophils # (Auto) 0.1x10^3/uL (0.0-0.7) Basophils # (Auto) 0.1x10^3/uL (0.0-0.2) Prothrombin Time 13.7SEC (11.7-14.0) Prothromb Time International Ratio 1.1 (0.8-1.1) Sodium Level 135mmol/L (136-145) Potassium Level 3.5mmol/L (3.5-5.1) Chloride Level 98mmol/L (98-107) Carbon Dioxide Level 27mmol/L (21-32) Anion Gap 10 (6-14) Blood Urea Nitrogen 16mg/dL (7-20) Creatinine 1.0mg/dL (0.6-1.0) Estimated GFR (Cockcroft-Gault) 55.3 Glucose Level 134mg/dL (70-99) Calcium Level 9.5mg/dL (8.5-10.1) Glucose (Fingerstick) 122mg/dL (70-99) 130mg/dL (70-99) Laboratory Tests Test 12/20/16 19:20 12/20/16 20:42 12/21/16 06:13 White Blood Count 15.6x10^3/uL (4.0-11.0) Red Blood Count 4.40x10^6/uL (3.50-5.40) Hemoglobin 12.6g/dL (12.0-15.5) Hematocrit 37.4% (36.0-47.0) Mean Corpuscular Volume 85fL (79-100) Mean Corpuscular Hemoglobin 29pg (25-35) Mean Corpuscular Hemoglobin Concent 34g/dL (31-37) Red Cell Distribution Width 13.8% (11.5-14.5) Platelet Count 401x10^3/uL (140-400) Neutrophils (%) (Auto) 71% (31-73) Lymphocytes (%) (Auto) 20% (24-48) Monocytes (%) (Auto) 8% (0-9) Eosinophils (%) (Auto) 1% (0-3) Basophils (%) (Auto) 1% (0-3) Neutrophils # (Auto) 11.0x10^3uL (1.8-7.7) Lymphocytes # (Auto) 3.1x10^3/uL (1.0-4.8) Monocytes # (Auto) 1.2x10^3/uL (0.0-1.1) Eosinophils # (Auto) 0.1x10^3/uL (0.0-0.7) Basophils # (Auto) 0.1x10^3/uL (0.0-0.2) Prothrombin Time 13.7SEC (11.7-14.0) Prothromb Time International Ratio 1.1 (0.8-1.1) Sodium Level 135mmol/L (136-145) Potassium Level 3.5mmol/L (3.5-5.1) Chloride Level 98mmol/L (98-107) Carbon Dioxide Level 27mmol/L (21-32) Anion Gap 10 (6-14) Blood Urea Nitrogen 16mg/dL (7-20) Creatinine 1.0mg/dL (0.6-1.0) Estimated GFR (Cockcroft-Gault) 55.3 Glucose Level 134mg/dL (70-99) Calcium Level 9.5mg/dL (8.5-10.1) Glucose (Fingerstick) 122mg/dL (70-99) 130mg/dL (70-99) Assessment/Plan Assessment/Plan 1. Epidural hematoma, worse with 11 mm midline shift 2. Hx HTN, malignant vs emergency 3. Recent craniotomy with evacuation of hematoma 4. Headaches in micaela background of # 2 5. LEukocytosis, likely reactive PLAN: Await from OR LAbs artie Interval head CT scan dw [employer] ICU admit DIPIKA CARRASQUILLO MD Dec 21, 2016 10:39
[2016-12-21] MEDS ORDERED: GLYCOPYRROLATE 1 MG/5 ML VIAL. ONE (10:41)
[2016-12-21] MEDS ORDERED: NEOSTIGMINE METHYLSULFATE 5 MG/5 ML SYRINGE. ONE (10:41)
[2016-12-21] MEDS ORDERED: DESFLURANE 61 TO 120 MINUTES IH ONE (11:19)
[2016-12-21] MEDS ORDERED: LORAZEPAM 2 MG/ML VIAL ONE (11:34)
[2016-12-21] MEDS: NICARDIPINE HCL 50 MG in IV NORMAL SALINE 250ML 250 ML IV PRN (12:08)
[2016-12-21] MEDS: LEVETIRACETAM 500 MG in IV NORMAL SALINE 100ML 100 ML IV SCH ×2 (12:08→21:09)
--- NOTE | 2016-12-21 12:13 | RAD ---
Indication postop. Noncontrast images of the head were obtained. Note is made of an examination one day earlier at [facility] demonstrating a left subdural fluid collection with possible rebleeding and associated left to right shift. There has been interval left craniotomy relative to the noncontrast CT study one day ago. The subdural hematoma seen previously has been virtually completely evacuated. A drainage catheter is noted in the subdural space. [id number] shift seen previously has improved substantially. Some residual [id number] shift persists measuring maximally approximately 5 to 6 mm. An unexpected finding is not seen. A parenchymal finding is not apparent. IMPRESSION: Interval evacuation of left subdural hematoma. Substantial improvement in [id number] shift seen previously. No definite unexpected finding seen PQRS Compliance Statement: One or more of the following individualized dose reduction techniques were utilized for this examination: 1. Automated exposure control 2. Adjustment of the mA and/or kV according to patient size 3. Use of iterative reconstruction technique
[2016-12-21] MEDS ORDERED: LORAZEPAM 2 MG/ML VIAL IV ONE (12:15)
[2016-12-21] MEDS ORDERED: LORAZEPAM 2 MG/ML VIAL IV PRN (12:15)
[2016-12-21] MEDS ORDERED: MIDAZOLAM HCL/PF 5 MG/5 ML VIAL ONE ×2 (12:30→12:32)
[2016-12-21] MEDS ORDERED: MIDAZOLAM HCL 2 MG/2 ML VIAL. IV ONE ×2 (12:30→14:00)
[2016-12-21 13:26] LABS: BASO # 0.1 x10^3/uL (0.0-0.2); BASO % 0 % (0-3); EOS % 0 % (0-3); HEMATOCRIT 36.8 % (36.0-47.0); HEMOGLOBIN 11.9 g/dL (12.0-15.5); LYMPH # 0.5 x10^3/uL (1.0-4.8); LYMPH % 3 % (24-48); MEAN CORPUSCULAR HEMOGLOBIN 28 pg (25-35); MEAN CORPUSCULAR HGB CONC 32 g/dL (31-37); MEAN CORPUSCULAR VOLUME 87 fL (79-100); MONO % 1 % (0-9); NEUT % 96 % (31-73); PLATELET COUNT 315 x10^3/uL (140-400); RED BLOOD COUNT 4.22 x10^6/uL (3.50-5.40); RED CELL DISTRIBUTION WIDTH 14.2 % (11.5-14.5); WHITE BLOOD COUNT 16.6 x10^3/uL (4.0-11.0)
[2016-12-21 13:35] LABS: CALCIUM 8.4 mg/dL (8.5-10.1); CREATININE 1.1 mg/dL (0.6-1.0); GFR 49.5; MAGNESIUM 1.5 mg/dL (1.8-2.4); PHOSPHORUS 2.7 mg/dL (2.6-4.7); POTASSIUM 3.5 mmol/L (3.5-5.1)
[2016-12-21] MEDS ORDERED: MAGNESIUM SULFATE 2GM 50 ML IV ONE (14:00)
[2016-12-21 14:22] LABS: PLT ESTIMATE ADEQUATE (ADEQUATE)
--- NOTE | 2016-12-21 17:37 | PDOC2 ---
CONSULT Date of Consult Date of Consult DATE: 12/21/16 TIME: 17:32 Reason for Consult Reason for Consult: Seizures. History of Present Illness Reason for Visit: This patient is 66-year-old woman is previously admitted for brain bleed, uncontrolled hypertension. Patient was discharged to rehabilitation information obtained from patient's chart and family at bedside. Patient had headaches, CT scan which showed 11 mm shift. Patient's CT scan was done at outside facility which showed left subdural collection with possible bleeding and gauv-gu-[id number] shift. Patient was evaluated by neurosurgery. A drainage catheter was placed inside. Patient had a repeat CT scan showing 5-6 cm [id number] shift. Patient had an episode of seizure-like activity with stiffness in her arm and tightening in her teeth. Patient was given Ativan and also started on The keppra. patient did not have any new episodes of stiffness, seizure like activity. Patient is being currently monitored in the ICU. Past Medical History Cardiovascular: CAD, Other Pulmonary: No pertinent hx CENTRAL NERVOUS SYSTEM: Migraine, Other GI: GERD Heme/Onc: No pertinent hx Hepatobiliary: Cholelithiasis Psych: Anxiety, Depression Musculoskeletal: Other Rheumatologic: No pertinent hx Renal/: UTI, Other Endocrine: Diabetes, Hypothyroidism Past Surgical History Past Surgical History: Total knee replacement, Hysterectomy, Other (recent craniotomy with evacuation hematoma) Family History Family History: Hypertension Social History No ALCOHOL: none Drugs: None Lives: with Family Domestic Violence: Neg Current Medications Current Medications Current Medications Ondansetron HCl (Zofran) 4 mg PRN Q6HRS PRN IV Nausea; Start 12/21/16 at 07:00 ; Stop 12/22/16 at 06:59 Fentanyl Citrate (Fentanyl 2ml Vial) 25 mcg PRN Q5MIN PRN IV MILD PAIN; Start 12/21/16 at 07:00; Stop 12/22/16 at 06:59 Fentanyl Citrate (Fentanyl 2ml Vial) 50 mcg PRN Q5MIN PRN IV MODERATE PAIN; Start 12/21/16 at 07:00; Stop 12/22/16 at 06:59 Morphine Sulfate 1 mg 1 mg PRN Q10MIN PRN IV SEVERE PAIN; Start 12/21/16 at 07: 00; Stop 12/22/16 at 06:59 Lactated Ringer's (Iv Lactated Ringers) 1,000 ml @ 0 mls/hr Q0M IV ; Start at 07:00; Stop 12/21/16 at 18:59 Lidocaine HCl 2 ml 1X PRN PRN ID IV START; Start 12/21/16 at 07:00; Stop at 06:59 Hydromorphone HCl (Dilaudid) 0.5 mg PRN Q10MIN PRN IV SEVERE PAIN, Second choice; Start 12/21/16 at 07:00; Stop 12/22/16 at 06:59 Prochlorperazine Edisylate 5 mg 5 mg PACU PRN PRN IV NAUSEA; Start 12/21/16 at 07:00; Stop 12/22/16 at 06:59 Bacitracin/Sodium Chloride (Bacitracin/Iv Sodium Chloride 0.9% 1000ml Bag) 1, 000 ml @ 1,000 mls/hr 1X PERIOP ONCE IRR ; Start 12/20/16 at 16:26; Stop 12/20 at 17:25; Status DC Acetaminophen/ Hydrocodone Bitart (Lortab 5/325) 1 tab PRN Q4HRS PRN PO MILD PAIN; Start 12/20/16 at 16:45 Levothyroxine Sodium (Synthroid) 112 mcg DAILY07 PO ; Start 12/20/16 at 17:00 Losartan Potassium (Cozaar) 50 mg DAILY PO ; Start 12/20/16 at 17:00 Metoprolol Tartrate (Lopressor) 25 mg BID PO Last administered on 12/20/16 20: 33; Start 12/20/16 at 21:00 Nortriptyline HCl (Pamelor) 25 mg DAILY PO Last administered on 12/20/16 18:34 ; Start 12/20/16 at 17:00 Non-Formulary Medication 1 tab BID PO ; Start 12/20/16 at 21:00; Status UNV Duloxetine HCl (Cymbalta) 60 mg DAILY PO ; Start 12/21/16 at 09:00 Fluticasone Propionate (Flonase) 2 spray DAILY NS ; Start 12/21/16 at 09:00 Pantoprazole Sodium (Protonix) 40 mg DAILYAC PO ; Start 12/21/16 at 07:30 Atorvastatin Calcium (Lipitor) 80 mg QHS PO Last administered on 12/20/16 20: 33; Start 12/20/16 at 21:00 Linagliptin (Tradjenta) 5 mg DAILY PO ; Start 12/21/16 at 09:00 Oxybutynin Chloride (Ditropan) 5 mg [id number] PO Last administered on 12/20/16 20 :33; Start 12/20/16 at 21:00 Vitamin D (Vitamin D3) 2,000 unit DAILY PO ; Start 12/21/16 at 09:00 Al Hydroxide/Mg Hydroxide (Mylanta Plus Xs) 30 ml PRN Q3HRS PRN PO HEARTBURN / GAS; Start 12/20/16 at 16:45 Calcium Carbonate/ Glycine (Tums) 500 mg PRN Q3HRS PRN PO INDIGESTION; Start at 16:45 Diphenhydramine HCl (Benadryl) 25 mg PRN Q6HRS PRN PO ITCHING; Start 12/20/16 at 16:45 Diphenhydramine HCl (Benadryl) 25 mg PRN Q6HRS PRN IV ITCHING; Start 12/20/16 at 16:45 Sodium Chloride (Normal Saline Flush) 3 ml QSHIFT PRN IV AFTER MEDS AND BLOOD DRAWS; Start 12/20/16 at 16:45 Dextrose 12.5 gm PRN Q15MIN PRN IV SEE COMMENTS; Start 12/20/16 at 16:45 Docusate Sodium (Colace) 100 mg BID PO Last administered on 12/20/16 20:32; Start 12/20/16 at 21:00 Magnesium Hydroxide 2400 mg 2,400 mg PRN Q12HR PRN PO CONSTIPATION; Start 12/20 at 16:45 Cefazolin Sodium 2 gm/Sodium Chloride 100 ml @ 200 mls/hr 1X PREOP IV ; Start 12/21/16 at 08:00; Status UNV Cefazolin Sodium/ Dextrose (Ancef 2gm Premix) 50 ml @ 100 mls/hr 1X ONCE IV Last administered on 12/21/16 09:48; Start 12/21/16 at 06:00; Stop 12/21/16 at 06:29; Status DC Acetaminophen 500 mg 500 mg PRN Q6HRS PRN PO MILD PAIN / TEMP; Start 12/20/16 at 17:45 Sodium Chloride 1,000 ml @ 75 mls/hr [id number] IV Last administered on 06:15; Start 12/20/16 at 17:45 Bacitracin/Sodium Chloride (Bacitracin/Iv Sodium Chloride 0.9% 1000ml Bag) 1, 000 ml @ 1,000 mls/hr 1X PERIOP ONCE IRR Last administered on 12/21/16 10:09 ; Start 12/21/16 at 06:00; Stop 12/21/16 at 06:59; Status DC Ciprofloxacin (Cipro) 500 mg BID PO Last administered on 12/20/16 20:32; Start 12/20/16 at 21:00 Cellulose 1 each STK-MED ONCE .ROUTE ; Start 12/21/16 at 08:41; Stop 12/21/16 at 08:42; Status DC Bupivacaine HCl/ Epinephrine Bitart (Sensorcain-Mpf Epi 0.5%-[id number]) 30 ml STK -MED ONCE .ROUTE Last administered on 12/21/16 10:09; Start 12/21/16 at 08:41 ; Stop 12/21/16 at 08:42; Status DC Gelatin (Gelfoam Size 100) 1 each STK-MED ONCE .ROUTE Last administered on 10:09; Start 12/21/16 at 08:41; Stop 12/21/16 at 08:42; Status DC Thrombin 20,000 unit STK-MED ONCE TP Last administered on 12/21/16 10:09; Start 12/21/16 at 08:41; Stop 12/21/16 at 08:42; Status DC Fentanyl Citrate (Fentanyl 2ml Vial) 100 mcg STK-MED ONCE .ROUTE ; Start at 08:51; Stop 12/21/16 at 08:52; Status DC Rocuronium [place] (Zemuron) 50 mg STK-MED ONCE .ROUTE ; Start 12/21/16 at 08:51 ; Stop 12/21/16 at 08:52; Status DC Lidocaine HCl 100 mg 100 mg STK-MED ONCE .ROUTE ; Start 12/21/16 at 08:51; Stop 12/21/16 at 08:52; Status DC Propofol (Diprivan) 20 ml @ As Directed STK-MED ONCE IV ; Start 12/21/16 at 08: 51; Stop 12/21/16 at 08:52; Status DC Dexamethasone Sodium Phosphate (Decadron) 20 mg STK-MED ONCE .ROUTE ; Start at 08:52; Stop 12/21/16 at 08:53; Status DC Ondansetron HCl (Zofran) 4 mg STK-MED ONCE .ROUTE ; Start 12/21/16 at 08:52; Stop 12/21/16 at 08:53; Status DC Glycopyrrolate (Robinul) 1 mg STK-MED ONCE .ROUTE ; Start 12/21/16 at 10:41; Stop 12/21/16 at 10:42; Status DC Neostigmine Methylsulfate 5 mg STK-MED ONCE .ROUTE ; Start 12/21/16 at 10:41; Stop 12/21/16 at 10:42; Status DC Desflurane 60 ml 60 ml STK-MED ONCE IH ; Start 12/21/16 at 11:19; Stop 12/21/16 at 11:20; Status DC Nicardipine HCl/ Sodium Chloride (Cardene/Iv Sodium Chloride 0.9% 250ml) 270 ml @ 0 mls/hr CONT PRN IV SEE I/O RECORD Last administered on 12/21/16 12:08; Start 12/21/16 at 11:30 Lorazepam (Ativan) 2 mg STK-MED ONCE .ROUTE ; Start 12/21/16 at 11:34; Stop at 11:35; Status DC Lorazepam 2 mg 2 mg 1X ONCE IV Last administered on 12/21/16 12:07; Start at 12:15; Stop 12/21/16 at 12:16; Status DC Levetiracetam/ Sodium Chloride (Keppra/Iv Sodium Chloride 0.9% 100ml) 105 ml @ 400 mls/hr Q12HR IV Last administered on 12/21/16 12:08; Start 12/21/16 at 12: 30 Levetiracetam (Keppra) 500 mg BID PO ; Start 12/21/16 at 21:00; Status Cancel Lorazepam (Ativan) 2 mg PRN Q4HRS PRN IV ANXIETY / AGITATION; Start 12/21/16 at 12:15 Midazolam HCl (Versed) 1 mg 1X ONCE IV Last administered on 12/21/16 12:30; Start 12/21/16 at 12:30; Stop 12/21/16 at 12:31; Status DC Midazolam HCl (Versed) 5 mg STK-MED ONCE .ROUTE ; Start 12/21/16 at 12:32; Stop 12/21/16 at 12:33; Status DC Midazolam HCl 2 mg 2 mg 1X ONCE IV ; Start 12/21/16 at 14:00; Stop 12/21/16 at 14:01; Status DC Magnesium Sulfate/ Dextrose (Magnesium Sulfate PREMIX 2GM) 50 ml @ 25 mls/hr 1X ONCE IV Last administered on 12/21/16 15:12; Start 12/21/16 at 14:00; Stop 12/21/16 at 15:59; Status DC Active Scripts Active Ciprofloxacin Hcl 500 Mg Tablet 1 Tab PO BID Hydrocodone-Apap 5-325 (Hydrocodone Bit/Acetaminophen) 1 Each Tablet 1 Tab PO PRN Q4HRS PRN Reported Citracal + D Er Tablet (Calcium Carb & Cit/Vitamin D3) 1 Each Tablet.er 1 Each PO Nasonex (Mometasone Furoate) 17 Gm [place].pump 17 Gm NS PRN Losartan Potassium 25 Mg Tablet 50 Mg PO Fish Oil ([place]-3 Fatty Acids) 300 Mg Capsule 300 Mg PO DAILY Cymbalta (Duloxetine Hcl) 60 Mg Capsule.dr 60 Mg PO DAILY Crestor (Rosuvastatin Calcium) 40 Mg Tablet 40 Mg PO HS Levothyroxine Sodium 112 Mcg Tablet 112 Mcg PO DAILY Aciphex (Rabeprazole Sodium) 20 Mg Tablet.dr 20 Mg PO DAILY Vesicare (Solifenacin Succinate) 5 Mg Tablet 10 Mg PO DAILY Januvia (Sitagliptin Phosphate) 100 Mg Tablet 100 Mg PO DAILY Metoprolol Tartrate 25 Mg Tablet 25 Mg PO BID Aspirin 325 Mg Tablet 325 Mg PO DAILY [Vit D3] 2,000 Units DAILY Nortriptyline Hcl 25 Mg Capsule 25 Mg PO DAILY Allergies Allergies: Coded Allergies: erythromycin base (Verified Allergy, Intermediate, 12/21/16) Physical Exam Physical Exam REVIEW OF SYSTEMS: not [id number] review of systems. PHYSICAL EXAMINATION: sedated HEENT: Normocephalic and nontraumatic. Neck is supple. No lymphadenopathy. No crepitus. Cardiovascular: S1, S2, regular rate and rhythm. Pulmonary: Clear to auscultation bilaterally. Abdomen: Abdomen is soft, nontender, and nondistended. NEUROLOGICAL EXAMINATION: sedated CN: no focal findings. Muscle tone: within normal. Muscle strength: withdraw to pain stimuli DTR: 1 Plantar reflex: Flexor response bilaterally Gait: not examined in bed. Sensory exam: withdraw to pain. Vitals VITALS Vital Signs Date Time Temp Pulse Resp B/P Pulse Ox O2 Delivery O2 Flow Rate FiO2 12/21/16 16:00 Room Air 12/21/16 16:00 98.3 84 14 114/64 93 98.3 12/21/16 15:00 4.0 Labs Labs Laboratory Tests Test 12/20/16 19:20 12/20/16 20:10 12/20/16 20:42 12/21/16 06:13 White Blood Count 15.6x10^3/uL (4.0-11.0) Red Blood Count 4.40x10^6/uL (3.50-5.40) Hemoglobin 12.6g/dL (12.0-15.5) Hematocrit 37.4% (36.0-47.0) Mean Corpuscular Volume 85fL (79-100) Mean Corpuscular Hemoglobin 29pg (25-35) Mean Corpuscular Hemoglobin Concent 34g/dL (31-37) Red Cell Distribution Width 13.8% (11.5-14.5) Platelet Count 401x10^3/uL (140-400) Neutrophils (%) (Auto) 71% (31-73) Lymphocytes (%) (Auto) 20% (24-48) Monocytes (%) (Auto) 8% (0-9) Eosinophils (%) (Auto) 1% (0-3) Basophils (%) (Auto) 1% (0-3) Neutrophils # (Auto) 11.0x10^3uL (1.8-7.7) Lymphocytes # (Auto) 3.1x10^3/uL (1.0-4.8) Monocytes # (Auto) 1.2x10^3/uL (0.0-1.1) Eosinophils # (Auto) 0.1x10^3/uL (0.0-0.7) Basophils # (Auto) 0.1x10^3/uL (0.0-0.2) Prothrombin Time 13.7SEC (11.7-14.0) Prothromb Time International Ratio 1.1 (0.8-1.1) Sodium Level 135mmol/L (136-145) Potassium Level 3.5mmol/L (3.5-5.1) Chloride Level 98mmol/L (98-107) Carbon Dioxide Level 27mmol/L (21-32) Anion Gap 10 (6-14) Blood Urea Nitrogen 16mg/dL (7-20) Creatinine 1.0mg/dL (0.6-1.0) Estimated GFR (Cockcroft-Gault) 55.3 Glucose Level 134mg/dL (70-99) Calcium Level 9.5mg/dL (8.5-10.1) Nasal Screen MRSA (PCR) Negative (Negative) Glucose (Fingerstick) 122mg/dL (70-99) 130mg/dL (70-99) Test 12/21/16 12:07 12/21/16 13:15 Glucose (Fingerstick) 228mg/dL (70-99) White Blood Count 16.6x10^3/uL (4.0-11.0) Red Blood Count 4.22x10^6/uL (3.50-5.40) Hemoglobin 11.9g/dL (12.0-15.5) Hematocrit 36.8% (36.0-47.0) Mean Corpuscular Volume 87fL (79-100) Mean Corpuscular Hemoglobin 28pg (25-35) Mean Corpuscular Hemoglobin Concent 32g/dL (31-37) Red Cell Distribution Width 14.2% (11.5-14.5) Platelet Count 315x10^3/uL (140-400) Neutrophils (%) (Auto) 96% (31-73) Lymphocytes (%) (Auto) 3% (24-48) Monocytes (%) (Auto) 1% (0-9) Eosinophils (%) (Auto) 0% (0-3) Basophils (%) (Auto) 0% (0-3) Neutrophils # (Auto) 15.9x10^3uL (1.8-7.7) Lymphocytes # (Auto) 0.5x10^3/uL (1.0-4.8) Monocytes # (Auto) 0.1x10^3/uL (0.0-1.1) Eosinophils # (Auto) 0.0x10^3/uL (0.0-0.7) Basophils # (Auto) 0.1x10^3/uL (0.0-0.2) Segmented Neutrophils % 90% (35-66) Band Neutrophils % 1% (0-9) Lymphocytes % 5% (24-48) Monocytes % 4% (0-10) Platelet Estimate Adequate (ADEQUATE) Sodium Level 138mmol/L (136-145) Potassium Level 3.5mmol/L (3.5-5.1) Chloride Level 102mmol/L (98-107) Carbon Dioxide Level 27mmol/L (21-32) Anion Gap 9 (6-14) Blood Urea Nitrogen 15mg/dL (7-20) Creatinine 1.1mg/dL (0.6-1.0) Estimated GFR (Cockcroft-Gault) 49.5 Glucose Level 253mg/dL (70-99) Calcium Level 8.4mg/dL (8.5-10.1) Phosphorus Level 2.7mg/dL (2.6-4.7) Magnesium Level 1.5mg/dL (1.8-2.4) Laboratory Tests Test 12/20/16 19:20 12/20/16 20:10 12/20/16 20:42 12/21/16 06:13 White Blood Count 15.6x10^3/uL (4.0-11.0) Red Blood Count 4.40x10^6/uL (3.50-5.40) Hemoglobin 12.6g/dL (12.0-15.5) Hematocrit 37.4% (36.0-47.0) Mean Corpuscular Volume 85fL (79-100) Mean Corpuscular Hemoglobin 29pg (25-35) Mean Corpuscular Hemoglobin Concent 34g/dL (31-37) Red Cell Distribution Width 13.8% (11.5-14.5) Platelet Count 401x10^3/uL (140-400) Neutrophils (%) (Auto) 71% (31-73) Lymphocytes (%) (Auto) 20% (24-48) Monocytes (%) (Auto) 8% (0-9) Eosinophils (%) (Auto) 1% (0-3) Basophils (%) (Auto) 1% (0-3) Neutrophils # (Auto) 11.0x10^3uL (1.8-7.7) Lymphocytes # (Auto) 3.1x10^3/uL (1.0-4.8) Monocytes # (Auto) 1.2x10^3/uL (0.0-1.1) Eosinophils # (Auto) 0.1x10^3/uL (0.0-0.7) Basophils # (Auto) 0.1x10^3/uL (0.0-0.2) Prothrombin Time 13.7SEC (11.7-14.0) Prothromb Time International Ratio 1.1 (0.8-1.1) Sodium Level 135mmol/L (136-145) Potassium Level 3.5mmol/L (3.5-5.1) Chloride Level 98mmol/L (98-107) Carbon Dioxide Level 27mmol/L (21-32) Anion Gap 10 (6-14) Blood Urea Nitrogen 16mg/dL (7-20) Creatinine 1.0mg/dL (0.6-1.0) Estimated GFR (Cockcroft-Gault) 55.3 Glucose Level 134mg/dL (70-99) Calcium Level 9.5mg/dL (8.5-10.1) Nasal Screen MRSA (PCR) Negative (Negative) Glucose (Fingerstick) 122mg/dL (70-99) 130mg/dL (70-99) Test 12/21/16 12:07 12/21/16 13:15 Glucose (Fingerstick) 228mg/dL (70-99) White Blood Count 16.6x10^3/uL (4.0-11.0) Red Blood Count 4.22x10^6/uL (3.50-5.40) Hemoglobin 11.9g/dL (12.0-15.5) Hematocrit 36.8% (36.0-47.0) Mean Corpuscular Volume 87fL (79-100) Mean Corpuscular Hemoglobin 28pg (25-35) Mean Corpuscular Hemoglobin Concent 32g/dL (31-37) Red Cell Distribution Width 14.2% (11.5-14.5) Platelet Count 315x10^3/uL (140-400) Neutrophils (%) (Auto) 96% (31-73) Lymphocytes (%) (Auto) 3% (24-48) Monocytes (%) (Auto) 1% (0-9) Eosinophils (%) (Auto) 0% (0-3) Basophils (%) (Auto) 0% (0-3) Neutrophils # (Auto) 15.9x10^3uL (1.8-7.7) Lymphocytes # (Auto) 0.5x10^3/uL (1.0-4.8) Monocytes # (Auto) 0.1x10^3/uL (0.0-1.1) Eosinophils # (Auto) 0.0x10^3/uL (0.0-0.7) Basophils # (Auto) 0.1x10^3/uL (0.0-0.2) Segmented Neutrophils % 90% (35-66) Band Neutrophils % 1% (0-9) Lymphocytes % 5% (24-48) Monocytes % 4% (0-10) Platelet Estimate Adequate (ADEQUATE) Sodium Level 138mmol/L (136-145) Potassium Level 3.5mmol/L (3.5-5.1) Chloride Level 102mmol/L (98-107) Carbon Dioxide Level 27mmol/L (21-32) Anion Gap 9 (6-14) Blood Urea Nitrogen 15mg/dL (7-20) Creatinine 1.1mg/dL (0.6-1.0) Estimated GFR (Cockcroft-Gault) 49.5 Glucose Level 253mg/dL (70-99) Calcium Level 8.4mg/dL (8.5-10.1) Phosphorus Level 2.7mg/dL (2.6-4.7) Magnesium Level 1.5mg/dL (1.8-2.4) Assessment/Plan Assessment/Plan This patient is 66-year-old woman is previously admitted for brain bleed, uncontrolled hypertension. Patient was discharged to rehabilitation information obtained from patient's chart and family at bedside. Patient had headaches, CT scan which showed 11 mm shift. Patient's CT scan was done at outside facility which showed left subdural collection with possible bleeding and [id number] shift. Patient was evaluated by neurosurgery. A drainage catheter was placed inside. Patient had a repeat CT scan showing 5-6 cm [id number] shift. Patient had an episode of seizure-like activity with stiffness in her arm and tightening in her teeth. Patient was given Ativan and also started on The keppra. patient did not have any new episodes of stiffness, seizure like activity. Patient is being currently monitored in the ICU. Subdural Hematoma History of hypertension Continue treat and monitor. Neurosurgery recommendations Patient is currently sedated after the procedure Continue close monitoring. Continue medical management EL CRAWFORD MD Dec 21, 2016 17:37
[2016-12-21] MEDS: ATORVASTATIN CALCIUM 40 MG TABLET. PO SCH (19:33)
[2016-12-21] MEDS ORDERED: LEVETIRACETAM 500 MG TABLET PO SCH (21:00)
[2016-12-22] VITALS (24 sets, daily range): BP systolic 123–172; BP diastolic 47–73
[2016-12-22 05:28] LABS: BASO % 0 % (0-3); EOS % 0 % (0-3); HEMATOCRIT 34.5 % (36.0-47.0); HEMOGLOBIN 11.6 g/dL (12.0-15.5); LYMPH # 1.7 x10^3/uL (1.0-4.8); LYMPH % 13 % (24-48); MEAN CORPUSCULAR HEMOGLOBIN 29 pg (25-35); MEAN CORPUSCULAR HGB CONC 34 g/dL (31-37); MEAN CORPUSCULAR VOLUME 85 fL (79-100); MONO % 6 % (0-9); NEUT % 81 % (31-73); PLATELET COUNT 354 x10^3/uL (140-400); RED BLOOD COUNT 4.08 x10^6/uL (3.50-5.40); RED CELL DISTRIBUTION WIDTH 14.2 % (11.5-14.5); WHITE BLOOD COUNT 13.8 x10^3/uL (4.0-11.0)
[2016-12-22] MEDS: LEVOTHYROXINE 112 MCG TABLET PO SCH (07:00)
[2016-12-22] MEDS: PANTOPRAZOLE 40 MG TABLET. PO SCH (07:27)
[2016-12-22 08:46] LABS: CALCIUM 8.4 mg/dL (8.5-10.1); CREATININE 0.8 mg/dL (0.6-1.0); GFR 71.5
[2016-12-22] MEDS: LINAGLIPTIN 5 MG TABLET PO SCH (09:00)
[2016-12-22] MEDS: NORTRIPTYLINE 25 MG CAPSULE PO SCH (09:00)
[2016-12-22] MEDS: OXYBUTYNIN CHLORIDE 5 MG TABLET PO SCH ×3 (09:00→20:17)
[2016-12-22] MEDS: CHOLECALCIFEROL (VITAMIN D3) 1,000 UNIT TABLET PO SCH (09:00)
[2016-12-22] MEDS: METOPROLOL TART IMMED RELEASE 25 MG TABLET PO SCH ×2 (09:00→20:18)
[2016-12-22] MEDS: FLUTICASONE 50MCG/NASAL SPRAY 16GM BOTTLE. NS SCH (09:00)
[2016-12-22] MEDS: DOCUSATE SODIUM 100 MG CAPSULE PO SCH ×2 (09:00→20:17)
[2016-12-22] MEDS: CIPROFLOXACIN HCL 250 MG TABLET PO SCH (09:00)
[2016-12-22] MEDS: LOSARTAN POTASSIUM 50 MG TABLET. PO SCH (09:00)
[2016-12-22] MEDS: DULOXETINE HCL 30 MG CAPSULE.DR. PO SCH (09:00)
[2016-12-22] MEDS: LEVETIRACETAM 500 MG in IV NORMAL SALINE 100ML 100 ML IV SCH ×2 (09:14→21:47)
[2016-12-22] MEDS ORDERED: MORPHINE SULFATE 2 MG/ML DISP.SYRIN. IV PRN (10:00)
--- NOTE | 2016-12-22 10:04 | PDOC ---
PROGRESS NOTES Chief Complaint Chief Complaint 1. Epidural hematoma, worse with 11 mm midline shift s/p lily hole (12/21/16) 2. Hx HTN, malignant vs emergency 3. Recent craniotomy with evacuation of hematoma 4. Headaches in the background of # 2 5. LEukocytosis, likely reactive History of Present Illness History of Present Illness Wakes to voice, recognizes family members Opens eyes Hgb 11 Some headache, moderate VS ok Still NPO On iVF 75cc by surgeon CT scan post op shows resolution of the midline shift and evacn of the hematoma This is her second Craniotomy for epidural hematoma after a fall few weeks prior to first admission (this is her 3rd admission for same issue) PLAn: Change cipro and synthroid to IV CALL CENTER NURSE eval PT/OT HH artie Interval CT scan head by neurosx Will follow along De family at bedside and RN Vitals Vitals Vital Signs Date Time Temp Pulse Resp B/P Pulse Ox O2 Delivery O2 Flow Rate FiO2 12/22/16 09:00 83 13 141/70 100 Nasal Cannula 2.0 12/22/16 08:00 98.0 98.0 Physical Exam Lungs: Clear Labs LABS Laboratory Tests Test 12/21/16 12:07 12/21/16 13:15 12/21/16 18:15 12/22/16 04:44 Glucose (Fingerstick) 228mg/dL (70-99) 148mg/dL (70-99) White Blood Count 16.6x10^3/uL (4.0-11.0) 13.8x10^3/uL (4.0-11.0) Red Blood Count 4.22x10^6/uL (3.50-5.40) 4.08x10^6/uL (3.50-5.40) Hemoglobin 11.9g/dL (12.0-15.5) 11.6g/dL (12.0-15.5) Hematocrit 36.8% (36.0-47.0) 34.5% (36.0-47.0) Mean Corpuscular Volume 87fL (79-100) 85fL (79-100) Mean Corpuscular Hemoglobin 28pg (25-35) 29pg (25-35) Mean Corpuscular Hemoglobin Concent 32g/dL (31-37) 34g/dL (31-37) Red Cell Distribution Width 14.2% (11.5-14.5) 14.2% (11.5-14.5) Platelet Count 315x10^3/uL (140-400) 354x10^3/uL (140-400) Neutrophils (%) (Auto) 96% (31-73) 81% (31-73) Lymphocytes (%) (Auto) 3% (24-48) 13% (24-48) Monocytes (%) (Auto) 1% (0-9) 6% (0-9) Eosinophils (%) (Auto) 0% (0-3) 0% (0-3) Basophils (%) (Auto) 0% (0-3) 0% (0-3) Neutrophils # (Auto) 15.9x10^3uL (1.8-7.7) 11.2x10^3uL (1.8-7.7) Lymphocytes # (Auto) 0.5x10^3/uL (1.0-4.8) 1.7x10^3/uL (1.0-4.8) Monocytes # (Auto) 0.1x10^3/uL (0.0-1.1) 0.9x10^3/uL (0.0-1.1) Eosinophils # (Auto) 0.0x10^3/uL (0.0-0.7) 0.0x10^3/uL (0.0-0.7) Basophils # (Auto) 0.1x10^3/uL (0.0-0.2) 0.0x10^3/uL (0.0-0.2) Segmented Neutrophils % 90% (35-66) Band Neutrophils % 1% (0-9) Lymphocytes % 5% (24-48) Monocytes % 4% (0-10) Platelet Estimate Adequate (ADEQUATE) Sodium Level 138mmol/L (136-145) 141mmol/L (136-145) Potassium Level 3.5mmol/L (3.5-5.1) 4.0mmol/L (3.5-5.1) Chloride Level 102mmol/L (98-107) 105mmol/L (98-107) Carbon Dioxide Level 27mmol/L (21-32) 26mmol/L (21-32) Anion Gap 9 (6-14) 10 (6-14) Blood Urea Nitrogen 15mg/dL (7-20) 13mg/dL (7-20) Creatinine 1.1mg/dL (0.6-1.0) 0.8mg/dL (0.6-1.0) Estimated GFR (Cockcroft-Gault) 49.5 71.5 Glucose Level 253mg/dL (70-99) 129mg/dL (70-99) Calcium Level 8.4mg/dL (8.5-10.1) 8.4mg/dL (8.5-10.1) Phosphorus Level 2.7mg/dL (2.6-4.7) Magnesium Level 1.5mg/dL (1.8-2.4) Review of Systems Review of Systems unable to obtain, weak, still post op lily hole Comment Review of Relevant I have reviewed the following items jessica (where applicable) has been applied. Labs Laboratory Tests Test 12/20/16 19:20 12/20/16 20:10 12/20/16 20:42 12/21/16 06:13 White Blood Count 15.6x10^3/uL (4.0-11.0) Red Blood Count 4.40x10^6/uL (3.50-5.40) Hemoglobin 12.6g/dL (12.0-15.5) Hematocrit 37.4% (36.0-47.0) Mean Corpuscular Volume 85fL (79-100) Mean Corpuscular Hemoglobin 29pg (25-35) Mean Corpuscular Hemoglobin Concent 34g/dL (31-37) Red Cell Distribution Width 13.8% (11.5-14.5) Platelet Count 401x10^3/uL (140-400) Neutrophils (%) (Auto) 71% (31-73) Lymphocytes (%) (Auto) 20% (24-48) Monocytes (%) (Auto) 8% (0-9) Eosinophils (%) (Auto) 1% (0-3) Basophils (%) (Auto) 1% (0-3) Neutrophils # (Auto) 11.0x10^3uL (1.8-7.7) Lymphocytes # (Auto) 3.1x10^3/uL (1.0-4.8) Monocytes # (Auto) 1.2x10^3/uL (0.0-1.1) Eosinophils # (Auto) 0.1x10^3/uL (0.0-0.7) Basophils # (Auto) 0.1x10^3/uL (0.0-0.2) Prothrombin Time 13.7SEC (11.7-14.0) Prothromb Time International Ratio 1.1 (0.8-1.1) Sodium Level 135mmol/L (136-145) Potassium Level 3.5mmol/L (3.5-5.1) Chloride Level 98mmol/L (98-107) Carbon Dioxide Level 27mmol/L (21-32) Anion Gap 10 (6-14) Blood Urea Nitrogen 16mg/dL (7-20) Creatinine 1.0mg/dL (0.6-1.0) Estimated GFR (Cockcroft-Gault) 55.3 Glucose Level 134mg/dL (70-99) Calcium Level 9.5mg/dL (8.5-10.1) Nasal Screen MRSA (PCR) Negative (Negative) Glucose (Fingerstick) 122mg/dL (70-99) 130mg/dL (70-99) Test 12/21/16 12:07 12/21/16 13:15 12/21/16 18:15 12/22/16 04:44 Glucose (Fingerstick) 228mg/dL (70-99) 148mg/dL (70-99) White Blood Count 16.6x10^3/uL (4.0-11.0) 13.8x10^3/uL (4.0-11.0) Red Blood Count 4.22x10^6/uL (3.50-5.40) 4.08x10^6/uL (3.50-5.40) Hemoglobin 11.9g/dL (12.0-15.5) 11.6g/dL (12.0-15.5) Hematocrit 36.8% (36.0-47.0) 34.5% (36.0-47.0) Mean Corpuscular Volume 87fL (79-100) 85fL (79-100) Mean Corpuscular Hemoglobin 28pg (25-35) 29pg (25-35) Mean Corpuscular Hemoglobin Concent 32g/dL (31-37) 34g/dL (31-37) Red Cell Distribution Width 14.2% (11.5-14.5) 14.2% (11.5-14.5) Platelet Count 315x10^3/uL (140-400) 354x10^3/uL (140-400) Neutrophils (%) (Auto) 96% (31-73) 81% (31-73) Lymphocytes (%) (Auto) 3% (24-48) 13% (24-48) Monocytes (%) (Auto) 1% (0-9) 6% (0-9) Eosinophils (%) (Auto) 0% (0-3) 0% (0-3) Basophils (%) (Auto) 0% (0-3) 0% (0-3) Neutrophils # (Auto) 15.9x10^3uL (1.8-7.7) 11.2x10^3uL (1.8-7.7) Lymphocytes # (Auto) 0.5x10^3/uL (1.0-4.8) 1.7x10^3/uL (1.0-4.8) Monocytes # (Auto) 0.1x10^3/uL (0.0-1.1) 0.9x10^3/uL (0.0-1.1) Eosinophils # (Auto) 0.0x10^3/uL (0.0-0.7) 0.0x10^3/uL (0.0-0.7) Basophils # (Auto) 0.1x10^3/uL (0.0-0.2) 0.0x10^3/uL (0.0-0.2) Segmented Neutrophils % 90% (35-66) Band Neutrophils % 1% (0-9) Lymphocytes % 5% (24-48) Monocytes % 4% (0-10) Platelet Estimate Adequate (ADEQUATE) Sodium Level 138mmol/L (136-145) 141mmol/L (136-145) Potassium Level 3.5mmol/L (3.5-5.1) 4.0mmol/L (3.5-5.1) Chloride Level 102mmol/L (98-107) 105mmol/L (98-107) Carbon Dioxide Level 27mmol/L (21-32) 26mmol/L (21-32) Anion Gap 9 (6-14) 10 (6-14) Blood Urea Nitrogen 15mg/dL (7-20) 13mg/dL (7-20) Creatinine 1.1mg/dL (0.6-1.0) 0.8mg/dL (0.6-1.0) Estimated GFR (Cockcroft-Gault) 49.5 71.5 Glucose Level 253mg/dL (70-99) 129mg/dL (70-99) Calcium Level 8.4mg/dL (8.5-10.1) 8.4mg/dL (8.5-10.1) Phosphorus Level 2.7mg/dL (2.6-4.7) Magnesium Level 1.5mg/dL (1.8-2.4) Laboratory Tests Test 12/21/16 12:07 12/21/16 13:15 12/21/16 18:15 12/22/16 04:44 Glucose (Fingerstick) 228mg/dL (70-99) 148mg/dL (70-99) White Blood Count 16.6x10^3/uL (4.0-11.0) 13.8x10^3/uL (4.0-11.0) Red Blood Count 4.22x10^6/uL (3.50-5.40) 4.08x10^6/uL (3.50-5.40) Hemoglobin 11.9g/dL (12.0-15.5) 11.6g/dL (12.0-15.5) Hematocrit 36.8% (36.0-47.0) 34.5% (36.0-47.0) Mean Corpuscular Volume 87fL (79-100) 85fL (79-100) Mean Corpuscular Hemoglobin 28pg (25-35) 29pg (25-35) Mean Corpuscular Hemoglobin Concent 32g/dL (31-37) 34g/dL (31-37) Red Cell Distribution Width 14.2% (11.5-14.5) 14.2% (11.5-14.5) Platelet Count 315x10^3/uL (140-400) 354x10^3/uL (140-400) Neutrophils (%) (Auto) 96% (31-73) 81% (31-73) Lymphocytes (%) (Auto) 3% (24-48) 13% (24-48) Monocytes (%) (Auto) 1% (0-9) 6% (0-9) Eosinophils (%) (Auto) 0% (0-3) 0% (0-3) Basophils (%) (Auto) 0% (0-3) 0% (0-3) Neutrophils # (Auto) 15.9x10^3uL (1.8-7.7) 11.2x10^3uL (1.8-7.7) Lymphocytes # (Auto) 0.5x10^3/uL (1.0-4.8) 1.7x10^3/uL (1.0-4.8) Monocytes # (Auto) 0.1x10^3/uL (0.0-1.1) 0.9x10^3/uL (0.0-1.1) Eosinophils # (Auto) 0.0x10^3/uL (0.0-0.7) 0.0x10^3/uL (0.0-0.7) Basophils # (Auto) 0.1x10^3/uL (0.0-0.2) 0.0x10^3/uL (0.0-0.2) Segmented Neutrophils % 90% (35-66) Band Neutrophils % 1% (0-9) Lymphocytes % 5% (24-48) Monocytes % 4% (0-10) Platelet Estimate Adequate (ADEQUATE) Sodium Level 138mmol/L (136-145) 141mmol/L (136-145) Potassium Level 3.5mmol/L (3.5-5.1) 4.0mmol/L (3.5-5.1) Chloride Level 102mmol/L (98-107) 105mmol/L (98-107) Carbon Dioxide Level 27mmol/L (21-32) 26mmol/L (21-32) Anion Gap 9 (6-14) 10 (6-14) Blood Urea Nitrogen 15mg/dL (7-20) 13mg/dL (7-20) Creatinine 1.1mg/dL (0.6-1.0) 0.8mg/dL (0.6-1.0) Estimated GFR (Cockcroft-Gault) 49.5 71.5 Glucose Level 253mg/dL (70-99) 129mg/dL (70-99) Calcium Level 8.4mg/dL (8.5-10.1) 8.4mg/dL (8.5-10.1) Phosphorus Level 2.7mg/dL (2.6-4.7) Magnesium Level 1.5mg/dL (1.8-2.4) Medications Current Medications Ondansetron HCl (Zofran) 4 mg PRN Q6HRS PRN IV Nausea; Start 12/21/16 at 07:00 ; Stop 12/22/16 at 06:59; Status DC Fentanyl Citrate (Fentanyl 2ml Vial) 25 mcg PRN Q5MIN PRN IV MILD PAIN; Start 12/21/16 at 07:00; Stop 12/22/16 at 06:59; Status DC Fentanyl Citrate (Fentanyl 2ml Vial) 50 mcg PRN Q5MIN PRN IV MODERATE PAIN; Start 12/21/16 at 07:00; Stop 12/22/16 at 06:59; Status DC Morphine Sulfate 1 mg 1 mg PRN Q10MIN PRN IV SEVERE PAIN; Start 12/21/16 at 07: 00; Stop 12/22/16 at 06:59; Status DC Lactated Ringer's (Iv Lactated Ringers) 1,000 ml @ 0 mls/hr Q0M IV ; Start at 07:00; Stop 12/21/16 at 18:59; Status DC Lidocaine HCl 2 ml 1X PRN PRN ID IV START; Start 12/21/16 at 07:00; Stop at 06:59; Status DC Hydromorphone HCl (Dilaudid) 0.5 mg PRN Q10MIN PRN IV SEVERE PAIN, Second choice; Start 12/21/16 at 07:00; Stop 12/22/16 at 06:59; Status DC Prochlorperazine Edisylate 5 mg 5 mg PACU PRN PRN IV NAUSEA; Start 12/21/16 at 07:00; Stop 12/22/16 at 06:59; Status DC Bacitracin/Sodium Chloride (Bacitracin/Iv Sodium Chloride 0.9% 1000ml Bag) 1, 000 ml @ 1,000 mls/hr 1X PERIOP ONCE IRR ; Start 12/20/16 at 16:26; Stop 12/20 at 17:25; Status DC Acetaminophen/ Hydrocodone Bitart (Lortab 5/325) 1 tab PRN Q4HRS PRN PO MILD PAIN; Start 12/20/16 at 16:45 Levothyroxine Sodium (Synthroid) 112 mcg DAILY07 PO ; Start 12/20/16 at 17:00; Stop 12/22/16 at 09:58; Status DC Losartan Potassium (Cozaar) 50 mg DAILY PO ; Start 12/20/16 at 17:00 Metoprolol Tartrate (Lopressor) 25 mg BID PO Last administered on 12/20/16 20: 33; Start 12/20/16 at 21:00 Nortriptyline HCl (Pamelor) 25 mg DAILY PO Last administered on 12/20/16 18:34 ; Start 12/20/16 at 17:00 Non-Formulary Medication 1 tab BID PO ; Start 12/20/16 at 21:00; Status UNV Duloxetine HCl (Cymbalta) 60 mg DAILY PO ; Start 12/21/16 at 09:00 Fluticasone Propionate (Flonase) 2 spray DAILY NS ; Start 12/21/16 at 09:00 Pantoprazole Sodium (Protonix) 40 mg DAILYAC PO ; Start 12/21/16 at 07:30 Atorvastatin Calcium (Lipitor) 80 mg QHS PO Last administered on 12/20/16 20: 33; Start 12/20/16 at 21:00 Linagliptin (Tradjenta) 5 mg DAILY PO ; Start 12/21/16 at 09:00 Oxybutynin Chloride (Ditropan) 5 mg [id number] PO Last administered on 12/20/16 20 :33; Start 12/20/16 at 21:00 Vitamin D (Vitamin D3) 2,000 unit DAILY PO ; Start 12/21/16 at 09:00 Al Hydroxide/Mg Hydroxide (Mylanta Plus Xs) 30 ml PRN Q3HRS PRN PO HEARTBURN / GAS; Start 12/20/16 at 16:45 Calcium Carbonate/ Glycine (Tums) 500 mg PRN Q3HRS PRN PO INDIGESTION; Start at 16:45 Diphenhydramine HCl (Benadryl) 25 mg PRN Q6HRS PRN PO ITCHING; Start 12/20/16 at 16:45 Diphenhydramine HCl (Benadryl) 25 mg PRN Q6HRS PRN IV ITCHING; Start 12/20/16 at 16:45 Sodium Chloride (Normal Saline Flush) 3 ml QSHIFT PRN IV AFTER MEDS AND BLOOD DRAWS; Start 12/20/16 at 16:45 Dextrose 12.5 gm PRN Q15MIN PRN IV SEE COMMENTS; Start 12/20/16 at 16:45 Docusate Sodium (Colace) 100 mg BID PO Last administered on 12/20/16 20:32; Start 12/20/16 at 21:00 Magnesium Hydroxide 2400 mg 2,400 mg PRN Q12HR PRN PO CONSTIPATION; Start 12/20 at 16:45 Cefazolin Sodium 2 gm/Sodium Chloride 100 ml @ 200 mls/hr 1X PREOP IV ; Start 12/21/16 at 08:00; Status UNV Cefazolin Sodium/ Dextrose (Ancef 2gm Premix) 50 ml @ 100 mls/hr 1X ONCE IV Last administered on 12/21/16 09:48; Start 12/21/16 at 06:00; Stop 12/21/16 at 06:29; Status DC Acetaminophen 500 mg 500 mg PRN Q6HRS PRN PO MILD PAIN / TEMP; Start 12/20/16 at 17:45 Sodium Chloride 1,000 ml @ 75 mls/hr [id number] IV Last administered on 18:28; Start 12/20/16 at 17:45 Bacitracin/Sodium Chloride (Bacitracin/Iv Sodium Chloride 0.9% 1000ml Bag) 1, 000 ml @ 1,000 mls/hr 1X PERIOP ONCE IRR Last administered on 12/21/16 10:09 ; Start 12/21/16 at 06:00; Stop 12/21/16 at 06:59; Status DC Ciprofloxacin (Cipro) 500 mg BID PO Last administered on 12/20/16 20:32; Start 12/20/16 at 21:00; Stop 12/22/16 at 09:58; Status DC Cellulose 1 each STK-MED ONCE .ROUTE ; Start 12/21/16 at 08:41; Stop 12/21/16 at 08:42; Status DC Bupivacaine HCl/ Epinephrine Bitart (Sensorcain-Mpf Epi 0.5%-[id number]) 30 ml STK -MED ONCE .ROUTE Last administered on 12/21/16 10:09; Start 12/21/16 at 08:41 ; Stop 12/21/16 at 08:42; Status DC Gelatin (Gelfoam Size 100) 1 each STK-MED ONCE .ROUTE Last administered on 10:09; Start 12/21/16 at 08:41; Stop 12/21/16 at 08:42; Status DC Thrombin 20,000 unit STK-MED ONCE TP Last administered on 12/21/16 10:09; Start 12/21/16 at 08:41; Stop 12/21/16 at 08:42; Status DC Fentanyl Citrate (Fentanyl 2ml Vial) 100 mcg STK-MED ONCE .ROUTE ; Start at 08:51; Stop 12/21/16 at 08:52; Status DC Rocuronium [place] (Zemuron) 50 mg STK-MED ONCE .ROUTE ; Start 12/21/16 at 08:51 ; Stop 12/21/16 at 08:52; Status DC Lidocaine HCl 100 mg 100 mg STK-MED ONCE .ROUTE ; Start 12/21/16 at 08:51; Stop 12/21/16 at 08:52; Status DC Propofol (Diprivan) 20 ml @ As Directed STK-MED ONCE IV ; Start 12/21/16 at 08: 51; Stop 12/21/16 at 08:52; Status DC Dexamethasone Sodium Phosphate (Decadron) 20 mg STK-MED ONCE .ROUTE ; Start at 08:52; Stop 12/21/16 at 08:53; Status DC Ondansetron HCl (Zofran) 4 mg STK-MED ONCE .ROUTE ; Start 12/21/16 at 08:52; Stop 12/21/16 at 08:53; Status DC Glycopyrrolate (Robinul) 1 mg STK-MED ONCE .ROUTE ; Start 12/21/16 at 10:41; Stop 12/21/16 at 10:42; Status DC Neostigmine Methylsulfate 5 mg STK-MED ONCE .ROUTE ; Start 12/21/16 at 10:41; Stop 12/21/16 at 10:42; Status DC Desflurane 60 ml 60 ml STK-MED ONCE IH ; Start 12/21/16 at 11:19; Stop 12/21/16 at 11:20; Status DC Nicardipine HCl/ Sodium Chloride (Cardene/Iv Sodium Chloride 0.9% 250ml) 270 ml @ 0 mls/hr CONT PRN IV SEE I/O RECORD Last administered on 12/21/16 12:08; Start 12/21/16 at 11:30 Lorazepam (Ativan) 2 mg STK-MED ONCE .ROUTE ; Start 12/21/16 at 11:34; Stop at 11:35; Status DC Lorazepam 2 mg 2 mg 1X ONCE IV Last administered on 12/21/16 12:07; Start at 12:15; Stop 12/21/16 at 12:16; Status DC Levetiracetam/ Sodium Chloride (Keppra/Iv Sodium Chloride 0.9% 100ml) 105 ml @ 400 mls/hr Q12HR IV Last administered on 12/22/16 09:14; Start 12/21/16 at 12: 30 Levetiracetam (Keppra) 500 mg BID PO ; Start 12/21/16 at 21:00; Status Cancel Lorazepam (Ativan) 2 mg PRN Q4HRS PRN IV ANXIETY / AGITATION; Start 12/21/16 at 12:15 Midazolam HCl (Versed) 1 mg 1X ONCE IV Last administered on 12/21/16 12:30; Start 12/21/16 at 12:30; Stop 12/21/16 at 12:31; Status DC Midazolam HCl (Versed) 5 mg STK-MED ONCE .ROUTE ; Start 12/21/16 at 12:32; Stop 12/21/16 at 12:33; Status DC Midazolam HCl 2 mg 2 mg 1X ONCE IV ; Start 12/21/16 at 14:00; Stop 12/21/16 at 14:01; Status DC Magnesium Sulfate/ Dextrose 50 ml @ 25 mls/hr 1X ONCE IV Last administered on 3/25/17at 15:12; Start 12/21/16 at 14:00; Stop 12/21/16 at 15:59; Status DC Ciprofloxacin Lactate 200 ml @ 200 mls/hr Q12HR IV ; Start 12/22/16 at 21:00; Status UNV Levothyroxine Sodium/Sodium Chloride (Synthroid/Iv Sodium Chloride 0.9% 50ml) 5 ml @ 100 mls/hr DAILY IVP ; Start 12/23/16 at 09:00; Status UNV Active Scripts Active Ciprofloxacin Hcl 500 Mg Tablet 1 Tab PO BID Hydrocodone-Apap 5-325 (Hydrocodone Bit/Acetaminophen) 1 Each Tablet 1 Tab PO PRN Q4HRS PRN Reported Citracal + D Er Tablet (Calcium Carb & Cit/Vitamin D3) 1 Each Tablet.er 1 Each PO Nasonex (Mometasone Furoate) 17 Gm [place].pump 17 Gm NS PRN Losartan Potassium 25 Mg Tablet 50 Mg PO Fish Oil ([place]-3 Fatty Acids) 300 Mg Capsule 300 Mg PO DAILY Cymbalta (Duloxetine Hcl) 60 Mg Capsule.dr 60 Mg PO DAILY Crestor (Rosuvastatin Calcium) 40 Mg Tablet 40 Mg PO HS Levothyroxine Sodium 112 Mcg Tablet 112 Mcg PO DAILY Aciphex (Rabeprazole Sodium) 20 Mg Tablet.dr 20 Mg PO DAILY Vesicare (Solifenacin Succinate) 5 Mg Tablet 10 Mg PO DAILY Januvia (Sitagliptin Phosphate) 100 Mg Tablet 100 Mg PO DAILY Metoprolol Tartrate 25 Mg Tablet 25 Mg PO BID Aspirin 325 Mg Tablet 325 Mg PO DAILY [Vit D3] 2,000 Units DAILY Nortriptyline Hcl 25 Mg Capsule 25 Mg PO DAILY Vitals/I & O Vital Sign - Last 24 Hours 12/21/16 12/21/16 12/21/16 12/21/16 11:15 11:25 11:30 11:35 Temp 96.8 96.8 Pulse 82 84 94 108 Resp 14 16 B/P 171/89 141/77 99/74 163/83 Pulse Ox 100 95 99 98 O2 Delivery Simple Mask Simple Mask Simple Mask Simple Mask O2 Flow Rate 8.0 8.0 8.0 8.0 12/21/16 12/21/16 12/21/16 12/21/16 11:45 11:55 12:00 12:05 Pulse 104 118 124 B/P 143/85 121/77 145/74 Pulse Ox 100 99 96 O2 Delivery Simple Mask Simple Mask Nasal Cannula Simple Mask O2 Flow Rate 8.0 8.0 2.0 8.0 12/21/16 12/21/16 12/21/16 12/21/16 12:59 13:00 14:00 15:00 Temp 96.8 96.8 Pulse 82 96 88 86 Resp 14 14 15 16 B/P 171/89 124/42 113/61 137/60 Pulse Ox 100 100 100 100 O2 Delivery Simple Mask Simple Mask Simple Mask Simple Mask O2 Flow Rate 8.0 8.0 8.0 4.0 12/21/16 12/21/16 12/21/16 12/21/16 16:00 16:00 17:00 18:00 Temp 98.3 98.3 Pulse 84 90 92 Resp 14 14 15 B/P 114/64 131/67 131/69 Pulse Ox 93 95 93 O2 Delivery Room Air Room Air Room Air Room Air 12/21/16 12/21/16 12/21/16 12/21/16 19:00 20:00 20:00 20:00 Temp 98.8 98.8 Pulse 94 93 Resp 13 14 B/P 138/65 121/67 Pulse Ox 94 93 O2 Delivery Nasal Cannula Room Air Nasal Cannula Room Air O2 Flow Rate 2.0 12/21/16 12/21/16 12/21/16 12/21/16 21:00 22:00 23:00 23:59 Temp 99.4 99.4 Pulse 104 96 96 Resp 14 15 13 B/P 126/66 135/64 139/68 Pulse Ox 96 100 100 O2 Delivery Nasal Cannula Nasal Cannula Nasal Cannula Nasal Cannula O2 Flow Rate 2.0 2.0 2.0 12/21/16 12/22/16 12/22/16 12/22/16 23:59 01:00 02:00 03:00 Temp 99.0 99.0 Pulse 93 96 91 86 Resp 14 13 13 13 B/P 138/77 147/71 131/68 123/70 Pulse Ox 93 100 100 100 O2 Delivery Room Air Nasal Cannula Nasal Cannula Nasal Cannula O2 Flow Rate 2.0 2.0 2.0 12/22/16 12/22/16 12/22/16 12/22/16 04:00 04:00 05:00 06:00 Temp 99.4 99.4 Pulse 87 86 82 Resp 14 13 13 B/P 126/63 126/61 132/68 Pulse Ox 96 100 100 O2 Delivery Room Air Nasal Cannula Nasal Cannula Nasal Cannula O2 Flow Rate 2.0 2.0 12/22/16 12/22/16 12/22/16 12/22/16 07:00 08:00 08:00 09:00 Temp 98.0 98.0 Pulse 80 80 83 Resp 14 14 13 B/P 129/68 142/71 141/70 Pulse Ox 100 100 100 O2 Delivery Nasal Cannula Nasal Cannula Nasal Cannula Nasal Cannula O2 Flow Rate 2.0 2.0 2.0 2.0 Intake and Output 12/21/16 12/21/16 12/22/16 15:00 23:00 07:00 Intake Total 316 ml 524 ml Output Total 25 ml 800 ml 360 ml Balance -25 ml -484 ml 164 ml DIPIKA CARRASQUILLO MD Dec 22, 2016 10:04
[2016-12-22] MEDS: NORMAL SALINE IVP SCH (10:57)
[2016-12-22] MEDS: IV NORMAL SALINE 1000ML BAG 1,000 ML IV SCH ×2 (10:57→21:47)
[2016-12-22] MEDS: LEVOTHYROXINE SODIUM IVP SCH (10:57)
[2016-12-22] MEDS: CIPROFLOXACIN 400MG PREMIX 200 ML IV SCH ×2 (10:57→21:47)
[2016-12-22] MEDS: NICARDIPINE HCL 50 MG in IV NORMAL SALINE 250ML 250 ML IV PRN (11:07)
--- NOTE | 2016-12-22 11:17 | PDOC ---
PROGRESS NOTES Subjective Subjective POD #1 s/p lily hole evacuation of SDH awake no more seizures at bedside Objective Objective Vital Signs Date Time Temp Pulse Resp B/P Pulse Ox O2 Delivery O2 Flow Rate FiO2 12/22/16 10:00 84 14 133/68 100 Nasal Cannula 2.0 12/22/16 08:00 98.0 98.0 Intake and Output 12/22/16 07:00 Intake Total 840 ml Output Total 1185 ml Balance -345 ml Intake Oral 0 ml IV Total 840 ml Output Urine Total 1060 ml Drainage Total 125 ml Physical Exam General: Cooperative, No acute distress, Other (awakens to voice, follows commands) MUSCULOSKELETAL: Other (CESPEDES) Skin: Other (dressing intact, drain in place) Plan Plan of Care may be up in chair keep in ICU Continue drain Comment Review of Relevant I have reviewed the following items jessica (where applicable) has been applied. Labs Laboratory Tests Test 12/20/16 19:20 12/20/16 20:10 12/20/16 20:42 12/21/16 06:13 White Blood Count 15.6x10^3/uL (4.0-11.0) Red Blood Count 4.40x10^6/uL (3.50-5.40) Hemoglobin 12.6g/dL (12.0-15.5) Hematocrit 37.4% (36.0-47.0) Mean Corpuscular Volume 85fL (79-100) Mean Corpuscular Hemoglobin 29pg (25-35) Mean Corpuscular Hemoglobin Concent 34g/dL (31-37) Red Cell Distribution Width 13.8% (11.5-14.5) Platelet Count 401x10^3/uL (140-400) Neutrophils (%) (Auto) 71% (31-73) Lymphocytes (%) (Auto) 20% (24-48) Monocytes (%) (Auto) 8% (0-9) Eosinophils (%) (Auto) 1% (0-3) Basophils (%) (Auto) 1% (0-3) Neutrophils # (Auto) 11.0x10^3uL (1.8-7.7) Lymphocytes # (Auto) 3.1x10^3/uL (1.0-4.8) Monocytes # (Auto) 1.2x10^3/uL (0.0-1.1) Eosinophils # (Auto) 0.1x10^3/uL (0.0-0.7) Basophils # (Auto) 0.1x10^3/uL (0.0-0.2) Prothrombin Time 13.7SEC (11.7-14.0) Prothromb Time International Ratio 1.1 (0.8-1.1) Sodium Level 135mmol/L (136-145) Potassium Level 3.5mmol/L (3.5-5.1) Chloride Level 98mmol/L (98-107) Carbon Dioxide Level 27mmol/L (21-32) Anion Gap 10 (6-14) Blood Urea Nitrogen 16mg/dL (7-20) Creatinine 1.0mg/dL (0.6-1.0) Estimated GFR (Cockcroft-Gault) 55.3 Glucose Level 134mg/dL (70-99) Calcium Level 9.5mg/dL (8.5-10.1) Nasal Screen MRSA (PCR) Negative (Negative) Glucose (Fingerstick) 122mg/dL (70-99) 130mg/dL (70-99) Test 12/21/16 12:07 12/21/16 13:15 12/21/16 18:15 12/22/16 04:44 Glucose (Fingerstick) 228mg/dL (70-99) 148mg/dL (70-99) White Blood Count 16.6x10^3/uL (4.0-11.0) 13.8x10^3/uL (4.0-11.0) Red Blood Count 4.22x10^6/uL (3.50-5.40) 4.08x10^6/uL (3.50-5.40) Hemoglobin 11.9g/dL (12.0-15.5) 11.6g/dL (12.0-15.5) Hematocrit 36.8% (36.0-47.0) 34.5% (36.0-47.0) Mean Corpuscular Volume 87fL (79-100) 85fL (79-100) Mean Corpuscular Hemoglobin 28pg (25-35) 29pg (25-35) Mean Corpuscular Hemoglobin Concent 32g/dL (31-37) 34g/dL (31-37) Red Cell Distribution Width 14.2% (11.5-14.5) 14.2% (11.5-14.5) Platelet Count 315x10^3/uL (140-400) 354x10^3/uL (140-400) Neutrophils (%) (Auto) 96% (31-73) 81% (31-73) Lymphocytes (%) (Auto) 3% (24-48) 13% (24-48) Monocytes (%) (Auto) 1% (0-9) 6% (0-9) Eosinophils (%) (Auto) 0% (0-3) 0% (0-3) Basophils (%) (Auto) 0% (0-3) 0% (0-3) Neutrophils # (Auto) 15.9x10^3uL (1.8-7.7) 11.2x10^3uL (1.8-7.7) Lymphocytes # (Auto) 0.5x10^3/uL (1.0-4.8) 1.7x10^3/uL (1.0-4.8) Monocytes # (Auto) 0.1x10^3/uL (0.0-1.1) 0.9x10^3/uL (0.0-1.1) Eosinophils # (Auto) 0.0x10^3/uL (0.0-0.7) 0.0x10^3/uL (0.0-0.7) Basophils # (Auto) 0.1x10^3/uL (0.0-0.2) 0.0x10^3/uL (0.0-0.2) Segmented Neutrophils % 90% (35-66) Band Neutrophils % 1% (0-9) Lymphocytes % 5% (24-48) Monocytes % 4% (0-10) Platelet Estimate Adequate (ADEQUATE) Sodium Level 138mmol/L (136-145) 141mmol/L (136-145) Potassium Level 3.5mmol/L (3.5-5.1) 4.0mmol/L (3.5-5.1) Chloride Level 102mmol/L (98-107) 105mmol/L (98-107) Carbon Dioxide Level 27mmol/L (21-32) 26mmol/L (21-32) Anion Gap 9 (6-14) 10 (6-14) Blood Urea Nitrogen 15mg/dL (7-20) 13mg/dL (7-20) Creatinine 1.1mg/dL (0.6-1.0) 0.8mg/dL (0.6-1.0) Estimated GFR (Cockcroft-Gault) 49.5 71.5 Glucose Level 253mg/dL (70-99) 129mg/dL (70-99) Calcium Level 8.4mg/dL (8.5-10.1) 8.4mg/dL (8.5-10.1) Phosphorus Level 2.7mg/dL (2.6-4.7) Magnesium Level 1.5mg/dL (1.8-2.4) Laboratory Tests Test 12/21/16 12:07 12/21/16 13:15 12/21/16 18:15 12/22/16 04:44 Glucose (Fingerstick) 228mg/dL (70-99) 148mg/dL (70-99) White Blood Count 16.6x10^3/uL (4.0-11.0) 13.8x10^3/uL (4.0-11.0) Red Blood Count 4.22x10^6/uL (3.50-5.40) 4.08x10^6/uL (3.50-5.40) Hemoglobin 11.9g/dL (12.0-15.5) 11.6g/dL (12.0-15.5) Hematocrit 36.8% (36.0-47.0) 34.5% (36.0-47.0) Mean Corpuscular Volume 87fL (79-100) 85fL (79-100) Mean Corpuscular Hemoglobin 28pg (25-35) 29pg (25-35) Mean Corpuscular Hemoglobin Concent 32g/dL (31-37) 34g/dL (31-37) Red Cell Distribution Width 14.2% (11.5-14.5) 14.2% (11.5-14.5) Platelet Count 315x10^3/uL (140-400) 354x10^3/uL (140-400) Neutrophils (%) (Auto) 96% (31-73) 81% (31-73) Lymphocytes (%) (Auto) 3% (24-48) 13% (24-48) Monocytes (%) (Auto) 1% (0-9) 6% (0-9) Eosinophils (%) (Auto) 0% (0-3) 0% (0-3) Basophils (%) (Auto) 0% (0-3) 0% (0-3) Neutrophils # (Auto) 15.9x10^3uL (1.8-7.7) 11.2x10^3uL (1.8-7.7) Lymphocytes # (Auto) 0.5x10^3/uL (1.0-4.8) 1.7x10^3/uL (1.0-4.8) Monocytes # (Auto) 0.1x10^3/uL (0.0-1.1) 0.9x10^3/uL (0.0-1.1) Eosinophils # (Auto) 0.0x10^3/uL (0.0-0.7) 0.0x10^3/uL (0.0-0.7) Basophils # (Auto) 0.1x10^3/uL (0.0-0.2) 0.0x10^3/uL (0.0-0.2) Segmented Neutrophils % 90% (35-66) Band Neutrophils % 1% (0-9) Lymphocytes % 5% (24-48) Monocytes % 4% (0-10) Platelet Estimate Adequate (ADEQUATE) Sodium Level 138mmol/L (136-145) 141mmol/L (136-145) Potassium Level 3.5mmol/L (3.5-5.1) 4.0mmol/L (3.5-5.1) Chloride Level 102mmol/L (98-107) 105mmol/L (98-107) Carbon Dioxide Level 27mmol/L (21-32) 26mmol/L (21-32) Anion Gap 9 (6-14) 10 (6-14) Blood Urea Nitrogen 15mg/dL (7-20) 13mg/dL (7-20) Creatinine 1.1mg/dL (0.6-1.0) 0.8mg/dL (0.6-1.0) Estimated GFR (Cockcroft-Gault) 49.5 71.5 Glucose Level 253mg/dL (70-99) 129mg/dL (70-99) Calcium Level 8.4mg/dL (8.5-10.1) 8.4mg/dL (8.5-10.1) Phosphorus Level 2.7mg/dL (2.6-4.7) Magnesium Level 1.5mg/dL (1.8-2.4) Medications Current Medications Ondansetron HCl (Zofran) 4 mg PRN Q6HRS PRN IV Nausea; Start 12/21/16 at 07:00 ; Stop 12/22/16 at 06:59; Status DC Fentanyl Citrate (Fentanyl 2ml Vial) 25 mcg PRN Q5MIN PRN IV MILD PAIN; Start 12/21/16 at 07:00; Stop 12/22/16 at 06:59; Status DC Fentanyl Citrate (Fentanyl 2ml Vial) 50 mcg PRN Q5MIN PRN IV MODERATE PAIN; Start 12/21/16 at 07:00; Stop 12/22/16 at 06:59; Status DC Morphine Sulfate 1 mg 1 mg PRN Q10MIN PRN IV SEVERE PAIN; Start 12/21/16 at 07: 00; Stop 12/22/16 at 06:59; Status DC Lactated Ringer's (Iv Lactated Ringers) 1,000 ml @ 0 mls/hr Q0M IV ; Start at 07:00; Stop 12/21/16 at 18:59; Status DC Lidocaine HCl 2 ml 1X PRN PRN ID IV START; Start 12/21/16 at 07:00; Stop at 06:59; Status DC Hydromorphone HCl (Dilaudid) 0.5 mg PRN Q10MIN PRN IV SEVERE PAIN, Second choice; Start 12/21/16 at 07:00; Stop 12/22/16 at 06:59; Status DC Prochlorperazine Edisylate 5 mg 5 mg PACU PRN PRN IV NAUSEA; Start 12/21/16 at 07:00; Stop 12/22/16 at 06:59; Status DC Bacitracin/Sodium Chloride (Bacitracin/Iv Sodium Chloride 0.9% 1000ml Bag) 1, 000 ml @ 1,000 mls/hr 1X PERIOP ONCE IRR ; Start 12/20/16 at 16:26; Stop 12/20 at 17:25; Status DC Acetaminophen/ Hydrocodone Bitart (Lortab 5/325) 1 tab PRN Q4HRS PRN PO MILD PAIN; Start 12/20/16 at 16:45 Levothyroxine Sodium (Synthroid) 112 mcg DAILY07 PO ; Start 12/20/16 at 17:00; Stop 12/22/16 at 09:58; Status DC Losartan Potassium (Cozaar) 50 mg DAILY PO ; Start 12/20/16 at 17:00 Metoprolol Tartrate (Lopressor) 25 mg BID PO Last administered on 12/20/16 20: 33; Start 12/20/16 at 21:00 Nortriptyline HCl (Pamelor) 25 mg DAILY PO Last administered on 12/20/16 18:34 ; Start 12/20/16 at 17:00 Non-Formulary Medication 1 tab BID PO ; Start 12/20/16 at 21:00; Status UNV Duloxetine HCl (Cymbalta) 60 mg DAILY PO ; Start 12/21/16 at 09:00 Fluticasone Propionate (Flonase) 2 spray DAILY NS ; Start 12/21/16 at 09:00 Pantoprazole Sodium (Protonix) 40 mg DAILYAC PO ; Start 12/21/16 at 07:30 Atorvastatin Calcium (Lipitor) 80 mg QHS PO Last administered on 12/20/16 20: 33; Start 12/20/16 at 21:00 Linagliptin (Tradjenta) 5 mg DAILY PO ; Start 12/21/16 at 09:00 Oxybutynin Chloride (Ditropan) 5 mg [id number] PO Last administered on 12/20/16 20 :33; Start 12/20/16 at 21:00 Vitamin D (Vitamin D3) 2,000 unit DAILY PO ; Start 12/21/16 at 09:00 Al Hydroxide/Mg Hydroxide (Mylanta Plus Xs) 30 ml PRN Q3HRS PRN PO HEARTBURN / GAS; Start 12/20/16 at 16:45 Calcium Carbonate/ Glycine (Tums) 500 mg PRN Q3HRS PRN PO INDIGESTION; Start at 16:45 Diphenhydramine HCl (Benadryl) 25 mg PRN Q6HRS PRN PO ITCHING; Start 12/20/16 at 16:45 Diphenhydramine HCl (Benadryl) 25 mg PRN Q6HRS PRN IV ITCHING; Start 12/20/16 at 16:45 Sodium Chloride (Normal Saline Flush) 3 ml QSHIFT PRN IV AFTER MEDS AND BLOOD DRAWS; Start 12/20/16 at 16:45 Dextrose 12.5 gm PRN Q15MIN PRN IV SEE COMMENTS; Start 12/20/16 at 16:45 Docusate Sodium (Colace) 100 mg BID PO Last administered on 12/20/16 20:32; Start 12/20/16 at 21:00 Magnesium Hydroxide 2400 mg 2,400 mg PRN Q12HR PRN PO CONSTIPATION; Start 12/20 at 16:45 Cefazolin Sodium 2 gm/Sodium Chloride 100 ml @ 200 mls/hr 1X PREOP IV ; Start 12/21/16 at 08:00; Status UNV Cefazolin Sodium/ Dextrose (Ancef 2gm Premix) 50 ml @ 100 mls/hr 1X ONCE IV Last administered on 12/21/16 09:48; Start 12/21/16 at 06:00; Stop 12/21/16 at 06:29; Status DC Acetaminophen 500 mg 500 mg PRN Q6HRS PRN PO MILD PAIN / TEMP; Start 12/20/16 at 17:45 Sodium Chloride 1,000 ml @ 75 mls/hr [id number] IV Last administered on 10:57; Start 12/20/16 at 17:45 Bacitracin/Sodium Chloride (Bacitracin/Iv Sodium Chloride 0.9% 1000ml Bag) 1, 000 ml @ 1,000 mls/hr 1X PERIOP ONCE IRR Last administered on 12/21/16 10:09 ; Start 12/21/16 at 06:00; Stop 12/21/16 at 06:59; Status DC Ciprofloxacin (Cipro) 500 mg BID PO Last administered on 12/20/16 20:32; Start 12/20/16 at 21:00; Stop 12/22/16 at 09:58; Status DC Cellulose 1 each STK-MED ONCE .ROUTE ; Start 12/21/16 at 08:41; Stop 12/21/16 at 08:42; Status DC Bupivacaine HCl/ Epinephrine Bitart (Sensorcain-Mpf Epi 0.5%-[id number]) 30 ml STK -MED ONCE .ROUTE Last administered on 12/21/16 10:09; Start 12/21/16 at 08:41 ; Stop 12/21/16 at 08:42; Status DC Gelatin (Gelfoam Size 100) 1 each STK-MED ONCE .ROUTE Last administered on 10:09; Start 12/21/16 at 08:41; Stop 12/21/16 at 08:42; Status DC Thrombin 20,000 unit STK-MED ONCE TP Last administered on 12/21/16 10:09; Start 12/21/16 at 08:41; Stop 12/21/16 at 08:42; Status DC Fentanyl Citrate (Fentanyl 2ml Vial) 100 mcg STK-MED ONCE .ROUTE ; Start at 08:51; Stop 12/21/16 at 08:52; Status DC Rocuronium Henry (Zemuron) 50 mg STK-MED ONCE .ROUTE ; Start 12/21/16 at 08:51 ; Stop 12/21/16 at 08:52; Status DC Lidocaine HCl 100 mg 100 mg STK-MED ONCE .ROUTE ; Start 12/21/16 at 08:51; Stop 12/21/16 at 08:52; Status DC Propofol (Diprivan) 20 ml @ As Directed STK-MED ONCE IV ; Start 12/21/16 at 08: 51; Stop 12/21/16 at 08:52; Status DC Dexamethasone Sodium Phosphate (Decadron) 20 mg STK-MED ONCE .ROUTE ; Start at 08:52; Stop 12/21/16 at 08:53; Status DC Ondansetron HCl (Zofran) 4 mg STK-MED ONCE .ROUTE ; Start 12/21/16 at 08:52; Stop 12/21/16 at 08:53; Status DC Glycopyrrolate (Robinul) 1 mg STK-MED ONCE .ROUTE ; Start 12/21/16 at 10:41; Stop 12/21/16 at 10:42; Status DC Neostigmine Methylsulfate 5 mg STK-MED ONCE .ROUTE ; Start 12/21/16 at 10:41; Stop 12/21/16 at 10:42; Status DC Desflurane 60 ml 60 ml STK-MED ONCE IH ; Start 12/21/16 at 11:19; Stop 12/21/16 at 11:20; Status DC Nicardipine HCl/ Sodium Chloride (Cardene/Iv Sodium Chloride 0.9% 250ml) 270 ml @ 0 mls/hr CONT PRN IV SEE I/O RECORD Last administered on 12/22/16 11:07; Start 12/21/16 at 11:30 Lorazepam (Ativan) 2 mg STK-MED ONCE .ROUTE ; Start 12/21/16 at 11:34; Stop at 11:35; Status DC Lorazepam 2 mg 2 mg 1X ONCE IV Last administered on 12/21/16 12:07; Start at 12:15; Stop 12/21/16 at 12:16; Status DC Levetiracetam/ Sodium Chloride (Keppra/Iv Sodium Chloride 0.9% 100ml) 105 ml @ 400 mls/hr Q12HR IV Last administered on 12/22/16 09:14; Start 12/21/16 at 12: 30 Levetiracetam (Keppra) 500 mg BID PO ; Start 12/21/16 at 21:00; Status Cancel Lorazepam (Ativan) 2 mg PRN Q4HRS PRN IV ANXIETY / AGITATION; Start 12/21/16 at 12:15 Midazolam HCl (Versed) 1 mg 1X ONCE IV Last administered on 12/21/16 12:30; Start 12/21/16 at 12:30; Stop 12/21/16 at 12:31; Status DC Midazolam HCl (Versed) 5 mg STK-MED ONCE .ROUTE ; Start 12/21/16 at 12:32; Stop 12/21/16 at 12:33; Status DC Midazolam HCl 2 mg 2 mg 1X ONCE IV ; Start 12/21/16 at 14:00; Stop 12/21/16 at 14:01; Status DC Magnesium Sulfate/ Dextrose 50 ml @ 25 mls/hr 1X ONCE IV Last administered on 12/21/16 15:12; Start 12/21/16 at 14:00; Stop 12/21/16 at 15:59; Status DC Ciprofloxacin Lactate 200 ml @ 200 mls/hr Q12HR IV Last administered on 10:57; Start 12/22/16 at 10:30 Levothyroxine Sodium/Sodium Chloride (Synthroid/Iv Sodium Chloride 0.9% 50ml) 5 ml @ 100 mls/hr DAILY IVP Last administered on 12/22/16 10:57; Start 12/22/16 at 10:30 Morphine Sulfate 1 mg PRN Q2HR PRN IV PAIN SEVERE; Start 12/22/16 at 10:00 Active Scripts Active Ciprofloxacin Hcl 500 Mg Tablet 1 Tab PO BID Hydrocodone-Apap 5-325 (Hydrocodone Bit/Acetaminophen) 1 Each Tablet 1 Tab PO PRN Q4HRS PRN Reported Citracal + D Er Tablet (Calcium Carb & Cit/Vitamin D3) 1 Each Tablet.er 1 Each PO Nasonex (Mometasone Furoate) 17 Gm Grayson.pump 17 Gm NS PRN Losartan Potassium 25 Mg Tablet 50 Mg PO Fish Oil ([place]-3 Fatty Acids) 300 Mg Capsule 300 Mg PO DAILY Cymbalta (Duloxetine Hcl) 60 Mg Capsule.dr 60 Mg PO DAILY Crestor (Rosuvastatin Calcium) 40 Mg Tablet 40 Mg PO HS Levothyroxine Sodium 112 Mcg Tablet 112 Mcg PO DAILY Aciphex (Rabeprazole Sodium) 20 Mg Tablet.dr 20 Mg PO DAILY Vesicare (Solifenacin Succinate) 5 Mg Tablet 10 Mg PO DAILY Januvia (Sitagliptin Phosphate) 100 Mg Tablet 100 Mg PO DAILY Metoprolol Tartrate 25 Mg Tablet 25 Mg PO BID Aspirin 325 Mg Tablet 325 Mg PO DAILY [Vit D3] 2,000 Units DAILY Nortriptyline Hcl 25 Mg Capsule 25 Mg PO DAILY Vitals/I & O Vital Sign - Last 24 Hours 12/21/16 12/21/16 12/21/16 12/21/16 11:25 11:30 11:35 11:45 Pulse 84 94 108 104 Resp 16 B/P 141/77 99/74 163/83 143/85 Pulse Ox 95 99 98 100 O2 Delivery Simple Mask Simple Mask Simple Mask Simple Mask O2 Flow Rate 8.0 8.0 8.0 8.0 12/21/16 12/21/16 12/21/16 12/21/16 11:55 12:00 12:05 12:59 Temp 96.8 96.8 Pulse 118 124 82 Resp 14 B/P 121/77 145/74 171/89 Pulse Ox 99 96 100 O2 Delivery Simple Mask Nasal Cannula Simple Mask Simple Mask O2 Flow Rate 8.0 2.0 8.0 8.0 12/21/16 12/21/16 12/21/16 12/21/16 13:00 14:00 15:00 16:00 Temp 98.3 98.3 Pulse 96 88 86 84 Resp 14 15 16 14 B/P 124/42 113/61 137/60 114/64 Pulse Ox 100 100 100 93 O2 Delivery Simple Mask Simple Mask Simple Mask Room Air O2 Flow Rate 8.0 8.0 4.0 12/21/16 12/21/16 12/21/16 12/21/16 16:00 17:00 18:00 19:00 Temp 98.8 98.8 Pulse 90 92 94 Resp 14 15 13 B/P 131/67 131/69 138/65 Pulse Ox 95 93 94 O2 Delivery Room Air Room Air Room Air Nasal Cannula O2 Flow Rate 2.0 12/21/16 12/21/16 12/21/16 12/21/16 20:00 20:00 20:00 21:00 Pulse 93 104 Resp 14 14 B/P 121/67 126/66 Pulse Ox 93 96 O2 Delivery Room Air Nasal Cannula Room Air Nasal Cannula O2 Flow Rate 2.0 12/21/16 12/21/16 12/21/16 12/21/16 22:00 23:00 23:59 23:59 Temp 99.4 99.4 Pulse 96 96 93 Resp 15 13 14 B/P 135/64 139/68 138/77 Pulse Ox 100 100 93 O2 Delivery Nasal Cannula Nasal Cannula Nasal Cannula Room Air O2 Flow Rate 2.0 2.0 12/22/16 12/22/16 12/22/16 12/22/16 01:00 02:00 03:00 04:00 Temp 99.0 99.4 99.0 99.4 Pulse 96 91 86 87 Resp 13 13 13 14 B/P 147/71 131/68 123/70 126/63 Pulse Ox 100 100 100 96 O2 Delivery Nasal Cannula Nasal Cannula Nasal Cannula Room Air O2 Flow Rate 2.0 2.0 2.0 12/22/16 12/22/16 12/22/1617 04:00 05:00 06:00 07:00 Pulse 86 82 80 Resp 13 13 14 B/P 126/61 132/68 129/68 Pulse Ox 100 100 100 O2 Delivery Nasal Cannula Nasal Cannula Nasal Cannula Nasal Cannula O2 Flow Rate 2.0 2.0 2.0 12/22/16 12/22/16 12/22/16 12/22/16 08:00 08:00 09:00 10:00 Temp 98.0 98.0 Pulse 80 83 84 Resp 14 13 14 B/P 142/71 141/70 133/68 Pulse Ox 100 100 100 O2 Delivery Nasal Cannula Nasal Cannula Nasal Cannula Nasal Cannula O2 Flow Rate 2.0 2.0 2.0 2.0 Intake and Output 12/21/16 12/21/16 12/22/16 15:00 23:00 07:00 Intake Total 316 ml 524 ml Output Total 25 ml 800 ml 360 ml Balance -25 ml -484 ml 164 ml ANJANA BENSON MD Dec 22, 2016 11:17
--- NOTE | 2016-12-22 12:57 | OP ---
DATE OF SURGERY: 12/21/2016 PREOPERATIVE DIAGNOSIS: Left frontotemporal parietal chronic subdural hematoma with [id number] shift. POSTOPERATIVE DIAGNOSIS: Left frontotemporal parietal chronic subdural hematoma with [id number] shift. OPERATION PERFORMED: Lily hole evacuation of chronic subdural hematoma with placement of drain. OPERATIVE INDICATIONS: The patient is a very pleasant 66-year-old woman, who in the recent past, was admitted with a large left frontotemporal parietal acute subdural hematoma. At the time of her initial film, there was evidence of some chronic blood within this subdural space. She at the time was on Plavix, and she also reported a significant fall 3 weeks prior to that admission. She underwent craniotomy at the first admission and had evacuation of her subdural and subsequent scan showed marked improvement and she was discharged to home. She then at home, developed decreased alertness and changes in her behavior, and a followup scan was done in which a chronic subdural hematoma was seen with increasing [id number] shift. She was brought into the hospital and arrangement was made for evacuation of her subdural. I spoke with the patient and her , they understood the surgery and the risks, the technique and the rationale for surgery, and wished to go ahead. DESCRIPTION OF PROCEDURE: Following general endotracheal anesthesia, the patient was positioned with her head turned toward the right and a roll placed beneath her left shoulder. Prior connie of her previous incision were removed and she was clipped, prepped, and draped in the standard fashion. I opened a portion of her previous incision and also the temporalis muscle and brought this area forward. I made a small lily hole and opened the underlying dura. The brain parenchyma was visualized, but this location was slightly too close to place a drain, so I laid Gelfoam over this opening with a small microplate over the opening and then moved further anteroinferiorly, adjusting retractors. I placed a large lily hole and opened the dura. I in this location evacuated a considerable amount of chronic subdural material and could visualize easily the enlarged subdural space. I placed a 7-mm round drain and brought this out through a stab incision after irrigation with warm saline. The return was quite clear. I felt that I had a good evacuation of the subdural, the brain was moving laterally. I placed Gelfoam over the opening and I re-closed the temporalis muscle, and then closed the remaining portion of the wound with absorbable sutures. The skin was closed with skin connie. The operation went well and the patient was taken back to the ICU to awaken. She suffered a seizure and a followup CT scan was done, which showed marked improvement in the subdural collection. She was placed on anti-convulsants. Overall, I felt that the surgery went very well. ANJANA BENSON MD DR: WILBUR/jak JOB#: [id number] / [id number] KIMBERLY
--- NOTE | 2016-12-22 13:27 | CONS ---
DATE OF CONSULTATION: 12/22/2016 REASON FOR CONSULTATION: Blood pressure management. HISTORY OF PRESENT ILLNESS: The patient is a 66-year-old woman who presented with malignant hypertension and was found to have a subdural hematoma for which she underwent hematoma evacuation via neurosurgery and has done fairly well since then. The patient denies any symptoms at this time, although she is quite somnolent. In speaking with the patient's , he reports that at baseline she has not had any chest pain or dyspnea. She denies any syncope or palpitations. PAST MEDICAL HISTORY: 1. Coronary artery disease, status post PCI. 2. Hypertension. 3. Recent diagnosis of subdural hematoma. SURGICAL HISTORY: Total knee replacements and hysterectomy. FAMILY HISTORY: Hypertension. SOCIAL HISTORY: No alcohol, tobacco, or illicit drug use. CURRENT CARDIOVASCULAR MEDICATIONS: Nicardipine drip. ALLERGIES: ERYTHROMYCIN. REVIEW OF SYSTEMS: Not obtained due to the patient's somnolence. PHYSICAL EXAMINATION: VITAL SIGNS: Afebrile, heart rate 60, and blood pressure 152/83. GENERAL: She is sedated. HEART: Regular rate and rhythm without any murmurs, rubs, or gallops. LUNGS: Clear to auscultation anteriorly. ABDOMEN: Soft, nontender, and nondistended. EXTREMITIES: No clubbing, cyanosis, or edema. NEUROLOGIC: No focal deficits or lateralizing signs at this time, although she is sedated and difficult to perform a full neurologic examination. DIAGNOSTIC TESTING: Hemoglobin 11.6, INR 1.1, creatinine 0.8, and potassium 4.0. IMPRESSION: 1. Uncontrolled hypertension in the setting of recent subdural hematoma and evacuation. 2. Coronary artery disease, status post remote percutaneous coronary intervention. RECOMMENDATIONS: 1. Agree with obvious discontinuation of Plavix. 2. In light of her difficulty with somnolence, we will continue intravenous nicardipine drip for maintenance of blood pressure near systolics of 140. Ultimately, when she is more alert and oriented can reinstate her home medications and wean the nicardipine down. Thank you for this consultation. LILLIE RICHMOND MD DR: CESARIO/jak JOB#: [id number] / [id number] MTDD
--- NOTE | 2016-12-22 17:17 | PDOC ---
PROGRESS NOTES Plan This patient is 66-year-old woman is previously admitted for brain bleed, uncontrolled hypertension. Patient was discharged to rehabilitation information obtained from patient's chart and family at bedside. Patient had headaches, CT scan which showed 11 [address] scan was done at outside facility which showed left subdural collection with possible bleeding and [id number] shift. Patient was evaluated by neurosurgery. A drainage catheter was placed inside. Patient had a repeat CT scan showing 5-6 cm [id number] shift. Patient had an episode of seizure-like activity with stiffness in her arm and tightening in her teeth. Patient was given Ativan and also started on The keppra. patient did not have any new episodes of stiffness, seizure like activity. Patient is being currently monitored in the ICU. Subdural Hematoma improving exam History of hypertension Continue treat and monitor. Neurosurgery recommendations No new clinical seizure activity Continue close monitoring. Continue medical management Subjective feeling better Objective Vital Signs Date Time Temp Pulse Resp B/P Pulse Ox O2 Delivery O2 Flow Rate FiO2 12/22/16 14:00 78 133/71 100 Nasal Cannula 2.0 12/22/16 12:00 97.5 97.5 12/22/16 11:30 13 Intake and Output 12/22/16 07:00 Intake Total 840 ml Output Total 1185 ml Balance -345 ml Intake Oral 0 ml IV Total 840 ml Output Urine Total 1060 ml Drainage Total 125 ml PHYSICAL EXAM PHYSICAL EXAMINATION: sleepy HEENT: Normocephalic and nontraumatic. Neck is supple. No lymphadenopathy. No crepitus. Cardiovascular: S1, S2, regular rate and rhythm. Pulmonary: Clear to auscultation bilaterally. Abdomen: Abdomen is soft, nontender, and nondistended. NEUROLOGICAL EXAMINATION: sleepy CN: no focal findings. Muscle tone: within normal. Muscle strength: withdraw to pain stimuli DTR: 1 Plantar reflex: Flexor response bilaterally Gait: not examined in bed. Sensory exam: withdraw to pain. Review of Relevant I have reviewed the following items jessica (where applicable) has been applied. Labs Laboratory Tests Test 12/20/16 19:20 12/20/16 20:10 12/20/16 20:42 12/21/16 06:13 White Blood Count 15.6x10^3/uL (4.0-11.0) Red Blood Count 4.40x10^6/uL (3.50-5.40) Hemoglobin 12.6g/dL (12.0-15.5) Hematocrit 37.4% (36.0-47.0) Mean Corpuscular Volume 85fL (79-100) Mean Corpuscular Hemoglobin 29pg (25-35) Mean Corpuscular Hemoglobin Concent 34g/dL (31-37) Red Cell Distribution Width 13.8% (11.5-14.5) Platelet Count 401x10^3/uL (140-400) Neutrophils (%) (Auto) 71% (31-73) Lymphocytes (%) (Auto) 20% (24-48) Monocytes (%) (Auto) 8% (0-9) Eosinophils (%) (Auto) 1% (0-3) Basophils (%) (Auto) 1% (0-3) Neutrophils # (Auto) 11.0x10^3uL (1.8-7.7) Lymphocytes # (Auto) 3.1x10^3/uL (1.0-4.8) Monocytes # (Auto) 1.2x10^3/uL (0.0-1.1) Eosinophils # (Auto) 0.1x10^3/uL (0.0-0.7) Basophils # (Auto) 0.1x10^3/uL (0.0-0.2) Prothrombin Time 13.7SEC (11.7-14.0) Prothromb Time International Ratio 1.1 (0.8-1.1) Sodium Level 135mmol/L (136-145) Potassium Level 3.5mmol/L (3.5-5.1) Chloride Level 98mmol/L (98-107) Carbon Dioxide Level 27mmol/L (21-32) Anion Gap 10 (6-14) Blood Urea Nitrogen 16mg/dL (7-20) Creatinine 1.0mg/dL (0.6-1.0) Estimated GFR (Cockcroft-Gault) 55.3 Glucose Level 134mg/dL (70-99) Calcium Level 9.5mg/dL (8.5-10.1) Nasal Screen MRSA (PCR) Negative (Negative) Glucose (Fingerstick) 122mg/dL (70-99) 130mg/dL (70-99) Test 12/21/16 12:07 12/21/16 13:15 12/21/16 18:15 12/22/16 04:44 Glucose (Fingerstick) 228mg/dL (70-99) 148mg/dL (70-99) White Blood Count 16.6x10^3/uL (4.0-11.0) 13.8x10^3/uL (4.0-11.0) Red Blood Count 4.22x10^6/uL (3.50-5.40) 4.08x10^6/uL (3.50-5.40) Hemoglobin 11.9g/dL (12.0-15.5) 11.6g/dL (12.0-15.5) Hematocrit 36.8% (36.0-47.0) 34.5% (36.0-47.0) Mean Corpuscular Volume 87fL (79-100) 85fL (79-100) Mean Corpuscular Hemoglobin 28pg (25-35) 29pg (25-35) Mean Corpuscular Hemoglobin Concent 32g/dL (31-37) 34g/dL (31-37) Red Cell Distribution Width 14.2% (11.5-14.5) 14.2% (11.5-14.5) Platelet Count 315x10^3/uL (140-400) 354x10^3/uL (140-400) Neutrophils (%) (Auto) 96% (31-73) 81% (31-73) Lymphocytes (%) (Auto) 3% (24-48) 13% (24-48) Monocytes (%) (Auto) 1% (0-9) 6% (0-9) Eosinophils (%) (Auto) 0% (0-3) 0% (0-3) Basophils (%) (Auto) 0% (0-3) 0% (0-3) Neutrophils # (Auto) 15.9x10^3uL (1.8-7.7) 11.2x10^3uL (1.8-7.7) Lymphocytes # (Auto) 0.5x10^3/uL (1.0-4.8) 1.7x10^3/uL (1.0-4.8) Monocytes # (Auto) 0.1x10^3/uL (0.0-1.1) 0.9x10^3/uL (0.0-1.1) Eosinophils # (Auto) 0.0x10^3/uL (0.0-0.7) 0.0x10^3/uL (0.0-0.7) Basophils # (Auto) 0.1x10^3/uL (0.0-0.2) 0.0x10^3/uL (0.0-0.2) Segmented Neutrophils % 90% (35-66) Band Neutrophils % 1% (0-9) Lymphocytes % 5% (24-48) Monocytes % 4% (0-10) Platelet Estimate Adequate (ADEQUATE) Sodium Level 138mmol/L (136-145) 141mmol/L (136-145) Potassium Level 3.5mmol/L (3.5-5.1) 4.0mmol/L (3.5-5.1) Chloride Level 102mmol/L (98-107) 105mmol/L (98-107) Carbon Dioxide Level 27mmol/L (21-32) 26mmol/L (21-32) Anion Gap 9 (6-14) 10 (6-14) Blood Urea Nitrogen 15mg/dL (7-20) 13mg/dL (7-20) Creatinine 1.1mg/dL (0.6-1.0) 0.8mg/dL (0.6-1.0) Estimated GFR (Cockcroft-Gault) 49.5 71.5 Glucose Level 253mg/dL (70-99) 129mg/dL (70-99) Calcium Level 8.4mg/dL (8.5-10.1) 8.4mg/dL (8.5-10.1) Phosphorus Level 2.7mg/dL (2.6-4.7) Magnesium Level 1.5mg/dL (1.8-2.4) Laboratory Tests Test 12/21/16 18:15 12/22/16 04:44 Glucose (Fingerstick) 148mg/dL (70-99) White Blood Count 13.8x10^3/uL (4.0-11.0) Red Blood Count 4.08x10^6/uL (3.50-5.40) Hemoglobin 11.6g/dL (12.0-15.5) Hematocrit 34.5% (36.0-47.0) Mean Corpuscular Volume 85fL (79-100) Mean Corpuscular Hemoglobin 29pg (25-35) Mean Corpuscular Hemoglobin Concent 34g/dL (31-37) Red Cell Distribution Width 14.2% (11.5-14.5) Platelet Count 354x10^3/uL (140-400) Neutrophils (%) (Auto) 81% (31-73) Lymphocytes (%) (Auto) 13% (24-48) Monocytes (%) (Auto) 6% (0-9) Eosinophils (%) (Auto) 0% (0-3) Basophils (%) (Auto) 0% (0-3) Neutrophils # (Auto) 11.2x10^3uL (1.8-7.7) Lymphocytes # (Auto) 1.7x10^3/uL (1.0-4.8) Monocytes # (Auto) 0.9x10^3/uL (0.0-1.1) Eosinophils # (Auto) 0.0x10^3/uL (0.0-0.7) Basophils # (Auto) 0.0x10^3/uL (0.0-0.2) Sodium Level 141mmol/L (136-145) Potassium Level 4.0mmol/L (3.5-5.1) Chloride Level 105mmol/L (98-107) Carbon Dioxide Level 26mmol/L (21-32) Anion Gap 10 (6-14) Blood Urea Nitrogen 13mg/dL (7-20) Creatinine 0.8mg/dL (0.6-1.0) Estimated GFR (Cockcroft-Gault) 71.5 Glucose Level 129mg/dL (70-99) Calcium Level 8.4mg/dL (8.5-10.1) Medications Current Medications Ondansetron HCl (Zofran) 4 mg PRN Q6HRS PRN IV Nausea; Start 12/21/16 at 07:00 ; Stop 12/22/16 at 06:59; Status DC Fentanyl Citrate (Fentanyl 2ml Vial) 25 mcg PRN Q5MIN PRN IV MILD PAIN; Start 12/21/16 at 07:00; Stop 12/22/16 at 06:59; Status DC Fentanyl Citrate (Fentanyl 2ml Vial) 50 mcg PRN Q5MIN PRN IV MODERATE PAIN; Start 12/21/16 at 07:00; Stop 12/22/16 at 06:59; Status DC Morphine Sulfate 1 mg 1 mg PRN Q10MIN PRN IV SEVERE PAIN; Start 12/21/16 at 07: 00; Stop 12/22/16 at 06:59; Status DC Lactated Ringer's (Iv Lactated Ringers) 1,000 ml @ 0 mls/hr Q0M IV ; Start at 07:00; Stop 12/21/16 at 18:59; Status DC Lidocaine HCl 2 ml 1X PRN PRN ID IV START; Start 12/21/16 at 07:00; Stop at 06:59; Status DC Hydromorphone HCl (Dilaudid) 0.5 mg PRN Q10MIN PRN IV SEVERE PAIN, Second choice; Start 12/21/16 at 07:00; Stop 12/22/16 at 06:59; Status DC Prochlorperazine Edisylate 5 mg 5 mg PACU PRN PRN IV NAUSEA; Start 12/21/16 at 07:00; Stop 12/22/16 at 06:59; Status DC Bacitracin/Sodium Chloride (Bacitracin/Iv Sodium Chloride 0.9% 1000ml Bag) 1, 000 ml @ 1,000 mls/hr 1X PERIOP ONCE IRR ; Start 12/20/16 at 16:26; Stop 12/20 at 17:25; Status DC Acetaminophen/ Hydrocodone Bitart (Lortab 5/325) 1 tab PRN Q4HRS PRN PO MILD PAIN; Start 12/20/16 at 16:45 Levothyroxine Sodium (Synthroid) 112 mcg DAILY07 PO ; Start 12/20/16 at 17:00; Stop 12/22/16 at 09:58; Status DC Losartan Potassium (Cozaar) 50 mg DAILY PO ; Start 12/20/16 at 17:00 Metoprolol Tartrate (Lopressor) 25 mg BID PO Last administered on 12/20/16t 20: 33; Start 12/20/16 at 21:00 Nortriptyline HCl (Pamelor) 25 mg DAILY PO Last administered on 12/20/16 18:34 ; Start 12/20/16 at 17:00 Non-Formulary Medication 1 tab BID PO ; Start 12/20/16 at 21:00; Status UNV Duloxetine HCl (Cymbalta) 60 mg DAILY PO ; Start 12/21/16 at 09:00 Fluticasone Propionate (Flonase) 2 spray DAILY NS ; Start 12/21/16 at 09:00 Pantoprazole Sodium (Protonix) 40 mg DAILYAC PO ; Start 12/21/16 at 07:30 Atorvastatin Calcium (Lipitor) 80 mg QHS PO Last administered on 12/20/16 20: 33; Start 12/20/16 at 21:00 Linagliptin (Tradjenta) 5 mg DAILY PO ; Start 12/21/16 at 09:00 Oxybutynin Chloride (Ditropan) 5 mg [id number] PO Last administered on 12/20/16 20 :33; Start 12/20/16 at 21:00 Vitamin D (Vitamin D3) 2,000 unit DAILY PO ; Start 12/21/16 at 09:00 Al Hydroxide/Mg Hydroxide (Mylanta Plus Xs) 30 ml PRN Q3HRS PRN PO HEARTBURN / GAS; Start 12/20/16 at 16:45 Calcium Carbonate/ Glycine (Tums) 500 mg PRN Q3HRS PRN PO INDIGESTION; Start at 16:45 Diphenhydramine HCl (Benadryl) 25 mg PRN Q6HRS PRN PO ITCHING; Start 12/20/16 at 16:45 Diphenhydramine HCl (Benadryl) 25 mg PRN Q6HRS PRN IV ITCHING; Start 12/20/16 at 16:45 Sodium Chloride (Normal Saline Flush) 3 ml QSHIFT PRN IV AFTER MEDS AND BLOOD DRAWS; Start 12/20/16 at 16:45 Dextrose 12.5 gm PRN Q15MIN PRN IV SEE COMMENTS; Start 12/20/16 at 16:45 Docusate Sodium (Colace) 100 mg BID PO Last administered on 12/20/16 20:32; Start 12/20/16 at 21:00 Magnesium Hydroxide 2400 mg 2,400 mg PRN Q12HR PRN PO CONSTIPATION; Start 12/20 at 16:45 Cefazolin Sodium 2 gm/Sodium Chloride 100 ml @ 200 mls/hr 1X PREOP IV ; Start 12/21/16 at 08:00; Status UNV Cefazolin Sodium/ Dextrose (Ancef 2gm Premix) 50 ml @ 100 mls/hr 1X ONCE IV Last administered on 12/21/16 09:48; Start 12/21/16 at 06:00; Stop 12/21/16 at 06:29; Status DC Acetaminophen 500 mg 500 mg PRN Q6HRS PRN PO MILD PAIN / TEMP; Start 12/20/16 at 17:45 Sodium Chloride 1,000 ml @ 75 mls/hr [id number] IV Last administered on 10:57; Start 12/20/16 at 17:45 Bacitracin/Sodium Chloride (Bacitracin/Iv Sodium Chloride 0.9% 1000ml Bag) 1, 000 ml @ 1,000 mls/hr 1X PERIOP ONCE IRR Last administered on 12/21/16 10:09 ; Start 12/21/16 at 06:00; Stop 12/21/16 at 06:59; Status DC Ciprofloxacin (Cipro) 500 mg BID PO Last administered on 12/20/16 20:32; Start 12/20/16 at 21:00; Stop 12/22/16 at 09:58; Status DC Cellulose 1 each STK-MED ONCE .ROUTE ; Start 12/21/16 at 08:41; Stop 12/21/16 at 08:42; Status DC Bupivacaine HCl/ Epinephrine Bitart (Sensorcain-Mpf Epi 0.5%-1:[id number]) 30 ml STK -MED ONCE .ROUTE Last administered on 12/21/16 10:09; Start 12/21/16 at 08:41 ; Stop 12/21/16 at 08:42; Status DC Gelatin (Gelfoam Size 100) 1 each STK-MED ONCE .ROUTE Last administered on 10:09; Start 12/21/16 at 08:41; Stop 12/21/16 at 08:42; Status DC Thrombin 20,000 unit STK-MED ONCE TP Last administered on 12/21/16 10:09; Start 12/21/16 at 08:41; Stop 12/21/16 at 08:42; Status DC Fentanyl Citrate (Fentanyl 2ml Vial) 100 mcg STK-MED ONCE .ROUTE ; Start at 08:51; Stop 12/21/16 at 08:52; Status DC Rocuronium Jarrell (Zemuron) 50 mg STK-MED ONCE .ROUTE ; Start 12/21/16 at 08:51 ; Stop 12/21/16 at 08:52; Status DC Lidocaine HCl 100 mg 100 mg STK-MED ONCE .ROUTE ; Start 12/21/16 at 08:51; Stop 12/21/16 at 08:52; Status DC Propofol (Diprivan) 20 ml @ As Directed STK-MED ONCE IV ; Start 12/21/16 at 08: 51; Stop 12/21/16 at 08:52; Status DC Dexamethasone Sodium Phosphate (Decadron) 20 mg STK-MED ONCE .ROUTE ; Start at 08:52; Stop 12/21/16 at 08:53; Status DC Ondansetron HCl (Zofran) 4 mg STK-MED ONCE .ROUTE ; Start 12/21/16 at 08:52; Stop 12/21/16 at 08:53; Status DC Glycopyrrolate (Robinul) 1 mg STK-MED ONCE .ROUTE ; Start 12/21/16 at 10:41; Stop 12/21/16 at 10:42; Status DC Neostigmine Methylsulfate 5 mg STK-MED ONCE .ROUTE ; Start 12/21/16 at 10:41; Stop 12/21/16 at 10:42; Status DC Desflurane 60 ml 60 ml STK-MED ONCE IH ; Start 12/21/16 at 11:19; Stop 12/21/16 at 11:20; Status DC Nicardipine HCl/ Sodium Chloride (Cardene/Iv Sodium Chloride 0.9% 250ml) 270 ml @ 0 mls/hr CONT PRN IV SEE I/O RECORD Last administered on 12/22/16 11:07; Start 12/21/16 at 11:30 Lorazepam (Ativan) 2 mg STK-MED ONCE .ROUTE ; Start 12/21/16 at 11:34; Stop at 11:35; Status DC Lorazepam 2 mg 2 mg 1X ONCE IV Last administered on 3/25/17at 12:07; Start at 12:15; Stop 12/21/16 at 12:16; Status DC Levetiracetam/ Sodium Chloride (Keppra/Iv Sodium Chloride 0.9% 100ml) 105 ml @ 400 mls/hr Q12HR IV Last administered on 12/22/16 09:14; Start 12/21/16 at 12: 30 Levetiracetam (Keppra) 500 mg BID PO ; Start 12/21/16 at 21:00; Status Cancel Lorazepam (Ativan) 2 mg PRN Q4HRS PRN IV ANXIETY / AGITATION; Start 12/21/16 at 12:15 Midazolam HCl (Versed) 1 mg 1X ONCE IV Last administered on 12/21/16 12:30; Start 12/21/16 at 12:30; Stop 12/21/16 at 12:31; Status DC Midazolam HCl (Versed) 5 mg STK-MED ONCE .ROUTE ; Start 12/21/16 at 12:32; Stop 12/21/16 at 12:33; Status DC Midazolam HCl 2 mg 2 mg 1X ONCE IV ; Start 12/21/16 at 14:00; Stop 12/21/16 at 14:01; Status DC Magnesium Sulfate/ Dextrose 50 ml @ 25 mls/hr 1X ONCE IV Last administered on 12/21/16 15:12; Start 12/21/16 at 14:00; Stop 12/21/16 at 15:59; Status DC Ciprofloxacin Lactate 200 ml @ 200 mls/hr Q12HR IV Last administered on 10:57; Start 12/22/16 at 10:30 Levothyroxine Sodium/Sodium Chloride (Synthroid/Iv Sodium Chloride 0.9% 50ml) 5 ml @ 100 mls/hr DAILY IVP Last administered on 12/22/16 10:57; Start 12/22/16 at 10:30 Morphine Sulfate 1 mg PRN Q2HR PRN IV PAIN SEVERE; Start 12/22/16 at 10:00 Active Scripts Active Ciprofloxacin Hcl 500 Mg Tablet 1 Tab PO BID Hydrocodone-Apap 5-325 (Hydrocodone Bit/Acetaminophen) 1 Each Tablet 1 Tab PO PRN Q4HRS PRN Reported Citracal + D Er Tablet (Calcium Carb & Cit/Vitamin D3) 1 Each Tablet.er 1 Each PO Nasonex (Mometasone Furoate) 17 Gm Bolt.pump 17 Gm NS PRN Losartan Potassium 25 Mg Tablet 50 Mg PO Fish Oil ([place]-3 Fatty Acids) 300 Mg Capsule 300 Mg PO DAILY Cymbalta (Duloxetine Hcl) 60 Mg Capsule.dr 60 Mg PO DAILY Crestor (Rosuvastatin Calcium) 40 Mg Tablet 40 Mg PO HS Levothyroxine Sodium 112 Mcg Tablet 112 Mcg PO DAILY Aciphex (Rabeprazole Sodium) 20 Mg Tablet.dr 20 Mg PO DAILY Vesicare (Solifenacin Succinate) 5 Mg Tablet 10 Mg PO DAILY Januvia (Sitagliptin Phosphate) 100 Mg Tablet 100 Mg PO DAILY Metoprolol Tartrate 25 Mg Tablet 25 Mg PO BID Aspirin 325 Mg Tablet 325 Mg PO DAILY [Vit D3] 2,000 Units DAILY Nortriptyline Hcl 25 Mg Capsule 25 Mg PO DAILY Vitals/I & O Vital Sign - Last 24 Hours 12/21/16 12/21/16 12/21/16 12/21/16 18:00 19:00 20:00 20:00 Temp 98.8 98.8 Pulse 92 94 Resp 15 13 B/P 131/69 138/65 Pulse Ox 93 94 O2 Delivery Room Air Nasal Cannula Room Air Nasal Cannula O2 Flow Rate 2.0 12/21/16 12/21/16 12/21/16 12/21/16 20:00 21:00 22:00 23:00 Temp 99.4 99.4 Pulse 93 104 96 96 Resp 14 15 13 B/P 121/67 126/66 135/64 139/68 Pulse Ox 93 96 100 100 O2 Delivery Room Air Nasal Cannula Nasal Cannula Nasal Cannula O2 Flow Rate 2.0 2.0 2.0 12/21/16 12/21/16 12/22/16 12/22/16 23:59 23:59 01:00 02:00 Temp 99.0 99.0 Pulse 93 96 91 Resp 13 B/P 138/77 147/71 131/68 Pulse Ox 93 100 100 O2 Delivery Nasal Cannula Room Air Nasal Cannula Nasal Cannula O2 Flow Rate 2.0 2.0 12/22/16 12/22/16 12/22/16 12/22/16 03:00 04:00 04:00 05:00 Temp 99.4 99.4 Pulse 86 87 86 Resp 13 14 13 B/P 123/70 126/63 126/61 Pulse Ox 100 96 100 O2 Delivery Nasal Cannula Room Air Nasal Cannula Nasal Cannula O2 Flow Rate 2.0 2.0 12/22/16 12/22/16 12/22/16 12/22/16 06:00 07:00 08:00 08:00 Temp 98.0 98.0 Pulse 82 80 80 Resp 13 14 14 B/P 132/68 129/68 142/71 Pulse Ox 100 100 100 O2 Delivery Nasal Cannula Nasal Cannula Nasal Cannula Nasal Cannula O2 Flow Rate 2.0 2.0 2.0 2.0 12/22/16 12/22/16 12/22/16 12/22/16 09:00 10:00 11:00 11:30 Pulse 83 84 78 78 Resp 13 14 14 13 B/P 141/70 133/68 162/72 172/73 Pulse Ox 100 100 100 100 O2 Delivery Nasal Cannula Nasal Cannula Nasal Cannula Nasal Cannula O2 Flow Rate 2.0 2.0 2.0 2.0 12/22/16 12/22/16 12/22/16 12/22/16 12:00 12:00 13:00 14:00 Temp 97.5 97.5 Pulse 78 90 78 B/P 136/69 167/73 133/71 Pulse Ox 100 100 100 O2 Delivery Nasal Cannula Nasal Cannula Nasal Cannula Nasal Cannula O2 Flow Rate 2.0 2.0 2.0 2.0 Intake and Output 12/21/16 12/21/16 12/22/16 15:00 23:00 07:00 Intake Total 316 ml 524 ml Output Total 25 ml 800 ml 360 ml Balance -25 ml -484 ml 164 ml EL CRAWFORD MD Dec 22, 2016 17:17
[2016-12-22] MEDS: ATORVASTATIN CALCIUM 40 MG TABLET. PO SCH (20:17)
[2016-12-23] VITALS (18 sets, daily range): BP systolic 101–165; BP diastolic 39–87
[2016-12-23 05:07] LABS: BASO # 0.1 x10^3/uL (0.0-0.2); BASO % 1 % (0-3); EOS % 1 % (0-3); HEMATOCRIT 34.2 % (36.0-47.0); HEMOGLOBIN 11.4 g/dL (12.0-15.5); LYMPH # 2.1 x10^3/uL (1.0-4.8); LYMPH % 17 % (24-48); MEAN CORPUSCULAR HEMOGLOBIN 29 pg (25-35); MEAN CORPUSCULAR HGB CONC 33 g/dL (31-37); MEAN CORPUSCULAR VOLUME 86 fL (79-100); MONO % 7 % (0-9); NEUT % 75 % (31-73); PLATELET COUNT 321 x10^3/uL (140-400); RED BLOOD COUNT 3.97 x10^6/uL (3.50-5.40); RED CELL DISTRIBUTION WIDTH 14.3 % (11.5-14.5); WHITE BLOOD COUNT 12.2 x10^3/uL (4.0-11.0)
[2016-12-23 05:17] LABS: CALCIUM 8.5 mg/dL (8.5-10.1); CREATININE 0.7 mg/dL (0.6-1.0); GFR 83.5; POTASSIUM 3.2 mmol/L (3.5-5.1)
[2016-12-23] MEDS: CIPROFLOXACIN 400MG PREMIX 200 ML IV SCH ×2 (08:39→21:10)
[2016-12-23] MEDS: LEVETIRACETAM 500 MG in IV NORMAL SALINE 100ML 100 ML IV SCH ×2 (08:39→21:10)
[2016-12-23] MEDS: FLUTICASONE 50MCG/NASAL SPRAY 16GM BOTTLE. NS SCH (08:40)
[2016-12-23] MEDS: OXYBUTYNIN CHLORIDE 5 MG TABLET PO SCH ×3 (08:40→21:09)
[2016-12-23] MEDS: LOSARTAN POTASSIUM 50 MG TABLET. PO SCH (08:40)
[2016-12-23] MEDS: CHOLECALCIFEROL (VITAMIN D3) 1,000 UNIT TABLET PO SCH (08:40)
[2016-12-23] MEDS: DULOXETINE HCL 30 MG CAPSULE.DR. PO SCH (08:40)
[2016-12-23] MEDS: NORTRIPTYLINE 25 MG CAPSULE PO SCH (08:40)
[2016-12-23] MEDS: LINAGLIPTIN 5 MG TABLET PO SCH (08:40)
[2016-12-23] MEDS: DOCUSATE SODIUM 100 MG CAPSULE PO SCH (08:41)
[2016-12-23] MEDS: METOPROLOL TART IMMED RELEASE 25 MG TABLET PO SCH ×2 (08:41→21:09)
[2016-12-23] MEDS: PANTOPRAZOLE 40 MG TABLET. PO SCH (08:41)
[2016-12-23] MEDS: LEVOTHYROXINE SODIUM IVP SCH (08:55)
[2016-12-23] MEDS: NORMAL SALINE IVP SCH (08:55)
--- NOTE | 2016-12-23 10:12 | PDOC ---
PROGRESS NOTES Subjective Subjective up in chair more alert mild headache Objective Objective Vital Signs Date Time Temp Pulse Resp B/P Pulse Ox O2 Delivery O2 Flow Rate FiO2 12/23/16 09:00 77 18 144/74 99 Nasal Cannula 2.0 12/23/16 07:00 98.8 98.8 Intake and Output 12/23/16 07:00 Intake Total 1305 ml Output Total 2250 ml Balance -945 ml IV Total 1305 ml Output Urine Total 2165 ml Drainage Total 85 ml Physical Exam General: Alert, Cooperative, No acute distress Neuro: Other (pupils equal) Skin: Other (dressing intact, dry, dc drain) Plan Plan of Care dc drain may transfer to floor later today if okay with others PT Consult Dr. Mark Comment Review of Relevant I have reviewed the following items jessica (where applicable) has been applied. Labs Laboratory Tests Test 12/21/16 12:07 12/21/16 13:15 12/21/16 18:15 12/22/16 04:44 Glucose (Fingerstick) 228mg/dL (70-99) 148mg/dL (70-99) White Blood Count 16.6x10^3/uL (4.0-11.0) 13.8x10^3/uL (4.0-11.0) Red Blood Count 4.22x10^6/uL (3.50-5.40) 4.08x10^6/uL (3.50-5.40) Hemoglobin 11.9g/dL (12.0-15.5) 11.6g/dL (12.0-15.5) Hematocrit 36.8% (36.0-47.0) 34.5% (36.0-47.0) Mean Corpuscular Volume 87fL (79-100) 85fL (79-100) Mean Corpuscular Hemoglobin 28pg (25-35) 29pg (25-35) Mean Corpuscular Hemoglobin Concent 32g/dL (31-37) 34g/dL (31-37) Red Cell Distribution Width 14.2% (11.5-14.5) 14.2% (11.5-14.5) Platelet Count 315x10^3/uL (140-400) 354x10^3/uL (140-400) Neutrophils (%) (Auto) 96% (31-73) 81% (31-73) Lymphocytes (%) (Auto) 3% (24-48) 13% (24-48) Monocytes (%) (Auto) 1% (0-9) 6% (0-9) Eosinophils (%) (Auto) 0% (0-3) 0% (0-3) Basophils (%) (Auto) 0% (0-3) 0% (0-3) Neutrophils # (Auto) 15.9x10^3uL (1.8-7.7) 11.2x10^3uL (1.8-7.7) Lymphocytes # (Auto) 0.5x10^3/uL (1.0-4.8) 1.7x10^3/uL (1.0-4.8) Monocytes # (Auto) 0.1x10^3/uL (0.0-1.1) 0.9x10^3/uL (0.0-1.1) Eosinophils # (Auto) 0.0x10^3/uL (0.0-0.7) 0.0x10^3/uL (0.0-0.7) Basophils # (Auto) 0.1x10^3/uL (0.0-0.2) 0.0x10^3/uL (0.0-0.2) Segmented Neutrophils % 90% (35-66) Band Neutrophils % 1% (0-9) Lymphocytes % 5% (24-48) Monocytes % 4% (0-10) Platelet Estimate Adequate (ADEQUATE) Sodium Level 138mmol/L (136-145) 141mmol/L (136-145) Potassium Level 3.5mmol/L (3.5-5.1) 4.0mmol/L (3.5-5.1) Chloride Level 102mmol/L (98-107) 105mmol/L (98-107) Carbon Dioxide Level 27mmol/L (21-32) 26mmol/L (21-32) Anion Gap 9 (6-14) 10 (6-14) Blood Urea Nitrogen 15mg/dL (7-20) 13mg/dL (7-20) Creatinine 1.1mg/dL (0.6-1.0) 0.8mg/dL (0.6-1.0) Estimated GFR (Cockcroft-Gault) 49.5 71.5 Glucose Level 253mg/dL (70-99) 129mg/dL (70-99) Calcium Level 8.4mg/dL (8.5-10.1) 8.4mg/dL (8.5-10.1) Phosphorus Level 2.7mg/dL (2.6-4.7) Magnesium Level 1.5mg/dL (1.8-2.4) Test 12/22/16 22:00 12/23/16 04:30 12/23/16 04:35 Glucose (Fingerstick) 136mg/dL (70-99) White Blood Count 12.2x10^3/uL (4.0-11.0) Red Blood Count 3.97x10^6/uL (3.50-5.40) Hemoglobin 11.4g/dL (12.0-15.5) Hematocrit 34.2% (36.0-47.0) Mean Corpuscular Volume 86fL (79-100) Mean Corpuscular Hemoglobin 29pg (25-35) Mean Corpuscular Hemoglobin Concent 33g/dL (31-37) Red Cell Distribution Width 14.3% (11.5-14.5) Platelet Count 321x10^3/uL (140-400) Neutrophils (%) (Auto) 75% (31-73) Lymphocytes (%) (Auto) 17% (24-48) Monocytes (%) (Auto) 7% (0-9) Eosinophils (%) (Auto) 1% (0-3) Basophils (%) (Auto) 1% (0-3) Neutrophils # (Auto) 9.1x10^3uL (1.8-7.7) Lymphocytes # (Auto) 2.1x10^3/uL (1.0-4.8) Monocytes # (Auto) 0.8x10^3/uL (0.0-1.1) Eosinophils # (Auto) 0.1x10^3/uL (0.0-0.7) Basophils # (Auto) 0.1x10^3/uL (0.0-0.2) Sodium Level 141mmol/L (136-145) Potassium Level 3.2mmol/L (3.5-5.1) Chloride Level 105mmol/L (98-107) Carbon Dioxide Level 28mmol/L (21-32) Anion Gap 8 (6-14) Blood Urea Nitrogen 8mg/dL (7-20) Creatinine 0.7mg/dL (0.6-1.0) Estimated GFR (Cockcroft-Gault) 83.5 Glucose Level 119mg/dL (70-99) Calcium Level 8.5mg/dL (8.5-10.1) Laboratory Tests Test 12/22/16 22:00 12/23/16 04:30 12/23/16 04:35 Glucose (Fingerstick) 136mg/dL (70-99) White Blood Count 12.2x10^3/uL (4.0-11.0) Red Blood Count 3.97x10^6/uL (3.50-5.40) Hemoglobin 11.4g/dL (12.0-15.5) Hematocrit 34.2% (36.0-47.0) Mean Corpuscular Volume 86fL (79-100) Mean Corpuscular Hemoglobin 29pg (25-35) Mean Corpuscular Hemoglobin Concent 33g/dL (31-37) Red Cell Distribution Width 14.3% (11.5-14.5) Platelet Count 321x10^3/uL (140-400) Neutrophils (%) (Auto) 75% (31-73) Lymphocytes (%) (Auto) 17% (24-48) Monocytes (%) (Auto) 7% (0-9) Eosinophils (%) (Auto) 1% (0-3) Basophils (%) (Auto) 1% (0-3) Neutrophils # (Auto) 9.1x10^3uL (1.8-7.7) Lymphocytes # (Auto) 2.1x10^3/uL (1.0-4.8) Monocytes # (Auto) 0.8x10^3/uL (0.0-1.1) Eosinophils # (Auto) 0.1x10^3/uL (0.0-0.7) Basophils # (Auto) 0.1x10^3/uL (0.0-0.2) Sodium Level 141mmol/L (136-145) Potassium Level 3.2mmol/L (3.5-5.1) Chloride Level 105mmol/L (98-107) Carbon Dioxide Level 28mmol/L (21-32) Anion Gap 8 (6-14) Blood Urea Nitrogen 8mg/dL (7-20) Creatinine 0.7mg/dL (0.6-1.0) Estimated GFR (Cockcroft-Gault) 83.5 Glucose Level 119mg/dL (70-99) Calcium Level 8.5mg/dL (8.5-10.1) Medications Current Medications Ondansetron HCl (Zofran) 4 mg PRN Q6HRS PRN IV Nausea; Start 12/21/16 at 07:00 ; Stop 12/22/16 at 06:59; Status DC Fentanyl Citrate (Fentanyl 2ml Vial) 25 mcg PRN Q5MIN PRN IV MILD PAIN; Start 12/21/16 at 07:00; Stop 12/22/16 at 06:59; Status DC Fentanyl Citrate (Fentanyl 2ml Vial) 50 mcg PRN Q5MIN PRN IV MODERATE PAIN; Start 12/21/16 at 07:00; Stop 12/22/16 at 06:59; Status DC Morphine Sulfate 1 mg 1 mg PRN Q10MIN PRN IV SEVERE PAIN; Start 12/21/16 at 07: 00; Stop 12/22/16 at 06:59; Status DC Lactated Ringer's (Iv Lactated Ringers) 1,000 ml @ 0 mls/hr Q0M IV ; Start at 07:00; Stop 12/21/16 at 18:59; Status DC Lidocaine HCl 2 ml 1X PRN PRN ID IV START; Start 12/21/16 at 07:00; Stop at 06:59; Status DC Hydromorphone HCl (Dilaudid) 0.5 mg PRN Q10MIN PRN IV SEVERE PAIN, Second choice; Start 12/21/16 at 07:00; Stop 12/22/16 at 06:59; Status DC Prochlorperazine Edisylate 5 mg 5 mg PACU PRN PRN IV NAUSEA; Start 12/21/16 at 07:00; Stop 12/22/16 at 06:59; Status DC Bacitracin/Sodium Chloride (Bacitracin/Iv Sodium Chloride 0.9% 1000ml Bag) 1, 000 ml @ 1,000 mls/hr 1X PERIOP ONCE IRR ; Start 12/20/16 at 16:26; Stop 12/20 at 17:25; Status DC Acetaminophen/ Hydrocodone Bitart (Lortab 5/325) 1 tab PRN Q4HRS PRN PO MILD PAIN; Start 12/20/16 at 16:45 Levothyroxine Sodium (Synthroid) 112 mcg DAILY07 PO ; Start 12/20/16 at 17:00; Stop 12/22/16 at 09:58; Status DC Losartan Potassium (Cozaar) 50 mg DAILY PO Last administered on 12/23/16 08:40 ; Start 12/20/16 at 17:00 Metoprolol Tartrate (Lopressor) 25 mg BID PO Last administered on 12/23/16 08: 41; Start 12/20/16 at 21:00 Nortriptyline HCl (Pamelor) 25 mg DAILY PO Last administered on 12/23/16 08:40 ; Start 12/20/16 at 17:00 Non-Formulary Medication 1 tab BID PO ; Start 12/20/16 at 21:00; Status UNV Duloxetine HCl (Cymbalta) 60 mg DAILY PO Last administered on 12/23/16 08:40; Start 12/21/16 at 09:00 Fluticasone Propionate (Flonase) 2 spray DAILY NS Last administered on 08:40; Start 12/21/16 at 09:00 Pantoprazole Sodium (Protonix) 40 mg DAILYAC PO Last administered on 12/23/16 08:41; Start 12/21/16 at 07:30 Atorvastatin Calcium (Lipitor) 80 mg QHS PO Last administered on 12/20/16 20: 33; Start 12/20/16 at 21:00 Linagliptin (Tradjenta) 5 mg DAILY PO Last administered on 12/23/16 08:40; Start 12/21/16 at 09:00 Oxybutynin Chloride (Ditropan) 5 mg [id number] PO Last administered on 12/23/16 08 :40; Start 12/20/16 at 21:00 Vitamin D (Vitamin D3) 2,000 unit DAILY PO Last administered on 12/23/16 08:40 ; Start 12/21/16 at 09:00 Al Hydroxide/Mg Hydroxide (Mylanta Plus Xs) 30 ml PRN Q3HRS PRN PO HEARTBURN / GAS; Start 12/20/16 at 16:45 Calcium Carbonate/ Glycine (Tums) 500 mg PRN Q3HRS PRN PO INDIGESTION; Start at 16:45 Diphenhydramine HCl (Benadryl) 25 mg PRN Q6HRS PRN PO ITCHING; Start 12/20/16 at 16:45 Diphenhydramine HCl (Benadryl) 25 mg PRN Q6HRS PRN IV ITCHING; Start 12/20/16 at 16:45 Sodium Chloride (Normal Saline Flush) 3 ml QSHIFT PRN IV AFTER MEDS AND BLOOD DRAWS; Start 12/20/16 at 16:45 Dextrose 12.5 gm PRN Q15MIN PRN IV SEE COMMENTS; Start 12/20/16 at 16:45 Docusate Sodium (Colace) 100 mg BID PO Last administered on 12/23/16 08:41; Start 12/20/16 at 21:00 Magnesium Hydroxide 2400 mg 2,400 mg PRN Q12HR PRN PO CONSTIPATION; Start 12/20 at 16:45 Cefazolin Sodium 2 gm/Sodium Chloride 100 ml @ 200 mls/hr 1X PREOP IV ; Start 12/21/16 at 08:00; Status UNV Cefazolin Sodium/ Dextrose (Ancef 2gm Premix) 50 ml @ 100 mls/hr 1X ONCE IV Last administered on 12/21/16 09:48; Start 12/21/16 at 06:00; Stop 12/21/16 at 06:29; Status DC Acetaminophen 500 mg 500 mg PRN Q6HRS PRN PO MILD PAIN / TEMP; Start 12/20/16 at 17:45 Sodium Chloride 1,000 ml @ 75 mls/hr [id number] IV Last administered on 21:47; Start 12/20/16 at 17:45 Bacitracin/Sodium Chloride (Bacitracin/Iv Sodium Chloride 0.9% 1000ml Bag) 1, 000 ml @ 1,000 mls/hr 1X PERIOP ONCE IRR Last administered on 12/21/16 10:09 ; Start 12/21/16 at 06:00; Stop 12/21/16 at 06:59; Status DC Ciprofloxacin (Cipro) 500 mg BID PO Last administered on 12/20/16 20:32; Start 12/20/16 at 21:00; Stop 12/22/16 at 09:58; Status DC Cellulose 1 each STK-MED ONCE .ROUTE ; Start 12/21/16 at 08:41; Stop 12/21/16 at 08:42; Status DC Bupivacaine HCl/ Epinephrine Bitart (Sensorcain-Mpf Epi 0.5%-1:[id number]) 30 ml STK -MED ONCE .ROUTE Last administered on 12/21/16 10:09; Start 12/21/16 at 08:41 ; Stop 12/21/16 at 08:42; Status DC Gelatin (Gelfoam Size 100) 1 each STK-MED ONCE .ROUTE Last administered on 10:09; Start 12/21/16 at 08:41; Stop 12/21/16 at 08:42; Status DC Thrombin 20,000 unit STK-MED ONCE TP Last administered on 12/21/16 10:09; Start 12/21/16 at 08:41; Stop 12/21/16 at 08:42; Status DC Fentanyl Citrate (Fentanyl 2ml Vial) 100 mcg STK-MED ONCE .ROUTE ; Start at 08:51; Stop 12/21/16 at 08:52; Status DC Rocuronium Gervais (Zemuron) 50 mg STK-MED ONCE .ROUTE ; Start 12/21/16 at 08:51 ; Stop 12/21/16 at 08:52; Status DC Lidocaine HCl 100 mg 100 mg STK-MED ONCE .ROUTE ; Start 12/21/16 at 08:51; Stop 12/21/16 at 08:52; Status DC Propofol (Diprivan) 20 ml @ As Directed STK-MED ONCE IV ; Start 12/21/16 at 08: 51; Stop 12/21/16 at 08:52; Status DC Dexamethasone Sodium Phosphate (Decadron) 20 mg STK-MED ONCE .ROUTE ; Start at 08:52; Stop 12/21/16 at 08:53; Status DC Ondansetron HCl (Zofran) 4 mg STK-MED ONCE .ROUTE ; Start 12/21/16 at 08:52; Stop 12/21/16 at 08:53; Status DC Glycopyrrolate (Robinul) 1 mg STK-MED ONCE .ROUTE ; Start 12/21/16 at 10:41; Stop 12/21/16 at 10:42; Status DC Neostigmine Methylsulfate 5 mg STK-MED ONCE .ROUTE ; Start 12/21/16 at 10:41; Stop 12/21/16 at 10:42; Status DC Desflurane 60 ml 60 ml STK-MED ONCE IH ; Start 12/21/16 at 11:19; Stop 12/21/16 at 11:20; Status DC Nicardipine HCl/ Sodium Chloride (Cardene/Iv Sodium Chloride 0.9% 250ml) 270 ml @ 0 mls/hr CONT PRN IV SEE I/O RECORD Last administered on 12/22/16 11:07; Start 12/21/16 at 11:30 Lorazepam (Ativan) 2 mg STK-MED ONCE .ROUTE ; Start 12/21/16 at 11:34; Stop at 11:35; Status DC Lorazepam 2 mg 2 mg 1X ONCE IV Last administered on 12/21/16 12:07; Start at 12:15; Stop 12/21/16 at 12:16; Status DC Levetiracetam/ Sodium Chloride (Keppra/Iv Sodium Chloride 0.9% 100ml) 105 ml @ 400 mls/hr Q12HR IV Last administered on 12/23/16 08:39; Start 12/21/16 at 12: 30 Levetiracetam (Keppra) 500 mg BID PO ; Start 12/21/16 at 21:00; Status Cancel Lorazepam (Ativan) 2 mg PRN Q4HRS PRN IV ANXIETY / AGITATION; Start 12/21/16 at 12:15 Midazolam HCl (Versed) 1 mg 1X ONCE IV Last administered on 12/21/16 12:30; Start 12/21/16 at 12:30; Stop 12/21/16 at 12:31; Status DC Midazolam HCl (Versed) 5 mg STK-MED ONCE .ROUTE ; Start 12/21/16 at 12:32; Stop 12/21/16 at 12:33; Status DC Midazolam HCl 2 mg 2 mg 1X ONCE IV ; Start 12/21/16 at 14:00; Stop 12/21/16 at 14:01; Status DC Magnesium Sulfate/ Dextrose 50 ml @ 25 mls/hr 1X ONCE IV Last administered on 12/21/16 15:12; Start 12/21/16 at 14:00; Stop 12/21/16 at 15:59; Status DC Ciprofloxacin Lactate 200 ml @ 200 mls/hr Q12HR IV Last administered on 08:39; Start 12/22/16 at 10:30 Levothyroxine Sodium/Sodium Chloride (Synthroid/Iv Sodium Chloride 0.9% 50ml) 5 ml @ 100 mls/hr DAILY IVP Last administered on 12/23/16 08:55; Start 12/22/16 at 10:30 Morphine Sulfate 1 mg PRN Q2HR PRN IV PAIN SEVERE; Start 12/22/16 at 10:00 Cefazolin Sodium/ Dextrose (Ancef 2gm Premix) 2 gm STK-MED ONCE IV ; Start 12/21 at 10:00; Stop 12/23/16 at 08:07; Status DC Midazolam HCl (Versed) 5 mg STK-MED ONCE .ROUTE ; Start 12/21/16 at 12:30; Stop 12/23/16 at 08:30; Status DC Active Scripts Active Ciprofloxacin Hcl 500 Mg Tablet 1 Tab PO BID Hydrocodone-Apap 5-325 (Hydrocodone Bit/Acetaminophen) 1 Each Tablet 1 Tab PO PRN Q4HRS PRN Reported Citracal + D Er Tablet (Calcium Carb & Cit/Vitamin D3) 1 Each Tablet.er 1 Each PO Nasonex (Mometasone Furoate) 17 Gm Hestand.pump 17 Gm NS PRN Losartan Potassium 25 Mg Tablet 50 Mg PO Fish Oil ([place]-3 Fatty Acids) 300 Mg Capsule 300 Mg PO DAILY Cymbalta (Duloxetine Hcl) 60 Mg Capsule.dr 60 Mg PO DAILY Crestor (Rosuvastatin Calcium) 40 Mg Tablet 40 Mg PO HS Levothyroxine Sodium 112 Mcg Tablet 112 Mcg PO DAILY Aciphex (Rabeprazole Sodium) 20 Mg Tablet.dr 20 Mg PO DAILY Vesicare (Solifenacin Succinate) 5 Mg Tablet 10 Mg PO DAILY Januvia (Sitagliptin Phosphate) 100 Mg Tablet 100 Mg PO DAILY Metoprolol Tartrate 25 Mg Tablet 25 Mg PO BID Aspirin 325 Mg Tablet 325 Mg PO DAILY [Vit D3] 2,000 Units DAILY Nortriptyline Hcl 25 Mg Capsule 25 Mg PO DAILY Vitals/I & O Vital Sign - Last 24 Hours 12/22/16 12/22/16 12/22/16 12/22/16 11:00 11:30 12:00 12:00 Temp 97.5 97.5 Pulse 78 78 78 Resp 14 13 B/P 162/72 172/73 136/69 Pulse Ox 100 100 100 O2 Delivery Nasal Cannula Nasal Cannula Nasal Cannula Nasal Cannula O2 Flow Rate 2.0 2.0 2.0 2.0 12/22/16 12/22/16 12/22/16 12/22/16 13:00 14:00 15:00 16:00 Temp 97.8 97.8 Pulse 90 78 78 92 Resp 14 14 B/P 167/73 133/71 146/70 125/67 Pulse Ox 100 100 100 100 O2 Delivery Nasal Cannula Nasal Cannula Nasal Cannula Nasal Cannula O2 Flow Rate 2.0 2.0 2.0 2.0 12/22/16 12/22/16 12/22/16 12/22/16 16:00 17:00 18:00 19:00 Temp 98.1 98.1 Pulse 76 79 91 Resp 16 15 12 B/P 137/67 130/65 157/71 Pulse Ox 100 100 100 O2 Delivery Nasal Cannula Nasal Cannula Nasal Cannula Nasal Cannula O2 Flow Rate 2.0 2.0 2.0 2.0 12/22/16 12/22/16 12/22/16 12/22/16 20:00 20:00 21:00 22:00 Pulse 84 90 80 Resp 20 11 13 B/P 138/70 132/63 125/63 Pulse Ox 100 99 100 O2 Delivery Nasal Cannula Nasal Cannula Nasal Cannula Nasal Cannula O2 Flow Rate 2.0 2.0 2.0 2.0 12/22/16 12/22/16 12/23/16 12/23/16 23:00 23:59 00:00 01:00 Temp 98.9 98.9 Pulse 84 82 80 Resp 18 20 23 B/P 129/47 135/60 114/47 Pulse Ox 98 100 100 O2 Delivery Nasal Cannula Nasal Cannula Nasal Cannula Nasal Cannula O2 Flow Rate 2.0 2.0 2.0 2.0 12/23/16 12/23/16 12/23/16 12/23/16 02:00 03:00 04:00 04:00 Temp 98.8 98.8 Pulse 77 80 74 Resp 10 18 B/P 118/69 133/70 136/70 Pulse Ox 99 100 100 O2 Delivery Nasal Cannula Nasal Cannula Nasal Cannula Nasal Cannula O2 Flow Rate 2.0 2.0 2.0 2.0 12/23/16 12/23/16 12/23/16 12/23/16 05:00 06:00 07:00 07:45 Temp 98.8 98.8 Pulse 75 71 85 Resp 14 09 18 B/P 150/73 142/68 155/74 Pulse Ox 100 100 98 O2 Delivery Nasal Cannula Nasal Cannula Nasal Cannula Room Air O2 Flow Rate 2.0 2.0 2.0 12/23/16 12/23/16 12/23/16 12/23/16 08:00 08:40 08:41 09:00 Pulse 76 85 85 77 Resp 18 18 B/P 146/75 155/74 155/74 144/74 Pulse Ox 95 99 O2 Delivery Nasal Cannula Nasal Cannula O2 Flow Rate 2.0 2.0 Intake and Output 12/22/16 12/22/16 12/23/16 15:00 23:00 07:00 Intake Total 1000 ml 305 ml Output Total 275 ml 1175 ml 800 ml Balance 725 ml -870 ml -800 ml SEBAS RABAGO CE[employer]ER Dec 23, 2016 10:12
--- NOTE | 2016-12-23 10:58 | PDOC ---
PROGRESS NOTES Chief Complaint Chief Complaint Subdural hematoma, worse with 11 mm midline shift s/p lily hole (12/21/16) HTN Recent craniotomy with evacuation of hematoma Headaches in the background of recent craniotomy Leukocytosis, likely reactive Hypokalemia History of Present Illness History of Present Illness Patient is seen while sitting up in her chair. She reports that she is feeling better but does have a headache. She is conversational and oriented x3. She is moving all of her extremities without issue. She is complaining of left wrist pain, she reports a possible fall and pain since. Her and her do not recall X-rays being taken, so they will be ordered. 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 She reports being hungry and thirsty , RN has not noticed any difficulty swallowing or concerns for aspiration, swallow study will be cancelled and diet added. Vitals Vitals Vital Signs Date Time Temp Pulse Resp B/P Pulse Ox O2 Delivery O2 Flow Rate FiO2 12/23/16 09:00 77 18 144/74 99 Nasal Cannula 2.0 12/23/16 07:00 98.8 98.8 Physical Exam General: Alert, Oriented X3, Cooperative, No acute distress, Other (sitting in chair) Heart: Regular rate, Normal S1, Normal S2 Lungs: Clear, Other (no wheezing) Abdomen: Soft, No tenderness Extremities: No cyanosis, No edema, Normal pulses, Other (left wrist pain with movement ) Skin: No rashes, Other (Cranial dressing is intact ) Labs LABS Laboratory Tests Test 12/22/16 22:00 12/23/16 04:30 12/23/16 04:35 Glucose (Fingerstick) 136mg/dL (70-99) White Blood Count 12.2x10^3/uL (4.0-11.0) Red Blood Count 3.97x10^6/uL (3.50-5.40) Hemoglobin 11.4g/dL (12.0-15.5) Hematocrit 34.2% (36.0-47.0) Mean Corpuscular Volume 86fL (79-100) Mean Corpuscular Hemoglobin 29pg (25-35) Mean Corpuscular Hemoglobin Concent 33g/dL (31-37) Red Cell Distribution Width 14.3% (11.5-14.5) Platelet Count 321x10^3/uL (140-400) Neutrophils (%) (Auto) 75% (31-73) Lymphocytes (%) (Auto) 17% (24-48) Monocytes (%) (Auto) 7% (0-9) Eosinophils (%) (Auto) 1% (0-3) Basophils (%) (Auto) 1% (0-3) Neutrophils # (Auto) 9.1x10^3uL (1.8-7.7) Lymphocytes # (Auto) 2.1x10^3/uL (1.0-4.8) Monocytes # (Auto) 0.8x10^3/uL (0.0-1.1) Eosinophils # (Auto) 0.1x10^3/uL (0.0-0.7) Basophils # (Auto) 0.1x10^3/uL (0.0-0.2) Sodium Level 141mmol/L (136-145) Potassium Level 3.2mmol/L (3.5-5.1) Chloride Level 105mmol/L (98-107) Carbon Dioxide Level 28mmol/L (21-32) Anion Gap 8 (6-14) Blood Urea Nitrogen 8mg/dL (7-20) Creatinine 0.7mg/dL (0.6-1.0) Estimated GFR (Cockcroft-Gault) 83.5 Glucose Level 119mg/dL (70-99) Calcium Level 8.5mg/dL (8.5-10.1) Review of Systems Review of Systems Patient has a slight headache and left wrist pain. Denies chest pain and shortness of breath. Denies fever and chills Assessment and Plan Assessmemt and Plan ASSESSMENT: Subdural hematoma, worse with 11 mm midline shift s/p lily hole (12/21/16) HTN, malignant vs emergency Recent craniotomy with evacuation of hematoma Headaches in the background of recent craniotomy Leukocytosis, likely reactive Hypokalemia PLAN: X-rays ordered of Left wrist Potassium replaced with 40mEq PO Swallow study was cancelled and ADA diet ordered Neurosurgery, neurology and cardiology are following, their recommendations are appreciated Social work is following for SNU evaluation Continue pain management Continue frequent neurological checks Continue PT/OT Monitor daily labs Plan discussed with RN, patient and bedside family. Problems: Comment Review of Relevant I have reviewed the following items jessica (where applicable) has been applied. Labs Laboratory Tests Test 12/21/16 12:07 12/21/16 13:15 12/21/16 18:15 12/22/16 04:44 Glucose (Fingerstick) 228mg/dL (70-99) 148mg/dL (70-99) White Blood Count 16.6x10^3/uL (4.0-11.0) 13.8x10^3/uL (4.0-11.0) Red Blood Count 4.22x10^6/uL (3.50-5.40) 4.08x10^6/uL (3.50-5.40) Hemoglobin 11.9g/dL (12.0-15.5) 11.6g/dL (12.0-15.5) Hematocrit 36.8% (36.0-47.0) 34.5% (36.0-47.0) Mean Corpuscular Volume 87fL (79-100) 85fL (79-100) Mean Corpuscular Hemoglobin 28pg (25-35) 29pg (25-35) Mean Corpuscular Hemoglobin Concent 32g/dL (31-37) 34g/dL (31-37) Red Cell Distribution Width 14.2% (11.5-14.5) 14.2% (11.5-14.5) Platelet Count 315x10^3/uL (140-400) 354x10^3/uL (140-400) Neutrophils (%) (Auto) 96% (31-73) 81% (31-73) Lymphocytes (%) (Auto) 3% (24-48) 13% (24-48) Monocytes (%) (Auto) 1% (0-9) 6% (0-9) Eosinophils (%) (Auto) 0% (0-3) 0% (0-3) Basophils (%) (Auto) 0% (0-3) 0% (0-3) Neutrophils # (Auto) 15.9x10^3uL (1.8-7.7) 11.2x10^3uL (1.8-7.7) Lymphocytes # (Auto) 0.5x10^3/uL (1.0-4.8) 1.7x10^3/uL (1.0-4.8) Monocytes # (Auto) 0.1x10^3/uL (0.0-1.1) 0.9x10^3/uL (0.0-1.1) Eosinophils # (Auto) 0.0x10^3/uL (0.0-0.7) 0.0x10^3/uL (0.0-0.7) Basophils # (Auto) 0.1x10^3/uL (0.0-0.2) 0.0x10^3/uL (0.0-0.2) Segmented Neutrophils % 90% (35-66) Band Neutrophils % 1% (0-9) Lymphocytes % 5% (24-48) Monocytes % 4% (0-10) Platelet Estimate Adequate (ADEQUATE) Sodium Level 138mmol/L (136-145) 141mmol/L (136-145) Potassium Level 3.5mmol/L (3.5-5.1) 4.0mmol/L (3.5-5.1) Chloride Level 102mmol/L (98-107) 105mmol/L (98-107) Carbon Dioxide Level 27mmol/L (21-32) 26mmol/L (21-32) Anion Gap 9 (6-14) 10 (6-14) Blood Urea Nitrogen 15mg/dL (7-20) 13mg/dL (7-20) Creatinine 1.1mg/dL (0.6-1.0) 0.8mg/dL (0.6-1.0) Estimated GFR (Cockcroft-Gault) 49.5 71.5 Glucose Level 253mg/dL (70-99) 129mg/dL (70-99) Calcium Level 8.4mg/dL (8.5-10.1) 8.4mg/dL (8.5-10.1) Phosphorus Level 2.7mg/dL (2.6-4.7) Magnesium Level 1.5mg/dL (1.8-2.4) Test 12/22/16 22:00 12/23/16 04:30 12/23/16 04:35 Glucose (Fingerstick) 136mg/dL (70-99) White Blood Count 12.2x10^3/uL (4.0-11.0) Red Blood Count 3.97x10^6/uL (3.50-5.40) Hemoglobin 11.4g/dL (12.0-15.5) Hematocrit 34.2% (36.0-47.0) Mean Corpuscular Volume 86fL (79-100) Mean Corpuscular Hemoglobin 29pg (25-35) Mean Corpuscular Hemoglobin Concent 33g/dL (31-37) Red Cell Distribution Width 14.3% (11.5-14.5) Platelet Count 321x10^3/uL (140-400) Neutrophils (%) (Auto) 75% (31-73) Lymphocytes (%) (Auto) 17% (24-48) Monocytes (%) (Auto) 7% (0-9) Eosinophils (%) (Auto) 1% (0-3) Basophils (%) (Auto) 1% (0-3) Neutrophils # (Auto) 9.1x10^3uL (1.8-7.7) Lymphocytes # (Auto) 2.1x10^3/uL (1.0-4.8) Monocytes # (Auto) 0.8x10^3/uL (0.0-1.1) Eosinophils # (Auto) 0.1x10^3/uL (0.0-0.7) Basophils # (Auto) 0.1x10^3/uL (0.0-0.2) Sodium Level 141mmol/L (136-145) Potassium Level 3.2mmol/L (3.5-5.1) Chloride Level 105mmol/L (98-107) Carbon Dioxide Level 28mmol/L (21-32) Anion Gap 8 (6-14) Blood Urea Nitrogen 8mg/dL (7-20) Creatinine 0.7mg/dL (0.6-1.0) Estimated GFR (Cockcroft-Gault) 83.5 Glucose Level 119mg/dL (70-99) Calcium Level 8.5mg/dL (8.5-10.1) Laboratory Tests Test 12/22/16 22:00 12/23/16 04:30 12/23/16 04:35 Glucose (Fingerstick) 136mg/dL (70-99) White Blood Count 12.2x10^3/uL (4.0-11.0) Red Blood Count 3.97x10^6/uL (3.50-5.40) Hemoglobin 11.4g/dL (12.0-15.5) Hematocrit 34.2% (36.0-47.0) Mean Corpuscular Volume 86fL (79-100) Mean Corpuscular Hemoglobin 29pg (25-35) Mean Corpuscular Hemoglobin Concent 33g/dL (31-37) Red Cell Distribution Width 14.3% (11.5-14.5) Platelet Count 321x10^3/uL (140-400) Neutrophils (%) (Auto) 75% (31-73) Lymphocytes (%) (Auto) 17% (24-48) Monocytes (%) (Auto) 7% (0-9) Eosinophils (%) (Auto) 1% (0-3) Basophils (%) (Auto) 1% (0-3) Neutrophils # (Auto) 9.1x10^3uL (1.8-7.7) Lymphocytes # (Auto) 2.1x10^3/uL (1.0-4.8) Monocytes # (Auto) 0.8x10^3/uL (0.0-1.1) Eosinophils # (Auto) 0.1x10^3/uL (0.0-0.7) Basophils # (Auto) 0.1x10^3/uL (0.0-0.2) Sodium Level 141mmol/L (136-145) Potassium Level 3.2mmol/L (3.5-5.1) Chloride Level 105mmol/L (98-107) Carbon Dioxide Level 28mmol/L (21-32) Anion Gap 8 (6-14) Blood Urea Nitrogen 8mg/dL (7-20) Creatinine 0.7mg/dL (0.6-1.0) Estimated GFR (Cockcroft-Gault) 83.5 Glucose Level 119mg/dL (70-99) Calcium Level 8.5mg/dL (8.5-10.1) Medications Current Medications Ondansetron HCl (Zofran) 4 mg PRN Q6HRS PRN IV Nausea; Start 12/21/16 at 07:00 ; Stop 12/22/16 at 06:59; Status DC Fentanyl Citrate (Fentanyl 2ml Vial) 25 mcg PRN Q5MIN PRN IV MILD PAIN; Start 12/21/16 at 07:00; Stop 12/22/16 at 06:59; Status DC Fentanyl Citrate (Fentanyl 2ml Vial) 50 mcg PRN Q5MIN PRN IV MODERATE PAIN; Start 12/21/16 at 07:00; Stop 12/22/16 at 06:59; Status DC Morphine Sulfate 1 mg 1 mg PRN Q10MIN PRN IV SEVERE PAIN; Start 12/21/16 at 07: 00; Stop 12/22/16 at 06:59; Status DC Lactated Ringer's (Iv Lactated Ringers) 1,000 ml @ 0 mls/hr Q0M IV ; Start at 07:00; Stop 12/21/16 at 18:59; Status DC Lidocaine HCl 2 ml 1X PRN PRN ID IV START; Start 12/21/16 at 07:00; Stop at 06:59; Status DC Hydromorphone HCl (Dilaudid) 0.5 mg PRN Q10MIN PRN IV SEVERE PAIN, Second choice; Start 12/21/16 at 07:00; Stop 12/22/16 at 06:59; Status DC Prochlorperazine Edisylate 5 mg 5 mg PACU PRN PRN IV NAUSEA; Start 12/21/16 at 07:00; Stop 12/22/16 at 06:59; Status DC Bacitracin/Sodium Chloride (Bacitracin/Iv Sodium Chloride 0.9% 1000ml Bag) 1, 000 ml @ 1,000 mls/hr 1X PERIOP ONCE IRR ; Start 12/20/16 at 16:26; Stop 12/20 at 17:25; Status DC Acetaminophen/ Hydrocodone Bitart (Lortab 5/325) 1 tab PRN Q4HRS PRN PO MILD PAIN; Start 12/20/16 at 16:45 Levothyroxine Sodium (Synthroid) 112 mcg DAILY07 PO ; Start 12/20/16 at 17:00; Stop 12/22/16 at 09:58; Status DC Losartan Potassium (Cozaar) 50 mg DAILY PO Last administered on 12/23/16 08:40 ; Start 12/20/16 at 17:00 Metoprolol Tartrate (Lopressor) 25 mg BID PO Last administered on 12/23/16 08: 41; Start 12/20/16 at 21:00 Nortriptyline HCl (Pamelor) 25 mg DAILY PO Last administered on 12/23/16 08:40 ; Start 12/20/16 at 17:00 Non-Formulary Medication 1 tab BID PO ; Start 12/20/16 at 21:00; Status UNV Duloxetine HCl (Cymbalta) 60 mg DAILY PO Last administered on 12/23/16 08:40; Start 12/21/16 at 09:00 Fluticasone Propionate (Flonase) 2 spray DAILY NS Last administered on 08:40; Start 12/21/16 at 09:00 Pantoprazole Sodium (Protonix) 40 mg DAILYAC PO Last administered on 12/23/16 08:41; Start 12/21/16 at 07:30 Atorvastatin Calcium (Lipitor) 80 mg QHS PO Last administered on 12/20/16 20: 33; Start 12/20/16 at 21:00 Linagliptin (Tradjenta) 5 mg DAILY PO Last administered on 12/23/16 08:40; Start 12/21/16 at 09:00 Oxybutynin Chloride (Ditropan) 5 mg [id number] PO Last administered on 12/23/16 08 :40; Start 12/20/16 at 21:00 Vitamin D (Vitamin D3) 2,000 unit DAILY PO Last administered on 12/23/16 08:40 ; Start 12/21/16 at 09:00 Al Hydroxide/Mg Hydroxide (Mylanta Plus Xs) 30 ml PRN Q3HRS PRN PO HEARTBURN / GAS; Start 12/20/16 at 16:45 Calcium Carbonate/ Glycine (Tums) 500 mg PRN Q3HRS PRN PO INDIGESTION; Start at 16:45 Diphenhydramine HCl (Benadryl) 25 mg PRN Q6HRS PRN PO ITCHING; Start 12/20/16 at 16:45 Diphenhydramine HCl (Benadryl) 25 mg PRN Q6HRS PRN IV ITCHING; Start 12/20/16 at 16:45 Sodium Chloride (Normal Saline Flush) 3 ml QSHIFT PRN IV AFTER MEDS AND BLOOD DRAWS; Start 12/20/16 at 16:45 Dextrose 12.5 gm PRN Q15MIN PRN IV SEE COMMENTS; Start 12/20/16 at 16:45 Docusate Sodium (Colace) 100 mg BID PO Last administered on 12/23/16 08:41; Start 12/20/16 at 21:00 Magnesium Hydroxide 2400 mg 2,400 mg PRN Q12HR PRN PO CONSTIPATION; Start 12/20 at 16:45 Cefazolin Sodium 2 gm/Sodium Chloride 100 ml @ 200 mls/hr 1X PREOP IV ; Start 12/21/16 at 08:00; Status UNV Cefazolin Sodium/ Dextrose (Ancef 2gm Premix) 50 ml @ 100 mls/hr 1X ONCE IV Last administered on 12/21/16 09:48; Start 12/21/16 at 06:00; Stop 12/21/16 at 06:29; Status DC Acetaminophen 500 mg 500 mg PRN Q6HRS PRN PO MILD PAIN / TEMP; Start 12/20/16 at 17:45 Sodium Chloride 1,000 ml @ 75 mls/hr [id number] IV Last administered on 21:47; Start 12/20/16 at 17:45 Bacitracin/Sodium Chloride (Bacitracin/Iv Sodium Chloride 0.9% 1000ml Bag) 1, 000 ml @ 1,000 mls/hr 1X PERIOP ONCE IRR Last administered on 12/21/16 10:09 ; Start 12/21/16 at 06:00; Stop 12/21/16 at 06:59; Status DC Ciprofloxacin (Cipro) 500 mg BID PO Last administered on 12/20/16 20:32; Start 12/20/16 at 21:00; Stop 12/22/16 at 09:58; Status DC Cellulose 1 each STK-MED ONCE .ROUTE ; Start 12/21/16 at 08:41; Stop 12/21/16 at 08:42; Status DC Bupivacaine HCl/ Epinephrine Bitart (Sensorcain-Mpf Epi 0.5%-[id number]) 30 ml STK -MED ONCE .ROUTE Last administered on 12/21/16 10:09; Start 12/21/16 at 08:41 ; Stop 12/21/16 at 08:42; Status DC Gelatin (Gelfoam Size 100) 1 each STK-MED ONCE .ROUTE Last administered on 10:09; Start 12/21/16 at 08:41; Stop 12/21/16 at 08:42; Status DC Thrombin 20,000 unit STK-MED ONCE TP Last administered on 12/21/16 10:09; Start 12/21/16 at 08:41; Stop 12/21/16 at 08:42; Status DC Fentanyl Citrate (Fentanyl 2ml Vial) 100 mcg STK-MED ONCE .ROUTE ; Start at 08:51; Stop 12/21/16 at 08:52; Status DC Rocuronium [place] (Zemuron) 50 mg STK-MED ONCE .ROUTE ; Start 12/21/16 at 08:51 ; Stop 12/21/16 at 08:52; Status DC Lidocaine HCl 100 mg 100 mg STK-MED ONCE .ROUTE ; Start 12/21/16 at 08:51; Stop 12/21/16 at 08:52; Status DC Propofol (Diprivan) 20 ml @ As Directed STK-MED ONCE IV ; Start 12/21/16 at 08: 51; Stop 12/21/16 at 08:52; Status DC Dexamethasone Sodium Phosphate (Decadron) 20 mg STK-MED ONCE .ROUTE ; Start at 08:52; Stop 12/21/16 at 08:53; Status DC Ondansetron HCl (Zofran) 4 mg STK-MED ONCE .ROUTE ; Start 12/21/16 at 08:52; Stop 12/21/16 at 08:53; Status DC Glycopyrrolate (Robinul) 1 mg STK-MED ONCE .ROUTE ; Start 12/21/16 at 10:41; Stop 12/21/16 at 10:42; Status DC Neostigmine Methylsulfate 5 mg STK-MED ONCE .ROUTE ; Start 12/21/16 at 10:41; Stop 12/21/16 at 10:42; Status DC Desflurane 60 ml 60 ml STK-MED ONCE IH ; Start 12/21/16 at 11:19; Stop 12/21/16 at 11:20; Status DC Nicardipine HCl/ Sodium Chloride (Cardene/Iv Sodium Chloride 0.9% 250ml) 270 ml @ 0 mls/hr CONT PRN IV SEE I/O RECORD Last administered on 12/22/16 11:07; Start 12/21/16 at 11:30 Lorazepam (Ativan) 2 mg STK-MED ONCE .ROUTE ; Start 12/21/16 at 11:34; Stop at 11:35; Status DC Lorazepam 2 mg 2 mg 1X ONCE IV Last administered on 12/21/16 12:07; Start at 12:15; Stop 12/21/16 at 12:16; Status DC Levetiracetam/ Sodium Chloride (Keppra/Iv Sodium Chloride 0.9% 100ml) 105 ml @ 400 mls/hr Q12HR IV Last administered on 12/23/16 08:39; Start 12/21/16 at 12: 30 Levetiracetam (Keppra) 500 mg BID PO ; Start 12/21/16 at 21:00; Status Cancel Lorazepam (Ativan) 2 mg PRN Q4HRS PRN IV ANXIETY / AGITATION; Start 12/21/16 at 12:15 Midazolam HCl (Versed) 1 mg 1X ONCE IV Last administered on 12/21/16 12:30; Start 12/21/16 at 12:30; Stop 12/21/16 at 12:31; Status DC Midazolam HCl (Versed) 5 mg STK-MED ONCE .ROUTE ; Start 12/21/16 at 12:32; Stop 12/21/16 at 12:33; Status DC Midazolam HCl 2 mg 2 mg 1X ONCE IV ; Start 12/21/16 at 14:00; Stop 12/21/16 at 14:01; Status DC Magnesium Sulfate/ Dextrose 50 ml @ 25 mls/hr 1X ONCE IV Last administered on 12/21/16 15:12; Start 12/21/16 at 14:00; Stop 12/21/16 at 15:59; Status DC Ciprofloxacin Lactate 200 ml @ 200 mls/hr Q12HR IV Last administered on 08:39; Start 12/22/16 at 10:30 Levothyroxine Sodium/Sodium Chloride (Synthroid/Iv Sodium Chloride 0.9% 50ml) 5 ml @ 100 mls/hr DAILY IVP Last administered on 12/23/16 08:55; Start 12/22/16 at 10:30 Morphine Sulfate 1 mg PRN Q2HR PRN IV PAIN SEVERE; Start 12/22/16 at 10:00 Cefazolin Sodium/ Dextrose (Ancef 2gm Premix) 2 gm STK-MED ONCE IV ; Start 12/21 at 10:00; Stop 12/23/16 at 08:07; Status DC Midazolam HCl (Versed) 5 mg STK-MED ONCE .ROUTE ; Start 12/21/16 at 12:30; Stop 12/23/16 at 08:30; Status DC Active Scripts Active Ciprofloxacin Hcl 500 Mg Tablet 1 Tab PO BID Hydrocodone-Apap 5-325 (Hydrocodone Bit/Acetaminophen) 1 Each Tablet 1 Tab PO PRN Q4HRS PRN Reported Citracal + D Er Tablet (Calcium Carb & Cit/Vitamin D3) 1 Each Tablet.er 1 Each PO Nasonex (Mometasone Furoate) 17 Gm [place].pump 17 Gm NS PRN Losartan Potassium 25 Mg Tablet 50 Mg PO Fish Oil ([place]-3 Fatty Acids) 300 Mg Capsule 300 Mg PO DAILY Cymbalta (Duloxetine Hcl) 60 Mg Capsule.dr 60 Mg PO DAILY Crestor (Rosuvastatin Calcium) 40 Mg Tablet 40 Mg PO HS Levothyroxine Sodium 112 Mcg Tablet 112 Mcg PO DAILY Aciphex (Rabeprazole Sodium) 20 Mg Tablet.dr 20 Mg PO DAILY Vesicare (Solifenacin Succinate) 5 Mg Tablet 10 Mg PO DAILY Januvia (Sitagliptin Phosphate) 100 Mg Tablet 100 Mg PO DAILY Metoprolol Tartrate 25 Mg Tablet 25 Mg PO BID Aspirin 325 Mg Tablet 325 Mg PO DAILY [Vit D3] 2,000 Units DAILY Nortriptyline Hcl 25 Mg Capsule 25 Mg PO DAILY Vitals/I & O Vital Sign - Last 24 Hours 12/22/16 12/22/16 12/22/16 12/22/16 11:00 11:30 12:00 12:00 Temp 97.5 97.5 Pulse 78 78 78 Resp 14 13 B/P 162/72 172/73 136/69 Pulse Ox 100 100 100 O2 Delivery Nasal Cannula Nasal Cannula Nasal Cannula Nasal Cannula O2 Flow Rate 2.0 2.0 2.0 2.0 12/22/16 12/22/16 12/22/16 12/22/16 13:00 14:00 15:00 16:00 Temp 97.8 97.8 Pulse 90 78 78 92 Resp 14 14 B/P 167/73 133/71 146/70 125/67 Pulse Ox 100 100 100 100 O2 Delivery Nasal Cannula Nasal Cannula Nasal Cannula Nasal Cannula O2 Flow Rate 2.0 2.0 2.0 2.0 12/22/16 12/22/16 12/22/16 12/22/16 16:00 17:00 18:00 19:00 Temp 98.1 98.1 Pulse 76 79 91 Resp 16 15 12 B/P 137/67 130/65 157/71 Pulse Ox 100 100 100 O2 Delivery Nasal Cannula Nasal Cannula Nasal Cannula Nasal Cannula O2 Flow Rate 2.0 2.0 2.0 2.0 12/22/16 12/22/16 12/22/16 12/22/16 20:00 20:00 21:00 22:00 Pulse 84 90 80 Resp 20 11 13 B/P 138/70 132/63 125/63 Pulse Ox 100 99 100 O2 Delivery Nasal Cannula Nasal Cannula Nasal Cannula Nasal Cannula O2 Flow Rate 2.0 2.0 2.0 2.0 12/22/16 12/22/16 12/23/16 12/23/16 23:00 23:59 00:00 01:00 Temp 98.9 98.9 Pulse 84 82 80 Resp 18 20 23 B/P 129/47 135/60 114/47 Pulse Ox 98 100 100 O2 Delivery Nasal Cannula Nasal Cannula Nasal Cannula Nasal Cannula O2 Flow Rate 2.0 2.0 2.0 2.0 12/23/16 12/23/16 12/23/16 12/23/16 02:00 03:00 04:00 04:00 Temp 98.8 98.8 Pulse 77 80 74 Resp 10 18 B/P 118/69 133/70 136/70 Pulse Ox 99 100 100 O2 Delivery Nasal Cannula Nasal Cannula Nasal Cannula Nasal Cannula O2 Flow Rate 2.0 2.0 2.0 2.0 12/23/16 12/23/16 12/23/16 12/23/16 05:00 06:00 07:00 07:45 Temp 98.8 98.8 Pulse 75 71 85 Resp 14 09 18 B/P 150/73 142/68 155/74 Pulse Ox 100 100 98 O2 Delivery Nasal Cannula Nasal Cannula Nasal Cannula Room Air O2 Flow Rate 2.0 2.0 2.0 3/12/23/16 12/23/16 12/23/16 08:00 08:40 08:41 09:00 Pulse 76 85 85 77 Resp 18 18 B/P 146/75 155/74 155/74 144/74 Pulse Ox 95 99 O2 Delivery Nasal Cannula Nasal Cannula O2 Flow Rate 2.0 2.0 Intake and Output 12/22/16 12/22/16 12/23/16 15:00 23:00 07:00 Intake Total 1000 ml 305 ml Output Total 275 ml 1175 ml 800 ml Balance 725 ml -870 ml -800 ml AFSHAN [place] III DO Dec 23, 2016 10:58
[2016-12-23] MEDS ORDERED: POTASSIUM CHLORIDE 20 MEQ TABLET.ER. PO ONE (11:30)
--- NOTE | 2016-12-23 13:03 | PDOC ---
CARDIO Progress Notes Date and Time Date of Service 12/23/16 Time of Evaluation 1300 Subjective Subjective: No Chest Pain, No Palpitations, No Dizziness, Other (resting comfortably in bed, confused. No WILL) Vitals Vitals Vital Signs Date Time Temp Pulse Resp B/P Pulse Ox O2 Delivery O2 Flow Rate FiO2 12/23/16 12:51 18 96 Room Air 12/23/16 11:00 77 148/82 12/23/16 09:00 2.0 12/23/16 07:00 98.8 98.8 Weight Weight [ ] Input and Output Intake and Output Intake and Output 12/23/16 07:00 Intake Total 1305 ml Output Total 2250 ml Balance -945 ml IV Total 1305 ml Output Urine Total 2165 ml Drainage Total 85 ml Laboratory Labs Laboratory Tests Test 12/22/16 22:00 12/23/16 04:30 12/23/16 04:35 12/23/16 12:34 Glucose (Fingerstick) 136mg/dL (70-99) 125mg/dL (70-99) White Blood Count 12.2x10^3/uL (4.0-11.0) Red Blood Count 3.97x10^6/uL (3.50-5.40) Hemoglobin 11.4g/dL (12.0-15.5) Hematocrit 34.2% (36.0-47.0) Mean Corpuscular Volume 86fL (79-100) Mean Corpuscular Hemoglobin 29pg (25-35) Mean Corpuscular Hemoglobin Concent 33g/dL (31-37) Red Cell Distribution Width 14.3% (11.5-14.5) Platelet Count 321x10^3/uL (140-400) Neutrophils (%) (Auto) 75% (31-73) Lymphocytes (%) (Auto) 17% (24-48) Monocytes (%) (Auto) 7% (0-9) Eosinophils (%) (Auto) 1% (0-3) Basophils (%) (Auto) 1% (0-3) Neutrophils # (Auto) 9.1x10^3uL (1.8-7.7) Lymphocytes # (Auto) 2.1x10^3/uL (1.0-4.8) Monocytes # (Auto) 0.8x10^3/uL (0.0-1.1) Eosinophils # (Auto) 0.1x10^3/uL (0.0-0.7) Basophils # (Auto) 0.1x10^3/uL (0.0-0.2) Sodium Level 141mmol/L (136-145) Potassium Level 3.2mmol/L (3.5-5.1) Chloride Level 105mmol/L (98-107) Carbon Dioxide Level 28mmol/L (21-32) Anion Gap 8 (6-14) Blood Urea Nitrogen 8mg/dL (7-20) Creatinine 0.7mg/dL (0.6-1.0) Estimated GFR (Cockcroft-Gault) 83.5 Glucose Level 119mg/dL (70-99) Calcium Level 8.5mg/dL (8.5-10.1) Physical Exam HEENT: Neck Supple W Full Motion, Other (connie intact to scalp) Chest: Symmetric LUNGS: Clear to Auscultation Heart: S1S2, RRR Abdomen: Soft N/T Neurology: alert, follow commands, other (expressive aphasia ) Assessment Assessment 1. Uncontrolled hypertension 2. Subdural Hematoma, chronic; s/p evacuation 3. CAD 4. Hypokalemia 5. Seizure Recommendations Taking PO- BP well-controlled with resumption of PO antiHTN therapy Continue with secondary prevention. ASA on hold with SDH. Post-op management per neuro sx HH versus rehab upon discharge as not likely able to care for her. No further cardiac recommendations Follow up with cardiology 01/09/2017 as previously scheduled MADI DOUGLAS APRN Dec 23, 2016 13:03
--- NOTE | 2016-12-23 13:40 | RAD ---
Left wrist, 3 views, 12/23/2016: History: Wrist pain after a fall The bony structures are demineralized. There is extensive degenerative change at the first CMC joint with periarticular calcifications. There is a degenerative type cyst in the scaphoid bone. There is widening of the scapholunate distance suggesting ligamentous injury. No acute fracture or dislocation is identified. IMPRESSION: 1. Demineralization. 2. 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 3. Widening of the scapholunate distance suggesting ligamentous injury.
--- NOTE | 2016-12-23 14:14 | PDOC ---
PROGRESS NOTES Assessment Assessment IMPRESSION: Left SDH with midline shift s/p evacuation. Metabolic encephalopathy. Headache. HTN HLD DM CAD Hypothyroidism Obesity. RECOMMENDATIONS/PLAN: Continue Keppra. Continue Statin. No antiplatelet agent at the present time. Treat medical diseases. OT/PT. Rehab as needed. SUBJECTIVE: She said she wanted to go home. OBJECTIVE: No new deficits. PAST MEDICAL AND SURGICAL HISTORY: Please see H&P MEDICATIONS: Refer to MAR REVIEW OF SYSTEMS: Constitutional: No malnutrition, weight loss, cachexia. Head: migraine headaches. Skin: No edema, or rash. Ear: No infection, tinnitus. Eyes: No vision loss, or diplopia. Nose: No bleeding or purulent discharges. Hearing: Hearing loss. Neck: No injury. Breast: No history of cancer, masses, or discharges. Cardiac: CAD, HTN, HLD Pulmonary: No CPOD. GI: No GI Ulcer, GI bleeding. Urinary/genital: UTI. Endocrine: Diabetes Mellitus, hypothyroidism, obesity. Skeletomuscular: No muscular atrophy, deformity. Neurological: see HP. Psychiatric: Denies drug use/abuse. Otherwise, not [id number] review of systems. PHYSICAL EXAMINATION: General appearance in subacute distress. HEENT: Normocephalic and nontraumatic. Eyes, nose, ears, and throat are unremarkable. Hearing decrease. Neck is supple. No lymphadenopathy. No bruits are heard over the carotid artery. No Crepitus. Cardiovascular: S1, S2, regular rate and rhythm. Pulmonary: Clear to auscultation bilaterally. Abdomen: Bowel sounds are positive. Extremities: No rash, lesions, or edema. No restriction of range of motion NEUROLOGICAL EXAMINATION: Awake. Oriented to place and person but not to time. PERRL. EOMI. CN: no cute focal findings. Muscle tone: within normal. Muscle strength: 4 DTR: 2 Plantar reflex: Neutral response bilaterally Gait: not examined in bed. Sensory exam: no acute abnormal findings. No obvious cerebellar signs elicited. F-T-N test fine. Objective Objective Vital Signs Date Time Temp Pulse Resp B/P Pulse Ox O2 Delivery O2 Flow Rate FiO2 12/23/16 13:51 20 95 Room Air 12/23/16 13:00 74 152/80 12/23/16 12:00 98.7 98.7 12/23/16 09:00 2.0 Intake and Output 12/23/16 07:00 Intake Total 1305 ml Output Total 2250 ml Balance -945 ml IV Total 1305 ml Output Urine Total 2165 ml Drainage Total 85 ml Vitals Signs Vitals VS - Last 72 Hours, by Label Date Time Temp Pulse Resp B/P Pulse Ox O2 Delivery O2 Flow Rate FiO2 12/23/16 13:51 20 95 Room Air 12/23/16 13:00 74 20 152/80 94 Room Air 12/23/16 12:51 18 96 Room Air 12/23/16 12:00 Room Air 12/23/16 12:00 98.7 70 18 165/85 96 Room Air 98.7 12/23/16 11:00 77 18 148/82 96 Room Air 12/23/16 10:00 83 18 145/82 95 Room Air 12/23/16 09:00 77 18 144/74 99 Nasal Cannula 2.0 12/23/16 08:41 85 155/74 12/23/16 08:40 85 155/74 12/23/16 08:00 76 18 146/75 95 Nasal Cannula 2.0 12/23/16 07:45 Room Air 12/23/16 07:00 98.8 85 18 155/74 98 Nasal Cannula 2.0 98.8 12/23/16 06:00 71 12 142/68 100 Nasal Cannula 2.0 12/23/16 05:00 75 17 150/73 100 Nasal Cannula 2.0 12/23/16 04:00 Nasal Cannula 2.0 12/23/16 04:00 74 18 136/70 100 Nasal Cannula 2.0 12/23/16 03:00 98.8 80 10 133/70 100 Nasal Cannula 2.0 98.8 12/23/16 02:00 77 21 118/69 99 Nasal Cannula 2.0 12/23/16 01:00 80 23 114/47 100 Nasal Cannula 2.0 12/23/16 00:00 82 20 135/60 100 Nasal Cannula 2.0 12/22/16 23:59 Nasal Cannula 2.0 12/22/16 23:00 98.9 84 18 129/47 98 Nasal Cannula 2.0 98.9 12/22/16 22:00 80 13 125/63 100 Nasal Cannula 2.0 12/22/16 21:00 90 11 132/63 99 Nasal Cannula 2.0 12/22/16 20:00 84 20 138/70 100 Nasal Cannula 2.0 12/22/16 20:00 Nasal Cannula 2.0 12/22/16 19:00 98.1 91 12 157/71 100 Nasal Cannula 2.0 98.1 12/22/16 18:00 79 15 130/65 100 Nasal Cannula 2.0 12/22/16 17:00 76 16 137/67 100 Nasal Cannula 2.0 12/22/16 16:00 Nasal Cannula 2.0 12/22/16 16:00 97.8 92 14 125/67 100 Nasal Cannula 2.0 97.8 12/22/16 15:00 78 14 146/70 100 Nasal Cannula 2.0 12/22/16 14:00 78 133/71 100 Nasal Cannula 2.0 12/22/16 13:00 90 167/73 100 Nasal Cannula 2.0 12/22/16 12:00 97.5 78 136/69 100 Nasal Cannula 2.0 97.5 12/22/16 12:00 Nasal Cannula 2.0 12/22/16 11:30 78 13 172/73 100 Nasal Cannula 2.0 12/22/16 11:00 78 14 162/72 100 Nasal Cannula 2.0 12/22/16 10:00 84 14 133/68 100 Nasal Cannula 2.0 12/22/16 09:00 83 13 141/70 100 Nasal Cannula 2.0 12/22/16 08:00 98.0 80 14 142/71 100 Nasal Cannula 2.0 98.0 12/22/16 08:00 Nasal Cannula 2.0 12/22/16 07:00 80 14 129/68 100 Nasal Cannula 2.0 Laboratory Laboratory Laboratory Tests Test 12/22/16 22:00 12/23/16 04:30 12/23/16 04:35 12/23/16 12:34 Glucose (Fingerstick) 136mg/dL (70-99) 125mg/dL (70-99) White Blood Count 12.2x10^3/uL (4.0-11.0) Red Blood Count 3.97x10^6/uL (3.50-5.40) Hemoglobin 11.4g/dL (12.0-15.5) Hematocrit 34.2% (36.0-47.0) Mean Corpuscular Volume 86fL (79-100) Mean Corpuscular Hemoglobin 29pg (25-35) Mean Corpuscular Hemoglobin Concent 33g/dL (31-37) Red Cell Distribution Width 14.3% (11.5-14.5) Platelet Count 321x10^3/uL (140-400) Neutrophils (%) (Auto) 75% (31-73) Lymphocytes (%) (Auto) 17% (24-48) Monocytes (%) (Auto) 7% (0-9) Eosinophils (%) (Auto) 1% (0-3) Basophils (%) (Auto) 1% (0-3) Neutrophils # (Auto) 9.1x10^3uL (1.8-7.7) Lymphocytes # (Auto) 2.1x10^3/uL (1.0-4.8) Monocytes # (Auto) 0.8x10^3/uL (0.0-1.1) Eosinophils # (Auto) 0.1x10^3/uL (0.0-0.7) Basophils # (Auto) 0.1x10^3/uL (0.0-0.2) Sodium Level 141mmol/L (136-145) Potassium Level 3.2mmol/L (3.5-5.1) Chloride Level 105mmol/L (98-107) Carbon Dioxide Level 28mmol/L (21-32) Anion Gap 8 (6-14) Blood Urea Nitrogen 8mg/dL (7-20) Creatinine 0.7mg/dL (0.6-1.0) Estimated GFR (Cockcroft-Gault) 83.5 Glucose Level 119mg/dL (70-99) Calcium Level 8.5mg/dL (8.5-10.1) Medication Medications Current Medications Potassium Chloride (Klor-Con) 40 meq 1X ONCE PO Last administered on t 12:52; Start 12/23/16 at 11:30; Stop 12/23/16 at 11:31; Status DC Comment Review of Relevant I have reviewed the following items jessica (where applicable) has been applied. MARYURI CHEN MD Dec 23, 2016 14:14
[2016-12-23] MEDS: DOCUSATE SODIUM 100 MG CAPSULE. PO SCH (21:09)
[2016-12-23] MEDS: ATORVASTATIN CALCIUM 40 MG TABLET. PO SCH (21:09)
[2016-12-24 03:00] VITALS: BP 127/56
[2016-12-24 05:13] LABS: BASO # 0.1 x10^3/uL (0.0-0.2); BASO % 1 % (0-3); EOS % 1 % (0-3); HEMATOCRIT 34.6 % (36.0-47.0); HEMOGLOBIN 11.4 g/dL (12.0-15.5); LYMPH # 1.6 x10^3/uL (1.0-4.8); LYMPH % 12 % (24-48); MEAN CORPUSCULAR HEMOGLOBIN 28 pg (25-35); MEAN CORPUSCULAR HGB CONC 33 g/dL (31-37); MEAN CORPUSCULAR VOLUME 85 fL (79-100); MONO % 8 % (0-9); NEUT % 79 % (31-73); PLATELET COUNT 324 x10^3/uL (140-400); RED BLOOD COUNT 4.05 x10^6/uL (3.50-5.40); RED CELL DISTRIBUTION WIDTH 14.1 % (11.5-14.5); WHITE BLOOD COUNT 13.5 x10^3/uL (4.0-11.0)
[2016-12-24 05:28] LABS: CALCIUM 9.3 mg/dL (8.5-10.1); CREATININE 0.7 mg/dL (0.6-1.0); GFR 83.5; POTASSIUM 3.5 mmol/L (3.5-5.1)
[2016-12-24 07:00] VITALS: BP 134/68
--- NOTE | 2016-12-24 07:01 | CONS ---
DATE OF CONSULTATION: 12/23/2016 ATTENDING PHYSICIAN: Dr. Fonseca. The patient was seen at the request of Dr. Fonseca for rehab evaluation. HISTORY OF PRESENT ILLNESS: This is a 66-year-old admitted through the Emergency Room on 12/21/2016 with malignant hypertension and was found to have subdural hematoma for which she underwent hematoma evacuation done on 12/21/2016. The patient with known coronary artery disease, migraine, gastroesophageal reflux disease, cholelithiasis, anxiety, depression, urinary tract infection, diabetes mellitus, hypothyroidism, status post bilateral total knee replacement done in the past without any problems, hysterectomy. The patient had a family history of hypertension. She lives with her in [facility], had a flight of 5 steps each to enter the house from the garage, railing in place and she has been independent with her mobility and self-care skills until recent hospitalizations. The patient has been at [facility] and then transferred to correction care unit prior to the present hospitalization, the patient is participating in physical therapy, occupational therapy and speech pathology. She continues to have some cognitive and word finding difficulties. She is eager to go home. She is somewhat restless. The patient had an indwelling Devries catheter removed this afternoon. She has not voided yet. She had a bowel movement yesterday. The patient having some left wrist pain. She had x-rays taken, which revealed degenerative changes. No evidence of any acute fracture. PHYSICAL EXAMINATION: Today revealed a middle-aged female. She is awake, oriented to person, follows commands appropriately. No obvious visual field cut noted. 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 She had tenderness to palpation at the left wrist. The patient had some deformities of both thumbs secondary to degenerative changes at the thumb carpometacarpal joints. She had 2+ left ankle jerk, absent right ankle and bilateral knee jerks. She had equal perception of touch and pinprick sensation bilaterally. She needs close standby supervision during transfers. The patient is impulsive and as per physical therapy note, she required minimal assistance, supine to sit, transfers, stand step without any devices, minimal assistance while walking using a roller walker for about 40 feet. She requires cues to stay on task, minimal assistance of walker and to correct loss of balance x 1, one on one instructions. She had multiple skin bruises. She had connie to her craniotomy wound. ASSESSMENT: Mobility, self-care, communication and cognitive deficits in a patient with recent left frontotemporal parietal chronic subdural hematoma, left to right shift, status post craniotomy and evacuation of the chronic subdural hematoma with placement of drain done on 12/21/2016, hypertension, degenerative joint disease, sprain of left wrist. RECOMMENDATIONS: To ask for a screen for her transfer to inpatient rehab unit at [facility] for continued rehab when medically stable, to get her wrist cock-up splint. Dr. Fonseca, I appreciate asking me to participate in the care of this interesting patient. I will be glad to follow her with you as needed for her rehabilitation. TAMERA DELUNA MD DR: GALI/jak JOB#: [id number] / [id number]
[2016-12-24 08:13] VITALS: BP 134/68
--- NOTE | 2016-12-24 08:56 | RAD ---
CT of the head without contrast, 12/24/2016: History: Follow-up subdural hematoma, postop Comparison is made to a study from 12/21/2016. Postcraniotomy changes are again noted in the left frontal/temporal region. There is a small underlying residual extra-axial fluid collection of mixed density. It is unchanged in size. There is residual effacement of the underlying cortical sulci. There is a mild [id number] shift of the midline structures similar to that seen on the previous exam. The lateral ventricles have increased slightly in size, probably due to less intracranial edema. The ventricles are within normal limits in size. No intra-axial hemorrhage is seen. There are tiny lucencies in the basal ganglia bilaterally compatible with a lacunar infarcts. IMPRESSION: 1. Stable small residual left subdural mixed density fluid collection. 2. Mild residual left right shift of the midline structures. 3. No new intracranial hemorrhage is identified. PQRS Compliance Statement: One or more of the following individualized dose reduction techniques were utilized for this examination: 1. Automated exposure control 2. Adjustment of the mA and/or kV according to patient size 3. Use of iterative reconstruction technique
[2016-12-24] MEDS: NORTRIPTYLINE 25 MG CAPSULE PO SCH (09:02)
[2016-12-24] MEDS: DOCUSATE SODIUM 100 MG CAPSULE. PO SCH (09:03)
[2016-12-24] MEDS: DULOXETINE HCL 30 MG CAPSULE.DR. PO SCH (09:03)
[2016-12-24] MEDS: OXYBUTYNIN CHLORIDE 5 MG TABLET PO SCH (09:03)
[2016-12-24] MEDS: PANTOPRAZOLE 40 MG TABLET. PO SCH (09:03)
[2016-12-24] MEDS: METOPROLOL TART IMMED RELEASE 25 MG TABLET PO SCH (09:03)
[2016-12-24] MEDS: LINAGLIPTIN 5 MG TABLET PO SCH (09:03)
[2016-12-24] MEDS: CHOLECALCIFEROL (VITAMIN D3) 1,000 UNIT TABLET PO SCH (09:03)
[2016-12-24] MEDS: LOSARTAN POTASSIUM 50 MG TABLET. PO SCH (09:03)
[2016-12-24] MEDS: LEVETIRACETAM 500 MG in IV NORMAL SALINE 100ML 100 ML IV SCH (09:04)
[2016-12-24] MEDS: CIPROFLOXACIN 400MG PREMIX 200 ML IV SCH (09:04)
[2016-12-24] MEDS: NORMAL SALINE IVP SCH (09:05)
[2016-12-24] MEDS: LEVOTHYROXINE SODIUM IVP SCH (09:05)
[2016-12-24] MEDS: FLUTICASONE 50MCG/NASAL SPRAY 16GM BOTTLE. NS SCH (09:05)
--- NOTE | 2016-12-24 10:24 | PDOC ---
PROGRESS NOTES Subjective Subjective No new complaints. Objective Objective Vital Signs Date Time Temp Pulse Resp B/P Pulse Ox O2 Delivery O2 Flow Rate FiO2 12/24/16 09:03 70 134/68 12/24/16 08:13 97.8 14 96 Room Air 97.8 12/23/16 09:00 2.0 Intake and Output 12/24/16 07:00 Intake Total 1995 ml Output Total 1520 ml Balance 475 ml Intake Oral 880 ml IV Total 1115 ml Output Urine Total 1500 ml Drainage Total 20 ml Physical Exam Physical Exam She is sitting up in bedside chair and somewhat sleepy but can easily be awakened and she moves all 4 extremities to commands but continues with communication,cognitive problems,ataxia and impulsivity.She is voiding and oral intake is low. Plan Plan of Care To rehab unit when medically stable. Comment Review of Relevant I have reviewed the following items jessica (where applicable) has been applied. Labs Laboratory Tests Test 12/22/16 22:00 12/23/16 04:30 12/23/16 04:35 12/23/16 12:34 Glucose (Fingerstick) 136mg/dL (70-99) 125mg/dL (70-99) White Blood Count 12.2x10^3/uL (4.0-11.0) Red Blood Count 3.97x10^6/uL (3.50-5.40) Hemoglobin 11.4g/dL (12.0-15.5) Hematocrit 34.2% (36.0-47.0) Mean Corpuscular Volume 86fL (79-100) Mean Corpuscular Hemoglobin 29pg (25-35) Mean Corpuscular Hemoglobin Concent 33g/dL (31-37) Red Cell Distribution Width 14.3% (11.5-14.5) Platelet Count 321x10^3/uL (140-400) Neutrophils (%) (Auto) 75% (31-73) Lymphocytes (%) (Auto) 17% (24-48) Monocytes (%) (Auto) 7% (0-9) Eosinophils (%) (Auto) 1% (0-3) Basophils (%) (Auto) 1% (0-3) Neutrophils # (Auto) 9.1x10^3uL (1.8-7.7) Lymphocytes # (Auto) 2.1x10^3/uL (1.0-4.8) Monocytes # (Auto) 0.8x10^3/uL (0.0-1.1) Eosinophils # (Auto) 0.1x10^3/uL (0.0-0.7) Basophils # (Auto) 0.1x10^3/uL (0.0-0.2) Sodium Level 141mmol/L (136-145) Potassium Level 3.2mmol/L (3.5-5.1) Chloride Level 105mmol/L (98-107) Carbon Dioxide Level 28mmol/L (21-32) Anion Gap 8 (6-14) Blood Urea Nitrogen 8mg/dL (7-20) Creatinine 0.7mg/dL (0.6-1.0) Estimated GFR (Cockcroft-Gault) 83.5 Glucose Level 119mg/dL (70-99) Calcium Level 8.5mg/dL (8.5-10.1) Magnesium Level 1.9mg/dL (1.8-2.4) Test 12/23/16 16:51 12/24/16 04:22 12/24/16 08:41 Glucose (Fingerstick) 171mg/dL (70-99) 152mg/dL (70-99) White Blood Count 13.5x10^3/uL (4.0-11.0) Red Blood Count 4.05x10^6/uL (3.50-5.40) Hemoglobin 11.4g/dL (12.0-15.5) Hematocrit 34.6% (36.0-47.0) Mean Corpuscular Volume 85fL (79-100) Mean Corpuscular Hemoglobin 28pg (25-35) Mean Corpuscular Hemoglobin Concent 33g/dL (31-37) Red Cell Distribution Width 14.1% (11.5-14.5) Platelet Count 324x10^3/uL (140-400) Neutrophils (%) (Auto) 79% (31-73) Lymphocytes (%) (Auto) 12% (24-48) Monocytes (%) (Auto) 8% (0-9) Eosinophils (%) (Auto) 1% (0-3) Basophils (%) (Auto) 1% (0-3) Neutrophils # (Auto) 10.7x10^3uL (1.8-7.7) Lymphocytes # (Auto) 1.6x10^3/uL (1.0-4.8) Monocytes # (Auto) 1.0x10^3/uL (0.0-1.1) Eosinophils # (Auto) 0.1x10^3/uL (0.0-0.7) Basophils # (Auto) 0.1x10^3/uL (0.0-0.2) Sodium Level 141mmol/L (136-145) Potassium Level 3.5mmol/L (3.5-5.1) Chloride Level 104mmol/L (98-107) Carbon Dioxide Level 30mmol/L (21-32) Anion Gap 7 (6-14) Blood Urea Nitrogen 7mg/dL (7-20) Creatinine 0.7mg/dL (0.6-1.0) Estimated GFR (Cockcroft-Gault) 83.5 Glucose Level 141mg/dL (70-99) Calcium Level 9.3mg/dL (8.5-10.1) Laboratory Tests Test 12/23/16 12:34 12/23/16 16:51 12/24/16 04:22 12/24/16 08:41 Glucose (Fingerstick) 125mg/dL (70-99) 171mg/dL (70-99) 152mg/dL (70-99) White Blood Count 13.5x10^3/uL (4.0-11.0) Red Blood Count 4.05x10^6/uL (3.50-5.40) Hemoglobin 11.4g/dL (12.0-15.5) Hematocrit 34.6% (36.0-47.0) Mean Corpuscular Volume 85fL (79-100) Mean Corpuscular Hemoglobin 28pg (25-35) Mean Corpuscular Hemoglobin Concent 33g/dL (31-37) Red Cell Distribution Width 14.1% (11.5-14.5) Platelet Count 324x10^3/uL (140-400) Neutrophils (%) (Auto) 79% (31-73) Lymphocytes (%) (Auto) 12% (24-48) Monocytes (%) (Auto) 8% (0-9) Eosinophils (%) (Auto) 1% (0-3) Basophils (%) (Auto) 1% (0-3) Neutrophils # (Auto) 10.7x10^3uL (1.8-7.7) Lymphocytes # (Auto) 1.6x10^3/uL (1.0-4.8) Monocytes # (Auto) 1.0x10^3/uL (0.0-1.1) Eosinophils # (Auto) 0.1x10^3/uL (0.0-0.7) Basophils # (Auto) 0.1x10^3/uL (0.0-0.2) Sodium Level 141mmol/L (136-145) Potassium Level 3.5mmol/L (3.5-5.1) Chloride Level 104mmol/L (98-107) Carbon Dioxide Level 30mmol/L (21-32) Anion Gap 7 (6-14) Blood Urea Nitrogen 7mg/dL (7-20) Creatinine 0.7mg/dL (0.6-1.0) Estimated GFR (Cockcroft-Gault) 83.5 Glucose Level 141mg/dL (70-99) Calcium Level 9.3mg/dL (8.5-10.1) Medications Current Medications Ondansetron HCl (Zofran) 4 mg PRN Q6HRS PRN IV Nausea; Start 12/21/16 at 07:00 ; Stop 12/22/16 at 06:59; Status DC Fentanyl Citrate (Fentanyl 2ml Vial) 25 mcg PRN Q5MIN PRN IV MILD PAIN; Start 12/21/16 at 07:00; Stop 12/22/16 at 06:59; Status DC Fentanyl Citrate (Fentanyl 2ml Vial) 50 mcg PRN Q5MIN PRN IV MODERATE PAIN; Start 12/21/16 at 07:00; Stop 12/22/16 at 06:59; Status DC Morphine Sulfate 1 mg 1 mg PRN Q10MIN PRN IV SEVERE PAIN; Start 12/21/16 at 07: 00; Stop 12/22/16 at 06:59; Status DC Lactated Ringer's (Iv Lactated Ringers) 1,000 ml @ 0 mls/hr Q0M IV ; Start at 07:00; Stop 12/21/16 at 18:59; Status DC Lidocaine HCl 2 ml 1X PRN PRN ID IV START; Start 12/21/16 at 07:00; Stop at 06:59; Status DC Hydromorphone HCl (Dilaudid) 0.5 mg PRN Q10MIN PRN IV SEVERE PAIN, Second choice; Start 12/21/16 at 07:00; Stop 12/22/16 at 06:59; Status DC Prochlorperazine Edisylate 5 mg 5 mg PACU PRN PRN IV NAUSEA; Start 12/21/16 at 07:00; Stop 12/22/16 at 06:59; Status DC Bacitracin/Sodium Chloride (Bacitracin/Iv Sodium Chloride 0.9% 1000ml Bag) 1, 000 ml @ 1,000 mls/hr 1X PERIOP ONCE IRR ; Start 12/20/16 at 16:26; Stop 12/20 at 17:25; Status DC Acetaminophen/ Hydrocodone Bitart (Lortab 5/325) 1 tab PRN Q4HRS PRN PO moderate - severe pain Last administered on 12/23/16 12:51; Start 12/20/16 at 16:45 Levothyroxine Sodium (Synthroid) 112 mcg DAILY07 PO ; Start 12/20/16 at 17:00; Stop 12/22/16 at 09:58; Status DC Losartan Potassium (Cozaar) 50 mg DAILY PO Last administered on 12/24/16 09:03 ; Start 12/20/16 at 17:00 Metoprolol Tartrate (Lopressor) 25 mg BID PO Last administered on 12/24/16 09: 03; Start 12/20/16 at 21:00 Nortriptyline HCl (Pamelor) 25 mg DAILY PO Last administered on 12/24/16 09:02 ; Start 12/20/16 at 17:00 Non-Formulary Medication 1 tab BID PO ; Start 12/20/16 at 21:00; Status UNV Duloxetine HCl (Cymbalta) 60 mg DAILY PO Last administered on 12/24/16 09:03; Start 12/21/16 at 09:00 Fluticasone Propionate (Flonase) 2 spray DAILY NS Last administered on 09:05; Start 12/21/16 at 09:00 Pantoprazole Sodium (Protonix) 40 mg DAILYAC PO Last administered on 12/24/16 09:03; Start 12/21/16 at 07:30 Atorvastatin Calcium (Lipitor) 80 mg QHS PO Last administered on 12/23/16 21: 09; Start 12/20/16 at 21:00 Linagliptin (Tradjenta) 5 mg DAILY PO Last administered on 12/24/16 09:03; Start 12/21/16 at 09:00 Oxybutynin Chloride (Ditropan) 5 mg [id number] PO Last administered on 12/24/16 09 :03; Start 12/20/16 at 21:00 Vitamin D (Vitamin D3) 2,000 unit DAILY PO Last administered on 12/24/16 09:03 ; Start 12/21/16 at 09:00 Al Hydroxide/Mg Hydroxide (Mylanta Plus Xs) 30 ml PRN Q3HRS PRN PO HEARTBURN / GAS; Start 12/20/16 at 16:45 Calcium Carbonate/ Glycine (Tums) 500 mg PRN Q3HRS PRN PO INDIGESTION; Start at 16:45 Diphenhydramine HCl (Benadryl) 25 mg PRN Q6HRS PRN PO ITCHING Last administered on 12/23/16 21:09; Start 12/20/16 at 16:45 Diphenhydramine HCl (Benadryl) 25 mg PRN Q6HRS PRN IV ITCHING; Start 12/20/16 at 16:45 Sodium Chloride (Normal Saline Flush) 3 ml QSHIFT PRN IV AFTER MEDS AND BLOOD DRAWS; Start 12/20/16 at 16:45 Dextrose 12.5 gm PRN Q15MIN PRN IV SEE COMMENTS; Start 12/20/16 at 16:45 Docusate Sodium (Colace) 100 mg BID PO Last administered on 12/23/16 08:41; Start 12/20/16 at 21:00; Stop 12/23/16 at 14:06; Status DC Magnesium Hydroxide 2400 mg 2,400 mg PRN Q12HR PRN PO CONSTIPATION; Start 12/20 at 16:45 Cefazolin Sodium 2 gm/Sodium Chloride 100 ml @ 200 mls/hr 1X PREOP IV ; Start 12/21/16 at 08:00; Status UNV Cefazolin Sodium/ Dextrose (Ancef 2gm Premix) 50 ml @ 100 mls/hr 1X ONCE IV Last administered on 12/21/16 09:48; Start 12/21/16 at 06:00; Stop 12/21/16 at 06:29; Status DC Acetaminophen 500 mg 500 mg PRN Q6HRS PRN PO MILD PAIN / TEMP; Start 12/20/16 at 17:45 Sodium Chloride 1,000 ml @ 75 mls/hr [id number] IV Last administered on 21:47; Start 12/20/16 at 17:45; Stop 12/23/16 at 10:53; Status DC Bacitracin/Sodium Chloride (Bacitracin/Iv Sodium Chloride 0.9% 1000ml Bag) 1, 000 ml @ 1,000 mls/hr 1X PERIOP ONCE IRR Last administered on 12/21/16 10:09 ; Start 12/21/16 at 06:00; Stop 12/21/16 at 06:59; Status DC Ciprofloxacin (Cipro) 500 mg BID PO Last administered on 12/20/16 20:32; Start 12/20/16 at 21:00; Stop 12/22/16 at 09:58; Status DC Cellulose 1 each STK-MED ONCE .ROUTE ; Start 12/21/16 at 08:41; Stop 12/21/16 at 08:42; Status DC Bupivacaine HCl/ Epinephrine Bitart (Sensorcain-Mpf Epi 0.5%-[id number]) 30 ml STK -MED ONCE .ROUTE Last administered on 12/21/16 10:09; Start 12/21/16 at 08:41 ; Stop 12/21/16 at 08:42; Status DC Gelatin (Gelfoam Size 100) 1 each STK-MED ONCE .ROUTE Last administered on 10:09; Start 12/21/16 at 08:41; Stop 12/21/16 at 08:42; Status DC Thrombin 20,000 unit STK-MED ONCE TP Last administered on 12/21/16 10:09; Start 12/21/16 at 08:41; Stop 12/21/16 at 08:42; Status DC Fentanyl Citrate (Fentanyl 2ml Vial) 100 mcg STK-MED ONCE .ROUTE ; Start at 08:51; Stop 12/21/16 at 08:52; Status DC Rocuronium [place] (Zemuron) 50 mg STK-MED ONCE .ROUTE ; Start 12/21/16 at 08:51 ; Stop 12/21/16 at 08:52; Status DC Lidocaine HCl 100 mg 100 mg STK-MED ONCE .ROUTE ; Start 12/21/16 at 08:51; Stop 12/21/16 at 08:52; Status DC Propofol (Diprivan) 20 ml @ As Directed STK-MED ONCE IV ; Start 12/21/16 at 08: 51; Stop 12/21/16 at 08:52; Status DC Dexamethasone Sodium Phosphate (Decadron) 20 mg STK-MED ONCE .ROUTE ; Start at 08:52; Stop 12/21/16 at 08:53; Status DC Ondansetron HCl (Zofran) 4 mg STK-MED ONCE .ROUTE ; Start 12/21/16 at 08:52; Stop 12/21/16 at 08:53; Status DC Glycopyrrolate (Robinul) 1 mg STK-MED ONCE .ROUTE ; Start 12/21/16 at 10:41; Stop 12/21/16 at 10:42; Status DC Neostigmine Methylsulfate 5 mg STK-MED ONCE .ROUTE ; Start 12/21/16 at 10:41; Stop 12/21/16 at 10:42; Status DC Desflurane 60 ml 60 ml STK-MED ONCE IH ; Start 12/21/16 at 11:19; Stop 12/21/16 at 11:20; Status DC Nicardipine HCl/ Sodium Chloride (Cardene/Iv Sodium Chloride 0.9% 250ml) 270 ml @ 0 mls/hr CONT PRN IV SEE I/O RECORD Last administered on 12/22/16t 11:07; Start 12/21/16 at 11:30; Stop 12/23/16 at 10:53; Status DC Lorazepam (Ativan) 2 mg STK-MED ONCE .ROUTE ; Start 12/21/16 at 11:34; Stop at 11:35; Status DC Lorazepam 2 mg 2 mg 1X ONCE IV Last administered on 12/21/16t 12:07; Start at 12:15; Stop 12/21/16 at 12:16; Status DC Levetiracetam/ Sodium Chloride (Keppra/Iv Sodium Chloride 0.9% 100ml) 105 ml @ 400 mls/hr Q12HR IV Last administered on 12/24/16 09:04; Start 12/21/16 at 12: 30 Levetiracetam (Keppra) 500 mg BID PO ; Start 12/21/16 at 21:00; Status Cancel Lorazepam (Ativan) 2 mg PRN Q4HRS PRN IV ANXIETY / AGITATION Last administered on 12/24/16 01:22; Start 12/21/16 at 12:15 Midazolam HCl (Versed) 1 mg 1X ONCE IV Last administered on 12/21/16 12:30; Start 12/21/16 at 12:30; Stop 12/21/16 at 12:31; Status DC Midazolam HCl (Versed) 5 mg STK-MED ONCE .ROUTE ; Start 12/21/16 at 12:32; Stop 12/21/16 at 12:33; Status DC Midazolam HCl 2 mg 2 mg 1X ONCE IV ; Start 12/21/16 at 14:00; Stop 12/21/16 at 14:01; Status DC Magnesium Sulfate/ Dextrose 50 ml @ 25 mls/hr 1X ONCE IV Last administered on 12/21/16 15:12; Start 12/21/16 at 14:00; Stop 12/21/16 at 15:59; Status DC Ciprofloxacin Lactate 200 ml @ 200 mls/hr Q12HR IV Last administered on 09:04; Start 12/22/16 at 10:30 Levothyroxine Sodium/Sodium Chloride (Synthroid/Iv Sodium Chloride 0.9% 50ml) 5 ml @ 100 mls/hr DAILY IVP Last administered on 12/24/16 09:05; Start 12/22/16 at 10:30 Morphine Sulfate 1 mg PRN Q2HR PRN IV PAIN SEVERE; Start 12/22/16 at 10:00 Cefazolin Sodium/ Dextrose (Ancef 2gm Premix) 2 gm STK-MED ONCE IV ; Start 12/21 at 10:00; Stop 12/23/16 at 08:07; Status DC Midazolam HCl (Versed) 5 mg STK-MED ONCE .ROUTE ; Start 12/21/16 at 12:30; Stop 12/23/16 at 08:30; Status DC Potassium Chloride (Klor-Con) 40 meq 1X ONCE PO Last administered on 12:52; Start 12/23/16 at 11:30; Stop 12/23/16 at 11:31; Status DC Docusate Sodium (Colace) 100 mg BID PO Last administered on 12/24/16 09:03; Start 12/23/16 at 21:00 Active Scripts Active Ciprofloxacin Hcl 500 Mg Tablet 1 Tab PO BID Hydrocodone-Apap 5-325 (Hydrocodone Bit/Acetaminophen) 1 Each Tablet 1 Tab PO PRN Q4HRS PRN Reported Citracal + D Er Tablet (Calcium Carb & Cit/Vitamin D3) 1 Each Tablet.er 1 Each PO Nasonex (Mometasone Furoate) 17 Gm [place].pump 17 Gm NS PRN Losartan Potassium 25 Mg Tablet 50 Mg PO Fish Oil ([place]-3 Fatty Acids) 300 Mg Capsule 300 Mg PO DAILY Cymbalta (Duloxetine Hcl) 60 Mg Capsule.dr 60 Mg PO DAILY Crestor (Rosuvastatin Calcium) 40 Mg Tablet 40 Mg PO HS Levothyroxine Sodium 112 Mcg Tablet 112 Mcg PO DAILY Aciphex (Rabeprazole Sodium) 20 Mg Tablet.dr 20 Mg PO DAILY Vesicare (Solifenacin Succinate) 5 Mg Tablet 10 Mg PO DAILY Januvia (Sitagliptin Phosphate) 100 Mg Tablet 100 Mg PO DAILY Metoprolol Tartrate 25 Mg Tablet 25 Mg PO BID Aspirin 325 Mg Tablet 325 Mg PO DAILY [Vit D3] 2,000 Units DAILY Nortriptyline Hcl 25 Mg Capsule 25 Mg PO DAILY Vitals/I & O Vital Sign - Last 24 Hours 12/23/16 12/23/16 12/23/16 12/23/16 11:00 12:00 12:00 12:51 Temp 98.7 98.7 Pulse 77 70 Resp 18 18 18 B/P 148/82 165/85 Pulse Ox 96 96 96 O2 Delivery Room Air Room Air Room Air Room Air 12/23/16 12/23/16 12/23/16 12/23/16 13:00 13:51 15:00 19:00 Temp 99.2 98.3 99.2 98.3 Pulse 74 78 72 Resp 20 20 20 16 B/P 152/80 137/78 152/77 Pulse Ox 94 95 95 97 O2 Delivery Room Air Room Air Room Air Room Air 12/23/16 12/23/16 12/23/16 12/24/16 20:00 21:09 23:00 03:00 Temp 98.3 98.6 98.3 98.6 Pulse 71 73 70 Resp 15 14 B/P 152/77 114/87 127/56 Pulse Ox 96 97 O2 Delivery Room Air Room Air Room Air 12/24/16 12/24/16 12/24/16 12/24/16 07:00 08:13 09:03 09:03 Temp 97.8 97.8 97.8 97.8 Pulse 70 70 70 70 Resp 14 14 B/P 134/68 134/68 134/68 134/68 Pulse Ox 96 96 O2 Delivery Room Air Room Air Intake and Output 12/23/16 12/23/16 12/24/16 15:00 23:00 07:00 Intake Total 1470 ml 100 ml 425 ml Output Total 775 ml 20 ml 725 ml Balance 695 ml 80 ml -300 ml TAMERA DELUNA MD Dec 24, 2016 10:24
--- NOTE | 2016-12-24 11:45 | PDOC ---
PROGRESS NOTES Chief Complaint Chief Complaint Subdural hematoma, s/p lily hole (12/21/16) HTN Recent craniotomy with evacuation of hematoma Headaches in the background of recent craniotomy Leukocytosis, likely reactive Hypokalemia History of Present Illness History of Present Illness No acute events overnight. Patient is sleeping comfortably. Her reports she has been more sleepy today but was able to eat breakfast earlier. She awakens to questions and is moving all extremities. Her and her are agreeable to acute rehab at [facility]. X-rays of her left wrist revealed demineralization and degenerative changes, a possible ligamentous injury between scaphoid and lunate. We will plan on splinting her wrist. Vitals Vitals Vital Signs Date Time Temp Pulse Resp B/P Pulse Ox O2 Delivery O2 Flow Rate FiO2 12/24/16 09:03 70 134/68 12/24/16 08:13 97.8 14 96 Room Air 97.8 12/23/16 09:00 2.0 Physical Exam General: Alert, Cooperative, No acute distress, Other (sitting in chair) Heart: Regular rate, No murmurs Lungs: Clear, Other (no wheezing) Abdomen: Soft, No tenderness Extremities: No cyanosis, No edema, Normal pulses, Other (left wrist pain with movement ) Skin: No rashes, Other (Cranial dressing is intact ) Labs LABS Laboratory Tests Test 12/23/16 12:34 12/23/16 16:51 12/24/16 04:22 12/24/16 08:41 Glucose (Fingerstick) 125mg/dL (70-99) 171mg/dL (70-99) 152mg/dL (70-99) White Blood Count 13.5x10^3/uL (4.0-11.0) Red Blood Count 4.05x10^6/uL (3.50-5.40) Hemoglobin 11.4g/dL (12.0-15.5) Hematocrit 34.6% (36.0-47.0) Mean Corpuscular Volume 85fL (79-100) Mean Corpuscular Hemoglobin 28pg (25-35) Mean Corpuscular Hemoglobin Concent 33g/dL (31-37) Red Cell Distribution Width 14.1% (11.5-14.5) Platelet Count 324x10^3/uL (140-400) Neutrophils (%) (Auto) 79% (31-73) Lymphocytes (%) (Auto) 12% (24-48) Monocytes (%) (Auto) 8% (0-9) Eosinophils (%) (Auto) 1% (0-3) Basophils (%) (Auto) 1% (0-3) Neutrophils # (Auto) 10.7x10^3uL (1.8-7.7) Lymphocytes # (Auto) 1.6x10^3/uL (1.0-4.8) Monocytes # (Auto) 1.0x10^3/uL (0.0-1.1) Eosinophils # (Auto) 0.1x10^3/uL (0.0-0.7) Basophils # (Auto) 0.1x10^3/uL (0.0-0.2) Sodium Level 141mmol/L (136-145) Potassium Level 3.5mmol/L (3.5-5.1) Chloride Level 104mmol/L (98-107) Carbon Dioxide Level 30mmol/L (21-32) Anion Gap 7 (6-14) Blood Urea Nitrogen 7mg/dL (7-20) Creatinine 0.7mg/dL (0.6-1.0) Estimated GFR (Cockcroft-Gault) 83.5 Glucose Level 141mg/dL (70-99) Calcium Level 9.3mg/dL (8.5-10.1) Review of Systems Review of Systems More sleepy today. Denies chest pain and shortness of breath. Denies fever and chills. Assessment and Plan Assessmemt and Plan Problems Medical Problems: (1) Urinary tract infection Status: Acute ASSESSMENT: Subdural hematoma, s/p lily hole (12/21/16) HTN, malignant vs emergency Recent craniotomy with evacuation of hematoma Headaches in the background of recent craniotomy Leukocytosis, likely reactive Hypokalemia Left wrist pain PLAN: Neurosurgery, neurology and cardiology are following, their recommendations are appreciated Patient has been accepted at [facility] for acute rehab, she and her are agreeable Continue pain management Continue frequent neurological checks Continue PT/OT Monitor daily labs Plan discussed with RN, case management, patient and bedside family. Probable discharge to rehab today Problems: Comment Review of Relevant I have reviewed the following items jessica (where applicable) has been applied. Labs Laboratory Tests Test 12/22/16 22:00 12/23/16 04:30 12/23/16 04:35 12/23/16 12:34 Glucose (Fingerstick) 136mg/dL (70-99) 125mg/dL (70-99) White Blood Count 12.2x10^3/uL (4.0-11.0) Red Blood Count 3.97x10^6/uL (3.50-5.40) Hemoglobin 11.4g/dL (12.0-15.5) Hematocrit 34.2% (36.0-47.0) Mean Corpuscular Volume 86fL (79-100) Mean Corpuscular Hemoglobin 29pg (25-35) Mean Corpuscular Hemoglobin Concent 33g/dL (31-37) Red Cell Distribution Width 14.3% (11.5-14.5) Platelet Count 321x10^3/uL (140-400) Neutrophils (%) (Auto) 75% (31-73) Lymphocytes (%) (Auto) 17% (24-48) Monocytes (%) (Auto) 7% (0-9) Eosinophils (%) (Auto) 1% (0-3) Basophils (%) (Auto) 1% (0-3) Neutrophils # (Auto) 9.1x10^3uL (1.8-7.7) Lymphocytes # (Auto) 2.1x10^3/uL (1.0-4.8) Monocytes # (Auto) 0.8x10^3/uL (0.0-1.1) Eosinophils # (Auto) 0.1x10^3/uL (0.0-0.7) Basophils # (Auto) 0.1x10^3/uL (0.0-0.2) Sodium Level 141mmol/L (136-145) Potassium Level 3.2mmol/L (3.5-5.1) Chloride Level 105mmol/L (98-107) Carbon Dioxide Level 28mmol/L (21-32) Anion Gap 8 (6-14) Blood Urea Nitrogen 8mg/dL (7-20) Creatinine 0.7mg/dL (0.6-1.0) Estimated GFR (Cockcroft-Gault) 83.5 Glucose Level 119mg/dL (70-99) Calcium Level 8.5mg/dL (8.5-10.1) Magnesium Level 1.9mg/dL (1.8-2.4) Test 12/23/16 16:51 12/24/16 04:22 12/24/16 08:41 Glucose (Fingerstick) 171mg/dL (70-99) 152mg/dL (70-99) White Blood Count 13.5x10^3/uL (4.0-11.0) Red Blood Count 4.05x10^6/uL (3.50-5.40) Hemoglobin 11.4g/dL (12.0-15.5) Hematocrit 34.6% (36.0-47.0) Mean Corpuscular Volume 85fL (79-100) Mean Corpuscular Hemoglobin 28pg (25-35) Mean Corpuscular Hemoglobin Concent 33g/dL (31-37) Red Cell Distribution Width 14.1% (11.5-14.5) Platelet Count 324x10^3/uL (140-400) Neutrophils (%) (Auto) 79% (31-73) Lymphocytes (%) (Auto) 12% (24-48) Monocytes (%) (Auto) 8% (0-9) Eosinophils (%) (Auto) 1% (0-3) Basophils (%) (Auto) 1% (0-3) Neutrophils # (Auto) 10.7x10^3uL (1.8-7.7) Lymphocytes # (Auto) 1.6x10^3/uL (1.0-4.8) Monocytes # (Auto) 1.0x10^3/uL (0.0-1.1) Eosinophils # (Auto) 0.1x10^3/uL (0.0-0.7) Basophils # (Auto) 0.1x10^3/uL (0.0-0.2) Sodium Level 141mmol/L (136-145) Potassium Level 3.5mmol/L (3.5-5.1) Chloride Level 104mmol/L (98-107) Carbon Dioxide Level 30mmol/L (21-32) Anion Gap 7 (6-14) Blood Urea Nitrogen 7mg/dL (7-20) Creatinine 0.7mg/dL (0.6-1.0) Estimated GFR (Cockcroft-Gault) 83.5 Glucose Level 141mg/dL (70-99) Calcium Level 9.3mg/dL (8.5-10.1) Laboratory Tests Test 12/23/16 12:34 12/23/16 16:51 12/24/16 04:22 12/24/16 08:41 Glucose (Fingerstick) 125mg/dL (70-99) 171mg/dL (70-99) 152mg/dL (70-99) White Blood Count 13.5x10^3/uL (4.0-11.0) Red Blood Count 4.05x10^6/uL (3.50-5.40) Hemoglobin 11.4g/dL (12.0-15.5) Hematocrit 34.6% (36.0-47.0) Mean Corpuscular Volume 85fL (79-100) Mean Corpuscular Hemoglobin 28pg (25-35) Mean Corpuscular Hemoglobin Concent 33g/dL (31-37) Red Cell Distribution Width 14.1% (11.5-14.5) Platelet Count 324x10^3/uL (140-400) Neutrophils (%) (Auto) 79% (31-73) Lymphocytes (%) (Auto) 12% (24-48) Monocytes (%) (Auto) 8% (0-9) Eosinophils (%) (Auto) 1% (0-3) Basophils (%) (Auto) 1% (0-3) Neutrophils # (Auto) 10.7x10^3uL (1.8-7.7) Lymphocytes # (Auto) 1.6x10^3/uL (1.0-4.8) Monocytes # (Auto) 1.0x10^3/uL (0.0-1.1) Eosinophils # (Auto) 0.1x10^3/uL (0.0-0.7) Basophils # (Auto) 0.1x10^3/uL (0.0-0.2) Sodium Level 141mmol/L (136-145) Potassium Level 3.5mmol/L (3.5-5.1) Chloride Level 104mmol/L (98-107) Carbon Dioxide Level 30mmol/L (21-32) Anion Gap 7 (6-14) Blood Urea Nitrogen 7mg/dL (7-20) Creatinine 0.7mg/dL (0.6-1.0) Estimated GFR (Cockcroft-Gault) 83.5 Glucose Level 141mg/dL (70-99) Calcium Level 9.3mg/dL (8.5-10.1) Medications Current Medications Ondansetron HCl (Zofran) 4 mg PRN Q6HRS PRN IV Nausea; Start 12/21/16 at 07:00 ; Stop 12/22/16 at 06:59; Status DC Fentanyl Citrate (Fentanyl 2ml Vial) 25 mcg PRN Q5MIN PRN IV MILD PAIN; Start 12/21/16 at 07:00; Stop 12/22/16 at 06:59; Status DC Fentanyl Citrate (Fentanyl 2ml Vial) 50 mcg PRN Q5MIN PRN IV MODERATE PAIN; Start 12/21/16 at 07:00; Stop 12/22/16 at 06:59; Status DC Morphine Sulfate 1 mg 1 mg PRN Q10MIN PRN IV SEVERE PAIN; Start 12/21/16 at 07: 00; Stop 12/22/16 at 06:59; Status DC Lactated Ringer's (Iv Lactated Ringers) 1,000 ml @ 0 mls/hr Q0M IV ; Start at 07:00; Stop 12/21/16 at 18:59; Status DC Lidocaine HCl 2 ml 1X PRN PRN ID IV START; Start 12/21/16 at 07:00; Stop at 06:59; Status DC Hydromorphone HCl (Dilaudid) 0.5 mg PRN Q10MIN PRN IV SEVERE PAIN, Second choice; Start 12/21/16 at 07:00; Stop 12/22/16 at 06:59; Status DC Prochlorperazine Edisylate 5 mg 5 mg PACU PRN PRN IV NAUSEA; Start 12/21/16 at 07:00; Stop 12/22/16 at 06:59; Status DC Bacitracin/Sodium Chloride (Bacitracin/Iv Sodium Chloride 0.9% 1000ml Bag) 1, 000 ml @ 1,000 mls/hr 1X PERIOP ONCE IRR ; Start 12/20/16 at 16:26; Stop 12/20 at 17:25; Status DC Acetaminophen/ Hydrocodone Bitart (Lortab 5/325) 1 tab PRN Q4HRS PRN PO moderate - severe pain Last administered on 12/23/16 12:51; Start 12/20/16 at 16:45 Levothyroxine Sodium (Synthroid) 112 mcg DAILY07 PO ; Start 12/20/16 at 17:00; Stop 12/22/16 at 09:58; Status DC Losartan Potassium (Cozaar) 50 mg DAILY PO Last administered on 12/24/16 09:03 ; Start 12/20/16 at 17:00 Metoprolol Tartrate (Lopressor) 25 mg BID PO Last administered on 12/24/16 09: 03; Start 12/20/16 at 21:00 Nortriptyline HCl (Pamelor) 25 mg DAILY PO Last administered on 12/24/16 09:02 ; Start 12/20/16 at 17:00 Non-Formulary Medication 1 tab BID PO ; Start 12/20/16 at 21:00; Status UNV Duloxetine HCl (Cymbalta) 60 mg DAILY PO Last administered on 12/24/16 09:03; Start 12/21/16 at 09:00 Fluticasone Propionate (Flonase) 2 spray DAILY NS Last administered on 09:05; Start 12/21/16 at 09:00 Pantoprazole Sodium (Protonix) 40 mg DAILYAC PO Last administered on 12/24/16 09:03; Start 12/21/16 at 07:30 Atorvastatin Calcium (Lipitor) 80 mg QHS PO Last administered on 12/23/16 21: 09; Start 12/20/16 at 21:00 Linagliptin (Tradjenta) 5 mg DAILY PO Last administered on 12/24/16 09:03; Start 12/21/16 at 09:00 Oxybutynin Chloride (Ditropan) 5 mg [id number] PO Last administered on 12/24/16 09 :03; Start 12/20/16 at 21:00 Vitamin D (Vitamin D3) 2,000 unit DAILY PO Last administered on 12/24/16 09:03 ; Start 12/21/16 at 09:00 Al Hydroxide/Mg Hydroxide (Mylanta Plus Xs) 30 ml PRN Q3HRS PRN PO HEARTBURN / GAS; Start 12/20/16 at 16:45 Calcium Carbonate/ Glycine (Tums) 500 mg PRN Q3HRS PRN PO INDIGESTION; Start at 16:45 Diphenhydramine HCl (Benadryl) 25 mg PRN Q6HRS PRN PO ITCHING Last administered on 12/23/16 21:09; Start 12/20/16 at 16:45 Diphenhydramine HCl (Benadryl) 25 mg PRN Q6HRS PRN IV ITCHING; Start 12/20/16 at 16:45 Sodium Chloride (Normal Saline Flush) 3 ml QSHIFT PRN IV AFTER MEDS AND BLOOD DRAWS; Start 12/20/16 at 16:45 Dextrose 12.5 gm PRN Q15MIN PRN IV SEE COMMENTS; Start 12/20/16 at 16:45 Docusate Sodium (Colace) 100 mg BID PO Last administered on 12/23/16 08:41; Start 12/20/16 at 21:00; Stop 12/23/16 at 14:06; Status DC Magnesium Hydroxide 2400 mg 2,400 mg PRN Q12HR PRN PO CONSTIPATION; Start 12/20 at 16:45 Cefazolin Sodium 2 gm/Sodium Chloride 100 ml @ 200 mls/hr 1X PREOP IV ; Start 12/21/16 at 08:00; Status UNV Cefazolin Sodium/ Dextrose (Ancef 2gm Premix) 50 ml @ 100 mls/hr 1X ONCE IV Last administered on 12/21/16 09:48; Start 12/21/16 at 06:00; Stop 12/21/16 at 06:29; Status DC Acetaminophen 500 mg 500 mg PRN Q6HRS PRN PO MILD PAIN / TEMP; Start 12/20/16 at 17:45 Sodium Chloride 1,000 ml @ 75 mls/hr [id number] IV Last administered on 21:47; Start 12/20/16 at 17:45; Stop 12/23/16 at 10:53; Status DC Bacitracin/Sodium Chloride (Bacitracin/Iv Sodium Chloride 0.9% 1000ml Bag) 1, 000 ml @ 1,000 mls/hr 1X PERIOP ONCE IRR Last administered on 12/21/16 10:09 ; Start 12/21/16 at 06:00; Stop 12/21/16 at 06:59; Status DC Ciprofloxacin (Cipro) 500 mg BID PO Last administered on 12/20/16 20:32; Start 12/20/16 at 21:00; Stop 12/22/16 at 09:58; Status DC Cellulose 1 each STK-MED ONCE .ROUTE ; Start 12/21/16 at 08:41; Stop 12/21/16 at 08:42; Status DC Bupivacaine HCl/ Epinephrine Bitart (Sensorcain-Mpf Epi 0.5%-[id number]) 30 ml STK -MED ONCE .ROUTE Last administered on 12/21/16 10:09; Start 12/21/16 at 08:41 ; Stop 12/21/16 at 08:42; Status DC Gelatin (Gelfoam Size 100) 1 each STK-MED ONCE .ROUTE Last administered on 10:09; Start 12/21/16 at 08:41; Stop 12/21/16 at 08:42; Status DC Thrombin 20,000 unit STK-MED ONCE TP Last administered on 12/21/16 10:09; Start 12/21/16 at 08:41; Stop 12/21/16 at 08:42; Status DC Fentanyl Citrate (Fentanyl 2ml Vial) 100 mcg STK-MED ONCE .ROUTE ; Start at 08:51; Stop 12/21/16 at 08:52; Status DC Rocuronium [place] (Zemuron) 50 mg STK-MED ONCE .ROUTE ; Start 12/21/16 at 08:51 ; Stop 12/21/16 at 08:52; Status DC Lidocaine HCl 100 mg 100 mg STK-MED ONCE .ROUTE ; Start 12/21/16 at 08:51; Stop 12/21/16 at 08:52; Status DC Propofol (Diprivan) 20 ml @ As Directed STK-MED ONCE IV ; Start 12/21/16 at 08: 51; Stop 12/21/16 at 08:52; Status DC Dexamethasone Sodium Phosphate (Decadron) 20 mg STK-MED ONCE .ROUTE ; Start at 08:52; Stop 12/21/16 at 08:53; Status DC Ondansetron HCl (Zofran) 4 mg STK-MED ONCE .ROUTE ; Start 12/21/16 at 08:52; Stop 12/21/16 at 08:53; Status DC Glycopyrrolate (Robinul) 1 mg STK-MED ONCE .ROUTE ; Start 12/21/16 at 10:41; Stop 12/21/16 at 10:42; Status DC Neostigmine Methylsulfate 5 mg STK-MED ONCE .ROUTE ; Start 12/21/16 at 10:41; Stop 12/21/16 at 10:42; Status DC Desflurane 60 ml 60 ml STK-MED ONCE IH ; Start 12/21/16 at 11:19; Stop 12/21/16 at 11:20; Status DC Nicardipine HCl/ Sodium Chloride (Cardene/Iv Sodium Chloride 0.9% 250ml) 270 ml @ 0 mls/hr CONT PRN IV SEE I/O RECORD Last administered on 12/22/16 11:07; Start 12/21/16 at 11:30; Stop 12/23/16 at 10:53; Status DC Lorazepam (Ativan) 2 mg STK-MED ONCE .ROUTE ; Start 12/21/16 at 11:34; Stop at 11:35; Status DC Lorazepam 2 mg 2 mg 1X ONCE IV Last administered on 12/21/16 12:07; Start at 12:15; Stop 12/21/16 at 12:16; Status DC Levetiracetam/ Sodium Chloride (Keppra/Iv Sodium Chloride 0.9% 100ml) 105 ml @ 400 mls/hr Q12HR IV Last administered on 12/24/16 09:04; Start 12/21/16 at 12: 30 Levetiracetam (Keppra) 500 mg BID PO ; Start 12/21/16 at 21:00; Status Cancel Lorazepam (Ativan) 2 mg PRN Q4HRS PRN IV ANXIETY / AGITATION Last administered on 12/24/16 01:22; Start 12/21/16 at 12:15 Midazolam HCl (Versed) 1 mg 1X ONCE IV Last administered on 12/21/16 12:30; Start 12/21/16 at 12:30; Stop 12/21/16 at 12:31; Status DC Midazolam HCl (Versed) 5 mg STK-MED ONCE .ROUTE ; Start 12/21/16 at 12:32; Stop 12/21/16 at 12:33; Status DC Midazolam HCl 2 mg 2 mg 1X ONCE IV ; Start 12/21/16 at 14:00; Stop 12/21/16 at 14:01; Status DC Magnesium Sulfate/ Dextrose 50 ml @ 25 mls/hr 1X ONCE IV Last administered on 12/21/16 15:12; Start 12/21/16 at 14:00; Stop 12/21/16 at 15:59; Status DC Ciprofloxacin Lactate 200 ml @ 200 mls/hr Q12HR IV Last administered on 09:04; Start 12/22/16 at 10:30 Levothyroxine Sodium/Sodium Chloride (Synthroid/Iv Sodium Chloride 0.9% 50ml) 5 ml @ 100 mls/hr DAILY IVP Last administered on 12/24/16 09:05; Start 12/22/16 at 10:30 Morphine Sulfate 1 mg PRN Q2HR PRN IV PAIN SEVERE; Start 12/22/16 at 10:00 Cefazolin Sodium/ Dextrose (Ancef 2gm Premix) 2 gm STK-MED ONCE IV ; Start 12/21 at 10:00; Stop 12/23/16 at 08:07; Status DC Midazolam HCl (Versed) 5 mg STK-MED ONCE .ROUTE ; Start 12/21/16 at 12:30; Stop 12/23/16 at 08:30; Status DC Potassium Chloride (Klor-Con) 40 meq 1X ONCE PO Last administered on 12:52; Start 12/23/16 at 11:30; Stop 12/23/16 at 11:31; Status DC Docusate Sodium (Colace) 100 mg BID PO Last administered on 12/24/16 09:03; Start 12/23/16 at 21:00 Active Scripts Active Ciprofloxacin Hcl 500 Mg Tablet 1 Tab PO BID Hydrocodone-Apap 5-325 (Hydrocodone Bit/Acetaminophen) 1 Each Tablet 1 Tab PO PRN Q4HRS PRN Reported Citracal + D Er Tablet (Calcium Carb & Cit/Vitamin D3) 1 Each Tablet.er 1 Each PO Nasonex (Mometasone Furoate) 17 Gm [place].pump 17 Gm NS PRN Losartan Potassium 25 Mg Tablet 50 Mg PO Fish Oil ([place]-3 Fatty Acids) 300 Mg Capsule 300 Mg PO DAILY Cymbalta (Duloxetine Hcl) 60 Mg Capsule.dr 60 Mg PO DAILY Crestor (Rosuvastatin Calcium) 40 Mg Tablet 40 Mg PO HS Levothyroxine Sodium 112 Mcg Tablet 112 Mcg PO DAILY Aciphex (Rabeprazole Sodium) 20 Mg Tablet.dr 20 Mg PO DAILY Vesicare (Solifenacin Succinate) 5 Mg Tablet 10 Mg PO DAILY Januvia (Sitagliptin Phosphate) 100 Mg Tablet 100 Mg PO DAILY Metoprolol Tartrate 25 Mg Tablet 25 Mg PO BID Aspirin 325 Mg Tablet 325 Mg PO DAILY [Vit D3] 2,000 Units DAILY Nortriptyline Hcl 25 Mg Capsule 25 Mg PO DAILY Vitals/I & O Vital Sign - Last 24 Hours 12/23/16 12/23/16 12/23/16 12/23/16 12:00 12:00 12:51 13:00 Temp 98.7 98.7 Pulse 70 74 Resp 18 18 20 B/P 165/85 152/80 Pulse Ox 96 96 94 O2 Delivery Room Air Room Air Room Air Room Air 12/23/16 12/23/16 12/23/16 12/23/16 13:51 15:00 19:00 20:00 Temp 99.2 98.3 99.2 98.3 Pulse 78 72 Resp 20 20 16 B/P 137/78 152/77 Pulse Ox 95 95 97 O2 Delivery Room Air Room Air Room Air Room Air 12/23/16 12/23/16 12/24/16 12/24/16 21:09 23:00 03:00 07:00 Temp 98.3 98.6 97.8 98.3 98.6 97.8 Pulse 71 73 70 70 Resp 15 14 14 B/P 152/77 114/87 127/56 134/68 Pulse Ox 96 97 96 O2 Delivery Room Air Room Air Room Air 12/24/16 12/24/16 12/24/16 08:13 09:03 09:03 Temp 97.8 97.8 Pulse 70 70 70 Resp 14 B/P 134/68 134/68 134/68 Pulse Ox 96 O2 Delivery Room Air Intake and Output 12/23/16 12/23/16 12/24/16 15:00 23:00 07:00 Intake Total 1470 ml 100 ml 425 ml Output Total 775 ml 20 ml 725 ml Balance 695 ml 80 ml -300 ml AFSHAN [place] III DO Dec 24, 2016 11:45
[2016-12-24 11:52] VITALS: BP 156/71
--- NOTE | 2016-12-24 14:31 | PDOC ---
PROGRESS NOTES Subjective Subjective awake, alert mild headache Objective Objective Vital Signs Date Time Temp Pulse Resp B/P Pulse Ox O2 Delivery O2 Flow Rate FiO2 12/24/16 11:52 97.9 71 22 156/71 Room Air 97.9 12/24/16 08:13 96 12/23/16 09:00 2.0 Intake and Output 12/24/16 07:00 Intake Total 1995 ml Output Total 1520 ml Balance 475 ml Intake Oral 880 ml IV Total 1115 ml Output Urine Total 1500 ml Drainage Total 20 ml Physical Exam General: Alert, Cooperative, No acute distress MUSCULOSKELETAL: Other (CESPEDES) Neuro: Normal speech Skin: Other (Incision dry, connie intact) Assessment Assessment Problems Medical Problems: (1) Urinary tract infection Status: Acute Plan Plan of Care plan to transfer to [facility] f/u scan in a week Comment Review of Relevant I have reviewed the following items jessica (where applicable) has been applied. Labs Laboratory Tests Test 12/22/16 22:00 12/23/16 04:30 12/23/16 04:35 12/23/16 12:34 Glucose (Fingerstick) 136mg/dL (70-99) 125mg/dL (70-99) White Blood Count 12.2x10^3/uL (4.0-11.0) Red Blood Count 3.97x10^6/uL (3.50-5.40) Hemoglobin 11.4g/dL (12.0-15.5) Hematocrit 34.2% (36.0-47.0) Mean Corpuscular Volume 86fL (79-100) Mean Corpuscular Hemoglobin 29pg (25-35) Mean Corpuscular Hemoglobin Concent 33g/dL (31-37) Red Cell Distribution Width 14.3% (11.5-14.5) Platelet Count 321x10^3/uL (140-400) Neutrophils (%) (Auto) 75% (31-73) Lymphocytes (%) (Auto) 17% (24-48) Monocytes (%) (Auto) 7% (0-9) Eosinophils (%) (Auto) 1% (0-3) Basophils (%) (Auto) 1% (0-3) Neutrophils # (Auto) 9.1x10^3uL (1.8-7.7) Lymphocytes # (Auto) 2.1x10^3/uL (1.0-4.8) Monocytes # (Auto) 0.8x10^3/uL (0.0-1.1) Eosinophils # (Auto) 0.1x10^3/uL (0.0-0.7) Basophils # (Auto) 0.1x10^3/uL (0.0-0.2) Sodium Level 141mmol/L (136-145) Potassium Level 3.2mmol/L (3.5-5.1) Chloride Level 105mmol/L (98-107) Carbon Dioxide Level 28mmol/L (21-32) Anion Gap 8 (6-14) Blood Urea Nitrogen 8mg/dL (7-20) Creatinine 0.7mg/dL (0.6-1.0) Estimated GFR (Cockcroft-Gault) 83.5 Glucose Level 119mg/dL (70-99) Calcium Level 8.5mg/dL (8.5-10.1) Magnesium Level 1.9mg/dL (1.8-2.4) Test 12/23/16 16:51 12/24/16 04:22 12/24/16 08:41 Glucose (Fingerstick) 171mg/dL (70-99) 152mg/dL (70-99) White Blood Count 13.5x10^3/uL (4.0-11.0) Red Blood Count 4.05x10^6/uL (3.50-5.40) Hemoglobin 11.4g/dL (12.0-15.5) Hematocrit 34.6% (36.0-47.0) Mean Corpuscular Volume 85fL (79-100) Mean Corpuscular Hemoglobin 28pg (25-35) Mean Corpuscular Hemoglobin Concent 33g/dL (31-37) Red Cell Distribution Width 14.1% (11.5-14.5) Platelet Count 324x10^3/uL (140-400) Neutrophils (%) (Auto) 79% (31-73) Lymphocytes (%) (Auto) 12% (24-48) Monocytes (%) (Auto) 8% (0-9) Eosinophils (%) (Auto) 1% (0-3) Basophils (%) (Auto) 1% (0-3) Neutrophils # (Auto) 10.7x10^3uL (1.8-7.7) Lymphocytes # (Auto) 1.6x10^3/uL (1.0-4.8) Monocytes # (Auto) 1.0x10^3/uL (0.0-1.1) Eosinophils # (Auto) 0.1x10^3/uL (0.0-0.7) Basophils # (Auto) 0.1x10^3/uL (0.0-0.2) Sodium Level 141mmol/L (136-145) Potassium Level 3.5mmol/L (3.5-5.1) Chloride Level 104mmol/L (98-107) Carbon Dioxide Level 30mmol/L (21-32) Anion Gap 7 (6-14) Blood Urea Nitrogen 7mg/dL (7-20) Creatinine 0.7mg/dL (0.6-1.0) Estimated GFR (Cockcroft-Gault) 83.5 Glucose Level 141mg/dL (70-99) Calcium Level 9.3mg/dL (8.5-10.1) Laboratory Tests Test 12/23/16 16:51 12/24/16 04:22 12/24/16 08:41 Glucose (Fingerstick) 171mg/dL (70-99) 152mg/dL (70-99) White Blood Count 13.5x10^3/uL (4.0-11.0) Red Blood Count 4.05x10^6/uL (3.50-5.40) Hemoglobin 11.4g/dL (12.0-15.5) Hematocrit 34.6% (36.0-47.0) Mean Corpuscular Volume 85fL (79-100) Mean Corpuscular Hemoglobin 28pg (25-35) Mean Corpuscular Hemoglobin Concent 33g/dL (31-37) Red Cell Distribution Width 14.1% (11.5-14.5) Platelet Count 324x10^3/uL (140-400) Neutrophils (%) (Auto) 79% (31-73) Lymphocytes (%) (Auto) 12% (24-48) Monocytes (%) (Auto) 8% (0-9) Eosinophils (%) (Auto) 1% (0-3) Basophils (%) (Auto) 1% (0-3) Neutrophils # (Auto) 10.7x10^3uL (1.8-7.7) Lymphocytes # (Auto) 1.6x10^3/uL (1.0-4.8) Monocytes # (Auto) 1.0x10^3/uL (0.0-1.1) Eosinophils # (Auto) 0.1x10^3/uL (0.0-0.7) Basophils # (Auto) 0.1x10^3/uL (0.0-0.2) Sodium Level 141mmol/L (136-145) Potassium Level 3.5mmol/L (3.5-5.1) Chloride Level 104mmol/L (98-107) Carbon Dioxide Level 30mmol/L (21-32) Anion Gap 7 (6-14) Blood Urea Nitrogen 7mg/dL (7-20) Creatinine 0.7mg/dL (0.6-1.0) Estimated GFR (Cockcroft-Gault) 83.5 Glucose Level 141mg/dL (70-99) Calcium Level 9.3mg/dL (8.5-10.1) Medications Current Medications Ondansetron HCl (Zofran) 4 mg PRN Q6HRS PRN IV Nausea; Start 12/21/16 at 07:00 ; Stop 12/22/16 at 06:59; Status DC Fentanyl Citrate (Fentanyl 2ml Vial) 25 mcg PRN Q5MIN PRN IV MILD PAIN; Start 12/21/16 at 07:00; Stop 12/22/16 at 06:59; Status DC Fentanyl Citrate (Fentanyl 2ml Vial) 50 mcg PRN Q5MIN PRN IV MODERATE PAIN; Start 12/21/16 at 07:00; Stop 12/22/16 at 06:59; Status DC Morphine Sulfate 1 mg 1 mg PRN Q10MIN PRN IV SEVERE PAIN; Start 12/21/16 at 07: 00; Stop 12/22/16 at 06:59; Status DC Lactated Ringer's (Iv Lactated Ringers) 1,000 ml @ 0 mls/hr Q0M IV ; Start at 07:00; Stop 12/21/16 at 18:59; Status DC Lidocaine HCl 2 ml 1X PRN PRN ID IV START; Start 12/21/16 at 07:00; Stop at 06:59; Status DC Hydromorphone HCl (Dilaudid) 0.5 mg PRN Q10MIN PRN IV SEVERE PAIN, Second choice; Start 12/21/16 at 07:00; Stop 12/22/16 at 06:59; Status DC Prochlorperazine Edisylate 5 mg 5 mg PACU PRN PRN IV NAUSEA; Start 12/21/16 at 07:00; Stop 12/22/16 at 06:59; Status DC Bacitracin/Sodium Chloride (Bacitracin/Iv Sodium Chloride 0.9% 1000ml Bag) 1, 000 ml @ 1,000 mls/hr 1X PERIOP ONCE IRR ; Start 12/20/16 at 16:26; Stop 12/20 at 17:25; Status DC Acetaminophen/ Hydrocodone Bitart (Lortab 5/325) 1 tab PRN Q4HRS PRN PO moderate - severe pain Last administered on 12/23/16 12:51; Start 12/20/16 at 16:45 Levothyroxine Sodium (Synthroid) 112 mcg DAILY07 PO ; Start 12/20/16 at 17:00; Stop 12/22/16 at 09:58; Status DC Losartan Potassium (Cozaar) 50 mg DAILY PO Last administered on 12/24/16 09:03 ; Start 12/20/16 at 17:00 Metoprolol Tartrate (Lopressor) 25 mg BID PO Last administered on 12/24/16 09: 03; Start 12/20/16 at 21:00 Nortriptyline HCl (Pamelor) 25 mg DAILY PO Last administered on 12/24/16 09:02 ; Start 12/20/16 at 17:00 Non-Formulary Medication 1 tab BID PO ; Start 12/20/16 at 21:00; Status UNV Duloxetine HCl (Cymbalta) 60 mg DAILY PO Last administered on 12/24/16 09:03; Start 12/21/16 at 09:00 Fluticasone Propionate (Flonase) 2 spray DAILY NS Last administered on 09:05; Start 12/21/16 at 09:00 Pantoprazole Sodium (Protonix) 40 mg DAILYAC PO Last administered on 12/24/16 09:03; Start 12/21/16 at 07:30 Atorvastatin Calcium (Lipitor) 80 mg QHS PO Last administered on 12/23/16 21: 09; Start 12/20/16 at 21:00 Linagliptin (Tradjenta) 5 mg DAILY PO Last administered on 12/24/16 09:03; Start 12/21/16 at 09:00 Oxybutynin Chloride (Ditropan) 5 mg [id number] PO Last administered on 12/24/16 09 :03; Start 12/20/16 at 21:00 Vitamin D (Vitamin D3) 2,000 unit DAILY PO Last administered on 12/24/16 09:03 ; Start 12/21/16 at 09:00 Al Hydroxide/Mg Hydroxide (Mylanta Plus Xs) 30 ml PRN Q3HRS PRN PO HEARTBURN / GAS; Start 12/20/16 at 16:45 Calcium Carbonate/ Glycine (Tums) 500 mg PRN Q3HRS PRN PO INDIGESTION; Start at 16:45 Diphenhydramine HCl (Benadryl) 25 mg PRN Q6HRS PRN PO ITCHING Last administered on 12/23/16 21:09; Start 12/20/16 at 16:45 Diphenhydramine HCl (Benadryl) 25 mg PRN Q6HRS PRN IV ITCHING; Start 12/20/16 at 16:45 Sodium Chloride (Normal Saline Flush) 3 ml QSHIFT PRN IV AFTER MEDS AND BLOOD DRAWS; Start 12/20/16 at 16:45 Dextrose 12.5 gm PRN Q15MIN PRN IV SEE COMMENTS; Start 12/20/16 at 16:45 Docusate Sodium (Colace) 100 mg BID PO Last administered on 12/23/16 08:41; Start 12/20/16 at 21:00; Stop 12/23/16 at 14:06; Status DC Magnesium Hydroxide 2400 mg 2,400 mg PRN Q12HR PRN PO CONSTIPATION; Start 12/20 at 16:45 Cefazolin Sodium 2 gm/Sodium Chloride 100 ml @ 200 mls/hr 1X PREOP IV ; Start 12/21/16 at 08:00; Status UNV Cefazolin Sodium/ Dextrose (Ancef 2gm Premix) 50 ml @ 100 mls/hr 1X ONCE IV Last administered on 12/21/16 09:48; Start 12/21/16 at 06:00; Stop 12/21/16 at 06:29; Status DC Acetaminophen 500 mg 500 mg PRN Q6HRS PRN PO MILD PAIN / TEMP; Start 12/20/16 at 17:45 Sodium Chloride 1,000 ml @ 75 mls/hr [id number] IV Last administered on 21:47; Start 12/20/16 at 17:45; Stop 12/23/16 at 10:53; Status DC Bacitracin/Sodium Chloride (Bacitracin/Iv Sodium Chloride 0.9% 1000ml Bag) 1, 000 ml @ 1,000 mls/hr 1X PERIOP ONCE IRR Last administered on 12/21/16 10:09 ; Start 12/21/16 at 06:00; Stop 12/21/16 at 06:59; Status DC Ciprofloxacin (Cipro) 500 mg BID PO Last administered on 12/20/16 20:32; Start 12/20/16 at 21:00; Stop 12/22/16 at 09:58; Status DC Cellulose 1 each STK-MED ONCE .ROUTE ; Start 12/21/16 at 08:41; Stop 12/21/16 at 08:42; Status DC Bupivacaine HCl/ Epinephrine Bitart (Sensorcain-Mpf Epi 0.5%-1:[id number]) 30 ml STK -MED ONCE .ROUTE Last administered on 12/21/16 10:09; Start 12/21/16 at 08:41 ; Stop 12/21/16 at 08:42; Status DC Gelatin (Gelfoam Size 100) 1 each STK-MED ONCE .ROUTE Last administered on 10:09; Start 12/21/16 at 08:41; Stop 12/21/16 at 08:42; Status DC Thrombin 20,000 unit STK-MED ONCE TP Last administered on 12/21/16 10:09; Start 12/21/16 at 08:41; Stop 12/21/16 at 08:42; Status DC Fentanyl Citrate (Fentanyl 2ml Vial) 100 mcg STK-MED ONCE .ROUTE ; Start at 08:51; Stop 12/21/16 at 08:52; Status DC Rocuronium [place] (Zemuron) 50 mg STK-MED ONCE .ROUTE ; Start 12/21/16 at 08:51 ; Stop 12/21/16 at 08:52; Status DC Lidocaine HCl 100 mg 100 mg STK-MED ONCE .ROUTE ; Start 12/21/16 at 08:51; Stop 12/21/16 at 08:52; Status DC Propofol (Diprivan) 20 ml @ As Directed STK-MED ONCE IV ; Start 12/21/16 at 08: 51; Stop 12/21/16 at 08:52; Status DC Dexamethasone Sodium Phosphate (Decadron) 20 mg STK-MED ONCE .ROUTE ; Start at 08:52; Stop 12/21/16 at 08:53; Status DC Ondansetron HCl (Zofran) 4 mg STK-MED ONCE .ROUTE ; Start 12/21/16 at 08:52; Stop 12/21/16 at 08:53; Status DC Glycopyrrolate (Robinul) 1 mg STK-MED ONCE .ROUTE ; Start 12/21/16 at 10:41; Stop 12/21/16 at 10:42; Status DC Neostigmine Methylsulfate 5 mg STK-MED ONCE .ROUTE ; Start 12/21/16 at 10:41; Stop 12/21/16 at 10:42; Status DC Desflurane 60 ml 60 ml STK-MED ONCE IH ; Start 12/21/16 at 11:19; Stop 12/21/16 at 11:20; Status DC Nicardipine HCl/ Sodium Chloride (Cardene/Iv Sodium Chloride 0.9% 250ml) 270 ml @ 0 mls/hr CONT PRN IV SEE I/O RECORD Last administered on 12/22/16 11:07; Start 12/21/16 at 11:30; Stop 12/23/16 at 10:53; Status DC Lorazepam (Ativan) 2 mg STK-MED ONCE .ROUTE ; Start 12/21/16 at 11:34; Stop at 11:35; Status DC Lorazepam 2 mg 2 mg 1X ONCE IV Last administered on 12/21/16 12:07; Start at 12:15; Stop 12/21/16 at 12:16; Status DC Levetiracetam/ Sodium Chloride (Keppra/Iv Sodium Chloride 0.9% 100ml) 105 ml @ 400 mls/hr Q12HR IV Last administered on 12/24/16 09:04; Start 12/21/16 at 12: 30 Levetiracetam (Keppra) 500 mg BID PO ; Start 12/21/16 at 21:00; Status Cancel Lorazepam (Ativan) 2 mg PRN Q4HRS PRN IV ANXIETY / AGITATION Last administered on 12/24/16 01:22; Start 12/21/16 at 12:15 Midazolam HCl (Versed) 1 mg 1X ONCE IV Last administered on 12/21/16 12:30; Start 12/21/16 at 12:30; Stop 12/21/16 at 12:31; Status DC Midazolam HCl (Versed) 5 mg STK-MED ONCE .ROUTE ; Start 12/21/16 at 12:32; Stop 12/21/16 at 12:33; Status DC Midazolam HCl 2 mg 2 mg 1X ONCE IV ; Start 12/21/16 at 14:00; Stop 12/21/16 at 14:01; Status DC Magnesium Sulfate/ Dextrose 50 ml @ 25 mls/hr 1X ONCE IV Last administered on 12/21/16 15:12; Start 12/21/16 at 14:00; Stop 12/21/16 at 15:59; Status DC Ciprofloxacin Lactate 200 ml @ 200 mls/hr Q12HR IV Last administered on 09:04; Start 12/22/16 at 10:30 Levothyroxine Sodium/Sodium Chloride (Synthroid/Iv Sodium Chloride 0.9% 50ml) 5 ml @ 100 mls/hr DAILY IVP Last administered on 12/24/16 09:05; Start 12/22/16 at 10:30 Morphine Sulfate 1 mg PRN Q2HR PRN IV PAIN SEVERE; Start 12/22/16 at 10:00 Cefazolin Sodium/ Dextrose (Ancef 2gm Premix) 2 gm STK-MED ONCE IV ; Start 12/21 at 10:00; Stop 12/23/16 at 08:07; Status DC Midazolam HCl (Versed) 5 mg STK-MED ONCE .ROUTE ; Start 12/21/16 at 12:30; Stop 12/23/16 at 08:30; Status DC Potassium Chloride (Klor-Con) 40 meq 1X ONCE PO Last administered on 12:52; Start 12/23/16 at 11:30; Stop 12/23/16 at 11:31; Status DC Docusate Sodium (Colace) 100 mg BID PO Last administered on 12/24/16 09:03; Start 12/23/16 at 21:00 Active Scripts Active Ciprofloxacin Hcl 500 Mg Tablet 1 Tab PO BID Hydrocodone-Apap 5-325 (Hydrocodone Bit/Acetaminophen) 1 Each Tablet 1 Tab PO PRN Q4HRS PRN Reported Citracal + D Er Tablet (Calcium Carb & Cit/Vitamin D3) 1 Each Tablet.er 1 Each PO Nasonex (Mometasone Furoate) 17 Gm [place].pump 17 Gm NS PRN Losartan Potassium 25 Mg Tablet 50 Mg PO Fish Oil ([place]-3 Fatty Acids) 300 Mg Capsule 300 Mg PO DAILY Cymbalta (Duloxetine Hcl) 60 Mg Capsule.dr 60 Mg PO DAILY Crestor (Rosuvastatin Calcium) 40 Mg Tablet 40 Mg PO HS Levothyroxine Sodium 112 Mcg Tablet 112 Mcg PO DAILY Aciphex (Rabeprazole Sodium) 20 Mg Tablet.dr 20 Mg PO DAILY Vesicare (Solifenacin Succinate) 5 Mg Tablet 10 Mg PO DAILY Januvia (Sitagliptin Phosphate) 100 Mg Tablet 100 Mg PO DAILY Metoprolol Tartrate 25 Mg Tablet 25 Mg PO BID Aspirin 325 Mg Tablet 325 Mg PO DAILY [Vit D3] 2,000 Units DAILY Nortriptyline Hcl 25 Mg Capsule 25 Mg PO DAILY Vitals/I & O Vital Sign - Last 24 Hours 12/23/16 12/23/16 12/23/16 12/23/16 15:00 19:00 20:00 21:09 Temp 99.2 98.3 99.2 98.3 Pulse 78 72 71 Resp 20 16 B/P 137/78 152/77 152/77 Pulse Ox 95 97 O2 Delivery Room Air Room Air Room Air 12/23/16 12/24/16 12/24/16 12/24/16 23:00 03:00 07:00 08:13 Temp 98.3 98.6 97.8 97.8 98.3 98.6 97.8 97.8 Pulse 73 70 70 70 Resp 15 14 14 14 B/P 114/87 127/56 134/68 134/68 Pulse Ox 96 97 96 96 O2 Delivery Room Air Room Air Room Air Room Air 12/24/16 12/24/16 12/24/16 09:03 09:03 11:52 Temp 97.9 97.9 Pulse 70 70 71 Resp 22 B/P 134/68 134/68 156/71 O2 Delivery Room Air Intake and Output 12/23/16 12/23/16 12/24/16 15:00 23:00 07:00 Intake Total 1470 ml 100 ml 425 ml Output Total 775 ml 20 ml 725 ml Balance 695 ml 80 ml -300 ml ANJANA BENSON MD Dec 24, 2016 14:30
[2016-12-24 15:09] VITALS: BP 148/79
--- NOTE | 2016-12-30 14:17 | HP ---
ADMIT DATE: 12/20/2016 HISTORY OF PRESENT ILLNESS: The patient is a pleasant 66-year-old woman who in the recent past, was admitted with a large left frontotemporal parietal acute subdural hematoma. At the time of her initial film, there was evidence of some chronic blood within the subdural space. She was on Plavix at that time. She had reported a significant fall 3 weeks prior to that admission. She underwent a craniotomy and evacuation of the subdural hematoma and subsequent skin showed marked improvement and she was discharged to home ____ she developed decreased alertness and change in her behavior and a followup scan was performed, which showed a chronic subdural hematoma with increasing left to right shift. She was readmitted today to make arrangements for evacuation of her subdural hematoma. PAST MEDICAL HISTORY: Hypertension, cardiac stents, GERD, diabetes, hypothyroidism and CAD. PAST SURGICAL HISTORY: Total knee replacement, hysterectomy, multiple lumbar surgeries, evacuation of subdural hematoma as mentioned above. ALLERGIES: ERYTHROMYCIN. CURRENT MEDICATIONS: Listed on the MRAD and reviewed. FAMILY HISTORY: Cancer, hypertension. SOCIAL HISTORY: , does not smoke or drink alcohol. PHYSICAL EXAMINATION: GENERAL: Alert, awake, confused, follow commands. HEAD: Incision healing well with connie intact and dry. MUSCULOSKELETAL: Normal range of motion of the upper and lower extremities. EXTREMITIES: No clubbing, cyanosis or edema. NEUROLOGIC: Normal strength in the upper and lower extremities. Sensory is intact to light touch in the upper and lower extremities. IMAGING DATA: I reviewed a CT scan of the head performed today, which did show chronic subdural hematoma with increasing left to right shift. ASSESSMENT PLAN: She has developed a chronic subdural hematoma with increasing left to right shift. She will need evacuation of this. I discussed this with her and her . They understand and would like to proceed. We are making those arrangements. ANJANA BENSON MD DR: MARY KATE/jak JOB#: [id number] / [id number]
--- NOTE | 2017-01-01 21:09 | DS ---
DATE OF DISCHARGE: 12/24/2016 DISCHARGE DIAGNOSIS: Left frontotemporoparietal chronic subdural hematoma. OPERATION PERFORMED: Amber hole evacuation of chronic subdural hematoma with placement of drain. HISTORY OF PRESENT ILLNESS: The patient is a very pleasant 66-year-old who in the past, was admitted with a large left frontotemporoparietal acute subdural hematoma at the time of her initial CT scan. There was evidence of some chronic blood within the subdural space. At that time, she was on Plavix. She also had reportedly significant fall 3 weeks prior to that admission. She underwent craniotomy on the first admission and had an evacuation of her subdural hematoma and a subsequent scan showed marked improvement and she was discharged home. She then at home developed decreasing changes in her behavior as well as decreased alertness and a followup scan was obtained and a chronic subdural hematoma was seen with increasing [id number] shift. She was readmitted to the hospital and we made arrangements for evacuation of her chronic subdural hematoma. HOSPITAL COURSE: She was admitted to the ICU. She is doing very well. She is able to be up and ambulate with physical therapy. Followup imaging shows improvement. She is in good condition at discharge to [facility] for further inpatient rehab. DISCHARGE MEDICATIONS: She will resume her medication listed on the MRAD. DISCHARGE INSTRUCTIONS: She was instructed regarding incision care and activity restrictions. She will follow up in our office in 2 weeks. She understands to call us with any questions or concerns. ANJANA BENSON MD DR: MARY KATE/jak JOB#: [id number] / [id number]
== END 2016-12-24 15:44 | DRG 25 ==
LOC: 1 WEST ICU 16:01
PROVIDERS: ADMIT Neurological Surgery; ATTEND Neurological Surgery
PROC: 00C43ZZ Extirpation of Matter from Intracranial Subdural Space, Percutaneous Approach (ICD-10-PCS; principal; 2016-12-21 09:00)
DX: I62.03 Nontraumatic chronic subdural hemorrhage (principal); G93.41 Metabolic encephalopathy; G93.6 Cerebral edema; E03.9 Hypothyroidism, unspecified; E11.9 Type 2 diabetes mellitus without complications; E66.9 Obesity, unspecified; E78.5 Hyperlipidemia, unspecified; E87.6 Hypokalemia; F32.9 Major depressive disorder, single episode, unspecified; F41.9 Anxiety disorder, unspecified; G43.909 Migraine, unspecified, not intractable, without status migrainosus; I10 Essential (primary) hypertension; I25.10 Atherosclerotic heart disease of native coronary artery without angina pectoris; K21.9 Gastro-esophageal reflux disease without esophagitis; K80.20 Calculus of gallbladder without cholecystitis without obstruction; R56.9 Unspecified convulsions; Z96.653 Presence of artificial knee joint, bilateral; M19.90 Unspecified osteoarthritis, unspecified site; Z88.1 Allergy status to other antibiotic agents; Z98.61 Coronary angioplasty status; Z91.81 History of falling; Z82.49 Family history of ischemic heart disease and other diseases of the circulatory system
CPT/HCPCS: 36415; 70450; 73110; 80048; 82947; 83735; 84100; 85007; 85027; 85610; 87641; C1713; J0690; J0744; J1100; J1953; J2060; J2250; J2405; J2704; J2710; J3010; J3490; J7030; J7050; J7060; Q0163; 97116; 97535

== ENCOUNTER → 2017-01-17 | Outpatient (CLI) | payer MEDICARE, BC, OTHER ==
[2016-12-24 15:09] VITALS: BP 148/79
--- NOTE | 2017-01-17 10:26 | KCIC ---
PROCEDURE CT head without contrast. HISTORY Follow up subdural hematoma. TECHNIQUE Noncontrast CT head was obtained. One or more of the following individualized dose reduction techniques were utilized for this exam: 1. Automated exposure control. 2. Adjustment of the mA and/or kV according to patient's size. 3. Use of iterative reconstruction technique. COMPARISON December 24, 2016. FINDINGS Craniotomy defect overlies the left frontal lobe, similar in appearance. Density deep to the craniotomy defect along its undersurface is probably postsurgical, exerts no mass effect and is relatively smooth. It measures 2 millimeter short axis. There is no new extra-axial fluid collection. Two areas of decreased attenuation deep to the craniotomy site could represent tiny foci of pneumocephalus. Ventricles and sulci are within normal limits for age. There is no acute intraparenchymal hemorrhage. There is no evidence of an acute infarct. There is minimal vascular calcifications. Paranasal sinuses and mastoid air cells are clear. IMPRESSION Postsurgical changes of craniotomy overlying the left frontal lobe. Density underlying the craniotomy site is probably postsurgical, tiny subdural hematoma measuring 2 millimeter short axis cannot be excluded. Electronically signed by: Bernardino New MD (Jan 17, 2017 10:24:06)
== END | disposition home or self-care (01) ==
LOC: KCIC CT 08:42
PROVIDERS: ATTEND Neurological Surgery
DX: I62.00 Nontraumatic subdural hemorrhage, unspecified (principal)
CPT/HCPCS: 70450

== ENCOUNTER → 2017-02-18 | Outpatient (CLI) | payer MEDICARE, BC, OTHER ==
[~2017-02-18] MED LIST changes: -ASPI325T4 PO; +ASPI325T8 PO; -CLOP75TA27 PO; +CLOP75TA57 PO; -HYDR-2666 PO; +HYDR-2758 PO; +RABE20TA18 PO; -RABE20TA5 PO; -SOLI5TAB PO; +SOLI5TAB2 PO
--- NOTE | 2017-02-18 15:33 | RAD ---
Indication follow-up subdural hematoma. Noncontrast imaging through the head was performed and is compared to an examination one month earlier. Changes of a left craniotomy are noted. An acute or unexpected finding involving the cranium is not seen. Visualized paranasal sinuses appear unremarkable. There is mild underlying atrophy. There is no evidence of recurrent subdural or epidural hematoma. No hemorrhage is seen. No acute finding is apparent. Small lucency in the left basal ganglia consistent with a small lacunar infarct is noted and appears similar IMPRESSION: No acute finding seen. No evidence of recurrent or residual left subdural hematoma PQRS Compliance Statement: One or more of the following individualized dose reduction techniques were utilized for this examination: 1. Automated exposure control 2. Adjustment of the mA and/or kV according to patient size 3. Use of iterative reconstruction technique
== END | disposition home or self-care (01) ==
LOC: CT 08:00
PROVIDERS: ATTEND Neurological Surgery
DX: I62.00 Nontraumatic subdural hemorrhage, unspecified (principal)
CPT/HCPCS: 70450